=== PATIENT | male | born 1975 | race Caucasian/White ===

== ENCOUNTER 2021-03-12 21:53 | Emergency (ER) | payer MEDICARE, MEDICAID, OTHER, SELFPAY ==
[2021-03-12 21:56] VITALS: BP 145/89; PULSE 84; RESP 18; TEMP 36.4; O2SAT 95
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
[2021-03-12] MEDS: Cyclobenzaprine HCl 10 MG TABLET PO (23:47)
[2021-03-12] MEDS: NaPROXEN 500 MG TABLET PO (23:48)
== END 2021-03-12 23:58 | disposition home or self-care (01) ==
PROVIDERS: Emergency Provider Emergency Medicine Emergency Medical Services
DX: S06.0X0A Concussion without loss of consciousness, initial encounter (principal); S23.3XXA Sprain of ligaments of thoracic spine, initial encounter; M54.6 Pain in thoracic spine; G44.309 Post-traumatic headache, unspecified, not intractable; V43.62XA Car passenger injured in collision with other type car in traffic accident, initial encounter; Y93.9 Activity, unspecified; Y92.410 Unspecified street and highway as the place of occurrence of the external cause; Y99.9 Unspecified external cause status; Z79.899 Other long term (current) drug therapy
CPT/HCPCS: 99284

== ENCOUNTER 2021-11-21 00:32 | Emergency (ER) | payer MEDICARE, MEDICAID, OTHER, SELFPAY ==
[2021-11-21 01:01] VITALS: BP 107/83; PULSE 84; RESP 18; TEMP 36.6; O2SAT 95; BMI 29.2
[2021-11-21 02:44] VITALS: BP 111/79; PULSE 77; RESP 14; TEMP 36.4; O2SAT 95
--- NOTE | 2021-11-21 02:51 | ED_ITS ---
HPI - Skin/Abscess/Foreign Bdy General Chief complaint: Skin/Abscess/Foreign Body Stated complaint: R Arm Inj Time Seen by Provider: 11/21/21 02:41 Source: patient Mode of arrival: ambulatory Limitations: no limitations History of Present Illness HPI narrative: Patient comes emergency room complaining of an abscess in the bicipital area of her right arm. Patient uses heroin. Patient denies fever or chills. Patient states that the abscess started draining already. Of note, patient states that regardless of the blood work results, he will refuse admission to the hospital. Patient also refuses blood work and IV placement. States patch it up, given some antibiotics and it may go home . Related Data Previous Rx's Medication Instructions Recorded cyclobenzaprine 10 mg tablet 10 mg PO TID PRN #20 tab 03/12/21 naproxen 500 mg tablet (Naprosyn) 500 mg PO BID PRN #20 tab 03/12/21 cephalexin 500 mg capsule 500 mg PO BID 10 Days #20 cap 11/21/21 doxycycline hyclate 100 mg capsule 100 mg PO BID #20 cap 11/21/21 Allergies Allergy/AdvReac Type Severity Reaction Status Date / Time No Known Allergies Allergy Verified 11/21/21 01:01 Review of Systems Review of Systems: Constitutional : No Weight loss, No Fever, No Chills, No Night Sweats, No Fatigue, No Malaise ENT/Mouth : No Hearing loss, No Ear Pain, No Nasal Congestion, No Sinus Pain, No Hoarseness, No sore throat, No Rhinorrhea, No Swallowing Difficulty Eyes: No Eye Pain, No Swelling, No Redness, No Foreign Body, No Discharge, No Vision Changes Cardiovascular : No Chest Pain, No SOB, No Dyspnea on Exertion, No Orthopnea, No Edema, No Palpitations Respiratory : No Cough, No Sputum, No Wheezing, No Smoke Exposure, No Dyspnea Gastrointestinal : No Nausea, No Vomiting, No Diarrhea, No Constipation, No abdominal Pain, No Hematochezia, No Melena Genitourinary : no irregular bleeding, No Dysuria, No Urinary Frequency, No Hematuria, No Urinary Incontinence, No Urgency, No Flank Pain, No Urinary Flow Changes, No Hesitancy Musculoskeletal : Patient complaining of an abscess in the right bicipital area, cellulitis in both hands Skin : No Skin Lesions, No rash Neuro : No Weakness, No Numbness, No Paresthesias, No Loss of Consciousness, No Dizziness, No Headache Psych : No Anxiety/Panic, No Depression, No SI/HI/AH/VH, No Social Issues, Heme/Lymph: No Bruising, No Bleeding,No Lymphadenopathy Endocrine : No Polyuria, No Polydipsia, No Temperature Intolerance PMFSH Past Medical History Medical History (Updated 11/21/21 @ 03:03 by Danielle Betancourt MD) Chronic hip pain Heroin abuse Methadone maintenance therapy patient Surgical History Status post hip surgery Social History Social History Advance Directives: No Physical Exam Vital Signs: Vital Signs: Last Vital Signs Temp 97.6 F 11/21/21 02:44 Pulse 77 11/21/21 02:44 Resp 14 11/21/21 02:44 BP 111/79 11/21/21 02:44 Pulse Ox 95 11/21/21 02:44 BMI result Body Mass Index 29.2 Const: Other: Appearance: Alert. Oriented X3. No acute distress. Eyes: Pupils equal, round and reactive to light. ENT: Pharynx normal. Neck: Normal inspection. Neck supple. No lymph nodes noted. No crepitus CVS: Normal heart rate and rhythm. Pulses normal. Normal S1 and S2 Respiratory: No respiratory distress. Breath sounds normal. No Wheezing. No rales Abdomen: Soft and nontender. No rigidity. No distention. Skin: Skin warm and dry. Both hands on the dorsum are erythematous, multiple needle track vitale, looks like cellulitis, no abscesses. Patient has a large bulging abscess in the right bicipital area, the border of the draining abscess looks necrotic Extremities: No lower extremity edema. No Lacerations. No Rash Neuro: Oriented X 3. No motor deficit. No sensory deficit. Moving all extremities. No slurred speech. CN 2 through 12 grossly intact Psych: calm, cooperative, normal affect Course Course Course Narrative: When I took the Band-Aid off, the abscess in the patient's right biceps started draining copiously. It was expressed as much as possible. I discussed with the patient that a bigger incision may be needed as well as packing. Also, I discussed with the patient that I recommend that he needs to stay for labs, IV antibiotics , CT imaging and admission. However, patient refused all of the above including wound packing. Patient states that he only wants p.o. antibiotics and he will go home. I tried convincing the patient to stay in the emergency room. Patient declined. Patient states wants to leave as soon as possible. Patient aware that this infection can get much worse, cause severe sepsis, significant infection to the rest of the arm, and even cause the rest of the arm to become infected to a point and amputation may be needed. Patient aware, patient still wants to leav e. Patient refused the 1st dose of IV antibiotics, only once p.o. Discharge Plan Discharge Clinical Impression: Abscess of skin or subcutaneous tissue Patient Disposition: Left Against Medical Advice Instructions: Abscess (ED) Prescriptions: New cephalexin 500 mg capsule 500 mg PO BID 10 Days Qty: 20 0RF doxycycline hyclate 100 mg capsule 100 mg PO BID Qty: 20 0RF No Action naproxen [Naprosyn] 500 mg tablet 500 mg PO BID PRN (Reason: pain) Qty: 20 0RF cyclobenzaprine 10 mg tablet 10 mg PO TID PRN (Reason: muscle pain or spasm) Qty: 20 0RF
[2021-11-21] MEDS: Doxycycline Hyclate 100 MG in 0.9 % Sodium Chloride 250 ML 166.67 MG IV (03:35)
[2021-11-21] MEDS: cephALEXin 500 MG CAPSULE PO (03:35)
== END 2021-11-21 05:59 | disposition home or self-care (01) ==
PROVIDERS: Emergency Provider Emergency Medicine
DX: L02.413 Cutaneous abscess of right upper limb (principal); F19.10 Other psychoactive substance abuse, uncomplicated
CPT/HCPCS: 96365; 99283; 99284

== ENCOUNTER 2023-02-04 15:10 | Inpatient (IN) | payer MEDICARE, SELFPAY ==
--- NOTE | ~2023-02-04 | XR_ITS ---
EXAMINATION: XR tibia fibula RT 2V, XR tibia fibula LT 2V CLINICAL INFORMATION: Reason for Exam cellulitis COMPARISON: None. TECHNIQUE: Two views of the bilateral tibia and fibula FINDINGS: No acute fracture or dislocation. Moderate degenerative changes of the right knee with loss of medial compartment joint space and medial compartment osteophytes. Left knee joint spaces are maintained. Bilateral subcutaneous edema. No radiopaque foreign body or soft tissue gas. No cortical erosion, focal osteopenia or periosteal reaction to favor osteomyelitis however MRI would be more sensitive for evaluation. XR/XR tibia fibula LT 2V IMPRESSION: 1. Bilateral subcutaneous edema. No radiopaque foreign body or soft tissue gas. No cortical erosion, focal osteopenia or periosteal reaction to favor osteomyelitis however MRI would be more sensitive for evaluation. 2. Moderate degenerative changes of the right knee.
--- NOTE | ~2023-02-04 | XR_ITS ---
EXAMINATION: XR tibia fibula RT 2V, XR tibia fibula LT 2V CLINICAL INFORMATION: Reason for Exam cellulitis COMPARISON: None. TECHNIQUE: Two views of the bilateral tibia and fibula FINDINGS: No acute fracture or dislocation. Moderate degenerative changes of the right knee with loss of medial compartment joint space and medial compartment osteophytes. Left knee joint spaces are maintained. Bilateral subcutaneous edema. No radiopaque foreign body or soft tissue gas. No cortical erosion, focal osteopenia or periosteal reaction to favor osteomyelitis however MRI would be more sensitive for evaluation. XR/XR tibia fibula RT 2V IMPRESSION: 1. Bilateral subcutaneous edema. No radiopaque foreign body or soft tissue gas. No cortical erosion, focal osteopenia or periosteal reaction to favor osteomyelitis however MRI would be more sensitive for evaluation. 2. Moderate degenerative changes of the right knee.
--- NOTE | ~2023-02-04 | US_ITS ---
EXAMINATION: US VENOUS ULTRASOUND WITH DOPPLER LOWER EXTREMITY, BILATERAL CLINICAL INFORMATION: Swelling COMPARISON: None available. TECHNIQUE: Ultrasound of the deep veins is performed from the hip to the calf with compression sonography and color and pulse Doppler assessment. Spectral analysis with color-flow imaging is performed. FINDINGS: RIGHT: There is normal venous compression and respiratory variation and augmented flow. The visualized common femoral vein, superficial femoral vein, profunda femoral vein, popliteal vein, and the trifurcation region shows no evidence of deep venous thrombosis. Calf veins not well evaluated. There is no significant popliteal fossa cyst. LEFT: There is normal venous compression and respiratory variation and augmented flow. The visualized common femoral vein, superficial femoral vein, profunda femoral vein, popliteal vein, and the trifurcation region shows no evidence of deep venous thrombosis. Calf veins not well evaluated. There is no significant popliteal fossa cyst. If the patient's symptoms persist, followup ultrasound in 5 days 7 days might be of value to exclude proximal propagation from a non-visualized calf vein. US/US venous duplex LE BI IMPRESSION: No DVT demonstrated in the bilateral lower extremity. Limited evaluation of the calf veins.
[2023-02-04 15:15] VITALS: BP 156/76; PULSE 82; RESP 16; TEMP 36.3; BMI 40.6
--- NOTE | 2023-02-04 15:15 | ED.GENADULT ---
HPI - General Adult General Chief complaint: General Medical Stated complaint: Cellulitis both legs Time Seen by Provider: 02/04/23 19:42 Source: patient Mode of arrival: ambulatory Limitations: no limitations History of Present Illness HPI narrative: 47-year-old male history of hep C history of endocarditis and hypertension presents to the emergency department with bilateral lower extremity pain and swelling for the past 2 weeks he was started on antibiotics he completed 10 day course and states he has continued redness and swelling patient sent in for IV antibiotics and admission by his primary care doctor's office. Patient denies fevers chills cough is he is having difficulty ambulating. Onset (ago): week(s) Location: lower extremity Related Data Previous Rx's Medication Instructions Recorded cyclobenzaprine 10 mg tablet 10 mg PO TID PRN muscle pain or 03/12/21 spasm #20 tabs naproxen 500 mg tablet (Naprosyn) 500 mg PO BID PRN pain #20 tabs 03/12/21 cephalexin 500 mg capsule 500 mg PO BID 10 days #20 caps 11/21/21 doxycycline hyclate 100 mg capsule 100 mg PO BID #20 caps 11/21/21 Allergies Allergy/AdvReac Type Severity Reaction Status Date / Time No Known Allergies Allergy Verified 02/04/23 15:12 Review of Systems Review of Systems: Review of systems: General: Patient denies any fever chills recent illness or falls Musculoskeletal: Denies back pain or body aches or other injuries HEENT: denies headache, runny nose, ear pain Respiratory: denies shortness of breath, cough Cardiovascular: no chest pain or palpitations : denies dysuria, frequency Abdomen: no nausea vomiting denies abdominal pain Extremities: Bilateral lower extremity swelling and pain Skin: no diaphoresis Yes all other systems are reviewed and are negative [facility] Past Medical History Medical History (Updated 02/04/23 @ 20:40 by Ambrose Francis DO) Chronic hip pain Heroin abuse Methadone maintenance therapy patient Surgical History Status post hip surgery Social History Social History Advance Directives: No Advance Directives Information Provided: No Physical Exam ED Vital Signs: Vital Signs - 24 hr 02/04/23 15:15 02/04/23 20:00 Temperature 97.4 F 98.2 F Pulse Rate 82 78 Respiratory Rate 16 16 Blood Pressure 156/76 H 148/76 H Pulse Oximetry 98 Oxygen Delivery Method Room Air BMI result Body Mass Index 40.6 Neurological exam: CN II- XII tested. Patient is alert and oriented to person place and time. Patient has no dysphagia or dysarthia, denies good vision in all four [place] no nystagmus on exam, good strength to upper and lower extremities with normal reflexes to brachioradialis, wrist, patella and achilles. Negative romberg, good finger to nose and heel to kinney. General: Well-appearing well-nourished in no signs of distress HEENT: Normocephalic atraumatic Neck: No signs of JVD, no masses no tenderness or lymphadenopathy Cardiovascular: Regular rate and rhythm Respiratory: Clear to auscultation bilaterally Abdomen: Soft nontender no masses Extremities: Normal pedal pulses 1 to 2+ edema bilaterally Skin: Dry warm rash to bilateral lower extremities tightness streaking await the legs bilaterally Back: No tenderness full ROM Course Course Course Narrative: RME- 47-year-old male past medical history significant for hepatitis-C, endocarditis, hypertension presents for evaluation of bilateral lower extremity swelling. Patient reports his symptoms have been worse for last few weeks. He was diagnosed with cellulitis on 01/18 at [facility]. He was prescribed 2 antibiotics that he took for 10 days and reports no improvement of symptoms. Denies any fevers or chills. He was sent from [facility]. Plan for labs including blood cultures Reevaluation(s) Reevaluation #1: [id number] I discussed the case with hospitalist XR's are okay I will admit. Medical Decision Making Medical Decision Making [facility] Narrative: Patient has recurrent cellulitis or any failed outpatient antibiotics the patient completed and Rocephin and admit the patient to the hospital. Differential Diagnosis Differential Diagnoses: The differential diagnosis associated with the presentation includes Cellulitis with lymphangitis recurrent infection for this patient Admission/Observation Consideration of admission/observation: Escalation of care including admission/observation considered Admit the patient for IV antibiotics Lab Data [facility] Lab Attestation statement: I reviewed the patient's lab results. 02/04/23 15:59 02/04/23 15:59 Labs: Lab Results 02/04/23 02/04/23 02/04/23 Range/Units 15:59 15:59 15:59 WBC 8.6 (4.8-10.8) X10*3/uL RBC 3.77 L (4.60-5.80) X10*6/uL Hgb 11.2 L (14.0-18.0) g/dl Hct 34.8 L (42.0-52.0) % MCV 92.3 (80.0-98.0) fL MCH 29.7 (27.0-33.0) pg MCHC 32.2 (31.0-36.0) g/dl RDW 13.7 (11.0-16.0) % Plt Count 174 (160-400) X10*3/uL MPV 10.5 (9.4-12.4) fL Immature Gran % (Auto) 0.8 H (0.0-0.4) % Neut % (Auto) 69.2 (45-73) % Lymph % (Auto) 19.4 L (20-40) % [place] % (Auto) 8.2 (2-11) % Eos % (Auto) 2.2 (0-4) % Baso % (Auto) 0.2 (0-2) % Lymph # (Auto) 1.7 (1.2-4.9) X10*3/uL [place] # (Auto) 0.7 (0.1-1.2) X10*3/uL Eos # (Auto) 0.2 (0.0-0.4) X10*3/uL Baso # (Auto) 0.0 (0.0-0.2) X10*3/uL Abs Immat Gran (auto) 0.07 H (0.00-0.03) X10*3/uL Absolute Neuts (auto) 6.0 (2.0-8.3) x10*3/uL Absolute Nucleated RBC 0.020 H (0.0-0.012) X10*3/uL Nucleated RBC % (auto) 0.2 (0.0-0.2) /100WBC Sodium 141 (135-145) mmol/L Potassium 4.5 (3.3-5.1) mmol/L Chloride 105 (96-108) mmol/L Carbon Dioxide 28 (22-29) mmol/L Anion Gap 13 (12-20) BUN 14 (9-16) mg/dL Creatinine 1.03 (0.5-1.4) mg/dL Estim Creat Clear Calc 96.3 Estimated GFR > 60 Random Glucose 99 (60-115) mg/dL Lactic Acid 1.2 (0.5-2.0) mmol/L Calcium 9.3 (8.4-10.2) mg/dL Total Bilirubin 0.6 (0.0-1.0) mg/dL AST 16 (5-37) U/L ALT 13 (0-40) U/L Alkaline Phosphatase 88 (39-117) U/L Total Protein 7.7 (6.5-8.0) g/dL Albumin 3.7 (3.5-5.0) g/dL Lipase 25 (8-78) U/L Radiology Impression Discussion of test interpretation with radiology: I have reviewed the radiologist's reading. Discharge Plan Discharge Clinical Impression: Bilateral cellulitis of lower leg Patient Disposition: Admitted As Inpatient Prescriptions: No Action naproxen [Naprosyn] 500 mg tablet 500 mg PO BID PRN (Reason: pain) Qty: 20 0RF cyclobenzaprine 10 mg tablet 10 mg PO TID PRN (Reason: muscle pain or spasm) Qty: 20 0RF cephalexin 500 mg capsule 500 mg PO BID 10 Days Qty: 20 0RF doxycycline hyclate 100 mg capsule 100 mg PO BID Qty: 20 0RF
[2023-02-04 16:08] LABS: MANUAL DIFF FLAG NO
[2023-02-04 16:14] LABS: Basophils Percent Auto 0.2 % (0-2); Eosinophils Absolute Auto 0.2 X10*3/uL (0.0-0.4); Eosinophils Percent Auto 2.2 % (0-4); Hematocrit 34.8 % (42.0-52.0); Hemoglobin 11.2 g/dl (14.0-18.0); Imm Gran Abs Auto 0.07 X10*3/uL (0.00-0.03); Imm Gran Pct Auto 0.8 % (0.0-0.4); Lymphocytes Absolute Auto 1.7 X10*3/uL (1.2-4.9); Lymphocytes Percent Auto 19.4 % (20-40); Mean Corpuscular HGB Conc 32.2 g/dl (31.0-36.0); Mean Corpuscular Hemoglobin 29.7 pg (27.0-33.0); Mean Corpuscular Volume 92.3 fL (80.0-98.0); Mean Platelet Volume 10.5 fL (9.4-12.4); Monocytes Absolute Auto 0.7 X10*3/uL (0.1-1.2); Monocytes Percent Auto 8.2 % (2-11); NRBC Pct Auto 0.2 /100WBC (0.0-0.2); Neutrophils Percent Auto 69.2 % (45-73); Platelet Count 174 X10*3/uL (160-400); Red Blood Count 3.77 X10*6/uL (4.60-5.80); Red Cell Distribution Width 13.7 % (11.0-16.0); White Blood Count 8.6 X10*3/uL (4.8-10.8)
[2023-02-04 16:24] LABS: Lactic Acid 1.2 mmol/L (0.5-2.0)
[2023-02-04 16:28] LABS: Alanine Aminotransferase 13 U/L (0-40); Albumin Level 3.7 g/dL (3.5-5.0); Alkaline Phosphatase 88 U/L (39-117); Anion Gap 13 (12-20); Aspartate Amino Transferase 16 U/L (5-37); Bilirubin Total 0.6 mg/dL (0.0-1.0); Blood Urea Nitrogen 14 mg/dL (9-16); Calcium 9.3 mg/dL (8.4-10.2); Carbon Dioxide 28 mmol/L (22-29); Chloride 105 mmol/L (96-108); Creatinine Clr Calc Pharmacy 96.3; Estimated Glomerular Filt Rate > 60; Glucose Random 99 mg/dL (60-115); Lipase 25 U/L (8-78); Potassium 4.5 mmol/L (3.3-5.1); Sodium 141 mmol/L (135-145); Total Protein 7.7 g/dL (6.5-8.0)
[2023-02-04 20:00] VITALS: BP 148/76; PULSE 78; RESP 16; TEMP 36.8; O2SAT 98
[2023-02-04] MEDS: cefTRIAXone sodium 1 GM in 0.9 % Sodium Chloride 50 ML IV (21:21)
--- NOTE | 2023-02-04 21:21 | P.HPHOSP_ITS ---
History of Present Illness Date of Service: 02/04/23 Chief Complaint: Cellulitis This is a 47-year-old male with pertinent history of opioid use disorder on methadone, essential hypertension, mood disorder who presents to the emergency department for evaluation of lower extremity cellulitis. Patient states that a bout 2 weeks ago, he noticed redness of his bilateral lower extremities. He was having associated tenderness to touch and warmth. patient's left leg seemed worse than his right leg. lower extremities were associated with purulent drainage. Patient took p.o. Keflex and doxycycline but his extremities continued to get worse. He does have a history of IV drug use but states that his last IV drug use was 10 months ago. Does have history of cellulitis. He denies fever, chills, chest discomfort, palpitations, shortness of breath, abdominal pain, changes in urinary bowel habits. Review of Systems Constitutional: Constitutional: Reports no additional constitutional complaints Cardiovascular: Cardiovascular: Reports no additional cardiovascular complaints Respiratory: Respiratory: Reports no additional respiratory complaints Gastrointestinal: Gastrointestinal: Reports no additional gastrointestinal complaints Genitourinary: Genitourinary: Reports no additional male genitourinary complaints [facility] Medical History Chronic hip pain Heroin abuse Methadone maintenance therapy patient Pertinent family history: No family history of early CAD Surgical History Status post hip surgery Social History Advance Directives: No Advance Directives Information Provided: No Meds Allergies Allergy/AdvReac Type Severity Reaction Status Date / Time No Known Allergies Allergy Verified 02/04/23 15:12 Active Medications: Current Medications Ceftriaxone Sodium 1 gm/ (Sodium Chloride) 50 mls @ 100 mls/hr IV ONCE ONE Stop: 02/04/23 21:39 Vancomycin HCl (Vancomycin/Ns) 2,000 mg in 500 mls @ 250 mls/hr IV ONCE ONE Stop: 02/04/23 23:29 Pharmacy Consult (Consult Rx Vancomycin Dosing) 1 each MISCELLANE DAILY PRN PRN Reason: Consult order Pharmacy Consult (Consult Rx Perform Med Rec) 1 each MISCELLANE ONCE PRN PRN Reason: Consult order Physical Exam Vital Signs and Narrative: Vital Signs: Last Vital Signs Temp 98.2 F 02/04/23 20:00 Pulse 78 02/04/23 20:00 Resp 16 02/04/23 20:00 BP 148/76 H 02/04/23 20:00 Pulse Ox 98 02/04/23 20:00 O2 Del Method Room Air 02/04/23 20:00 BMI result Body Mass Index 40.6 Middle-aged male lying in bed in no distress Neck supple, no JVD Regular rate and rhythm, S1-S2 heard Regular breath sounds bilaterally, no wheezing or crackles appreciated Abdomen soft nontender, no guarding, no rigidity Patient is awake, alert and oriented to self, place, time and person ; no focal motor deficit skin: Bilateral lower extremity with erythema, warmth and tenderness. Psych: Normal mood Results Labs 02/04/23 15:59 02/04/23 15:59 Labs: Laboratory Results - last 24 hr 02/04/23 02/04/23 02/04/23 15:59 15:59 15:59 MCV 92.3 MCH 29.7 MCHC 32.2 RDW 13.7 Plt Count 174 MPV 10.5 Immature Gran % (Auto) 0.8 H Neut % (Auto) 69.2 Lymph % (Auto) 19.4 L [place] % (Auto) 8.2 Eos % (Auto) 2.2 Baso % (Auto) 0.2 Lymph # (Auto) 1.7 [place] # (Auto) 0.7 Eos # (Auto) 0.2 Baso # (Auto) 0.0 Abs Immat Gran (auto) 0.07 H Absolute Neuts (auto) 6.0 Absolute Nucleated RBC 0.020 H Nucleated RBC % (auto) 0.2 Anion Gap 13 Estim Creat Clear Calc 96.3 Estimated GFR > 60 Random Glucose 99 Lactic Acid 1.2 Calcium 9.3 Total Bilirubin 0.6 AST 16 ALT 13 Alkaline Phosphatase 88 Total Protein 7.7 Albumin 3.7 Lipase 25 Assessment and Plan (1) Bilateral cellulitis of lower leg: Status: Acute Plan This is a 47-year-old male with pertinent history of opioid use disorder on methadone, essential hypertension, mood disorder who presents to the emergency department for evaluation of lower extremity cellulitis. #. Bilateral lower extremity ( left > right) purulent cellulitis. Will admit patient as failed p.o. antibiotics. Initiating empiric IV vancomycin. Monitor for improvement. no sepsis. Bilateral lower extremity x-ray pending. Also ordered venous duplex ultrasound #. Mood disorder. Continue home mood stabilizers #. essential hypertension. Continue home antihypertensives #. opioid use disorder on methadone med rec pending DVT prophylaxis: Lovenox Full code Cardiac diet Admit as inpatient and will require two night minimum hospital stay for IV antibiotics Time Spent With Patient Time: Total time managing care of this patient today ____ minutes. Quality Stroke Does the patient have a stroke diagnosis?: No VTE Prior VTE?: No VTE Risk Level:: Medical - moderate - high VTE Device Contraindication: Treatment Not Indicated VTE Drug Contraindication: N/A - Med Ordered
[2023-02-04 21:24] VITALS: BP 130/77; PULSE 79; RESP 18; TEMP 36.6; O2SAT 98
--- NOTE | 2023-02-04 21:25 | MHC.EDTECH ---
PT VITALS SIGN TAKEN PT WAS GIVEN HAM SANDWICH AND BING ALLIE FOR SNACK ,WARM BLANKET GIVEN .
--- NOTE | 2023-02-04 21:43 | PHA.MEDREC ---
Med rec complete, spoke with patient and compared with pharmacy history. Will need to verify methadone dose with clinic, also pharmacy will attempt to clarify olmesartan dose in AM with pharmacy, patient was on long ago, and was recently restarted, dose unknown. Pharmacy Consult ? Medication Reconciliation Pharmacy has completed the medication reconciliation.
--- NOTE | 2023-02-04 22:01 | MHC.CM.PN ---
IMM 02/04. Lives at [facility] in [place]. Clean x10 months. Methadone maintenance 135 mg/day from [facility]. Had dose today. RN Rebel aware of daily dosage and facility. HX IVDA. A&Ox4. Uses a cane. No services. PCP [facility] DIRECTOR AMBULATORY/ Dr. Aquino.Declines HCP at this time. No Covid Vax. D/C plan: Home without services. Family will transport home. CM following for discharge planning.
[2023-02-04] MEDS: Enoxaparin Sodium 40 MG/0.4 ML SYRINGE SUBCUT (22:34)
[2023-02-04] MEDS: vancomycin/NS 2,000 MG/500 ML PLAST..BAG 250 MG IV (22:35)
--- NOTE | 2023-02-04 22:35 | PC.NURSE ---
pt medicated per Oct, delayed due to pt in u/s.
--- NOTE | 2023-02-04 22:40 | PHA.PROG ---
Admission Date/Time: 02/04/23 Indication: skin Weight in k.4 kg Adjusted body weight in K.48 [place] body weight in K.2 Obesity Dosing Indication % IBW: OBESE! Serum Creatinine - Last 168 Hours 02/04/23 15:59 Creatinine 1.03 Estimated CrCl and GFR - Last 168 Hours 02/04/23 15:59 Estim Creat Clear Calc 96.3 Estimated GFR > 60 Vancomycin Loading Dose: 2000 mg x 1 Current Vancomycin Dosing Regimen: 1000 mg Q12H Vancomycin Monitoring using AUC goal of 400 - 600 range with trough as surrogate marker: 552 mg/L/hr Date and Time for next Vancomycin Level to be drawn: 02/06 @0900 Pharmacist Comments on Vancomycin Plan: Used obese model and used modified model, both suggested to do 1 g Q12H. Will monitor renal function daily. Level after three doses to ensure safety vs efficacy Vancomycin dosing will take advantage of [employer] as a clinical decision support tool that uses Bayesian modeling to calculate individual patient's pharmacokinetic parameters and forecast the patient's drug concentration time course with the target goal AUC 24 range of 400 - 600 mg/L/hr.
[2023-02-04] MEDS: Acetaminophen 325 MG TABLET 650 MG PO (22:42)
--- NOTE | 2023-02-04 22:44 | PC.NURSE ---
pt medicated per MAR for 7/10 BLE pain.
--- NOTE | 2023-02-04 23:09 | PC.NURSE ---
Took over care from IDANIA Luque, pt resting at this time, no sign of distress. Will continue to monitor.
[2023-02-04 23:39] VITALS: BP 117/50; PULSE 75; RESP 16; TEMP 36.5; O2SAT 97
--- NOTE | 2023-02-04 23:39 | MHC.EDTECH ---
rounding done ,vitals sign taken ,pt had 2 puddings and orange juice for snack .
[2023-02-05] VITALS (7 sets, daily range): BP systolic 123–191; BP diastolic 67–95; PULSE 65–79; RESP 16–18; TEMP 36–36.9; O2SAT 94–978
[2023-02-05] MEDS: Albuterol/Iprat 2.5/0.5MG 3 ML AMPUL.NEB INHALE ×2 (00:23→06:42)
--- NOTE | 2023-02-05 01:56 | PC.NURSE ---
Pt arrived from ED at 01:02. BP elevated. Rechecked after patient settled down and was much better. Pt A&OX4, pleasant and cooperative. BLE's red, warm and swollen. IV Vanco infusing. Medicated for pain around 22:45 with relief.
[2023-02-05] MEDS: 0.9 % Sodium Chloride Flush 3 ML SYRINGE IVFLUSH ×4 (03:13→19:52)
--- NOTE | 2023-02-05 05:38 | PC.NURSE ---
Pt awake all night. Recliner brought in for patient comfort. Pt now in bed with HOB elevated. No pain at present time.
[2023-02-05 05:52] LABS: MANUAL DIFF FLAG NO
[2023-02-05 05:54] LABS: Basophils Percent Auto 0.3 % (0-2); Eosinophils Absolute Auto 0.2 X10*3/uL (0.0-0.4); Eosinophils Percent Auto 2.7 % (0-4); Hematocrit 35.1 % (42.0-52.0); Hemoglobin 11.4 g/dl (14.0-18.0); Imm Gran Abs Auto 0.08 X10*3/uL (0.00-0.03); Imm Gran Pct Auto 1.1 % (0.0-0.4); Lymphocytes Absolute Auto 1.6 X10*3/uL (1.2-4.9); Lymphocytes Percent Auto 22.4 % (20-40); Mean Corpuscular HGB Conc 32.5 g/dl (31.0-36.0); Mean Corpuscular Hemoglobin 30.1 pg (27.0-33.0); Mean Corpuscular Volume 92.6 fL (80.0-98.0); Mean Platelet Volume 10.2 fL (9.4-12.4); Monocytes Absolute Auto 0.7 X10*3/uL (0.1-1.2); Monocytes Percent Auto 10.4 % (2-11); Neutrophils Absolute Auto 4.5 x10*3/uL (2.0-8.3); Neutrophils Percent Auto 63.1 % (45-73); Platelet Count 164 X10*3/uL (160-400); Red Blood Count 3.79 X10*6/uL (4.60-5.80); Red Cell Distribution Width 13.9 % (11.0-16.0); White Blood Count 7.1 X10*3/uL (4.8-10.8)
[2023-02-05 06:08] LABS: Anion Gap 13 (12-20); Blood Urea Nitrogen 14 mg/dL (9-16); Calcium 9.2 mg/dL (8.4-10.2); Carbon Dioxide 27 mmol/L (22-29); Chloride 104 mmol/L (96-108); Creatinine Clr Calc Pharmacy 104.4; Creatinine Clr Calc Pharmacy 106.6; Estimated Glomerular Filt Rate > 60; Glucose Random 94 mg/dL (60-115); Potassium 4.2 mmol/L (3.3-5.1); Sodium 140 mmol/L (135-145)
[2023-02-05] MEDS: Divalproex Sodium 500 MG TABLET.DR PO (08:30)
[2023-02-05] MEDS: ARIPiprazole 5 MG TABLET PO (08:30)
[2023-02-05] MEDS: Nicotine 14 MG PATCH.TD24 TRANSDERMA (08:30)
--- NOTE | 2023-02-05 08:58 | P.PNIM_ITS ---
Subjective Subjective Date of Service: 02/05/23 Interval History: f/u on cellulitis of both legs, failed outpatient therapy] interval history: redness is better, feels very anxious Physical Exam Vital Signs: Vital Signs: Last Vital Signs Temp 98.4 F 02/05/23 06:43 Pulse 79 02/05/23 06:43 Resp 18 02/05/23 06:43 BP 146/95 H 02/05/23 06:43 Pulse Ox 98 02/05/23 06:43 O2 Del Method Room Air 02/05/23 06:43 BMI result Body Mass Index 40.6 Const: Other: General: AO X 3, no acute distress Resp: CTA bilateral CVS: S1,S2,RRR GI: +BS, NT , no distention Skin: Neuro: motor grossly intact Psych: appropriate affect Objective Data Active Medications Acetaminophen (Acetaminophen 325 Mg Tablet) 650 mg PO Q6H PRN PRN Reason: Pain, Mild (Pain Scale 1-3) Last Admin: 02/04/23 22:42 Dose: 650 mg Documented By: LIAN Albuterol Sulfate (Albuterol Sulfate 90 Mcg 8 Gm Inhaler) 2 puff INHALE Q6H PRN PRN Reason: wheezing Albuterol/Ipratropium (Albuterol/Iprat 2.5/0.5mg 3 Ml Ampul.Neb) 3 ml INHALE Q4H PRN PRN Reason: Wheezing Last Admin: 02/05/23 06:42 Dose: 3 ml Documented By: ORXY Aripiprazole (Aripiprazole 5 Mg Tablet) 5 mg PO DAILY [facility] Last Admin: 02/05/23 08:30 Dose: 5 mg Documented By: VIRGILIO Divalproex Sodium (Divalproex Sodium 500 Mg Tablet.) 500 mg PO DAILY [facility] Last Admin: 02/05/23 08:30 Dose: 500 mg Documented By: VIRGILIO Enoxaparin Sodium (Enoxaparin Sodium 40 Mg/0.4 Ml Syringe) 40 mg SUBCUT Q24H [facility] Last Admin: 02/04/23 22:34 Dose: 40 mg Documented By: LIAN Vancomycin HCl 1,000 mg/ (Sodium Chloride) 270 mls @ 270 mls/hr IV Q12H [facility] Lorazepam (Lorazepam 1 Mg Tablet) 1 mg PO Q6H PRN PRN Reason: Anxiety Melatonin (Melatonin 3 Mg Tablet) 6 mg PO BEDTIME PRN PRN Reason: Insomnia Non-Formulary Medication (Sofosbuvir-Velpatasvir) 1 tab PO DAILY [facility] Ondansetron HCl (Ondansetron Hcl 4 Mg/2 Ml Vial) 4 mg IVPUSH Q8H PRN PRN Reason: Nausea and Vomiting Pharmacy Consult (Consult Rx Perform Med Rec) 1 each MISCELLANE ONCE PRN PRN Reason: Consult order Pharmacy Consult (Consult Rx Vancomycin Dosing) 1 each MISCELLANE DAILY PRN PRN Reason: Consult order Sodium Chloride (0.9 % Sodium Chloride Flush 3 Ml Syringe) 3 ml IVFLUSH QSHIFT [facility] Last Admin: 02/05/23 08:30 Dose: 3 ml Documented By: VIRGILIO Labs 02/05/23 05:44 02/05/23 05:44 Labs: Laboratory Results - last 24 hr 02/04/23 02/04/23 02/04/23 15:59 15:59 15:59 MCV 92.3 MCH 29.7 MCHC 32.2 RDW 13.7 Plt Count 174 MPV 10.5 Immature Gran % (Auto) 0.8 H Neut % (Auto) 69.2 Lymph % (Auto) 19.4 L [place] % (Auto) 8.2 Eos % (Auto) 2.2 Baso % (Auto) 0.2 Lymph # (Auto) 1.7 [place] # (Auto) 0.7 Eos # (Auto) 0.2 Baso # (Auto) 0.0 Abs Immat Gran (auto) 0.07 H Absolute Neuts (auto) 6.0 Absolute Nucleated RBC 0.020 H Nucleated RBC % (auto) 0.2 Anion Gap 13 Estim Creat Clear Calc 96.3 Estimated GFR > 60 Random Glucose 99 Lactic Acid 1.2 Calcium 9.3 Total Bilirubin 0.6 AST 16 ALT 13 Alkaline Phosphatase 88 Total Protein 7.7 Albumin 3.7 Lipase 25 02/05/23 02/05/23 02/05/23 05:44 05:44 05:44 MCV 92.6 MCH 30.1 MCHC 32.5 RDW 13.9 Plt Count 164 MPV 10.2 Immature Gran % (Auto) 1.1 H Neut % (Auto) 63.1 Lymph % (Auto) 22.4 [place] % (Auto) 10.4 Eos % (Auto) 2.7 Baso % (Auto) 0.3 Lymph # (Auto) 1.6 [place] # (Auto) 0.7 Eos # (Auto) 0.2 Baso # (Auto) 0.0 Abs Immat Gran (auto) 0.08 H Absolute Neuts (auto) 4.5 Absolute Nucleated RBC 0.000 Nucleated RBC % (auto) 0.0 Anion Gap 13 Estim Creat Clear Calc 104.4 106.6 Estimated GFR > 60 > 60 Random Glucose 94 Lactic Acid Calcium 9.2 Total Bilirubin AST ALT Alkaline Phosphatase Total Protein Albumin Lipase Assessment and Plan (1) Bilateral cellulitis of lower leg: Status: Acute (2) Heroin abuse: Status: Acute Plan This is a 47-year-old male with pertinent history of opioid use disorder on methadone, essential hypertension, mood disorder who presents to the emergency department for evaluation of lower extremity cellulitis. #. Bilateral lower extremity ( left > right) purulent cellulitis, failed p.o. antibiotics. xray no bony involvement, no DVT -Continue IV vancomycin started 02/04 , I think there is signficant underlying venous stais causing the erythema and swelling #. Mood disorder. Continue home mood stabilizers #. essential hypertension. Continue home antihypertensives #. opioid use disorder onmethadone, addiction med consult #. Anxiety, ativan PRN DVT prophylaxis: Lovenox Full code Cardiac diet Intp for IV Abx for cellulitis that did not respond to oral Abx Time Spent With Patient Time: Total time managing care of this patient today ____ minutes. Quality Stroke Does the patient have a stroke diagnosis?: No VTE Prior VTE?: No VTE Risk Level:: Medical - moderate - high VTE Device Contraindication: Treatment Not Indicated VTE Drug Contraindication: N/A - Med Ordered
[2023-02-05] MEDS: cloNIDine HCL 0.1 MG TABLET PO (10:36)
[2023-02-05] MEDS: Furosemide 40 MG TABLET PO (10:36)
--- NOTE | 2023-02-05 10:42 | MHC.EDTECH ---
freshened up patients room and bed, patient is independent and cleaned up himself. staff freshened the linen.
[2023-02-05] MEDS: vancomycin HCL 1,000 MG in 0.9 % Sodium Chloride 250 ML 270 MG IV ×2 (11:50→23:14)
[2023-02-05] MEDS: Enoxaparin Sodium 40 MG/0.4 ML SYRINGE SUBCUT (20:45)
[2023-02-06 03:39] VITALS: BP 167/87; PULSE 71; RESP 18; TEMP 36.7; O2SAT 96
[2023-02-06 07:18] LABS: Estimated Glomerular Filt Rate > 60
[2023-02-06 07:41] VITALS: BP 133/73; PULSE 67; RESP 18; TEMP 36; O2SAT 93
--- NOTE | 2023-02-06 08:27 | PM.DS ---
DS: Providers Provider Date of Service: 02/06/23 Date of admission: 02/04/23 21:19 Primary care physician: [facility] DS: Diagnosis Discharge Diagnosis (1) Bilateral cellulitis of lower leg: Status: Acute (2) Heroin abuse: Status: Acute DS: Summary Hospital Course Hospital Course: Chief Complaint: Cellulitis This is a 47-year-old male with pertinent history of opioid use disorder on methadone, essential hypertension, mood disorder who presents to the emergency department for evaluation of lower extremity cellulitis.? Patient states that about 2 weeks ago, he noticed redness of his bilateral lower extremities.? He was having associated tenderness to touch and warmth.? patient's left leg seemed worse than his right leg.? lower extremities were associated with purulent drainage.? Patient took p.o. Keflex and doxycycline but his extremities continued to get worse.? He does have a history of IV drug use but states that his last IV drug use was 10 months ago.? Does have history of cellulitis.? He denies fever, chills, chest discomfort, palpitations, shortness of breath, abdominal pain, changes in urinary bowel habits. Hospital course: Patient presented with bilateral leg swelling and some redness and had been treated for cellulitis on outpatient basis with Keflex he had no fever, normal WBCs the appearance of his liquid more consistent with mostly chronic venous insufficiency with the possibility of cellulitis not excluded. He was admitted and treated with IV vancomycin for over 24 hours and will not be transitioned to oral doxycycline for 7 days. I am advising that he follow-up with the vascular surgeon or a vein specialist on outpatient basis a referral to be made by his primary care physician. He is continued on methadone for chronic opiate dependency. Time Spent with Patient Time attestation: Total time managing care of this patient today ____ minutes. Discharge coordination time: Greater than 30 minutes Quality: Safe Use of Opioids Does Pt have an Active Cancer Diagnosis on the Problem List?: No Quality: Stroke Does the patient have a stroke diagnosis?: No Physical Exam Vital Signs: Vital Signs: Last Vital Signs Temp 96.8 F 02/06/23 07:41 Pulse 67 02/06/23 07:41 Resp 18 02/06/23 07:41 BP 133/73 02/06/23 07:41 Pulse Ox 93 02/06/23 07:41 O2 Del Method Room Air 02/06/23 07:41 BMI result Body Mass Index 40.6 DS: Data Data Completed and Pending Labs on day of discharge: Laboratory Results - last 24 hr 02/06/23 05:55 Creatinine 0.87 Estim Creat Clear Calc 114.0 Estimated GFR > 60 Preliminary micro results at discharge 02/04/23 15:59 Blood Culture - Preliminary Blood - Venous No growth after 24 hours. 02/04/23 15:59 Blood Culture - Preliminary Blood - Venous No growth after 24 hours. Discharge Plan Discharge Anticipated Discharge Date/Time: 02/06/23 08:28 Patient Disposition: Home, Self-Care Discharge Diagnosis: Cellulitis, chronic venous insufficiency of the legs Referrals: [place] [Primary Care Provider] - 1 Week Discharge Medications: Continued naproxen [Naprosyn] 500 mg tablet 500 mg PO BID PRN (Reason: pain) Qty: 20 0RF methadone [Methadone Intensol] 10 mg/mL Concentrate 135 mg PO DAILY gabapentin 300 mg Capsule 300 - 600 mg PO TID PRN (Reason: Pain) albuterol sulfate 90 mcg/actuation HFA aerosol inhaler 2 puff INHALATION Q6H PRN (Reason: wheezing) divalproex [Depakote] 500 mg Tablet,Delayed Release (Dr/Ec) 500 mg PO BID olmesartan 5 mg Tablet 10 mg PO DAILY aripiprazole 5 mg Tablet 5 mg PO DAILY sofosbuvir-velpatasvir 400-100 mg tablet 1 tab PO DAILY No Action docusate sodium 100 mg Capsule 100 mg PO DAILY PRN (Reason: Constipation) Qty: 60 0RF furosemide 20 mg Tablet 20 mg PO DAILY Qty: 60 0RF Protocol: Hold for SBP< HOLD for SBP < : 90 Rx Instructions: D/c after epclusa tx completed doxycycline monohydrate 100 mg capsule 100 mg PO BID Qty: 90 0RF Rx Instructions: Take 1 tab every 12 hours WITH FOOD AND FULL GLASS OF WATER daily until epclusa completed penicillin V potassium 250 mg tablet 250 mg PO BID Qty: 90 0RF Rx Instructions: Start taking in 2 weeks (03/03) and continue until epclusa completed Discharge Orders: Discharge Order (Routine); Ordered 02/06/23 Ordered By: [facility] Diet: Advance to usual diet Activity on Discharge: As tolerated Stand Alone Forms: Patient Portal Discharge page Care Plan Goals: Full recovery from cellulitis Health Concerns: Cellulitis Chronic venous insufficiency of the legs Plan of Treatment: Take doxycycline as recommended and follow up with your primary care doctor within a week, call for appointment osteo primary doctor to refer you to a vascular surgeon or a vein specialist Assessment: See Discharge Date/Time: 02/06/23 10:30
[2023-02-06] MEDS: Divalproex Sodium 500 MG TABLET.DR PO (08:30)
[2023-02-06] MEDS: ARIPiprazole 5 MG TABLET PO (08:30)
[2023-02-06] MEDS: 0.9 % Sodium Chloride Flush 3 ML SYRINGE IVFLUSH (08:31)
--- NOTE | 2023-02-06 08:48 | MHC.CM.PN ---
pt dcd without skilled servceis
--- NOTE | 2023-02-06 09:17 | MHC.CM.PN ---
pt dcd home no skilled servceisordered by
--- NOTE | 2023-02-11 14:44 | PC.NURSE ---
addendum to ativan: 1mg ativan scanned and administered to the patient on 02/05/23. scanned medication was not saved, therefore unable to be seen as given in MAR.
== END 2023-02-06 10:30 | disposition home or self-care (01) | DRG 603 ==
LOC: HO.ED 20:40 → HO.EDOVER 23:58 → HO.S3 02-05 10:44
PROVIDERS: Physician Assistant; Admitting Provider Student in an Organized Health Care Education/Training Program; Emergency Provider Student in an Organized Health Care Education/Training Program; Visit Provider Internal Medicine
DX: L03.115 Cellulitis of right lower limb (principal); F11.20 Opioid dependence, uncomplicated; F39 Unspecified mood [affective] disorder; I87.2 Venous insufficiency (chronic) (peripheral); I10 Essential (primary) hypertension; L03.116 Cellulitis of left lower limb; F17.210 Nicotine dependence, cigarettes, uncomplicated; Z71.6 Tobacco abuse counseling; Z86.19 Personal history of other infectious and parasitic diseases; Z79.899 Other long term (current) drug therapy
CPT/HCPCS: 36415; 73590; 80048; 80053; 82565; 83605; 83690; 85025; 87040; 93970; 94640; 99221; 99285; J0696; J1650; J3370

== ENCOUNTER 2023-02-11 07:27 | Outpatient (REF) | payer MEDICARE, SELFPAY ==
--- NOTE | ~2023-02-11 | XR_ITS ---
EXAMINATION: XR PELVIS CLINICAL INFORMATION: Hip pain. COMPARISON: No prior plain film of the pelvis. CT scan of the abdomen and pelvis dated April 05, 2018. TECHNIQUE: AP view of the pelvis. 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 There is associated severe osteoarthritis of the left hip joint, with severe joint space narrowing, sclerosis, subchondral cyst formation, and osteophyte formation. These findings appear new compared with March 2018. Right hip appears unremarkable. Extensive prostatic calcifications.
== END 2023-02-11 07:28 | disposition home or self-care (01) ==
LOC: HO.HOSX 07:27
PROVIDERS: Visit Provider Orthopaedic Surgery
DX: M16.12 Unilateral primary osteoarthritis, left hip (principal)
CPT/HCPCS: 72170; 99202

== ENCOUNTER 2023-02-13 17:29 | Inpatient (IN) | payer MEDICARE, SELFPAY ==
--- NOTE | ~2023-02-13 | US_ITS ---
EXAMINATION: US ABDOMEN LIMITED CLINICAL INFORMATION: Hepatitis. COMPARISON: CT abdomen and pelvis without contrast dated 04/05/2018. TECHNIQUE: Real-time imaging of the right upper quadrant abdominal viscera. FINDINGS: PANCREAS: Not well visualized due to bowel gas LIVER: Echogenic liver suggestive of fatty infiltration without focal fatty sparing. The liver is normal in size. The liver contour is normal. No suspicious focal hepatic lesion. There is no intrahepatic biliary duct dilatation seen. GALLBLADDER: Normal. The gallbladder is physiologically distended without evidence of stones, sludge, polyps, wall thickening or pericholecystic fluid. COMMON BILE DUCT: Normal in caliber measuring 0.3 cm in diameter. RIGHT KIDNEY: Normal. No hydronephrosis. No renal calculi or focal parenchymal lesions. The kidney measures 10.5 cm in maximum dimension. FREE FLUID: None. US/US abdomen limited IMPRESSION: Fatty liver. Nonvisualization of the pancreas.
--- NOTE | ~2023-02-13 | US_ITS ---
EXAMINATION: US VENOUS ULTRASOUND WITH DOPPLER LOWER EXTREMITY, BILATERAL CLINICAL INFORMATION: Edema. COMPARISON: 02/04/2023. TECHNIQUE: Ultrasound of the deep veins is performed from the hip to the calf with compression sonography and color and pulse Doppler assessment. Spectral analysis with color-flow imaging is performed. FINDINGS: RIGHT: There is normal venous compression and respiratory variation and augmented flow. The visualized common femoral vein, superficial femoral vein, profunda femoral vein, popliteal vein, and the trifurcation region shows no evidence of deep venous thrombosis. There is no significant popliteal fossa cyst. LEFT: There is normal venous compression and respiratory variation and augmented flow. The visualized common femoral vein, superficial femoral vein, profunda femoral vein, popliteal vein, and the trifurcation region shows no evidence of deep venous thrombosis. There is no significant popliteal fossa cyst. If the patient's symptoms persist, followup ultrasound in 5 days 7 days might be of value to exclude proximal propagation from a non-visualized calf vein. US/US venous duplex LE BI IMPRESSION: No DVT demonstrated in the bilateral lower extremity with the caveat that some segments of the calf veins were not visualized due to overlying subcutaneous swelling. A follow-up ultrasound in 5-7 days could be obtained as clinically indicated.
[2023-02-13 17:32] VITALS: BP 154/82; PULSE 82; RESP 18; TEMP 36.8; O2SAT 94; BMI 40.8
--- NOTE | 2023-02-13 17:33 | ED.GENADULT ---
HPI - General Adult General Chief complaint: General Medical Stated complaint: cellulitis Time Seen by Provider: 02/13/23 18:20 Source: patient Mode of arrival: ambulatory Limitations: no limitations History of Present Illness HPI narrative: Patient comes to the emergency room complaining of worsening bilateral lower extremity cellulitis. Patient was discharged from the hospital on 02/06/2023. Patient states that initially his legs started looking better. But 2-3 days after being discharged, his leg started becoming erythematous, swollen, very painful. Patient denies fever chills. Patient denies IVDU Related Data Home Medications Medication Instructions Recorded Confirmed albuterol sulfate 90 mcg/actuation 2 puff inhalation Q6H PRN wheezing 02/04/23 02/04/23 aerosol inhaler aripiprazole 5 mg tablet 5 mg PO DAILY 02/04/23 02/04/23 divalproex 500 mg tablet,delayed 500 mg PO DAILY 02/04/23 02/04/23 release (Depakote) gabapentin 300 mg capsule 300 - 600 mg PO TID PRN Pain 02/04/23 02/04/23 methadone 10 mg/mL oral 135 mg PO DAILY 02/04/23 concentrate (Methadone Intensol) olmesartan 5 mg tablet 10 mg PO DAILY 02/04/23 02/05/23 sofosbuvir 400 mg-velpatasvir 100 1 tab PO QAM 02/04/23 02/04/23 mg tablet Previous Rx's Medication Instructions Recorded naproxen 500 mg tablet (Naprosyn) 500 mg PO BID PRN pain #20 tabs 03/12/21 doxycycline hyclate 100 mg tablet 100 mg PO BID 7 days #14 tabs 02/06/23 Allergies Allergy/AdvReac Type Severity Reaction Status Date / Time No Known Allergies Allergy Verified 02/13/23 17:30 Review of Systems Review of Systems: Constitutional : No Weight loss, No Fever, No Chills, No Night Sweats, No Fatigue, No Malaise ENT/Mouth : No Hearing loss, No Ear Pain, No Nasal Congestion, No Sinus Pain, No Hoarseness, No sore throat, No Rhinorrhea, No Swallowing Difficulty Eyes: No Eye Pain, No Swelling, No Redness, No Foreign Body, No Discharge, No Vision Changes Cardiovascular : No Chest Pain, No SOB, No Dyspnea on Exertion, No Orthopnea, No Edema, No Palpitations Respiratory : No Cough, No Sputum, No Wheezing, No Smoke Exposure, No Dyspnea Gastrointestinal : No Nausea, No Vomiting, No Diarrhea, No Constipation, No abdominal Pain, No Hematochezia, No Melena Genitourinary : no irregular bleeding, No Dysuria, No Urinary Frequency, No Hematuria, No Urinary Incontinence, No Urgency, No Flank Pain, No Urinary Flow Changes, No Hesitancy Musculoskeletal : No joint pain, No Myalgias, No Joint Swelling Skin : Worsening lower extremity cellulitis bilaterally Neuro : No Weakness, No Numbness, No Paresthesias, No Loss of Consciousness, No Dizziness, No Headache Psych : No Anxiety/Panic, No Depression, No SI/HI/AH/VH, No Social Issues, Heme/Lymph: No Bruising, No Bleeding,No Lymphadenopathy Endocrine : No Polyuria, No Polydipsia, No Temperature Intolerance [facility] Past Medical History Medical History Chronic hip pain Heroin abuse Methadone maintenance therapy patient Surgical History Status post hip surgery Social History Social History Household Members: None Housing: House Do you presently have visiting nurse or other home services: No Alcohol intake: never Patient Tobacco Use Status: Current everyday Tobacco user Tobacco use type: Cigarette Cigarette Packs Per Day: 0.5 Cigarettes Per Day: 10.0 service: No Current occupational status: unemployed and disabled Physical Exam ED Vital Signs: Vital Signs - 24 hr 02/13/23 17:32 Temperature 98.2 F Pulse Rate 82 Respiratory Rate 18 Blood Pressure 154/82 H Pulse Oximetry 94 Oxygen Delivery Method Room Air BMI result Body Mass Index 40.8 Const Other: Appearance: Alert. Oriented X3. No acute distress. Eyes: Pupils equal, round and reactive to light. ENT: Pharynx normal. Neck: Normal inspection. Neck supple. No lymph nodes noted. No crepitus CVS: Normal heart rate and rhythm. Pulses normal. Normal S1 and S2 Respiratory: No respiratory distress. Breath sounds normal. No Wheezing. No rales Abdomen: Soft and nontender. No rigidity. No distention. Skin: Skin warm and dry. Bilateral lower extremity cellulitis from the ankles up to the middle of the thighs and streaking up to the thighs Extremities: Bilateral cellulitis as above, +1 pitting edema bilaterally Neuro: Oriented X 3. No motor deficit. No sensory deficit. Moving all extremities. No slurred speech. CN 2 through 12 grossly intact Psych: calm, cooperative, normal affect Course Course Course Narrative: This is an RME: Additional HPI, ROS, PE not included below will be deferred to primary provider. 47 yo M hx of hep c, IVDA, presenting w/ worsening cellulitis to b/l lower extremities on doxy now has been on it for a week . 03/08 lower extremity pain b/l. Plan- labs Medical Decision Making Medical Decision Making [facility] Narrative: -I discussed the physical exam with Dr. Hogan, erythema goes all the way up to the thighs. Patient is not septic, patient failed outpatient treatment, patient needs to be admitted. -patient agrees plan Admission/Observation Consideration of admission/observation: Escalation of care including admission/observation considered Consult Healthcare Provider Management of the patient was discussed with: Hospitalist Lab Data [facility] Lab Attestation statement: I reviewed the patient's lab results. 02/13/23 17:53 02/13/23 17:53 Labs: Lab Results 02/13/23 02/13/23 Range/Units 17:53 17:53 WBC 7.2 (4.8-10.8) X10*3/uL RBC 3.77 L (4.60-5.80) X10*6/uL Hgb 11.3 L (14.0-18.0) g/dl Hct 34.4 L (42.0-52.0) % MCV 91.2 (80.0-98.0) fL MCH 30.0 (27.0-33.0) pg MCHC 32.8 (31.0-36.0) g/dl RDW 13.5 (11.0-16.0) % Plt Count 183 (160-400) X10*3/uL MPV 10.6 (9.4-12.4) fL Immature Gran % (Auto) 1.0 H (0.0-0.4) % Neut % (Auto) 61.9 (45-73) % Lymph % (Auto) 23.8 (20-40) % [place] % (Auto) 10.1 (2-11) % Eos % (Auto) 2.8 (0-4) % Baso % (Auto) 0.4 (0-2) % Lymph # (Auto) 1.7 (1.2-4.9) X10*3/uL [place] # (Auto) 0.7 (0.1-1.2) X10*3/uL Eos # (Auto) 0.2 (0.0-0.4) X10*3/uL Baso # (Auto) 0.0 (0.0-0.2) X10*3/uL Abs Immat Gran (auto) 0.07 H (0.00-0.03) X10*3/uL Absolute Neuts (auto) 4.5 (2.0-8.3) x10*3/uL Absolute Nucleated RBC 0.000 (0.0-0.012) X10*3/uL Nucleated RBC % (auto) 0.0 (0.0-0.2) /100WBC Sodium 140 (135-145) mmol/L Potassium 4.3 (3.3-5.1) mmol/L Chloride 102 (96-108) mmol/L Carbon Dioxide 30 H (22-29) mmol/L Anion Gap 12 (12-20) BUN 17 H (9-16) mg/dL Creatinine 1.07 (0.5-1.4) mg/dL Estim Creat Clear Calc 92.8 Estimated GFR > 60 Random Glucose 94 (60-115) mg/dL Calcium 9.7 (8.4-10.2) mg/dL Total Bilirubin 0.4 (0.0-1.0) mg/dL AST 14 (5-37) U/L ALT 10 (0-40) U/L Alkaline Phosphatase 74 (39-117) U/L Total Protein 7.9 (6.5-8.0) g/dL Albumin 3.7 (3.5-5.0) g/dL Critical Care Time Critical Care Time Critical Care Time: Yes Total Critical Care Time: 60 Attestation: I have personally provided critical care time. Time includes review of lab data, radiology results, discussion with consultants, and monitoring for potential decompensation. Intervention performed as documented. Discharge Plan Discharge Clinical Impression: Bilateral cellulitis of lower leg Patient Disposition: Admitted As Inpatient Prescriptions: No Action naproxen [Naprosyn] 500 mg tablet 500 mg PO BID PRN (Reason: pain) Qty: 20 0RF methadone [Methadone Intensol] 10 mg/mL Concentrate 135 mg PO DAILY gabapentin 300 mg Capsule 300 - 600 mg PO TID PRN (Reason: Pain) albuterol sulfate 90 mcg/actuation HFA aerosol inhaler 2 puff INHALATION Q6H PRN (Reason: wheezing) divalproex [Depakote] 500 mg Tablet,Delayed Release (Dr/Ec) 500 mg PO DAILY olmesartan 5 mg Tablet 10 mg PO DAILY aripiprazole 5 mg Tablet 5 mg PO DAILY sofosbuvir-velpatasvir 400-100 mg tablet 1 tab PO QAM doxycycline hyclate 100 mg tablet 100 mg PO BID 7 Days Qty: 14 0RF
[2023-02-13 18:01] LABS: MANUAL DIFF FLAG NO
[2023-02-13 18:04] LABS: Basophils Percent Auto 0.4 % (0-2); Eosinophils Absolute Auto 0.2 X10*3/uL (0.0-0.4); Eosinophils Percent Auto 2.8 % (0-4); Hematocrit 34.4 % (42.0-52.0); Hemoglobin 11.3 g/dl (14.0-18.0); Imm Gran Abs Auto 0.07 X10*3/uL (0.00-0.03); Lymphocytes Absolute Auto 1.7 X10*3/uL (1.2-4.9); Lymphocytes Percent Auto 23.8 % (20-40); Mean Corpuscular HGB Conc 32.8 g/dl (31.0-36.0); Mean Corpuscular Volume 91.2 fL (80.0-98.0); Mean Platelet Volume 10.6 fL (9.4-12.4); Monocytes Absolute Auto 0.7 X10*3/uL (0.1-1.2); Monocytes Percent Auto 10.1 % (2-11); Neutrophils Absolute Auto 4.5 x10*3/uL (2.0-8.3); Neutrophils Percent Auto 61.9 % (45-73); Platelet Count 183 X10*3/uL (160-400); Red Blood Count 3.77 X10*6/uL (4.60-5.80); Red Cell Distribution Width 13.5 % (11.0-16.0); White Blood Count 7.2 X10*3/uL (4.8-10.8)
[2023-02-13 18:25] LABS: Alanine Aminotransferase 10 U/L (0-40); Albumin Level 3.7 g/dL (3.5-5.0); Alkaline Phosphatase 74 U/L (39-117); Anion Gap 12 (12-20); Aspartate Amino Transferase 14 U/L (5-37); Bilirubin Total 0.4 mg/dL (0.0-1.0); Blood Urea Nitrogen 17 mg/dL (9-16); Calcium 9.7 mg/dL (8.4-10.2); Carbon Dioxide 30 mmol/L (22-29); Chloride 102 mmol/L (96-108); Creatinine Clr Calc Pharmacy 92.8; Estimated Glomerular Filt Rate > 60; Glucose Random 94 mg/dL (60-115); Potassium 4.3 mmol/L (3.3-5.1); Sodium 140 mmol/L (135-145); Total Protein 7.9 g/dL (6.5-8.0)
--- NOTE | 2023-02-13 18:31 | PC.NURSE ---
Pt reporting he has been taking his doxy, however the redness and swelling is getting more extensive, pain is not getting any better, 03/08 noted. Denies fevers.
[2023-02-13 19:06] VITALS: BP 121/69; PULSE 81; RESP 18; TEMP 36.9; O2SAT 95
[2023-02-13 19:08] LABS: Lactic Acid 1.1 mmol/L (0.5-2.0)
--- NOTE | 2023-02-13 19:38 | P.HPHOSP_ITS ---
patient seen and examined at bedside. Has bilateral erythema, warmth, tenderness, significant edema. DVT study several days prior showed negative results. At this time will treat with IV antibiotics as patient failed p.o.. Will admit for further management. For full H&P please see below History of Present Illness Date of Service: 02/13/23 Attending physician on admission: Gabby Ponce Chief Complaint: Lower leg redness and swelling Pt is a 47-year-old male with a PMH significant for HTN, anxiety, depression, hepatitis-C, and hx of IVDU on methadone who presents to the ED with?recurrent redness, swelling, pain of lower legs bilaterally. Patient was recently dischar gustavo from the hospital 7 days prior on 02/06/2023 after presenting to the emergency with similar complaints that he had been experiencing for the previous 2 weeks. Patient was treated with IV antibiotics for cellulitis of lower legs and discharged home on doxycycline 100 mg p.o. b.i.d. x7 days. Patient states he has taken his antibiotics as prescribed, but 2-3 days after discharge the redness, swelling, and pain in his legs increased and return to where it was prior to his admission. Says the swelling extends from lower extremities all the way up his thighs to his groin. Complains of calf tightness and numbness and tingling under the 2nd and 3rd digit of left foot. Patient has now been expe riencing recurrent symptoms for 5 days, and symptoms overall for 3 weeks. Denies any systemic symptoms: No fever, chills, nausea, vomiting. Denies chest pain/pressure, palpitations. No shortness of breath. Denies headache. No abdominal pain. Patient also denies feeling lightheaded, dizzy, or fatigued. Denies any hematuria or hematochezia or melena. In the ED patient was afebrile, labs were significant for H&H of 11.3/34.4. Electrolytes WNL. Renal function baseline. Hepatic function baseline. Lactic acid negative. No leukocytosis. Venous duplex on 02/04/2023 was negative for DVT in the bilateral lower extremity. Pt was treated with IVF, vancomycin, and Zosyn. Pt will be admitted to the hospital for treatment and further evaluation of recurrent cellulitis of bilateral lower extremities that has failed outpatient therapy. Review of Systems Review of Systems: Lower leg redness, swelling, pain Numbness and tingling of 2nd and 3rd digits of left foot No fever, chills, nausea, vomiting, diarrhea Denies abdominal pain No chest pressure/pain, palpitations Denies shortness of breath No fatigue, lightheadedness, dizziness Denies hematuria, hematochezia, melena Yes all other systems are reviewed and are negative [facility] Medical History Chronic hip pain Heroin abuse Methadone maintenance therapy patient Surgical History Status post hip surgery Social History Household Members: None Housing: House Do you presently have visiting nurse or other home services: No Alcohol intake: never Patient Tobacco Use Status: Current everyday Tobacco user Tobacco use type: Cigarette Cigarette Packs Per Day: 0.5 Cigarettes Per Day: 10.0 Advance Directives: No Advance Directives Information Provided: No service: No Current occupational status: unemployed and disabled Meds Allergies Allergy/AdvReac Type Severity Reaction Status Date / Time No Known Allergies Allergy Verified 02/13/23 17:30 Active Medications: Current Medications Sodium Chloride (Ns) 1,000 mls @ 999 mls/hr IVCONT .Q1H1M ONE Stop: 02/13/23 19:43 Vancomycin HCl (Vancomycin/Ns) 2,000 mg in 500 mls @ 250 mls/hr IV ONCE ONE Stop: 02/13/23 20:42 Home Medications Medication Instructions Recorded Confirmed Last Taken Type albuterol sulfate 90 mcg/actuation 2 puff inhalation Q6H PRN wheezing 02/04/23 02/04/23 Unknown History aerosol inhaler aripiprazole 5 mg tablet 5 mg PO DAILY 02/04/23 02/04/23 02/04/23 History divalproex 500 mg tablet,delayed 500 mg PO DAILY 02/04/23 02/04/23 02/04/23 History release (Depakote) gabapentin 300 mg capsule 300 - 600 mg PO TID PRN Pain 02/04/23 02/04/23 Unknown History methadone 10 mg/mL oral 135 mg PO DAILY 02/04/23 02/04/23 History concentrate (Methadone Intensol) olmesartan 5 mg tablet 10 mg PO DAILY 02/04/23 02/05/23 Unknown History sofosbuvir 400 mg-velpatasvir 100 1 tab PO QAM 02/04/23 02/04/23 02/04/23 History mg tablet Physical Exam Vital Signs and Narrative: Vital Signs: Last Vital Signs Temp 98.5 F 02/13/23 19:06 Pulse 81 02/13/23 19:06 Resp 18 02/13/23 19:06 BP 121/69 02/13/23 19:06 Pulse Ox 95 02/13/23 19:06 O2 Del Method Room Air 02/13/23 19:06 BMI result Body Mass Index 40.8 Constitutional: Alert, in no acute distress. Mental Status: Oriented to person, place and time. Eyes: Pupils are equal, round, and reactive to light. Ear, Nose, and Throat: Oropharynx clear, mucous membranes moist. Ears and nose without deformities. Trachea midline. Respiratory: Clear to auscultation bilaterally. No wheezing, rales, or rhonchi. Cardiovascular: S1, S2 regular. No murmurs, rubs, or gallops. Gastrointestinal: Abdomen soft, non-tender, obese. Normal bowel sounds. Neurologic: Cranial nerves II-XII are grossly intact bilaterally. No focal neurological deficits. Moves all extremities spontaneously. Extremities: Significant swelling and erythema of lower legs bilaterally. Erythema mostly confined to the lower legs, but swelling extends from feet to upper thighs. Multiple superficial, closed abrasions and lacerations noted on anterior shins and feet. See picture below. Psychiatric: Normal mood and affect. Results Labs 02/13/23 17:53 02/13/23 17:53 Labs: Laboratory Results - last 24 hr 02/13/23 02/13/23 02/13/23 17:53 17:53 18:51 MCV 91.2 MCH 30.0 MCHC 32.8 RDW 13.5 Plt Count 183 MPV 10.6 Immature Gran % (Auto) 1.0 H Neut % (Auto) 61.9 Lymph % (Auto) 23.8 [place] % (Auto) 10.1 Eos % (Auto) 2.8 Baso % (Auto) 0.4 Lymph # (Auto) 1.7 [place] # (Auto) 0.7 Eos # (Auto) 0.2 Baso # (Auto) 0.0 Abs Immat Gran (auto) 0.07 H Absolute Neuts (auto) 4.5 Absolute Nucleated RBC 0.000 Nucleated RBC % (auto) 0.0 Anion Gap 12 Estim Creat Clear Calc 92.8 Estimated GFR > 60 Random Glucose 94 Lactic Acid 1.1 Calcium 9.7 Total Bilirubin 0.4 AST 14 ALT 10 Alkaline Phosphatase 74 Total Protein 7.9 Albumin 3.7 Assessment and Plan (1) Bilateral cellulitis of lower leg: Status: Acute (2) Bilateral edema of lower extremity: Status: Acute Plan Pt is a 47-year-old male with a PMH significant for HTN, anxiety, depression, hepatitis-C, and hx of IVDU on methadone who presents to the ED with?recurrent redness, swelling, pain of lower legs bilaterally. Patient was recently discharged from the hospital 7 days prior on 02/06/2023 after presenting to the emergency with similar complaints that he had been experiencing for the previous 2 weeks. Patient was treated with IV antibiotics for cellulitis of lower legs and discharged home on doxycycline 100 mg p.o. b.i.d. x7 days. Patient states he has taken his antibiotics as prescribed, but 2-3 days after discharge the redness, swelling, and pain in his legs increased and return to where it was prior to his admission. Pt will be admitted to the hospital for treatment and further evaluation of recurrent cellulitis of bilateral lower extremities that has failed outpatient therapy. Recurrent cellulitis of lower extremities bilaterally Patient discharged from hospital 7 days prior after being treated for bilateral lower leg cellulitis Patient discharged on doxycycline 100 mg b.i.d. x7 days, claims adherent to medication Patient with no systemic symptoms: No leukocytosis, no fever, chills, myalgias Patient received vancomycin and Zosyn in the ED Continue vancomycin for now ID consult Patient does not meet sepsis criteria: No leukocytosis, not tachypneic or tachycardic, patient afebrile Hx of IVDU Pt states has been clean for the past 10 months Continue methadone Left hip osteoarthritis Continue gabapentin Mood disorder Continue aripiprazole, Depakote HTN Continue home meds Hepatitis-C Patient states he is on month 3. Of hepatitis C treatment Continue sofosbuvir-velpatasvir Anemia Patient with mild normocytic anemia: H&H 11.3/34.4, MCV 91.2 Possibly secondary to hepatitis C treatment Patient asymptomatic: Denies fatigue, hematochezia, melena, hematuria Will check ferritin, B12, folate Monitor CBC Obesity class 3 Patient with a BMI of 40.8 Patient states he has gained weight over the past 10 months since being sober Patient's mobility is also limited due to osteoarthritis of left hip Weight loss encouraged Full Code Attending:?Dr. Ponce DVT Prophylaxis: Lovenox Pt will require a hospitalization of at least two nights for treatment with IV antibiotics of recurrent cellulitis of bilateral extremities and has failed outpatient therapy. ? Time Spent With Patient Time: Total time managing care of this patient today ____ minutes. Quality Stroke Does the patient have a stroke diagnosis?: No VTE Prior VTE?: No VTE Risk Level:: Medical - moderate - high VTE Device Contraindication: Treatment Not Indicated VTE Drug Contraindication: N/A - Med Ordered
[2023-02-13] MEDS: Piperacillin Sodium/Tazobactam 3.375 GM in 0.9 % Sodium Chloride 50 ML IV (19:40)
[2023-02-13] MEDS: 0.9 % Sodium Chloride 1,000 ML 999 ML IVCONT (19:40)
[2023-02-13] MEDS: vancomycin/NS 2,000 MG/500 ML PLAST..BAG 250 MG IV (20:29)
[2023-02-13 20:33] LABS: Ferritin 91 ng/mL (20-250)
--- NOTE | 2023-02-13 21:27 | PC.NURSE ---
Nurse to Nurse give to IDANIA Whittaker. net technical [employer] to transport.
[2023-02-13 22:22] VITALS: BP 140/93; PULSE 70; RESP 18; TEMP 36.2; O2SAT 96
[2023-02-13] MEDS: Enoxaparin Sodium 40 MG/0.4 ML SYRINGE SUBCUT (22:28)
[2023-02-13] MEDS: 0.9 % Sodium Chloride Flush 3 ML SYRINGE IVFLUSH (22:30)
[2023-02-13 23:46] VITALS: BMI 39.7
[2023-02-14 04:00] VITALS: BP 135/70; PULSE 65; RESP 18; TEMP 36.4; O2SAT 97
[2023-02-14 05:56] LABS: Hematocrit 33.8 % (42.0-52.0); Hemoglobin 10.7 g/dl (14.0-18.0); Mean Corpuscular HGB Conc 31.7 g/dl (31.0-36.0); Mean Corpuscular Hemoglobin 29.5 pg (27.0-33.0); Mean Corpuscular Volume 93.1 fL (80.0-98.0); Mean Platelet Volume 10.5 fL (9.4-12.4); Platelet Count 162 X10*3/uL (160-400); Red Blood Count 3.63 X10*6/uL (4.60-5.80); Red Cell Distribution Width 13.6 % (11.0-16.0); White Blood Count 5.2 X10*3/uL (4.8-10.8)
[2023-02-14 06:45] LABS: Folate 7.6 ng/mL (> or = 4.0); Vitamin B12 516 pg/mL (200-900)
[2023-02-14 07:27] VITALS: BP 156/74; PULSE 74; RESP 17; TEMP 36.3; O2SAT 99
[2023-02-14] MEDS: vancomycin HCL 1,000 MG in 0.9 % Sodium Chloride 250 ML 270 MG IV ×2 (07:50→20:31)
[2023-02-14] MEDS: 0.9 % Sodium Chloride Flush 3 ML SYRINGE IVFLUSH ×3 (07:51→19:41)
--- NOTE | 2023-02-14 09:47 | PHA.MEDREC ---
Addendum entered by Jovanny Martinez 02/14/23 09:59: Will follow up in AM with pharmacy to confirm current olmesartan dose. Original Note: Pharmacy Consult ? Medication Reconciliation Pharmacy has completed the medication reconciliation. Patient was here 02/06/23. Patient states that there was no changes to meds outside discharged antibiotics which was an addition. Patient takes depakote BID. Patient states they get olmesartan (unknown dose) daily at [facility], however unable to verify as pharmacy is closed and patient has no claim history supporting this. Recent discharge shows 10mg dose for olmesartan.
--- NOTE | 2023-02-14 10:00 | HE.PHANOTE ---
Addendum entered by Angélica Lucero RPh 02/14/23 11:37: DOSE OF 135 MG PER DOSE Original Note: Re: methadone verification patient recieved 13 take home bottles on 02/10/23 from [facility]
--- NOTE | 2023-02-14 11:25 | MHC.CM.PN ---
PT REPORTS HE RESIDES AT THE [facility], A [facility] FAC[facility], THAT REQUIRES INDIVIDUALS TO PAY RENT PT REPORTS HE IS ALSO ACTIVE WITH JEWELS SAMPSON FOR MMTP HE USES A CANE TO AMBULATE AND HAS NO OTHER DME PT DECLINES TO COMPLETE A HCP [facility] DCP: RETURN TO [facility] TRANSPORT TBD: RIDE VS SHUTTLE
[2023-02-14] MEDS: methADONE HCl 20 MG/2 ML ORAL.CONC 135 MG PO (11:43)
[2023-02-14] MEDS: Furosemide 20 MG/2 ML VIAL IVPUSH (11:46)
[2023-02-14 12:15] LABS: Anion Gap 11 (12-20); Blood Urea Nitrogen 15 mg/dL (9-16); Calcium 9.6 mg/dL (8.4-10.2); Carbon Dioxide 29 mmol/L (22-29); Chloride 106 mmol/L (96-108); Creatinine Clr Calc Pharmacy 99.9; Estimated Glomerular Filt Rate > 60; Glucose Random 78 mg/dL (60-115); Potassium 5.1 mmol/L (3.3-5.1); Sodium 141 mmol/L (135-145)
--- NOTE | 2023-02-14 14:58 | HO.PM.IMPN ---
Subjective Subjective Date of Service: 02/14/23 Interval History: seen and examined this morning follow up for b/l lower extremity celluitis ongoing pain and swelling Review of Systems Review of Systems: Yes all other systems are reviewed and are negative Constitutional Constitutional: Denies chills and Denies fever(s) Cardiovascular Cardiovascular: Denies chest pain, Denies palpitations and Denies dyspnea Respiratory Respiratory: Denies cough and Denies dyspnea Gastrointestinal Gastrointestinal: Denies abdominal pain, Denies nausea and Denies vomiting Endocrine Endocrine: Denies palpitations Physical Exam Vital Signs: Vital Signs: Last Vital Signs Temp 97.4 F 02/14/23 07:27 Pulse 74 02/14/23 07:27 Resp 17 02/14/23 07:27 BP 156/74 H 02/14/23 07:27 Pulse Ox 99 02/14/23 07:27 O2 Del Method Room Air 02/14/23 07:27 BMI result Body Mass Index 39.7 Const: General: cooperative, comfortable, no acute distress, alert and awake Nutritional Appearance: obese Orientation/consciousness: patient oriented x3 Resp: Effort & Inspection: normal respiratory effort, able to speak in complete sentences, no respiratory distress and no use of accessory muscles Auscultation: clear to auscultation bilaterally Cardio: Rate: regular rate Heart sounds: S1 normal heart sound present and S2 normal heart sound present GI: Inspection: No distended Palpation (GI): Soft to palpation and nontender Skin: Other: b/l erythema from ankles to knees and up inner thighs, warm to touch Neuro: General: patient oriented x3, moves all extremities and CN's II-XI intact bilaterally Extrem: Other: b/l leg edema Objective Data Active Medications Acetaminophen (Acetaminophen 325 Mg Tablet) 650 mg PO Q6H PRN PRN Reason: Pain, Mild (Pain Scale 1-3) Albuterol Sulfate (Albuterol Sulfate 90 Mcg 8 Gm Inhaler) 2 puff INHALE Q6H PRN PRN Reason: wheezing Aripiprazole (Aripiprazole 5 Mg Tablet) 5 mg PO DAILY [facility] Divalproex Sodium (Divalproex Sodium 500 Mg Tablet.Dr) 500 mg PO BID [facility] Docusate Sodium (Docusate Sodium 100 Mg Capsule) 100 mg PO DAILY PRN PRN Reason: Constipation Enoxaparin Sodium (Enoxaparin Sodium 40 Mg/0.4 Ml Syringe) 40 mg SUBCUT Q24H [facility] Last Admin: 02/13/23 22:28 Dose: 40 mg Documented By: TESSY Comments: new admit Furosemide (Furosemide 20 Mg Tablet) 20 mg PO DAILY [facility]; Protocol Vancomycin HCl 1,000 mg/ (Sodium Chloride) 270 mls @ 270 mls/hr IV Q12H [facility] Last Infusion: 02/14/23 08:50 Dose: 0 mls/hr Documented By: ANISH Methadone HCl (Methadone Hcl 20 Mg/2 Ml Oral.Conc) 135 mg PO DAILY [facility] Last Admin: 02/14/23 11:43 Dose: 135 mg Documented By: ANISH Non-Formulary Medication (Sofosbuvir-Velpatasvir) 1 tab PO DAILY [facility] Ondansetron HCl (Ondansetron Hcl 4 Mg/2 Ml Vial) 4 mg IVPUSH Q8H PRN PRN Reason: Nausea and Vomiting Pharmacy Consult (Consult Rx Vancomycin Dosing) 1 each MISCELLANE DAILY PRN PRN Reason: Consult order Pharmacy Consult (Consult Rx Perform Med Rec) 1 each MISCELLANE ONCE PRN PRN Reason: Consult order Sodium Chloride (0.9 % Sodium Chloride Flush 3 Ml Syringe) 3 ml IVFLUSH QSHIFT [facility] Last Admin: 02/14/23 07:51 Dose: 3 ml Documented By: ANISH Labs 02/14/23 05:26 02/14/23 11:50 Labs: Laboratory Results - last 24 hr 02/13/23 02/13/23 02/13/23 17:53 17:53 18:51 MCV 91.2 MCH 30.0 MCHC 32.8 RDW 13.5 Plt Count 183 MPV 10.6 Immature Gran % (Auto) 1.0 H Neut % (Auto) 61.9 Lymph % (Auto) 23.8 [place] % (Auto) 10.1 Eos % (Auto) 2.8 Baso % (Auto) 0.4 Lymph # (Auto) 1.7 [place] # (Auto) 0.7 Eos # (Auto) 0.2 Baso # (Auto) 0.0 Abs Immat Gran (auto) 0.07 H Absolute Neuts (auto) 4.5 Absolute Nucleated RBC 0.000 Nucleated RBC % (auto) 0.0 Anion Gap 12 Estim Creat Clear Calc 92.8 Estimated GFR > 60 Random Glucose 94 Lactic Acid 1.1 Calcium 9.7 Ferritin 91 Total Bilirubin 0.4 AST 14 ALT 10 Alkaline Phosphatase 74 Total Protein 7.9 Albumin 3.7 Vitamin B12 Folate 02/14/23 02/14/23 02/14/23 05:00 05:26 11:50 MCV 93.1 MCH 29.5 MCHC 31.7 RDW 13.6 Plt Count 162 MPV 10.5 Immature Gran % (Auto) Neut % (Auto) Lymph % (Auto) [place] % (Auto) Eos % (Auto) Baso % (Auto) Lymph # (Auto) [place] # (Auto) Eos # (Auto) Baso # (Auto) Abs Immat Gran (auto) Absolute Neuts (auto) Absolute Nucleated RBC 0.000 Nucleated RBC % (auto) 0.0 Anion Gap 11 L Estim Creat Clear Calc 99.9 Estimated GFR > 60 Random Glucose 78 Lactic Acid Calcium 9.6 Ferritin Total Bilirubin AST ALT Alkaline Phosphatase Total Protein Albumin Vitamin B12 516 Folate 7.6 Assessment and Plan (1) Bilateral edema of lower extremity: Status: Acute (2) Hepatitis C: Status: Acute Plan Pt is a 47-year-old male with a PMH significant for HTN, anxiety, depression, hepatitis-C, and hx of IVDU on methadone who presents to the ED with?recurrent redness, swelling, pain of lower legs bilaterally. Patient was recently discharged from the hospital 7 days prior on 02/06/2023 after presenting to the emergency with similar complaints that he had been experiencing for the previous 2 weeks. Patient was treated with IV antibiotics for cellulitis of lower legs and discharged home on doxycycline 100 mg p.o. b.i.d. x7 days. Patient states he has taken his antibiotics as prescribed, but 2-3 days after discharge the redness, swelling, and pain in his legs increased and return to where it was prior to his admission. Pt will be admitted to the hospital for treatment and further evaluation of recurrent cellulitis of bilateral lower extremities that has failed outpatient therapy. Recurrent cellulitis of lower extremities bilaterally recent admission for the same, was discharged on doxycycline no evidence of sepsis Continue vancomycin ID consult pending keep legs elevated, will start lasix due to leg edema, uptitrate prn repeat lower extremity doppler US Hx of IVDU Pt states has been clean for the past 10 months Continue methadone Left hip osteoarthritis Continue prn gabapentin Mood disorder Continue aripiprazole, Depakote HTN Continue home meds Hepatitis-C Patient states he is on month 3 of treatment sofosbuvir-velpatasvir NF - will need to be brought from home chronic normocytic Anemia H/H stable morbid obesity BMI of 40 Patient states he has gained weight over the past 10 months since being sober Patient's mobility is also limited due to osteoarthritis of left hip Weight loss encouraged Full Code Attending:?Dr. delcid DVT Prophylaxis: Lovenox ongoing hospitalization for management of recurrent cellulitis of bilateral extremities and has failed outpatient therapy. ? Time Spent With Patient Time: Total time managing care of this patient today ____ minutes. Quality Stroke Does the patient have a stroke diagnosis?: No VTE Prior VTE?: No VTE Risk Level:: Medical - moderate - high VTE Device Contraindication: Treatment Not Indicated VTE Drug Contraindication: N/A - Med Ordered
[2023-02-14 15:03] VITALS: BP 142/78; PULSE 68; RESP 18; TEMP 36.4; O2SAT 94
[2023-02-14 15:17] VITALS: BP 177/79; PULSE 78; RESP 18; TEMP 36.6; O2SAT 97
[2023-02-14] MEDS: Gabapentin 300 MG CAPSULE PO (16:26)
[2023-02-14 16:38] VITALS: BP 154/72
[2023-02-14 17:45] LABS: Vancomycin Random 16.2 mcg/mL (15-20)
[2023-02-14 20:00] VITALS: BP 142/83; PULSE 80; RESP 19; TEMP 36.7; O2SAT 94
[2023-02-14] MEDS: Divalproex Sodium 500 MG TABLET.DR PO (20:35)
[2023-02-15] MEDS: Gabapentin 300 MG CAPSULE PO ×2 (01:49→15:50)
[2023-02-15] MEDS: oxyCODONE HCl Immed Release 5 MG TABLET PO ×2 (01:49→21:01)
[2023-02-15 03:59] VITALS: PULSE 68; RESP 18; TEMP 36.4; O2SAT 94
[2023-02-15 04:48] LABS: Vancomycin Random 16.4 mcg/mL (15-20)
[2023-02-15 04:49] LABS: Anion Gap 14 (12-20); Blood Urea Nitrogen 15 mg/dL (9-16); Calcium 9.9 mg/dL (8.4-10.2); Carbon Dioxide 27 mmol/L (22-29); Chloride 104 mmol/L (96-108); Creatinine Clr Calc Pharmacy 106.4; Estimated Glomerular Filt Rate > 60; Glucose Random 96 mg/dL (60-115); Potassium 4.5 mmol/L (3.3-5.1); Sodium 140 mmol/L (135-145)
[2023-02-15 04:51] VITALS: BP 142/78; PULSE 94; RESP 18; TEMP 36.4; O2SAT 94
--- NOTE | 2023-02-15 06:11 | HE.PHANOTE ---
Vancomycin Dosing Addendum PAtients level came back this morning at 16.4. Next draw at 02/16 @0600. Predicted AUC 425, however patient is running higher than rxinsight shows.
[2023-02-15 07:38] VITALS: BP 153/85; PULSE 62; RESP 17; TEMP 36.1; O2SAT 96
--- NOTE | 2023-02-15 08:08 | HO.PM.IMPN ---
Subjective Subjective Date of Service: 02/15/23 Interval History: Seen in follow up for BLE cellulitis Interval history: feeling better, legs improved. still warm, swollen Review of Systems Review of Systems: Yes all other systems are reviewed and are negative Physical Exam Vital Signs: Vital Signs: Last Vital Signs Temp 97.0 F 02/15/23 07:38 Pulse 62 02/15/23 07:38 Resp 17 02/15/23 07:38 BP 153/85 H 02/15/23 07:38 Pulse Ox 96 02/15/23 07:38 O2 Del Method Room Air 02/15/23 07:38 BMI result Body Mass Index 39.7 Constitutional - Awake and Alert, No apparent distress Eyes - PERRLA, EOMI Cardiovascular - S1S2, RRR, 2+ pitting edema Respiratory - Normal lung expansion, Normal respiratory effort, No respiratory distress, CTA bilaterally - No CVA tenderness Extremities - no calf tenderness bilaterally Skin - Warm/Dry. BLE swelling, significant warmth and erythema Neurological - Alert & oriented x3 Psychological - Appropriate affect Objective Data Active Medications Acetaminophen (Acetaminophen 325 Mg Tablet) 650 mg PO Q6H PRN PRN Reason: Pain, Mild (Pain Scale 1-3) Albuterol Sulfate (Albuterol Sulfate 90 Mcg 8 Gm Inhaler) 2 puff INHALE Q6H PRN PRN Reason: wheezing Aripiprazole (Aripiprazole 5 Mg Tablet) 5 mg PO DAILY [facility] Divalproex Sodium (Divalproex Sodium 500 Mg Tablet.) 500 mg PO BID [facility] Last Admin: 02/14/23 20:35 Dose: 500 mg Documented By: ANA MARÍA Docusate Sodium (Docusate Sodium 100 Mg Capsule) 100 mg PO DAILY PRN PRN Reason: Constipation Enoxaparin Sodium (Enoxaparin Sodium 40 Mg/0.4 Ml Syringe) 40 mg SUBCUT Q24H [facility] Last Admin: 02/14/23 20:37 Dose: Not Given Documented By: ANA MARÍA Non-Admin Reason: Patient Refused Furosemide (Furosemide 20 Mg Tablet) 20 mg PO DAILY [facility]; Protocol Gabapentin (Gabapentin 300 Mg Capsule) 300 mg PO TID PRN PRN Reason: Pain, Mild (Pain Scale 1-3) Last Admin: 02/15/23 01:49 Dose: 300 mg Documented By: ANA MARÍA Vancomycin HCl 1,000 mg/ (Sodium Chloride) 270 mls @ 270 mls/hr IV Q12H [facility] Last Infusion: 02/14/23 21:38 Dose: 0 mls/hr Documented By: ANA MARÍA Methadone HCl (Methadone Hcl 20 Mg/2 Ml Oral.Conc) 135 mg PO DAILY [facility] Last Admin: 02/14/23 11:43 Dose: 135 mg Documented By: ANISH Non-Formulary Medication (Sofosbuvir-Velpatasvir) 1 tab PO DAILY [facility] Ondansetron HCl (Ondansetron Hcl 4 Mg/2 Ml Vial) 4 mg IVPUSH Q8H PRN PRN Reason: Nausea and Vomiting Oxycodone HCl (Oxycodone Hcl Immed Release 5 Mg Tablet) 5 mg PO Q6H PRN PRN Reason: Pain, Moderate(Pain Scale 4-6) Last Admin: 02/15/23 01:49 Dose: 5 mg Documented By: ANA MARÍA Pharmacy Consult (Consult Rx Vancomycin Dosing) 1 each MISCELLANE DAILY PRN PRN Reason: Consult order Pharmacy Consult (Consult Rx Perform Med Rec) 1 each MISCELLANE ONCE PRN PRN Reason: Consult order Sodium Chloride (0.9 % Sodium Chloride Flush 3 Ml Syringe) 3 ml IVFLUSH QSHIFT [facility] Last Admin: 02/14/23 19:41 Dose: 3 ml Documented By: ANA MARÍA Labs 02/14/23 05:26 02/15/23 04:20 Labs: Laboratory Results - last 24 hr 02/14/23 02/14/23 02/15/23 11:50 16:59 04:20 Anion Gap 11 L Estim Creat Clear Calc 99.9 Estimated GFR > 60 Random Glucose 78 Calcium 9.6 Random Vancomycin 16.2 16.4 02/15/23 04:20 Anion Gap 14 Estim Creat Clear Calc 106.4 Estimated GFR > 60 Random Glucose 96 Calcium 9.9 Random Vancomycin Microbiology Microbiology Results: Microbiology 02/13/23 19:23 Blood Culture - Preliminary Blood - Venous No growth after 24 hours. 02/13/23 18:51 Blood Culture - Preliminary Blood - Venous No growth after 24 hours. Assessment and Plan (1) Bilateral edema of lower extremity: Status: Acute (2) Hepatitis C: Status: Acute Plan Pt is a 47-year-old male with a PMH significant for HTN, anxiety, depression, hepatitis-C, and hx of IVDU on methadone who presents to the ED with?recurrent redness, swelling, pain of lower legs bilaterally. Patient was recently discharged from the hospital 7 days prior on 02/06/2023 after presenting to the emergency with similar complaints that he had been experiencing for the previous 2 weeks. Patient was treated with IV antibiotics for cellulitis of lower legs and discharged home on doxycycline 100 mg p.o. b.i.d. x7 days. Patient states he has taken his antibiotics as prescribed, but 2-3 days after discharge the redness, swelling, and pain in his legs increased and return to where it was prior to his admission. Pt will be admitted to the hospital for treatment and further evaluation of recurrent cellulitis of bilateral lower extremities that has failed outpatient therapy. Recurrent cellulitis of lower extremities bilaterally- improvement in erythema but still significant erythema/warmth BLE recent admission for the same, was discharged on doxycycline no evidence of sepsis Continue vancomycin ID consult pending keep legs elevated, will start lasix due to leg edema, uptitrate prn repeat lower extremity doppler US- negative, though limited. Repeat study in 5-7 days if symptoms persist Hx of IVDU Pt states has been clean for the past 10 months Continue methadone Left hip osteoarthritis Continue prn gabapentin Mood disorder Continue aripiprazole, Depakote HTN Continue home meds Acute Hepatitis-C Patient states he is on month 3 of treatment sofosbuvir-velpatasvir NF - will need to be brought from home but pt states has no one to bring this chronic normocytic Anemia H/H stable morbid obesity BMI of 40 Patient states he has gained weight over the past 10 months since being sober Patient's mobility is also limited due to osteoarthritis of left hip Weight loss encouraged Full Code Attending:?Dr. gannon DVT Prophylaxis: Lovenox ongoing hospitalization for management of recurrent cellulitis of bilateral extremities and has failed outpatient therapy. ? Time Spent With Patient Time: Total time managing care of this patient today ____ minutes. Quality Stroke Does the patient have a stroke diagnosis?: No VTE Prior VTE?: No VTE Risk Level:: Medical - moderate - high VTE Device Contraindication: Treatment Not Indicated VTE Drug Contraindication: N/A - Med Ordered
[2023-02-15] MEDS: 0.9 % Sodium Chloride Flush 3 ML SYRINGE IVFLUSH ×3 (08:43→21:02)
[2023-02-15] MEDS: Acetaminophen 325 MG TABLET 650 MG PO (08:43)
[2023-02-15] MEDS: methADONE HCl 20 MG/2 ML ORAL.CONC 135 MG PO (08:43)
[2023-02-15] MEDS: Furosemide 20 MG TABLET PO (08:44)
[2023-02-15] MEDS: ARIPiprazole 5 MG TABLET PO (08:44)
[2023-02-15] MEDS: Divalproex Sodium 500 MG TABLET.DR PO ×2 (08:44→20:56)
[2023-02-15] MEDS: vancomycin HCL 1,000 MG in 0.9 % Sodium Chloride 250 ML 270 MG IV ×2 (08:44→19:37)
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
--- NOTE | 2023-02-15 15:25 | MHC.CM.PN ---
per rounds pt pt not dcd today plan is to return to [facility] [place] [facility]
[2023-02-15 15:28] VITALS: BP 144/81; PULSE 71; RESP 20; TEMP 36.2; O2SAT 95
[2023-02-15 20:00] VITALS: BP 152/82; PULSE 73; RESP 18; TEMP 36.4; O2SAT 96
[2023-02-16 04:00] VITALS: BP 126/73; PULSE 69; RESP 16; TEMP 36.5; O2SAT 94
[2023-02-16 06:04] LABS: Anion Gap 12 (12-20); Blood Urea Nitrogen 13 mg/dL (9-16); Calcium 9.7 mg/dL (8.4-10.2); Carbon Dioxide 31 mmol/L (22-29); Chloride 101 mmol/L (96-108); Creatinine Clr Calc Pharmacy 111.3; Estimated Glomerular Filt Rate > 60; Glucose Random 88 mg/dL (60-115); Potassium 4.3 mmol/L (3.3-5.1); Sodium 140 mmol/L (135-145)
[2023-02-16 06:05] LABS: Vancomycin Random 15.3 mcg/mL (15-20)
--- NOTE | 2023-02-16 07:00 | CA_ITS ---
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 The calculated ejection fraction is 68% by biplane method. - No obvious valvular pathology seen on this study. Findings Left Ventricle Normal left ventricular cavity size. There is normal left ventricular wall thickness. The left ventricular systolic function is normal. The calculated ejection fraction is 68% by biplane method. There is no evidence of regional wall motion abnormalities. Diastolic function is normal for age. Right Ventricle Normal right ventricular cavity size and systolic function. Atria Both atria are normal in size. Aortic Valve The aortic valve was not well visualized. There is no aortic valve stenosis. There is no aortic valve regurgitation. Mitral Valve The mitral valve appears normal. There is no mitral valve regurgitation. There is no mitral valve stenosis. Pulmonic Valve The pulmonic valve is likely normal. Tricuspid Valve Normal tricuspid valve structure. There is mild tricuspid valve regurgitation. There is no evidence of pulmonary hypertension. Great Vessels The asc aorta is normal in size. Venous The inferior vena cava is normal in size and collapses greater than 50% with inspiration. Pericardium/Pleural There is no evidence of pericardial effusion. Prior Study Comparison No prior study available for comparison. Recommendations, Care & Conclusions No obvious valvular pathology seen on this study. Measurements 2D Linear Measurements RVIDd: 3.40 RVIDd Index: 1.63 IVSd: 0.97 0.6-0.9/0.6-1.0 cm LVIDd: 4.19 3.9-5.3/4.2-5.9 cm LVIDd Index: 2.01 2.4-3.2/2.2-3.1 cm/m2 LVIDs: 2.55 2.0-3.6 cm LVPWd: 1.07 0.7-1.1 cm LA Diam: 3.60 2.7-3.8/3.0-4.0 cm LAIDs Index: 1.73 1.5-2.3 cm/m2 LV Mass: 174.73 67-162/88-224 g LV Mass Index: 84.01 43-95/49-115 g/m2 LVOT Diam: 2.00 3.0+(-)1.3 cm 2D Systolic Function EF 4C: 75.70 >55% EF 2C: 56.60 >55% EF BiP: 67.50 >55% Mitral Valve MV Pk E: 1.02 MV PK A: 0.67 MV Decel Time: 193.00 E/A: 1.50 E'Lateral: 15.20 E'Medial: 9.90 E/E' Med: 10.30 E/E' Lat: 6.70 PHT: 57.00 MVA PHT: 3.86 Decel Brantley: 5.30 Aortic Valve AoV Pk Yeyo: 1.93 AoV Mn Yeyo: 1.27 AoV VTI: 0.36 AoV Pk Grad: 15.00 Aov Mn Grad: 8.00 RODNEY Cont.VTI: 1.76 LVOT LVOT Pk Yeyo: 1.00 LVOT Mn Yeyo: 0.65 LVOT VTI: 0.20 LVOT Pk Grad: 4.00 LVOT Mn Grad: 2.00 LVOT Diam: 2.00 LVOT Area: 3.14 Diastolic Function MV Pk E: 1.02 MV Pk A: 0.67 E/A: 1.50 E'Medial: 9.90 E/E' Med: 10.30 E' Laterial: 15.20 E/E' Lat: 6.70 Right Ventricle TAPSE (mm): 31.50 TVS' Yeyo: 13.50 Tricuspid Valve TR Pk Yeyo: 2.19 TR Pk Grad: 19.00 Great Vessels Aorta Sinus of Valsalva: 2.40 2.0-3.5 cm Pulmonary Valve PV Pk Yeyo: 1.52 Peak PV Grad: 9.00 Updated in Other Vendor System with Status of Final Darin Araujo MD electronically signed on 02/16/2023 3:59:03 PM with status of Final
[2023-02-16 07:50] VITALS: BP 142/77; PULSE 69; RESP 16; TEMP 36.2; O2SAT 97
[2023-02-16] MEDS: vancomycin HCL 1,000 MG in 0.9 % Sodium Chloride 250 ML 270 MG IV ×2 (08:17→19:45)
[2023-02-16] MEDS: Furosemide 20 MG TABLET PO (08:17)
[2023-02-16] MEDS: Divalproex Sodium 500 MG TABLET.DR PO ×2 (08:17→19:45)
[2023-02-16] MEDS: ARIPiprazole 5 MG TABLET PO (08:17)
[2023-02-16] MEDS: 0.9 % Sodium Chloride Flush 3 ML SYRINGE IVFLUSH ×3 (08:18→19:47)
[2023-02-16] MEDS: methADONE HCl 20 MG/2 ML ORAL.CONC 135 MG PO (08:18)
[2023-02-16 15:52] VITALS: BP 159/74; PULSE 79; RESP 18; TEMP 36.5; O2SAT 93
--- NOTE | 2023-02-16 17:32 | HO.PM.IMPN ---
Subjective Subjective Date of Service: 02/16/23 Interval History: Legs continue to improve in warmth and erythema. Afebile, no complaints Review of Systems Review of Systems: Yes all other systems are reviewed and are negative Physical Exam Vital Signs: Vital Signs: Last Vital Signs Temp 97.7 F 02/16/23 15:52 Pulse 79 02/16/23 15:52 Resp 18 02/16/23 15:52 BP 159/74 H 02/16/23 15:52 Pulse Ox 93 02/16/23 15:52 O2 Del Method Room Air 02/16/23 15:52 BMI result Body Mass Index 39.7 Constitutional - Awake and Alert, No apparent distress Eyes - PERRLA, EOMI Cardiovascular - S1S2, RRR, 2+ pitting edema Respiratory - Normal lung expansion, Normal respiratory effort, No respiratory distress, CTA bilaterally - No CVA tenderness Extremities - no calf tenderness bilaterally Skin - Warm/Dry. BLE swelling, significant warmth and erythema covering the distal 2/3 of the RLE and the LLE to the knee with scattered sub centimeter superficial scabs on anterior tibia Neurological - Alert & oriented x3 Psychological - Appropriate affect Objective Data Active Medications Acetaminophen (Acetaminophen 325 Mg Tablet) 650 mg PO Q6H PRN PRN Reason: Pain, Mild (Pain Scale 1-3) Last Admin: 02/15/23 08:43 Dose: 650 mg Documented By: SUNDEEP Albuterol Sulfate (Albuterol Sulfate 90 Mcg 8 Gm Inhaler) 2 puff INHALE Q6H PRN PRN Reason: wheezing Aripiprazole (Aripiprazole 5 Mg Tablet) 5 mg PO DAILY [facility] Last Admin: 02/16/23 08:17 Dose: 5 mg Documented By: AILYN Divalproex Sodium (Divalproex Sodium 500 Mg Tablet.) 500 mg PO BID [facility] Last Admin: 02/16/23 08:17 Dose: 500 mg Documented By: AILYN Docusate Sodium (Docusate Sodium 100 Mg Capsule) 100 mg PO DAILY PRN PRN Reason: Constipation Enoxaparin Sodium (Enoxaparin Sodium 40 Mg/0.4 Ml Syringe) 40 mg SUBCUT Q24H [facility] Last Admin: 02/15/23 21:04 Dose: Not Given Documented By: TESSY Non-Admin Reason: Patient Refused Furosemide (Furosemide 20 Mg Tablet) 20 mg PO DAILY [facility]; Protocol Last Admin: 02/16/23 08:17 Dose: 20 mg Documented By: AILYN Gabapentin (Gabapentin 300 Mg Capsule) 300 mg PO TID PRN PRN Reason: Pain, Mild (Pain Scale 1-3) Last Admin: 02/15/23 15:50 Dose: 300 mg Documented By: SUNDEEP Vancomycin HCl 1,000 mg/ (Sodium Chloride) 270 mls @ 270 mls/hr IV Q12H [facility] Last Infusion: 02/16/23 09:25 Dose: 0 mls/hr Documented By: AILYN Methadone HCl (Methadone Hcl 20 Mg/2 Ml Oral.Conc) 135 mg PO DAILY [facility] Last Admin: 02/16/23 08:18 Dose: 135 mg Documented By: AILYN Non-Formulary Medication (Sofosbuvir-Velpatasvir) 1 tab PO DAILY [facility] Ondansetron HCl (Ondansetron Hcl 4 Mg/2 Ml Vial) 4 mg IVPUSH Q8H PRN PRN Reason: Nausea and Vomiting Oxycodone HCl (Oxycodone Hcl Immed Release 5 Mg Tablet) 5 mg PO Q6H PRN PRN Reason: Pain, Moderate(Pain Scale 4-6) Last Admin: 02/15/23 21:01 Dose: 5 mg Documented By: TESSY Pharmacy Consult (Consult Rx Vancomycin Dosing) 1 each MISCELLANE DAILY PRN PRN Reason: Consult order Pharmacy Consult (Consult Rx Perform Med Rec) 1 each MISCELLANE ONCE PRN PRN Reason: Consult order Sodium Chloride (0.9 % Sodium Chloride Flush 3 Ml Syringe) 3 ml IVFLUSH QSHIFT [facility] Last Admin: 02/16/23 08:18 Dose: 3 ml Documented By: AILYN Labs 02/14/23 05:26 02/16/23 05:20 Labs: Laboratory Results - last 24 hr 02/16/23 02/16/23 05:20 05:20 Anion Gap 12 Estim Creat Clear Calc 111.3 Estimated GFR > 60 Random Glucose 88 Calcium 9.7 Random Vancomycin 15.3 Microbiology Microbiology Results: Microbiology 02/13/23 19:23 Blood Culture - Preliminary Blood - Venous No growth after 48 hours. 02/13/23 18:51 Blood Culture - Preliminary Blood - Venous No growth after 48 hours. Assessment and Plan (1) Bilateral edema of lower extremity: Status: Acute (2) Hepatitis C: Status: Acute Plan Pt is a 47-year-old male with a PMH significant for HTN, anxiety, depression, hepatitis-C, and hx of IVDU on methadone who presents to the ED with?recurrent redness, swelling, pain of lower legs bilaterally. Patient was recently discharged from the hospital 7 days prior on 02/06/2023 after presenting to the emergency with similar complaints that he had been experiencing for the previous 2 weeks. Patient was treated with IV antibiotics for cellulitis of lower legs and discharged home on doxycycline 100 mg p.o. b.i.d. x7 days. Patient states he has taken his antibiotics as prescribed, but 2-3 days after discharge the redness, swelling, and pain in his legs increased and return to where it was prior to his admission. Pt will be admitted to the hospital for treatment and further evaluation of recurrent cellulitis of bilateral lower extremities that has failed outpatient therapy. Recurrent cellulitis of lower extremities bilaterally- improvement in erythema but still significant erythema/warmth BLE recent admission for the same, was discharged on doxycycline no evidence of sepsis Continue vancomycin, then change to doxycycline PO tomorrow x 2 weeks then doxycycline and pcn v until epclusa course completed. Per ID, EPclusa could be causing the ble edema/venous stasis contributing to the recurrnet cellulitis ID consult pending keep legs elevated, will start lasix due to leg edema, uptitrate prn repeat lower extremity doppler US- negative, though limited. Repeat study in 5-7 days if symptoms persist Hx of IVDU Pt states has been clean for the past 10 months Continue methadone Left hip osteoarthritis Continue prn gabapentin Mood disorder Continue aripiprazole, Depakote HTN Continue home meds Acute Hepatitis-C Patient states he is on month 3 of treatment sofosbuvir-velpatasvir NF - will need to be brought from home but pt states has no one to bring this chronic normocytic Anemia H/H stable morbid obesity BMI of 40 Patient states he has gained weight over the past 10 months since being sober Patient's mobility is also limited due to osteoarthritis of left hip Weight loss encouraged Full Code Attending:?Dr. alcocer DVT Prophylaxis: Lovenox ongoing hospitalization for management of recurrent cellulitis of bilateral extremities and has failed outpatient therapy. There is gradual improvement in ble cellulitis 2/2 to scabbing/ulcerations due to significant edema r/t epclusa use. Cellulitis is improving but still extends to the knee on the LLE. Will continue IV vanco x 1 night, then transition to PO and dc tomorrow on oral abx? Time Spent With Patient Time: Total time managing care of this patient today ____ minutes. Quality Stroke Does the patient have a stroke diagnosis?: No VTE Prior VTE?: No VTE Risk Level:: Medical - moderate - high VTE Device Contraindication: Treatment Not Indicated VTE Drug Contraindication: N/A - Med Ordered
[2023-02-16] MEDS: Acetaminophen 325 MG TABLET 650 MG PO (19:44)
[2023-02-16 20:00] VITALS: BP 154/84; PULSE 77; RESP 20; TEMP 36.2; O2SAT 93
[2023-02-16] MEDS: Gabapentin 300 MG CAPSULE PO (20:59)
[2023-02-16] MEDS: oxyCODONE HCl Immed Release 5 MG TABLET PO (20:59)
[2023-02-17 03:39] VITALS: BP 142/73; PULSE 70; RESP 18; TEMP 36.1; O2SAT 94
[2023-02-17 06:01] LABS: Anion Gap 14 (12-20); Blood Urea Nitrogen 14 mg/dL (9-16); Calcium 9.6 mg/dL (8.4-10.2); Carbon Dioxide 25 mmol/L (22-29); Chloride 102 mmol/L (96-108); Creatinine Clr Calc Pharmacy 111.3; Estimated Glomerular Filt Rate > 60; Glucose Random 124 mg/dL (60-115); Potassium 4.2 mmol/L (3.3-5.1); Sodium 137 mmol/L (135-145)
--- NOTE | 2023-02-17 07:24 | P.DS_ITS ---
DS: Providers Provider Date of Service: 02/17/23 Date of admission: 02/13/23 20:15 Date of discharge: 02/17/23 Primary care physician: ÁLVARO Fernandes Admitting clinician: Anand Lopez Attending physician on admission: Gabby Ponce Consults: 02/13/23 20:20 Consult to Infectious Diseases Routine Consulting Provider: [facility] Infectious Disease Reason for consultation: Recurrent cellulitis of lower legs bilaterally Attending physician on discharge: Travis Travis Discharging clinician: Bia Adams DS: Diagnosis Discharge Diagnosis (1) Bilateral edema of lower extremity: Status: Acute (2) Hepatitis C: Status: Acute DS: Summary Hospital Course Hospital Course: HPI on admission by Anand Lopez PA-C on 02/13: Chief Complaint: Lower leg redness and swelling Pt is a 47-year-old male with a PMH significant for HTN, anxiety, depression, hepatitis-C, and hx of IVDU on methadone who presents to the ED with?recurrent redness, swelling, pain of lower legs bilaterally.? Patient was recently discharged from the hospital 7 days prior on 02/06/2023 after presenting to the emergency with similar complaints that he had been experiencing for the previous 2 weeks. Patient was treated with IV antibiotics for cellulitis of lower legs and discharged home on doxycycline 100 mg p.o. b.i.d. x7 days.? Patient states he has taken his antibiotics as prescribed, but 2-3 days after discharge the redness, swelling, and pain in his legs increased and return to where it was prior to his admission.? Says the swelling extends from lower extremities all the way up his thighs to his groin.? Complains of calf tightness and numbness an d tingling under the 2nd and 3rd digit of left foot. Patient has now been experiencing recurrent symptoms for 5 days, and symptoms overall for 3 weeks.? Denies any systemic symptoms:? No fever, chills, nausea, vomiting.? Denies chest pain/pressure, palpitations.? No shortness of breath.? Denies headache.? No abdominal pain.? Patient also denies feeling lightheaded, dizzy, or fatigued.? Denies any hematuria or hematochezia or melena. In the ED patient was afebrile, labs were significant for H&H of 11.3/34.4.? Electrolytes WNL.? Renal function baseline.? Hepatic function baseline.? Lactic acid negative. No leukocytosis.? Venous duplex on 02/04/2023 was negative for DVT in the bilateral lower extremity. Pt was treated with IVF, vancomycin, and Zosyn. Pt will be admitted to the hospital for treatment and further evaluation of recurrent cellulitis of bilateral lower extremities that has failed outpatient therapy. Hospital Course: Patient admitted for BLE cellulitis and treated with IV vancomycin with improvement. No leukocytosis or sepsis, VSS. Blood cultures negative. Evaluated by ID who reports that the BLE edema patient has been experiencing since onset of epclusa is likely a side effect. The edema has been predisposing him to small ulcerations/scabs and subsequently infection. Given he is on month 2 of 3 of epclusa treatment, she recommends he take doxycycline 100 mg twice daily x2 weeks on discharge and then take both doxycycline 100 mg twice daily and penicillin V 250 mg twice daily until Epclusa is completed. He did have bilateral DVT studies which were negative. He was started on Lasix 20 mg daily with some improvement in his edema and he will continue this daily on discharge. He is also advised to elevate his legs and can also use compression stockings. Continue monitoring for any evidence of fevers or worsening infection and follow-up with PCP soon. Recurrent cellulitis of lower extremities bilaterally- improvement in erythema but still significant erythema/warmth BLE recent admission for the same, was discharged on doxycycline no evidence of sepsis Continue vancomycin, then change to doxycycline PO tomorrow x 2 weeks then doxycycline and pcn v until epclusa course completed. Per ID, EPclusa could be causing the ble edema/venous stasis contributing to the recurrnet cellulitis keep legs elevated, will start lasix due to leg edema, uptitrate prn repeat lower extremity doppler US- negative, though limited. Repeat study in 5-7 days if symptoms persist Seen by ID recommending doxy 100mg BID x 2 weeks on dc then both doxy 100mg BID and pcn v 250mg BID until epclusa competed Hx of IVDU Pt states has been clean for the past 10 months Continue methadone Left hip osteoarthritis Continue prn gabapentin Mood disorder Continue aripiprazole, Depakote HTN Continue home meds Acute Hepatitis-C Patient states he is on month 3 of treatment sofosbuvir-velpatasvir NF - will need to be brought from home but pt states has no one to bring this chronic normocytic Anemia H/H stable morbid obesity BMI of 40 Patient states he has gained weight over the past 10 months since being sober Patient's mobility is also limited due to osteoarthritis of left hip Weight loss encouraged Smoking cessation encouraged, has NRT at home Time spent discussing smoking cessation with patient: more than 10 minutes Status at Discharge Functional status at discharge: independent ambulation Overall status at discharge: patient is progressing back to baseline Time Spent with Patient Time attestation: Total time managing care of this patient today ____ minutes. Discharge coordination time: Greater than 30 minutes Quality: Safe Use of Opioids Does Pt have an Active Cancer Diagnosis on the Problem List?: No Quality: Stroke Does the patient have a stroke diagnosis?: No Physical Exam Vital Signs: Vital Signs: Last Vital Signs Temp 97 F 02/17/23 03:39 Pulse 70 02/17/23 03:39 Resp 18 02/17/23 03:39 BP 142/73 H 02/17/23 03:39 Pulse Ox 94 02/17/23 03:39 O2 Del Method Room Air 02/17/23 03:39 BMI result Body Mass Index 39.7 Constitutional - Awake and Alert, No apparent distress Eyes - PERRLA, EOMI Cardiovascular - S1S2, RRR, 2+ pitting edema Respiratory - Normal lung expansion, Normal respiratory effort, No respiratory distress, CTA bilaterally - No CVA tenderness Extremities - no calf tenderness bilaterally Skin - Warm/Dry. BLE swelling, significant warmth and erythema covering the distal 2/3 of the RLE and the LLE with scattered sub centimeter superficial scabs on anterior tibia Neurological - Alert & oriented x3 Psychological - Appropriate affect DS: Data Data Completed and Pending Labs on day of discharge: Laboratory Results - last 24 hr 02/17/23 05:07 Sodium 137 Potassium 4.2 Chloride 102 Carbon Dioxide 25 Anion Gap 14 BUN 14 Creatinine 0.88 Estim Creat Clear Calc 111.3 Estimated GFR > 60 Random Glucose 124 H Calcium 9.6 Preliminary micro results at discharge 02/13/23 19:23 Blood Culture - Preliminary Blood - Venous No growth after 48 hours. 02/13/23 18:51 Blood Culture - Preliminary Blood - Venous No growth after 48 hours. Discharge Plan Discharge Anticipated Discharge Date/Time: 02/17/23 09:31 Patient Disposition: Home, Self-Care Discharge Diagnosis: cellulitis bilateral lower extremities, BLE edema Referrals: Malaika Nuñez, [employer] MECH[employer]IC [Primary Care Provider] - 1 Week Discharge Medications: New docusate sodium 100 mg Capsule 100 mg PO DAILY PRN (Reason: Constipation) Qty: 60 0RF furosemide 20 mg Tablet 20 mg PO DAILY Qty: 60 0RF Protocol: Hold for SBP< HOLD for SBP < : 90 Rx Instructions: D/c after epclusa tx completed doxycycline monohydrate 100 mg capsule 100 mg PO BID Qty: 90 0RF Rx Instructions: Take 1 tab every 12 hours WITH FOOD AND FULL GLASS OF WATER daily until epclusa completed penicillin V potassium 250 mg tablet 250 mg PO BID Qty: 90 0RF Rx Instructions: Start taking in 2 weeks (03/03) and continue until epclusa completed Continued naproxen [Naprosyn] 500 mg tablet 500 mg PO BID PRN (Reason: pain) Qty: 20 0RF methadone [Methadone Intensol] 10 mg/mL Concentrate 135 mg PO DAILY gabapentin 300 mg Capsule 300 - 600 mg PO TID PRN (Reason: Pain) albuterol sulfate 90 mcg/actuation HFA aerosol inhaler 2 puff INHALATION Q6H PRN (Reason: wheezing) divalproex [Depakote] 500 mg Tablet,Delayed Release (Dr/Ec) 500 mg PO BID olmesartan 5 mg Tablet 10 mg PO DAILY aripiprazole 5 mg Tablet 5 mg PO DAILY sofosbuvir-velpatasvir 400-100 mg tablet 1 tab PO DAILY Discontinued doxycycline hyclate 100 mg tablet 100 mg PO BID 7 Days Qty: 14 0RF Discharge Orders: Discharge Order (Routine); Ordered 02/17/23 Ordered By: Bia Adams Diet: Advance to usual diet Activity on Discharge: As tolerated Stand Alone Forms: Patient Portal Discharge page Care Plan Goals: Continue antibiotics to treat and prevent infection Health Concerns: Hepatitis C Cellulitis Bilateral lower extremity edema Plan of Treatment: Bilateral cellulitis -Take doxycycline 100mg twice daily with food and full glass of water twice daily x 2 weeks to treat infection -Then continue doxycycline twice daily AND ADD penicillin V 250mg twice daily (on 03/03) and continue until epclusa treatment completed Bilateral edema- likely a side effect of epclusa which puts your at risk for ulcerations and infections -Continue lasix 20mg daily until epclusa course completed -Elevate legs, ambulate/exercise Fatty liver disease -noted on abdominal ultrasound -Work on weight loss as discussed Assessment: As above Discharge Date/Time: 02/17/23 10:40
[2023-02-17 07:53] VITALS: BP 130/72; PULSE 63; RESP 16; TEMP 36.3; O2SAT 96
[2023-02-17] MEDS: methADONE HCl 20 MG/2 ML ORAL.CONC 135 MG PO (07:58)
[2023-02-17] MEDS: vancomycin HCL 1,000 MG in 0.9 % Sodium Chloride 250 ML 270 MG IV (07:58)
[2023-02-17] MEDS: Divalproex Sodium 500 MG TABLET.DR PO (07:59)
[2023-02-17] MEDS: ARIPiprazole 5 MG TABLET PO (07:59)
[2023-02-17] MEDS: 0.9 % Sodium Chloride Flush 3 ML SYRINGE IVFLUSH (07:59)
[2023-02-17] MEDS: Furosemide 20 MG TABLET PO (07:59)
--- NOTE | 2023-02-17 10:30 | MHC.CM.PN ---
pt to return to [facility] his mother will transport
== END 2023-02-17 10:40 | disposition home or self-care (01) | DRG 603 ==
LOC: HO.ED 19:12 → HO.EDOVER 20:34 → HO.S3 20:42
PROVIDERS: Physician Assistant; Physician Assistant Medical; Admitting Provider Student in an Organized Health Care Education/Training Program; Emergency Provider Emergency Medicine; PCP Registered Nurse; Visit Provider Physician Assistant
DX: L03.116 Cellulitis of left lower limb (principal); F11.20 Opioid dependence, uncomplicated; B17.10 Acute hepatitis C without hepatic coma; F39 Unspecified mood [affective] disorder; M16.12 Unilateral primary osteoarthritis, left hip; D64.9 Anemia, unspecified; L03.115 Cellulitis of right lower limb; F17.210 Nicotine dependence, cigarettes, uncomplicated; E66.01 Morbid (severe) obesity due to excess calories; Z68.39 Body mass index [BMI] 39.0-39.9, adult; Z71.6 Tobacco abuse counseling; Z79.899 Other long term (current) drug therapy
CPT/HCPCS: 36415; 76705; 80048; 80053; 80202; 82607; 82728; 82746; 83605; 85025; 85027; 87040; 93306; 93970; 99285; J1650; J1940; J2543; J3370; Q9957

== ENCOUNTER 2023-03-25 10:09 | Outpatient (AMB) | payer MEDICARE, SELFPAY ==
--- NOTE | 2023-03-25 10:55 | MHC.OFFVIS ---
Intake Vital Signs 03/25/23 10:56 Height 5 ft 4 in Intake Visit Reasons: Lt hip Septic Arthritis in 2018 Intake Note: Pop is a 47 year old male who presents today for a follow up of his left hip. At his last visit the benefits of a Left CARI were discussed however he was to manage his bilateral LE cellulitis prior to moving forward with surgery. Patient reports that his cellulitis has resolved. He is just finishing the doxycycline. Allergies No Known Allergies Allergy (Verified 02/13/23 17:30) HPI Lt hip Septic Arthritis in 2018 HPI Details Pop is a 47 year old man who returns to discuss his left hip OA. At his last appointment we discussed a CARI, but he had bilateral LE cellulitis & edema, and required a dental check-up before we could proceed with surgery. He reports his cellulitis has resolved and he is currently finishing his Doxycycline. He continues to have pain in his hip with weight-bearing activity. He has a Hx of left septic arthritis & S/P I&D x2. He walks using a cane, and has some relief from RICE, Tylenol, and naproxen. He has a Hx of IVDU & ETOH, and has not taken drugs or alcohol in ~11 months now. He is on methadone and regularly attends AA meetings. He says his teeth are not good and has an appointment with his dentist sometime next week. [facility], [facility] Medical History Chronic hip pain Heroin abuse Methadone maintenance therapy patient Surgical History Status post hip surgery Social History Household Members: Other Housing: Other Housing Other:: sober house Do you presently have visiting nurse or other home services: No Alcohol intake: never Patient Tobacco Use Status: Current everyday Tobacco user Tobacco use type: Cigarette Cigarette Packs Per Day: 0.5 Cigarettes Per Day: 10.0 service: No Current occupational status: unemployed and disabled Review of Systems Const All systems reviewed & are unremarkable except as noted in HPI and below Physical Exam Const General: no acute distress and alert Orientation/consciousness: patient oriented x3 Neuro General: patient oriented x3 Extrem Other: Left hip: Severe antalgia with gait Walks with cane Minimal passive ROM Bilateral lower leg erythema, distal to the knee Psych Appearance: grossly normal Affect: normal affect Attitude: cooperative Results Reviewed Results Reviewed: I personally reviewed relevant radiographs. Severe obliteration of the left hip joint Assessment & Plan Assessment & Plan (1) Osteoarthritis of left hip: Code(s): M16.12 - Unilateral primary osteoarthritis, left hip Plan: This is a 47 year old man with left hip OA, with a Hx of left septic arthritis & s/p I&D x2. He has pain with daily & weight-bearing activities, and ambulates with an assistive cane. He has severe joint destruction. He has a Hx of ETOH & IVDU but has been clean for ~11 months now and is on Methadone. He has a hx of Hepatitus-C and is taking Epclusa for treatment. I discussed his diagnosis and treatment options. I recommend a left CARI, however given his past Hx of infection, he needs to be assessed for any current hip infection prior to proceeding with surgery. He plans to be seen for his poor dentition to rule out persistent infection on 03/29/23. His BLE active cellulitis has resolved, though he still has some erythema just distal to the knee. I recommend a left hip aspiration to test for infection. If this is negative and is cleared by his dentist then we can discuss a left CARI. I explained the procedure to him including, including the risks, and he would like to proceed. He will speak with Paola to schedule this procedure. I referred him to Vascular to discuss his chronic cellulitis. (2) Bilateral edema of lower extremity: Code(s): R60.0 - Localized edema (3) Bilateral cellulitis of lower leg: Code(s): L03.116 - Cellulitis of left lower limb; L03.115 - Cellulitis of right lower limb Plan Scribed for Jonathan Stallworth MD by Mahesh Baez, medical claims processor, on 03/25/23 at 11:10 AM, EST. Orders: Referrals Vascular Surgery Referral L03.116 - Cellulitis of left lower limb, L03.115 - Cellulitis of right lower limb, R60.0 - Localized edema Coding Level of Care Code Est Pt Level 4 (73750) Diagnoses Osteoarthritis of left hip M16.12 Bilateral edema of lower extremity R60.0 Bilateral cellulitis of lower leg L03.116; L03.115
== END 2023-03-25 11:13 | disposition home or self-care (01) ==
PROVIDERS: PCP Registered Nurse; Visit Provider Orthopaedic Surgery
DX: M16.12 Unilateral primary osteoarthritis, left hip (principal); R60.0 Localized edema; L03.116 Cellulitis of left lower limb; L03.115 Cellulitis of right lower limb
CPT/HCPCS: 99214

== ENCOUNTER → 2023-03-25 10:09 | Outpatient (BNVA) | payer MEDICARE, SELFPAY | PROVIDERS: PCP Registered Nurse; Visit Provider Orthopaedic Surgery | DX: M16.12 Unilateral primary osteoarthritis, left hip (principal); R60.0 Localized edema | CPT/HCPCS: 99212 ==

== ENCOUNTER 2023-04-13 14:22 | Outpatient (AMB) | payer MEDICARE, SELFPAY ==
[2023-04-13 15:01] VITALS: BP 124/80; PULSE 69; BMI 37.5
--- NOTE | 2023-04-13 15:01 | MHC.OFFVIS ---
Intake Vital Signs 04/13/23 15:01 Height 5 ft 4 in Weight 218 lb 4.122 oz BMI 37.5 BP 124/80 Blood Pressure Location Lt brachial Position Sitting Pulse 69 Intake Visit Reasons: NPV/Heart Murmur/HHC [place] Intake Note: New patient dx heart murmur had echo need ekg today patient may need hip surgery soon Blending Supervisor Required: No Allergies No Known Allergies Allergy (Verified 02/13/23 17:30) Medication List - Last Reconciled 04/13/23 by Michael Celaya MD albuterol sulfate 90 mcg/actuation 2 puffs inhalation Q6H PRN aripiprazole 5 mg PO DAILY furosemide 20 mg See Protocol PO DAILY gabapentin 300 - 600 mg PO TID PRN methadone (Methadone Intensol) 135 mg PO DAILY HPI HPI Comments History of Present Illness Details Thanks for referring Pop for preoperative cardiovascular risk stratification. In the past was detected to have a murmur and recently underwent echocardiogram which shows normal structure of the heart without any significant valvular abnormalities. 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 Currently is limited in amount of exercise again performed. With the activity can perform he has no chest pain or shortness of breath. No other major cardiovascular risk factors. He denies any orthopnea, PND. No prolonged palpitations, lightheadedness, syncope. [facility]LY [facility], LATER [facility] Medical History Chronic hip pain Heroin abuse Methadone maintenance therapy patient Surgical History Status post hip surgery Social History Household Members: Other Housing: Other Housing Other:: sober house Do you presently have visiting nurse or other home services: No Alcohol intake: never Patient Tobacco Use Status: Current everyday Tobacco user Tobacco use type: Cigarette Cigarette Packs Per Day: 0.5 Cigarettes Per Day: 10.0 service: No Current occupational status: unemployed and disabled Review of Systems Const Denies chills, Denies fatigue, Denies fever(s), Denies frequent falls, Denies weakness, Denies weight gain and Denies weight loss ENT Denies dizziness Card Denies chest pain, Denies leg edema, Denies lightheadedness, Denies palpitations, Denies dyspnea, Denies dyspnea on exertion, Denies orthopnea and Denies other (loss of consciousness) Resp Denies cough, Denies dyspnea and Denies dyspnea on exertion GI Denies hematochezia and Denies change in stool character Musc Denies abnormal gait, Denies muscle weakness, Denies numbness, Denies radiating pain into limb and Denies tingling Neuro Denies abnormal gait, Denies dizziness, Denies frequent falls, Denies numbness, Denies tingling and Denies weakness Endo Denies fatigue and Denies palpitations Physical Exam Vital Signs: Last Vital Signs Pulse 69 04/13/23 15:01 BP 124/80 04/13/23 15:01 BMI result Body Mass Index 37.5 Const General: cooperative, comfortable, no acute distress, alert and awake Nutritional Appearance: obese Orientation/consciousness: patient oriented x3 Limitations: ambulation with cane HEENT Head: Yes normocephalic and Yes atraumatic Neck Neck: Yes trachea midline, Yes supple and Yes no JVD Resp Effort & Inspection: normal respiratory effort Auscultation: clear to auscultation bilaterally and diminished lung sounds Cardio Jugular venous distension: no JVD Palpation: normal PMI Rate: regular rate Rhythm: regular rhythm Heart sounds: S1 normal heart sound present, S2 normal heart sound present, no click, no gallops and no murmurs GI Auscultation: normal bowel sounds Skin General skin exam: no rashes or lesions noted Neuro General: patient oriented x3 and no focal motor deficits Extrem General: Yes no clubbing, cyanosis or edema Office Procedures EKG Details: EKG shows sinus rhythm with first-degree AV block otherwise normal EKG 10250-[id number], Complete Assessment & Plan Assessment & Plan (1) Preoperative cardiovascular examination: Code(s): Z01.810 - Encounter for preprocedural cardiovascular examination Plan: Preoperative cardiovascular risk stratification this middle-aged man with limited exercise capacity to undergo intermediate risk surgery under general anesthesia. Currently would suggest him to be further risk stratify with vasodilating myocardial perfusion imaging. His recent echocardiogram was within normal limits 7 discussed with him that his murmurs probably physiologic. If his stress test is within normal limits he is currently optimized to undergo the hip surgery with low risk for perioperative cardiovascular morbidity mortality. He was happy to hear that. This test will be scheduled in near future. Will follow up in the clinic if need be. Thank you for allowing me to partake in his care Orders: Orders CA lexiscan stress w jae Today Z01.810 - Encounter for preprocedural cardiovascular examination Coding Level of Care Code New Pt Level 4 (32303) Diagnoses Preoperative cardiovascular examination Z01.810 CPT Codes EKG - CPT: 70639-[id number], Complete ([id number])
== END 2023-04-13 15:41 | disposition home or self-care (01) ==
PROVIDERS: PCP Registered Nurse; Referring Provider Registered Nurse; Visit Provider Internal Medicine Cardiovascular Disease
DX: R01.1 Cardiac murmur, unspecified (principal); Z01.810 Encounter for preprocedural cardiovascular examination
CPT/HCPCS: 93010; 99202; 99204; 99212

== ENCOUNTER → 2023-04-13 14:22 | Outpatient (BNVA) | payer MEDICARE, SELFPAY | PROVIDERS: PCP Registered Nurse; Referring Provider Registered Nurse; Visit Provider Internal Medicine Cardiovascular Disease | DX: Z01.810 Encounter for preprocedural cardiovascular examination (principal) | CPT/HCPCS: 93005; 99202 ==

== ENCOUNTER 2023-05-12 21:11 | Emergency (ER) | payer MEDICARE, SELFPAY ==
[2023-05-12 21:18] VITALS: BP 157/88; PULSE 65; RESP 16; TEMP 36.6; O2SAT 95; BMI 37.4
[2023-05-12 21:46] LABS: MANUAL DIFF FLAG NO
[2023-05-12 21:47] LABS: Basophils Percent Auto 0.2 % (0-2); Eosinophils Absolute Auto 0.2 X10*3/uL (0.0-0.4); Eosinophils Percent Auto 2.6 % (0-4); Hematocrit 38.7 % (42.0-52.0); Hemoglobin 12.3 g/dl (14.0-18.0); Imm Gran Abs Auto 0.02 X10*3/uL (0.00-0.03); Imm Gran Pct Auto 0.2 % (0.0-0.4); Lymphocytes Absolute Auto 2.1 X10*3/uL (1.2-4.9); Lymphocytes Percent Auto 25.3 % (20-40); Mean Corpuscular HGB Conc 31.8 g/dl (31.0-36.0); Mean Corpuscular Hemoglobin 27.2 pg (27.0-33.0); Mean Corpuscular Volume 85.4 fL (80.0-98.0); Monocytes Absolute Auto 0.7 X10*3/uL (0.1-1.2); Monocytes Percent Auto 8.2 % (2-11); Neutrophils Absolute Auto 5.3 x10*3/uL (2.0-8.3); Neutrophils Percent Auto 63.5 % (45-73); Platelet Count 182 X10*3/uL (160-400); Red Blood Count 4.53 X10*6/uL (4.60-5.80); Red Cell Distribution Width 14.1 % (11.0-16.0); White Blood Count 8.3 X10*3/uL (4.8-10.8)
[2023-05-12 22:03] LABS: Anion Gap 10 (12-20); Blood Urea Nitrogen 13 mg/dL (9-16); C Reactive Protein 1.72 mg/dL (< or = 0.50); Calcium 9.5 mg/dL (8.4-10.2); Carbon Dioxide 27 mmol/L (22-29); Chloride 108 mmol/L (96-108); Estimated Glomerular Filt Rate > 60; Glucose Random 87 mg/dL (60-115); Potassium 4.1 mmol/L (3.3-5.1); Sodium 141 mmol/L (135-145)
[2023-05-12 23:15] LABS: Erythrocyte Sedimentation Rate 13 MM/HR (0-15)
[2023-05-13 00:34] VITALS: BP 160/88; PULSE 65; RESP 16; TEMP 36.8; O2SAT 94
--- NOTE | 2023-05-13 00:35 | ED_ITS ---
HPI - Extremity Injury (Lower) General Chief Complaint: Skin/Abscess/Foreign Body Stated Complaint: cellulitis in legs Time Seen by Provider: 05/12/23 22:43 Source: patient Mode of arrival: ambulatory History of Present Illness HPI Narrative: 47-year-old male who presents with bilateral lower extremity redness and swelling, reports that he is not used it in over 13 months and denies any fevers or chills and has recently completed antibiotics for a similar presentation. Related Data Home Medications Medication Instructions Recorded Confirmed albuterol sulfate 90 mcg/actuation 2 puff inhalation Q6H PRN wheezing 02/04/23 04/13/23 aerosol inhaler aripiprazole 5 mg tablet 5 mg PO DAILY 02/04/23 04/13/23 gabapentin 300 mg capsule 300 - 600 mg PO TID PRN Pain 02/04/23 04/13/23 methadone 10 mg/mL oral 135 mg PO DAILY 02/04/23 04/13/23 concentrate (Methadone Intensol) Previous Rx's Medication Instructions Recorded furosemide 20 mg tablet 20 mg PO DAILY #60 tabs 02/17/23 cephalexin 500 mg capsule 500 mg PO BID 5 days #10 caps 05/13/23 doxycycline monohydrate 100 mg 100 mg PO BID 5 days #10 caps 05/13/23 capsule Allergies Allergy/AdvReac Type Severity Reaction Status Date / Time No Known Allergies Allergy Verified 05/12/23 21:18 Review of Systems 2 Review of Systems: Pertinent positives and negatives as stated in HPI [facility] Past Medical History Source: nursing notes reviewed Medical History Heroin abuse Methadone maintenance therapy patient Chronic hip pain Surgical History Status post hip surgery Social History Social History Household Members: Other Housing: Other Housing Other:: sober house Do you presently have visiting nurse or other home services: No Alcohol intake: never Patient Tobacco Use Status: Current everyday Tobacco user Tobacco use type: Cigarette Cigarette Packs Per Day: 0.5 Cigarettes Per Day: 10.0 Advance Directives: No Advance Directives Information Provided: Yes service: No Current occupational status: unemployed and disabled Physical Exam 2 Vital Signs: Vital Signs: Last Vital Signs Temp 98 F 05/12/23 21:18 Pulse 65 05/12/23 21:18 Resp 16 05/12/23 21:18 BP 157/88 H 05/12/23 21:18 Pulse Ox 95 05/12/23 21:18 O2 Del Method Room Air 05/12/23 21:18 BMI result Body Mass Index 37.4 VITAL SIGNS: Reviewed. GENERAL: Well developed, well nourished, in no acute distress. HEAD: Normocephalic/atraumatic EYES: PERRLA, EOMI LUNGS: Normal breath sounds. No adventitious sounds or accessory muscle use. SpO2<95> CARDIOVASCULAR: Regular rate and rhythm without noted murmurs ABDOMEN: Soft, non-tender, non-distended with bowel sounds. MUSCULOSKELETAL: No tenderness, deformities, or effusions noted on gross inspection. EXTREMITIES: No cyanosis, clubbing or edema. BILATERAL LOWER EXTREMITY: There is erythema, skin thickening but it almost no pitting edema, there are no nonhealing wounds. SKIN: Inspection of the skin reveals no rashes NEUROLOGIC: Alert and oriented x 4. Strength and sensation to light touch were grossly intact x 4. Medical Decision Making Medical Decision Making [facility] Narrative: 47-year-old male with history and clinical presentation most consistent with a venous stasis/lymphedema etiology, I did review all investigations and patient does not have any fever and also has no leukocytosis or left shift, demonstrates a chronically stable normocytic anemia, no thrombocytopenia. Chemistry and sees are grossly within normal limits without electrolyte abnormalities and no HODAN. There is a CRP that is noted to be elevated at 1.7 to, however this would be elevated and many instances of inflammatory status. This appears to be somewhat of a erysipelas presentation on the background of chronic venous stasis with lymphedema. Patient reports that he has been treated for hepatitis-C previously. He will be placed on a combination treatment of doxycycline and cephalexin and will receive initial antibiotics here in the emergency room and be discharged with remaining course. He was strongly encouraged to follow-up with his primary care doctor. Differential Diagnosis Differential Diagnoses: The differential diagnosis associated with the presentation includes Please see the discussion above Admission/Observation Consideration of admission/observation: Escalation of care including admission/observation considered Please see discussion above Lab Data [facility] Lab Attestation statement: I reviewed the patient's lab results. Please see the discussion above 05/12/23 21:37 09/13/23 21:36 Labs: Lab Results 05/12/23 05/12/23 Range/Units 21:36 21:37 WBC 8.3 (4.8-10.8) X10*3/uL RBC 4.53 L D (4.60-5.80) X10*6/uL Hgb 12.3 L (14.0-18.0) g/dl Hct 38.7 L (42.0-52.0) % MCV 85.4 (80.0-98.0) fL MCH 27.2 (27.0-33.0) pg MCHC 31.8 (31.0-36.0) g/dl RDW 14.1 (11.0-16.0) % Plt Count 182 (160-400) X10*3/uL MPV 11.0 (9.4-12.4) fL Immature Gran % (Auto) 0.2 (0.0-0.4) % Neut % (Auto) 63.5 (45-73) % Lymph % (Auto) 25.3 (20-40) % [place] % (Auto) 8.2 (2-11) % Eos % (Auto) 2.6 (0-4) % Baso % (Auto) 0.2 (0-2) % Lymph # (Auto) 2.1 (1.2-4.9) X10*3/uL [place] # (Auto) 0.7 (0.1-1.2) X10*3/uL Eos # (Auto) 0.2 (0.0-0.4) X10*3/uL Baso # (Auto) 0.0 (0.0-0.2) X10*3/uL Abs Immat Gran (auto) 0.02 (0.00-0.03) X10*3/uL Absolute Neuts (auto) 5.3 (2.0-8.3) x10*3/uL Absolute Nucleated RBC 0.000 (0.0-0.012) X10*3/uL Nucleated RBC % (auto) 0.0 (0.0-0.2) /100WBC ESR 13 (0-15) MM/HR Sodium 141 (135-145) mmol/L Potassium 4.1 (3.3-5.1) mmol/L Chloride 108 (96-108) mmol/L Carbon Dioxide 27 (22-29) mmol/L Anion Gap 10 L (12-20) BUN 13 (9-16) mg/dL Creatinine 1.03 (0.5-1.4) mg/dL Estim Creat Clear Calc 92.0 Estimated GFR > 60 Random Glucose 87 (60-115) mg/dL Calcium 9.5 (8.4-10.2) mg/dL C-Reactive Protein 1.72 H (< or = 0.50) mg/dL External Record Review External record reviewed: Outpatient record, Prior outpatient labs and Prior outpatient radiology Discharge Plan Discharge Clinical Impression: Erysipelas of both lower extremities Patient Disposition: Home, Self-Care Instructions: Cellulitis (ED), Leg Edema (ED) Additional Instructions: 1. Complete the entire course of antibiotics as ordered. 2. Please follow-up with your primary care doctor. Return to the ER for any worsening symptoms. Prescriptions: New doxycycline monohydrate 100 mg capsule 100 mg PO BID 5 Days Qty: 10 0RF cephalexin 500 mg capsule 500 mg PO BID 5 Days Qty: 10 0RF No Action methadone [Methadone Intensol] 10 mg/mL Concentrate 135 mg PO DAILY gabapentin 300 mg Capsule 300 - 600 mg PO TID PRN (Reason: Pain) albuterol sulfate 90 mcg/actuation HFA aerosol inhaler 2 puff INHALATION Q6H PRN (Reason: wheezing) aripiprazole 5 mg Tablet 5 mg PO DAILY furosemide 20 mg Tablet 20 mg PO DAILY Qty: 60 0RF Protocol: Hold for SBP< HOLD for SBP < : 90 Rx Instructions: D/c after kayla tx completed Referrals: Malaika Nuñez FNP [Primary Care Provider] -
[2023-05-13] MEDS: Doxycycline Monohydrate 100 MG CAPSULE PO (01:01)
[2023-05-13] MEDS: cephALEXin 500 MG CAPSULE PO (01:01)
== END 2023-05-13 04:13 | disposition home or self-care (01) ==
PROVIDERS: Emergency Provider Student in an Organized Health Care Education/Training Program; PCP Registered Nurse
DX: A46 Erysipelas (principal); R60.0 Localized edema; M79.605 Pain in left leg; M79.604 Pain in right leg; F17.210 Nicotine dependence, cigarettes, uncomplicated; Z71.6 Tobacco abuse counseling; Z79.899 Other long term (current) drug therapy
CPT/HCPCS: 36415; 80048; 85025; 85652; 86140; 99282; 99283

== ENCOUNTER 2023-05-25 13:53 | Outpatient (AMB) | payer MEDICARE, SELFPAY ==
[2023-05-25 14:02] VITALS: BMI 36.0
--- NOTE | 2023-05-25 14:02 | MHC.OFFVIS ---
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 Stallworth referred for bilateral LE cellulitis in order to move forward w/ a Left hip replacement. Pt has bilateral LE discoloration and has had bouts of cellulitis for 4-5 months and most recently 2 weeks ago when he went to the ED and got another round of Abx. 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 At the time of workup by a orthopedics he was noted to have significant edema and cellulitis of bilateral lower extremities. He has a prior history of cellulitis which had been treated by doxycycline. He now presents to us for vascular evaluation of his lower extremity. [facility] Medical History Heroin abuse Methadone maintenance therapy patient Chronic hip pain Surgical History Status post hip surgery Social History (Updated 05/25/23 @ 14:10 by KHALIDA Juan) Household Members: Other Housing: Other Housing Other:: sober house Do you presently have visiting nurse or other home services: No Alcohol intake: never Patient Tobacco Use Status: Current everyday Tobacco user Tobacco use type: Cigarette Cigarette Packs Per Day: 0.25 Cigarettes Per Day: 5 service: No Current occupational status: unemployed and disabled Review of Systems Const Reports as per HPI ENT Reports no additional complaints Card Denies chest pain, Denies chest pain at rest and Denies chest pain with activity Resp Denies chest congestion and Denies cough GI Reports no additional complaints Musc Details: pain over varicosities, aching of lower extremities, swelling, cramping, heaviness and tiredness, itching Denies abnormal gait Skin/Breast Reports pruritus and Denies wounds Neuro Reports no additional complaints and Denies abnormal gait Psych Denies no additional complaints Physical Exam Vital Signs: BMI result Body Mass Index 36.0 Const General: cooperative, healthy appearing and comfortable Orientation/consciousness: oriented to person, oriented to place and oriented to time Neck Carotids: no bruits Chest Chest palpation & inspection: normal inspection of the chest and normal palpation of entire chest wall Resp Effort & Inspection: normal respiratory effort and able to speak in complete sentences Cardio Other: Bilateral DP signals I am unable to appreciate pulses Rate: regular rate Heart sounds: S1 normal heart sound present and S2 normal heart sound present Peripheral pulses: Peripheral pulses 2+ throughout GI Inspection: Yes normal to inspection Skin Other: +2 edema, skin discoloration CEAP Classification C5-evidence of healed ulceration Ep - Etiology Primary As - superficial veins P - reflux General skin exam: dry skin Neuro General: oriented to person, oriented to place and oriented to time Extrem Right lower extremity: full ROM, normal capillary refill and edema Left lower extremity: full ROM, normal capillary refill and edema Psych Mental Status: mental status grossly normal Assessment & Plan Assessment & Plan (1) Varicose veins of left lower extremity with inflammation: Code(s): I83.12 - Varicose veins of left lower extremity with inflammation Plan: In short patient has significantly swollen lower extremities which is lead to recurrent bouts of cellulitis and ulceration. I have taken the liberty of ordering venous insufficiency testing to evaluate that. Should that prove to be negative may have to workup other comorbid conditions including cardiac evaluation and lymphedema. He will follow up with us after testing. (2) PAD (peripheral artery disease): Code(s): I73.9 - Peripheral vascular disease, unspecified Plan: I am unable to clearly appreciate palpable dorsalis pedis pulses. Will obtain arterial testing as well to ensure that there is adequate arterial supply. Thank you for allowing us to assist in his care. If there are any questions or concerns please do not hesitate to contact us. Coding Level of Care Code Est Pt Level 4 (29263) Diagnoses Varicose veins of left lower extremity with inflammation I83.12 PAD (peripheral artery disease) I73.9
== END 2023-05-25 14:47 | disposition home or self-care (01) ==
PROVIDERS: PCP Registered Nurse; Visit Provider Surgery Vascular Surgery
DX: I83.12 Varicose veins of left lower extremity with inflammation (principal); I73.9 Peripheral vascular disease, unspecified
CPT/HCPCS: 99214

== ENCOUNTER → 2023-05-25 13:53 | Outpatient (BNVA) | payer MEDICARE, SELFPAY | PROVIDERS: PCP Registered Nurse; Visit Provider Surgery Vascular Surgery | DX: I83.12 Varicose veins of left lower extremity with inflammation (principal); I73.9 Peripheral vascular disease, unspecified | CPT/HCPCS: 99212 ==

== ENCOUNTER 2023-06-07 15:06 | Inpatient (IN) | payer MEDICARE, SELFPAY ==
[2023-06-07 15:22] VITALS: BP 172/78; PULSE 78; RESP 16; TEMP 36.2; O2SAT 94; BMI 34.3
--- NOTE | 2023-06-07 20:23 | ED.GENADULT ---
HPI - General Adult General Chief complaint: Fever Stated complaint: cellulitis, fever Time Seen by Provider: 06/07/23 20:22 Source: patient Mode of arrival: ambulatory Limitations: no limitations History of Present Illness HPI narrative: Patient with history of IV drug use recurrent cellulitis of lower extremities for last 14 months patient quit IV drugs since then but is still having cellulitis 3 times since then last time patient was prescribed antibiotic for 3 months. For last 2 weeks patient has been having increased redness again in both lower extremity got worse in last 3 days with low-grade fever and chills patient finished a course of antibiotic for 10 days p.o. doxycycline and cephalexin but for last 3 days noticed increased redness. Related Data Home Medications Medication Instructions Recorded Confirmed albuterol sulfate 90 mcg/actuation 2 puff inhalation Q6H PRN wheezing 02/04/23 06/07/23 aerosol inhaler gabapentin 300 mg capsule 300 - 600 mg PO TID PRN Pain 02/04/23 06/07/23 methadone 10 mg/mL oral 135 mg PO DAILY 02/04/23 06/07/23 concentrate (Methadone Intensol) naproxen 250 mg tablet 250 mg PO BID PRN Pain (Scale 05/25/23 06/07/23 Score 4-6) Allergies Allergy/AdvReac Type Severity Reaction Status Date / Time No Known Allergies Allergy Verified 06/07/23 15:24 Review of Systems Review of Systems: Yes all other systems are reviewed and are negative PMFSH 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 Chronic hip pain Surgical History Status post hip surgery Social History Social History Household Members: Other Housing: Other Housing Other:: sober house Do you presently have visiting nurse or other home services: No Alcohol intake: never Patient Tobacco Use Status: Never used Tobacco Tobacco use type: Cigarette Cigarette Packs Per Day: 0.25 Cigarettes Per Day: 5 Smoked in Last 30 Days: No Use of substances other than those prescribed or required for medical reasons: No Advance Directives: No Advance Directives Information Provided: No service: No Current occupational status: unemployed and disabled Physical Exam ED Vital Signs: Vital Signs - 24 hr 06/07/23 15:22 Temperature 97.2 F Pulse Rate 78 Respiratory Rate 16 Blood Pressure 172/78 H Pulse Oximetry 94 Oxygen Delivery Method Room Air BMI result Body Mass Index 34.3 Appearance: Alert. Oriented X3. No acute distress. ENT: Pharynx normal. Oral Mucosa moist Neck: Normal inspection. Neck supple. CVS: Normal heart rate and rhythm. Pulses normal. Respiratory: No respiratory distress. Equal air entry bilateral, no wheezing/rales/rhonchi Abdomen: Soft and nontender. Bowel sounds are present, no mass palpable, no CVA tenderness Skin: Skin warm and dry. Normal skin turgor. Extremities: Bilateral lower extremity edema with erythema and warmth small open wound on the right leg with no pus discharge, Edwin sign negative Neuro: Oriented X 3. No motor deficit. Medications Administered Generic Name Dose Route Start Last Admin Trade Name Freq PRN Reason Stop Dose Admin Enoxaparin Sodium 40 mg 06/07/23 23:00 06/07/23 23:13 Enoxaparin Sodium 40 Mg/0.4 Ml Syringe SUBCUT Not Given Q24H CARRIE Gabapentin 300 - 600 mg 06/07/23 22:17 06/07/23 23:11 Gabapentin 300 Mg Capsule PO 300 mg TID PRN Administration legpain Sodium Chloride 3 ml 06/08/23 00:00 06/07/23 23:14 0.9 % Sodium Chloride Flush 3 Ml Syringe IVFLUSH 3 ml QSHIFT CARRIE Administration Discontinued Medications Generic Name Dose Route Start Last Admin Trade Name Freq PRN Reason Stop Dose Admin Sodium Chloride 1,000 mls @ 999 mls/hr 06/07/23 20:46 06/08/23 00:03 Ns IV 06/07/23 21:46 Infused .Q1H1M ONE Infusion Vancomycin HCl 2,000 mg in 500 mls @ 250 mls/hr 06/07/23 22:00 06/08/23 00:04 Vancomycin/Ns IV 06/07/23 23:59 Infused ONCE ONE Infusion Medical Decision Making Medical Decision Making [facility] Narrative: Patient recurrent cellulitis with history of IV drug use failed outpatient p.o. antibiotic treatment will admit for IV vancomycin Differential Diagnosis Differential Diagnoses: The differential diagnosis associated with the presentation includes Cellulitis/MRSAinfection/DVT which is unlikely Admission/Observation Consideration of admission/observation: Escalation of care including admission/observation considered Consult Healthcare Provider Management of the patient was discussed with: Hospitalist Lab Data MDM Lab Attestation statement: I reviewed the patient's lab results. 06/07/23 16:09 06/07/23 16:09 Labs: Lab Results 06/07/23 06/07/23 06/07/23 Range/Units 16:08 16:09 20:55 WBC 8.6 (4.8-10.8) X10*3/uL RBC 4.49 L (4.60-5.80) X10*6/uL Hgb 12.2 L (14.0-18.0) g/dl Hct 38.4 L (42.0-52.0) % MCV 85.5 (80.0-98.0) fL MCH 27.2 (27.0-33.0) pg MCHC 31.8 (31.0-36.0) g/dl RDW 14.3 (11.0-16.0) % Plt Count 203 (160-400) X10*3/uL MPV 10.6 (9.4-12.4) fL Immature Gran % (Auto) 0.7 H (0.0-0.4) % Neut % (Auto) 66.3 (45-73) % Lymph % (Auto) 22.5 (20-40) % [place] % (Auto) 8.4 (2-11) % Eos % (Auto) 1.9 (0-4) % Baso % (Auto) 0.2 (0-2) % Lymph # (Auto) 1.9 (1.2-4.9) X10*3/uL [place] # (Auto) 0.7 (0.1-1.2) X10*3/uL Eos # (Auto) 0.2 (0.0-0.4) X10*3/uL Baso # (Auto) 0.0 (0.0-0.2) X10*3/uL Abs Immat Gran (auto) 0.06 H (0.00-0.03) X10*3/uL Absolute Neuts (auto) 5.7 (2.0-8.3) x10*3/uL Absolute Nucleated RBC 0.000 (0.0-0.012) X10*3/uL Nucleated RBC % (auto) 0.0 (0.0-0.2) /100WBC ESR 21 H (0-15) MM/HR D-Dimer High Sensitivty 384 NG/ML Sodium 140 (135-145) mmol/L Potassium 4.1 (3.3-5.1) mmol/L Chloride 105 (96-108) mmol/L Carbon Dioxide 25 (22-29) mmol/L Anion Gap 14 (12-20) BUN 15 (9-16) mg/dL Creatinine 0.90 (0.5-1.4) mg/dL Estim Creat Clear Calc 100.8 Estimated GFR > 60 Random Glucose 111 (60-115) mg/dL Lactic Acid 1.1 (0.5-2.0) mmol/L Calcium 9.8 (8.4-10.2) mg/dL Total Bilirubin 0.4 (0.0-1.0) mg/dL AST 16 (5-37) U/L ALT 8 (0-40) U/L Alkaline Phosphatase 85 (39-117) U/L C-Reactive Protein 3.17 H (< or = 0.50) mg/dL Total Protein 8.0 (6.5-8.0) g/dL Albumin 4.0 (3.5-5.0) g/dL Beta HCG, Quant Cancelled Discharge Plan Discharge Clinical Impression: Bilateral cellulitis of lower leg Patient Disposition: Admitted As Inpatient
--- NOTE | 2023-06-07 22:07 | PM.IMHP ---
History of Present Illness Date of Service: 06/07/23 Attending physician on admission: Jenna Washington Chief Complaint: Bilateral lower extremity infection 47-year-old male with history of hypertension, anxiety, depression, hep C completed Epclusa 3 months ago, history IV drug abuse in remission, and opiate dependence on methadone presents to the ED earlier today for evaluation of recurrent redness, swelling, pain of the bilateral lower extremities. The patient has been seen and evaluated multiple times for the symptoms. Was admitted to our facility from 02/13- due to bilateral lower extremity cellulitis. He was evaluated by Infectious Disease at that time who felt symptoms may be related to include the use. He was discharged on doxycycline and advised to take penicillin V as prescribed until Epclusa completed. He reports that symptoms had resolved for about 1 month before recurring. He has since been seen in the ED several times and completed a course of doxycycline and Keflex about 3 weeks ago. He states these antibiotics ?kept symptoms at [facility]? but as soon as he completed the course, erythema continued to spread and is now spread from the lower legs onto the posterior thighs bilaterally. He is also reporting increasing edema with shallow ulcerations with serous drainage. He states he has not used any IV drugs in about 1 year and is congratulated for this. He does continue to smoke between 5-8 cigarettes on a daily basis. Does not drink alcohol. He states he did have a low-grade fever several days ago but denies any other fevers or chills. There has been no purulent drainage. On arrival, patient is hypertensive to 172/78, vitals otherwise stable. There is no leukocytosis. Renal function and electrolyte levels normal. CRP 3.17, ESR 21. D-dimer 384. In the ED, patient treated with 1 L IV NS and IV vanco. 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 Chronic hip pain Surgical History Status post hip surgery Social History Household Members: Other Housing: Other Housing Other:: sober house Do you presently have visiting nurse or other home services: No Alcohol intake: never Patient Tobacco Use Status: Current everyday Tobacco user Tobacco use type: Cigarette Cigarette Packs Per Day: 0.25 Cigarettes Per Day: 5 Advance Directives: No Advance Directives Information Provided: No service: No Current occupational status: unemployed and disabled Meds Allergies Allergy/AdvReac Type Severity Reaction Status Date / Time No Known Allergies Allergy Verified 06/07/23 15:24 Active Medications: Current Medications Acetaminophen (Acetaminophen 325 Mg Tablet) 650 mg PO Q6H PRN PRN Reason: Pain, Mild (Pain Scale 1-3) Enoxaparin Sodium (Enoxaparin Sodium 40 Mg/0.4 Ml Syringe) 40 mg SUBCUT Q24H [facility] Vancomycin HCl (Vancomycin/Ns) 2,000 mg in 500 mls @ 250 mls/hr IV ONCE ONE Stop: 06/07/23 23:59 Last Admin: 06/07/23 21:35 Dose: 250 mls/hr Melatonin (Melatonin 3 Mg Tablet) 6 mg PO BEDTIME PRN PRN Reason: Insomnia Ondansetron HCl (Ondansetron Hcl 4 Mg/2 Ml Vial) 4 mg IVPUSH Q8H PRN PRN Reason: Nausea and Vomiting Pharmacy Consult (Consult Rx Vancomycin Dosing) 1 each MISCELLANE DAILY PRN PRN Reason: Consult order Sodium Chloride (0.9 % Sodium Chloride Flush 3 Ml Syringe) 3 ml IVFLUSH QSHIFT [facility] Home Medications Medication Instructions Recorded Confirmed Last Taken Type albuterol sulfate 90 mcg/actuation 2 puff inhalation Q6H PRN wheezing 02/04/23 06/07/23 06/07/23 07:00 History aerosol inhaler gabapentin 300 mg capsule 300 - 600 mg PO TID PRN Pain 02/04/23 06/07/23 06/07/23 07:00 History methadone 10 mg/mL oral 135 mg PO DAILY 02/04/23 06/07/23 06/07/23 07:00 History concentrate (Methadone Intensol) naproxen 250 mg tablet 250 mg PO BID PRN Pain (Scale 05/25/23 06/07/23 06/07/23 07:00 History Score 4-6) Physical Exam Vital Signs and Narrative: Vital Signs: Last Vital Signs Temp 97.2 F 06/07/23 15:22 Pulse 78 06/07/23 15:22 Resp 16 06/07/23 15:22 BP 172/78 H 06/07/23 15:22 Pulse Ox 94 06/07/23 15:22 O2 Del Method Room Air 06/07/23 15:22 BMI result Body Mass Index 34.3 Constitutional - Awake and Alert, No apparent distress Eyes - PERRLA, EOMI Cardiovascular - S1S2, RRR Respiratory - Normal lung expansion, Normal respiratory effort, No respiratory distress, CTA bilaterally Gastrointestinal - NT / ND; +BS; No rebound or guarding Extremities - no calf tenderness bilaterally, no swelling Skin - Warm/Dry. Extensive erythema and warmth covering the lower legs bilaterally extending to the posterior thighs bilaterally with 2+ edema and shallow ulcerations with serous drainage Neurological - Alert & oriented x3 Psychological - Appropriate affect Results Labs 06/07/23 16:09 06/07/23 16:09 Labs: Laboratory Results - last 24 hr 06/07/23 06/07/23 06/07/23 16:08 16:09 20:55 MCV 85.5 MCH 27.2 MCHC 31.8 RDW 14.3 Plt Count 203 MPV 10.6 Immature Gran % (Auto) 0.7 H Neut % (Auto) 66.3 Lymph % (Auto) 22.5 [place] % (Auto) 8.4 Eos % (Auto) 1.9 Baso % (Auto) 0.2 Lymph # (Auto) 1.9 [place] # (Auto) 0.7 Eos # (Auto) 0.2 Baso # (Auto) 0.0 Abs Immat Gran (auto) 0.06 H Absolute Neuts (auto) 5.7 Absolute Nucleated RBC 0.000 Nucleated RBC % (auto) 0.0 ESR 21 H D-Dimer High Sensitivty 384 Anion Gap 14 Estim Creat Clear Calc 100.8 Estimated GFR > 60 Random Glucose 111 Lactic Acid 1.1 Calcium 9.8 Total Bilirubin 0.4 AST 16 ALT 8 Alkaline Phosphatase 85 C-Reactive Protein 3.17 H Total Protein 8.0 Albumin 4.0 Beta HCG, Quant Cancelled Assessment and Plan (1) Bilateral cellulitis of lower leg: Status: Acute (2) Bilateral edema of lower extremity: Status: Acute Plan 47-year-old male with history of hypertension, anxiety, depression, hep C completed Epclusa 3 months ago, history IV drug abuse in remission, and opiate dependence on methadone admitted for recurrent extensive bilateral lower extremity cellulitis in patient with history of IV drug abuse. # recurrent bilateral lower extremity cellulitis -no leukocytosis or other sirs criteria -D-dimer elevated. Venous duplex bilateral ordered to rule out VTE -IV vancomycin (initiated 06/07) -infectious disease consult -continue gabapentin for pain -follow CBC, cultures # bilateral edema of lower extremity with venous ulcers -add Lasix 20 mg daily -wound rn consult -follow renal function, electrolytes # opioid dependence -continue methadone # hypertension -add amlodipine 5 mg daily DVT prophylaxis-Lovenox Full code Patient requires inpatient stay at least 2 midnights for management of extensive bilateral lower extremity cellulitis having failed outpatient oral antibiotics requiring IV antibiotics and expert consultation Time Spent With Patient Time: Total time managing care of this patient today ____ minutes. Quality Stroke Does the patient have a stroke diagnosis?: No VTE Prior VTE?: No VTE Risk Level:: Medical - moderate - high VTE Device Contraindication: Treatment Not Indicated VTE Drug Contraindication: N/A - Med Ordered
[2023-06-07 22:09] VITALS: BP 144/86; PULSE 73; RESP 20; TEMP 36.9; O2SAT 95
--- NOTE | 2023-06-07 22:40 | PHA.PROG ---
Admission Date/Time: June 07, 2023 22:05 Indication: OTHER Weight in k.718 kg Serum Creatinine - Last 168 Hours 06/07/23 16:09 Creatinine 0.90 Estimated CrCl and GFR - Last 168 Hours 06/07/23 16:09 Estim Creat Clear Calc 100.8 Estimated GFR > 60 Vancomycin Loading Dose: 2000 Current Vancomycin Dosing Regimen: 1250 Q 12 Vancomycin Monitoring using AUC goal of 400 - 600 range with trough as surrogate marker: 529 Date and Time for next Vancomycin Level to be drawn: 06/09 @ 0700 Pharmacist Comments on Vancomycin Plan: Vancomycin dosing will take advantage of [employer] as a clinical decision support tool that uses Bayesian modeling to calculate individual patient's pharmacokinetic parameters and forecast the patient's drug concentration time course with the target goal AUC 24 range of 400 - 600 mg/L/hr.
[2023-06-07 23:37] VITALS: BP 152/87; PULSE 69; RESP 16; TEMP 36.6; O2SAT 98
--- NOTE | 2023-06-07 23:54 | MHC.EDTECH ---
THIS PCT ASSUMED CARE OF PT AT 2300 ,VITALS TAKEN AND PATIENT BELONGING LIST DONE ,PT HAD A [employer] SANDWICH AND A BING ALLIE FOR SNACK .
[2023-06-08 04:18] VITALS: BP 151/76; PULSE 72; RESP 16; TEMP 36.4; O2SAT 95
--- NOTE | 2023-06-08 06:15 | PC.NURSE ---
Methadone dose verified by Rosio EMERSON at [facility]. Pt Dose is 135mg. Pt is on a 2 week program and picked up 13 bottles on 06/02. Pt states he takes them appropriately, and the last dose was the morning of 06/07. Methadone verification form faxed to pharmacy. Clinic requested pt bring several things to clinic upon discharge from [facility]: -Discharge summary -Last dose verification -Full bottles, equivalent to number of doses given at [facility]
--- NOTE | 2023-06-08 06:35 | MHC.EDTECH ---
PATIENT HAS A ROOM ON MED - SURGE ,THIS PCT IS NOW TRANSPORTING PATIENT TO HIS NEW ROOM .
[2023-06-08 07:50] VITALS: BP 149/100; PULSE 72; RESP 18; TEMP 36.7; O2SAT 95
--- NOTE | 2023-06-08 07:51 | HE.PHANOTE ---
RE METHADONE PATIENT GETS 135MG FROM [facility], LAST DOSED 06/07/2023 G[facility]
--- NOTE | 2023-06-08 09:12 | PHA.MEDREC ---
Pharmacy Consult ? Medication Reconciliation Pharmacy has completed the medication reconciliation.
--- NOTE | 2023-06-08 09:19 | MHC.CM.PN ---
IMM 06/08/23 Pt lives at [facility] in [place], which is a sober house, he does not have home health services, but they are available there if he needs them. He does not use med euipment. He does not have a HCP and declined to complete form. He is able to get a ride home at [place]. Plan is home self care. CM to follow and assist with DC plan.
--- NOTE | 2023-06-08 09:58 | HO.PM.IMPN ---
Subjective Subjective Date of Service: 06/08/23 Interval History: f/u dylan leg cellulitis Physical Exam Vital Signs: Vital Signs: Last Vital Signs Temp 98.0 F 06/08/23 07:50 Pulse 72 06/08/23 07:50 Resp 18 06/08/23 07:50 BP 149/100 H 06/08/23 07:50 Pulse Ox 95 06/08/23 07:50 O2 Del Method Room Air 06/08/23 07:50 BMI result Body Mass Index 34.3 Const: Other: General: AO X 3, no acute distress Resp: CTA bilateral CVS: S1,S2,RRR GI: +BS, NT, no distention Skin: erythema (see PIc in H and P), essentially unchanged Neuro: motor grossly intact Psych: appropriate affect Objective Data Active Medications Acetaminophen (Acetaminophen 325 Mg Tablet) 650 mg PO Q6H PRN PRN Reason: Pain, Mild (Pain Scale 1-3) Albuterol Sulfate (Albuterol Sulfate 90 Mcg 8 Gm Inhaler) 2 puff INHALE Q6H PRN PRN Reason: wheezing Amlodipine Besylate (Amlodipine Besylate 5 Mg Tablet) 5 mg PO DAILY [facility]; Protocol Last Admin: 06/08/23 08:50 Dose: 5 mg Documented By: ANISH Enoxaparin Sodium (Enoxaparin Sodium 40 Mg/0.4 Ml Syringe) 40 mg SUBCUT Q24H [facility] Last Admin: 06/07/23 23:13 Dose: Not Given Documented By: ASHLEY Non-Admin Reason: Patient Refused Furosemide (Furosemide 20 Mg Tablet) 20 mg PO DAILY [facility]; Protocol Last Admin: 06/08/23 08:50 Dose: 20 mg Documented By: ANISH Gabapentin (Gabapentin 300 Mg Capsule) 300 - 600 mg PO TID PRN PRN Reason: legpain Last Admin: 06/07/23 23:11 Dose: 300 mg Documented By: ASHLEY Vancomycin HCl 1,250 mg/ (Sodium Chloride) 250 mls @ 166.667 mls/hr IV Q12H [facility] Last Admin: 06/08/23 08:53 Dose: 166.67 mls/hr Documented By: ANISH Melatonin (Melatonin 3 Mg Tablet) 6 mg PO BEDTIME PRN PRN Reason: Insomnia Methadone HCl (Methadone Hcl 20 Mg/2 Ml Oral.Conc) 135 mg PO DAILY [facility] Last Admin: 06/08/23 08:50 Dose: 135 mg Documented By: ANISH Nicotine Polacrilex (Nicotine Polacrilex Lozenge 2 Mg Lozenge) 2 mg BUCCAL Q2H PRN PRN Reason: Nicotine Cravings Ondansetron HCl (Ondansetron Hcl 4 Mg/2 Ml Vial) 4 mg IVPUSH Q8H PRN PRN Reason: Nausea and Vomiting Pharmacy Consult (Consult Rx Vancomycin Dosing) 1 each MISCELLANE DAILY PRN PRN Reason: Consult order Sodium Chloride (0.9 % Sodium Chloride Flush 3 Ml Syringe) 3 ml IVFLUSH QSHIFT [facility] Last Admin: 06/08/23 08:50 Dose: 3 ml Documented By: ANISH Labs 06/07/23 16:09 06/08/23 04:53 Labs: Laboratory Results - last 24 hr 06/07/23 06/07/23 06/07/23 16:08 16:09 20:55 MCV 85.5 MCH 27.2 MCHC 31.8 RDW 14.3 Plt Count 203 MPV 10.6 Immature Gran % (Auto) 0.7 H Neut % (Auto) 66.3 Lymph % (Auto) 22.5 [place] % (Auto) 8.4 Eos % (Auto) 1.9 Baso % (Auto) 0.2 Lymph # (Auto) 1.9 [place] # (Auto) 0.7 Eos # (Auto) 0.2 Baso # (Auto) 0.0 Abs Immat Gran (auto) 0.06 H Absolute Neuts (auto) 5.7 Absolute Nucleated RBC 0.000 Nucleated RBC % (auto) 0.0 ESR 21 H Hold Purple Top D-Dimer High Sensitivty 384 Anion Gap 14 Estim Creat Clear Calc 100.8 Estimated GFR > 60 Random Glucose 111 Lactic Acid 1.1 Calcium 9.8 Total Bilirubin 0.4 AST 16 ALT 8 Alkaline Phosphatase 85 C-Reactive Protein 3.17 H Total Protein 8.0 Albumin 4.0 Beta HCG, Quant Cancelled Urine Color Urine Appearance Urine pH Ur Specific [place] Urine Protein Urine Glucose (UA) Urine Ketones Urine Blood Urine Nitrite Ur Leukocyte Esterase Urine RBC Urine WBC Ur Squamous Epith Cells Urine Bacteria Hyaline Casts 06/08/23 06/08/23 00:13 04:53 MCV MCH MCHC RDW Plt Count MPV Immature Gran % (Auto) Neut % (Auto) Lymph % (Auto) [place] % (Auto) Eos % (Auto) Baso % (Auto) Lymph # (Auto) [place] # (Auto) Eos # (Auto) Baso # (Auto) Abs Immat Gran (auto) Absolute Neuts (auto) Absolute Nucleated RBC Nucleated RBC % (auto) ESR Hold Purple Top SEE NOTE D-Dimer High Sensitivty Anion Gap 11 L Estim Creat Clear Calc 114.8 Estimated GFR > 60 Random Glucose 97 Lactic Acid Calcium 8.7 D Total Bilirubin 0.4 AST 14 ALT 6 Alkaline Phosphatase 78 C-Reactive Protein Total Protein 7.3 Albumin 3.7 Beta HCG, Quant Urine Color Yellow Urine Appearance Clear Urine pH 6.0 Ur Specific [place] 1.020 Urine Protein Negative Urine Glucose (UA) Negative Urine Ketones Negative Urine Blood Negative Urine Nitrite Negative Ur Leukocyte Esterase Trace H Urine RBC 0-2 Urine WBC 0-5 Ur Squamous Epith Cells 0-2 Urine Bacteria None Seen Hyaline Casts 0-2 Assessment and Plan (1) Bilateral cellulitis of lower leg: Status: Acute Plan 47-year-old male with history of hypertension, anxiety, depression, hep C completed Epclusa 3 months ago, history IV drug abuse in remission, and opiate dependence on methadone admitted for recurrent extensive bilateral lower extremity cellulitis in patient with history of IV drug abuse. # recurrent bilateral lower extremity cellulitis -no leukocytosis or other sirs criteria -negative DVT by US -IV vancomycin (initiated 06/07) -infectious disease consult -continue gabapentin for pain -follow CBC, cultures # bilateral edema of lower extremity with venous ulcers - Lasix 20 mg daily -wound rn consult -follow renal function, electrolytes # opioid dependence -continue methadone # hypertension -add amlodipine 5 mg daily DVT prophylaxis-Lovenox Full code: Need for inPatient: management of extensive bilateral lower extremity cellulitis having failed outpatient oral antibiotics requiring IV antibiotics and expert consultation Time Spent With Patient Time: Total time managing care of this patient today ____ minutes. Quality Stroke Does the patient have a stroke diagnosis?: No VTE Prior VTE?: No VTE Risk Level:: Medical - moderate - high VTE Device Contraindication: Treatment Not Indicated VTE Drug Contraindication: N/A - Med Ordered
[2023-06-08 11:07] VITALS: BP 150/88; PULSE 69; RESP 18; TEMP 36.7; O2SAT 94
--- NOTE | 2023-06-08 13:34 | W.PM.IDCN ---
History of Present Illness Data of Consult Service Date: 06/08/23 Requesting physician: Jovanny Vu Primary Care Provider: ÁLVARO Fernandes Reason for consult: recurrent cellulitis I had seen him in January for similar concern. He has two days worsening redness bilateral legs. He has tinea pedis. He has been on po Doxycycline and keflex and as soon as stopped recurrence. 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 Chronic hip pain Family History Family history: reviewed and not pertinent Surgical History Surgical History Status post hip surgery Social History Social History Household Members: None Housing: Other Housing Other:: sober house Do you presently have visiting nurse or other home services: No Alcohol intake: never Patient Tobacco Use Status: Current everyday Tobacco user Tobacco use type: Cigarette Cigarette Packs Per Day: 0.25 Cigarettes Per Day: 2 service: No Current occupational status: unemployed and disabled Meds Allergies Allergy/AdvReac Type Severity Reaction Status Date / Time No Known Allergies Allergy Verified 06/07/23 15:24 Active Medications: Current Medications Acetaminophen (Acetaminophen 325 Mg Tablet) 650 mg PO Q6H PRN PRN Reason: Pain, Mild (Pain Scale 1-3) Albuterol Sulfate (Albuterol Sulfate 90 Mcg 8 Gm Inhaler) 2 puff INHALE Q6H PRN PRN Reason: wheezing Amlodipine Besylate (Amlodipine Besylate 5 Mg Tablet) 5 mg PO DAILY [facility]; Protocol Last Admin: 06/08/23 08:50 Dose: 5 mg Enoxaparin Sodium (Enoxaparin Sodium 40 Mg/0.4 Ml Syringe) 40 mg SUBCUT Q24H [facility] Last Admin: 06/07/23 23:13 Dose: Not Given Furosemide (Furosemide 20 Mg Tablet) 20 mg PO DAILY [facility]; Protocol Last Admin: 06/08/23 08:50 Dose: 20 mg Gabapentin (Gabapentin 300 Mg Capsule) 300 - 600 mg PO TID PRN PRN Reason: legpain Last Admin: 06/07/23 23:11 Dose: 300 mg Vancomycin HCl 1,250 mg/ (Sodium Chloride) 250 mls @ 166.667 mls/hr IV Q12H [facility] Last Infusion: 06/08/23 10:42 Dose: Infused Melatonin (Melatonin 3 Mg Tablet) 6 mg PO BEDTIME PRN PRN Reason: Insomnia Methadone HCl (Methadone Hcl 20 Mg/2 Ml Oral.Conc) 135 mg PO DAILY [facility] Last Admin: 06/08/23 08:50 Dose: 135 mg Nicotine Polacrilex (Nicotine Polacrilex Lozenge 2 Mg Lozenge) 2 mg BUCCAL Q2H PRN PRN Reason: Nicotine Cravings Ondansetron HCl (Ondansetron Hcl 4 Mg/2 Ml Vial) 4 mg IVPUSH Q8H PRN PRN Reason: Nausea and Vomiting Pharmacy Consult (Consult Rx Vancomycin Dosing) 1 each MISCELLANE DAILY PRN PRN Reason: Consult order Sodium Chloride (0.9 % Sodium Chloride Flush 3 Ml Syringe) 3 ml IVFLUSH QSHIFT [facility] Last Admin: 06/08/23 11:34 Dose: Not Given Home Medications Medication Instructions Recorded Confirmed Last Taken Type albuterol sulfate 90 mcg/actuation 2 puff inhalation Q6H PRN wheezing 02/04/23 06/07/23 06/07/23 07:00 History aerosol inhaler gabapentin 300 mg capsule 300 - 600 mg PO TID PRN Pain 02/04/23 06/07/23 06/07/23 07:00 History methadone 10 mg/mL oral 135 mg PO DAILY 02/04/23 06/07/23 06/07/23 07:00 History concentrate (Methadone Intensol) naproxen 250 mg tablet 250 mg PO BID PRN Pain (Scale 05/25/23 06/07/23 06/07/23 07:00 History Score 4-6) Physical Exam Vital Signs: Vital Signs: Last Vital Signs Temp 98.1 F 06/08/23 11:07 Pulse 69 06/08/23 11:07 Resp 18 06/08/23 11:07 BP 150/88 H 06/08/23 11:07 Pulse Ox 94 06/08/23 11:07 O2 Del Method Room Air 06/08/23 11:07 BMI result Body Mass Index 34.3 Const: General: cooperative HEENT: Head: Yes normal to inspection Face and sinus: Yes normal facial exam Mouth: Normal oral and palatal mucosa present Teeth and gingiva: dentition normal Eyes: General: appearance normal, both eyes and all related structures Pupils: Equal, round and reactive pupils present Resp: Effort & Inspection: normal respiratory effort Cardio: Rate: regular rate Rhythm: regular rhythm GI: Palpation (GI): Soft to palpation and nontender : General: Yes no CVA tenderness Back/Spine/Pelvis: Back: no CVA tenderness Skin: General skin exam: no rashes or lesions noted Neuro: General: moves all extremities Cranial nerves: Yes Equal, round and reactive pupils present Extrem: Other: bilateral heat and redness to knees Psych: Appearance: grossly normal Results Labs 06/07/23 16:09 06/08/23 04:53 Labs: Short CBC 06/07/23 Range/Units 16:09 WBC 8.6 (4.8-10.8) X10*3/uL Hgb 12.2 L (14.0-18.0) g/dl Hct 38.4 L (42.0-52.0) % Plt Count 203 (160-400) X10*3/uL BMP 06/07/23 06/08/23 16:09 04:53 Sodium 140 139 Potassium 4.1 4.0 Chloride 105 105 Carbon Dioxide 25 27 BUN 15 14 Creatinine 0.90 0.79 Calcium 9.8 8.7 D Liver Function 06/07/23 06/08/23 Range/Units 16:09 04:53 Total Bilirubin 0.4 0.4 (0.0-1.0) mg/dL AST 16 14 (5-37) U/L ALT 8 6 (0-40) U/L Alkaline Phosphatase 85 78 (39-117) U/L Albumin 4.0 3.7 (3.5-5.0) g/dL Urine 06/08/23 Range/Units 00:13 Urine Color Yellow Urine Appearance Clear Urine pH 6.0 (5.0-9.0) Ur Specific [place] 1.020 (1.005-1.025) Urine Protein Negative (Neg-Trace) mg/dL Urine Glucose (UA) Negative (Negative) mg/dL Assessment and Plan (1) Bilateral cellulitis of lower leg: Status: Acute He has bilateral inflammation of legs again and bilateral cellulitis very rare. 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 Possible cellulitis or venous stasis (2) Varicose veins of left lower extremity with inflammation: Status: Acute Plan Vancomycin for now but add Clindamycin 900 mg iv every 8 hours if continues to be red. Antifungal cream interdigitally. Probable clindamycin 450 tid for five days or linezolid for five days and then po PCN V 250 bid indefinitely on discharge Steroid cream to legs bilterally. Biopsy leg if still red Time Spent With Patient Time: Total time managing care of this patient today ____ minutes.
[2023-06-08 15:36] VITALS: BP 139/78; PULSE 72; RESP 16; TEMP 36.6; O2SAT 93
[2023-06-08 19:27] VITALS: BP 146/79; PULSE 75; RESP 16; TEMP 36.6; O2SAT 93
[2023-06-09 04:00] VITALS: BP 175/90; PULSE 78; RESP 16; TEMP 36.1; O2SAT 97
[2023-06-09 07:28] VITALS: BP 142/78; PULSE 69; RESP 16; TEMP 36.2; O2SAT 95
[2023-06-09 08:48] LABS: Creatinine Clr Calc Pharmacy 109.3; Estimated Glomerular Filt Rate > 60
--- NOTE | 2023-06-09 09:01 | HO.PM.IMPN ---
Subjective Subjective Date of Service: 06/09/23 Interval History: slight improvement in the redness in the legs, peristent swelling Physical Exam Vital Signs: Vital Signs: Last Vital Signs Temp 97.2 F 06/09/23 07:28 Pulse 69 06/09/23 07:28 Resp 16 06/09/23 07:28 BP 142/78 H 06/09/23 07:28 Pulse Ox 95 06/09/23 07:28 O2 Del Method Room Air 06/09/23 07:28 BMI result Body Mass Index 34.3 Const: Other: General: AO X 3, no acute distress Resp: CTA bilateral CVS: S1,S2,RRR GI: +BS, NT, no distention Skin: redness of legs, see pic 06/09 Neuro: motor grossly intact Psych: appropriate affect Objective Data Active Medications Acetaminophen (Acetaminophen 325 Mg Tablet) 650 mg PO Q6H PRN PRN Reason: Pain, Mild (Pain Scale 1-3) Last Admin: 06/08/23 19:16 Dose: 650 mg Documented By: DULCE MARIA Albuterol Sulfate (Albuterol Sulfate 90 Mcg 8 Gm Inhaler) 2 puff INHALE Q6H PRN PRN Reason: wheezing Amlodipine Besylate (Amlodipine Besylate 5 Mg Tablet) 5 mg PO DAILY [facility]; Protocol Last Admin: 06/09/23 08:41 Dose: 5 mg Documented By: LUCY Enoxaparin Sodium (Enoxaparin Sodium 40 Mg/0.4 Ml Syringe) 40 mg SUBCUT Q24H [facility] Last Admin: 06/08/23 22:22 Dose: 40 mg Documented By: DULCE MARIA Furosemide (Furosemide 20 Mg Tablet) 20 mg PO DAILY [facility]; Protocol Last Admin: 06/09/23 08:41 Dose: 20 mg Documented By: LUCY Gabapentin (Gabapentin 300 Mg Capsule) 300 - 600 mg PO TID PRN PRN Reason: legpain Last Admin: 06/07/23 23:11 Dose: 300 mg Documented By: ASHLEY Vancomycin HCl 1,250 mg/ (Sodium Chloride) 250 mls @ 166.667 mls/hr IV Q12H [facility] Last Infusion: 06/08/23 22:02 Dose: Infused Documented By: DULCE MARIA Melatonin (Melatonin 3 Mg Tablet) 6 mg PO BEDTIME PRN PRN Reason: Insomnia Methadone HCl (Methadone Hcl 20 Mg/2 Ml Oral.Conc) 135 mg PO DAILY [facility] Last Admin: 06/09/23 08:42 Dose: 135 mg Documented By: LUCY Nicotine Polacrilex (Nicotine Polacrilex Lozenge 2 Mg Lozenge) 2 mg BUCCAL Q2H PRN PRN Reason: Nicotine Cravings Ondansetron HCl (Ondansetron Hcl 4 Mg/2 Ml Vial) 4 mg IVPUSH Q8H PRN PRN Reason: Nausea and Vomiting Pharmacy Consult (Consult Rx Vancomycin Dosing) 1 each MISCELLANE DAILY PRN PRN Reason: Consult order Sodium Chloride (0.9 % Sodium Chloride Flush 3 Ml Syringe) 3 ml IVFLUSH QSHIFT [facility] Last Admin: 06/09/23 08:42 Dose: 3 ml Documented By: LUCY Labs 06/07/23 16:09 06/09/23 08:23 Labs: Laboratory Results - last 24 hr 06/09/23 08:23 Estim Creat Clear Calc 109.3 Estimated GFR > 60 Random Vancomycin 18.0 Microbiology Microbiology Results: Microbiology 06/07/23 20:55 Blood Culture - Preliminary Blood - Venous No growth after 24 hours. 06/07/23 16:09 Blood Culture - Preliminary Blood - Venous No growth after 24 hours. Assessment and Plan (1) Bilateral cellulitis of lower leg: Status: Acute Plan 47-year-old male with history of hypertension, anxiety, depression, hep C completed Epclusa 3 months ago, history IV drug abuse in remission, and opiate dependence on methadone admitted for recurrent extensive bilateral lower extremity cellulitis in patient with history of IV drug abuse. # recurrent bilateral lower extremity cellulitis, just slight improvement -negative DVT by US -IV vancomycin (initiated 06/07) -adding Clinda per ID recommendation -infectious disease consult -continue gabapentin for pain -culture pending # bilateral edema of lower extremity with venous ulcers Lasix 20 mg daily -wound rn consult -follow renal function, electrolytes # opioid dependence -continue methadone # hypertension -add amlodipine 5 mg daily DVT prophylaxis-Lovenox Full code: Need for inPatient: management of extensive bilateral lower extremity cellulitis having failed outpatient oral antibiotics requiring IV antibiotics and expert consultation Time Spent With Patient Time: Total time managing care of this patient today ____ minutes. Quality Stroke Does the patient have a stroke diagnosis?: No VTE Prior VTE?: No VTE Risk Level:: Medical - moderate - high VTE Device Contraindication: Treatment Not Indicated VTE Drug Contraindication: N/A - Med Ordered
--- NOTE | 2023-06-09 09:05 | HE.PHANOTE ---
RE: GUERITA Patients level came back this morning at 18. Patients level was draw late, should have been pulled for 0700 but was pulled at 0823. Level most likely would have been higher if pulled on time. Will decrease dose to 1000 mg Q12H. Next draw after two doses 06/10 @0700. Predicted AUC 480
--- NOTE | 2023-06-09 11:05 | MHC.CM.PN ---
Pt not ready for DC per rounds. CM to follow and assist with DC plan.
[2023-06-09 15:53] VITALS: BP 132/81; PULSE 86; RESP 18; TEMP 36; O2SAT 94
[2023-06-09] MEDS: Clindamycin Phosphate/D5W 900 MG/50 ML PIGGYBACK 50 MG IV (17:35)
[2023-06-09 20:00] VITALS: BP 146/65; PULSE 74; RESP 18; TEMP 36.1; O2SAT 95
[2023-06-09] MEDS: Enoxaparin Sodium 40 MG/0.4 ML SYRINGE SUBCUT (20:19)
[2023-06-10] MEDS: Clindamycin Phosphate/D5W 900 MG/50 ML PIGGYBACK 50 MG IV ×3 (01:16→17:26)
[2023-06-10 03:57] VITALS: BP 141/76; PULSE 72; RESP 16; TEMP 36; O2SAT 93
[2023-06-10 07:30] VITALS: BP 142/75; PULSE 78; RESP 16; TEMP 36.2; O2SAT 95
[2023-06-10 07:47] LABS: Creatinine Clr Calc Pharmacy 103.1; Estimated Glomerular Filt Rate > 60
--- NOTE | 2023-06-10 08:08 | HE.PHANOTE ---
RE: VANCO Patients level came back at 14. This is within goal for patients indication, AUC of 461. Will continue with 1000 mg Q12H. Next draw is tomorrow 06/11/23 @0700.
[2023-06-10] MEDS: methADONE HCl 20 MG/2 ML ORAL.CONC 135 MG PO (09:07)
[2023-06-10] MEDS: Furosemide 20 MG TABLET PO (09:07)
[2023-06-10] MEDS: amLODIPine Besylate 5 MG TABLET PO (09:07)
--- NOTE | 2023-06-10 09:55 | P.PNIM_ITS ---
Subjective Subjective Date of Service: 06/10/23 Interval History: Less redness in the feet, no pain Physical Exam 2 Vital Signs: Vital Signs: Last Vital Signs Temp 97.2 F 06/10/23 07:30 Pulse 78 06/10/23 07:30 Resp 16 06/10/23 07:30 BP 142/75 H 06/10/23 07:30 Pulse Ox 95 06/10/23 07:30 O2 Del Method Room Air 06/10/23 07:30 BMI result Body Mass Index 34.3 Const: Other: General: AO X 3, no acute distress Resp: CTA bilateral CVS: S1,S2,RRR GI: +BS, NT, no distention Skin: redness of legs, see pic 06/09 06/10 Neuro: motor grossly intact Psych: appropriate affect Objective Data Active Medications Acetaminophen (Acetaminophen 325 Mg Tablet) 650 mg PO Q6H PRN PRN Reason: Pain, Mild (Pain Scale 1-3) Last Admin: 06/08/23 19:16 Dose: 650 mg Documented By: DULCE MARIA Albuterol Sulfate (Albuterol Sulfate 90 Mcg 8 Gm Inhaler) 2 puff INHALE Q6H PRN PRN Reason: wheezing Amlodipine Besylate (Amlodipine Besylate 5 Mg Tablet) 5 mg PO DAILY [facility]; Protocol Last Admin: 06/10/23 09:07 Dose: 5 mg Documented By: LUCY Enoxaparin Sodium (Enoxaparin Sodium 40 Mg/0.4 Ml Syringe) 40 mg SUBCUT Q24H [facility] Last Admin: 06/09/23 20:19 Dose: 40 mg Documented By: SERA Furosemide (Furosemide 20 Mg Tablet) 20 mg PO DAILY [facility]; Protocol Last Admin: 06/10/23 09:07 Dose: 20 mg Documented By: LUCY Gabapentin (Gabapentin 300 Mg Capsule) 300 - 600 mg PO TID PRN PRN Reason: legpain Last Admin: 06/07/23 23:11 Dose: 300 mg Documented By: ASHLEY Clindamycin Phosphate (Cleocin) 900 mg in 50 mls @ 50 mls/hr IV Q8H [facility] Last Infusion: 06/10/23 02:28 Dose: Infused Documented By: KASSANDRA Vancomycin HCl 1,000 mg/ (Sodium Chloride) 270 mls @ 270 mls/hr IV Q12H [facility] Last Admin: 06/10/23 09:12 Dose: 270 mls/hr Documented By: LUCY Melatonin (Melatonin 3 Mg Tablet) 6 mg PO BEDTIME PRN PRN Reason: Insomnia Methadone HCl (Methadone Hcl 20 Mg/2 Ml Oral.Conc) 135 mg PO DAILY [facility] Last Admin: 06/10/23 09:07 Dose: 135 mg Documented By: LUCY Nicotine Polacrilex (Nicotine Polacrilex Lozenge 2 Mg Lozenge) 2 mg BUCCAL Q2H PRN PRN Reason: Nicotine Cravings Ondansetron HCl (Ondansetron Hcl 4 Mg/2 Ml Vial) 4 mg IVPUSH Q8H PRN PRN Reason: Nausea and Vomiting Pharmacy Consult (Consult Rx Vancomycin Dosing) 1 each MISCELLANE DAILY PRN PRN Reason: Consult order Sodium Chloride (0.9 % Sodium Chloride Flush 3 Ml Syringe) 3 ml IVFLUSH QSHIFT [facility] Last Admin: 06/10/23 09:07 Dose: 3 ml Documented By: LUCY Labs 06/07/23 16:09 06/10/23 07:04 Labs: Laboratory Results - last 24 hr 06/10/23 07:04 Estim Creat Clear Calc 103.1 Estimated GFR > 60 Random Vancomycin 14.0 L Microbiology Microbiology Results: Microbiology 06/07/23 20:55 Blood Culture - Preliminary Blood - Venous No growth after 48 hours. 06/07/23 16:09 Blood Culture - Preliminary Blood - Venous No growth after 48 hours. Assessment and Plan (1) Bilateral cellulitis of lower leg: Status: Acute Plan 47-year-old male with history of hypertension, anxiety, depression, hep C completed Epclusa 3 months ago, history IV drug abuse in remission, and opiate dependence on methadone admitted for recurrent extensive bilateral lower extremity cellulitis in patient with history of IV drug abuse. # recurrent bilateral lower extremity cellulitis, just slight improvement -negative DVT by US -IV vancomycin (initiated 06/07) -added Clinda 0n 06/09 per ID recommendation -infectious disease consult -continue gabapentin for pain -culture negative, IV Abx for 1 more natalie # bilateral edema of lower extremity with venous ulcers Lasix 20 mg daily -wound rn consult -follow renal function, electrolytes # opioid dependence -continue methadone # hypertension -add amlodipine 5 mg daily DVT prophylaxis-Lovenox Full code: Need for inPatient: management of extensive bilateral lower extremity cellulitis having failed outpatient oral antibiotics requiring IV antibiotics and expert consultation Time Spent With Patient Time: Total time managing care of this patient today ____ minutes. Quality Stroke Does the patient have a stroke diagnosis?: No VTE Prior VTE?: No VTE Risk Level:: Medical - moderate - high VTE Device Contraindication: Treatment Not Indicated VTE Drug Contraindication: N/A - Med Ordered
[2023-06-10] MEDS: vancomycin HCL 1,000 MG in 0.9 % Sodium Chloride 250 ML 270 MG IV ×2 (10:33→20:34)
[2023-06-10 15:48] VITALS: BP 137/77; PULSE 75; RESP 18; TEMP 36.3; O2SAT 93
--- NOTE | 2023-06-10 17:02 | P.CONGS_ITS ---
History of Present Illness Consult details Consult date: 06/10/23 Narrative: 47M referred for punch biopsy of the skin. He was admitted on 06/07/2023 for bilateral lower extremity cellulitis. He was admitted for similar problems in January 2023. He has had multiple different antibiotic regimens with recurrent erythema diffusely on both legs starting from the level of the knees all the way to the ankle. This is asscoaited with edema as well. He has multiple medical problems including PAD, Hep C, heroind abuse, and osteoarthritis. 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 Chronic hip pain Family History Family history: reviewed and not pertinent Surgical History Surgical History Status post hip surgery Social History Social History Household Members: None Housing: Other Housing Other:: sober house Do you presently have visiting nurse or other home services: No Alcohol intake: never Patient Tobacco Use Status: Current everyday Tobacco user Tobacco use type: Cigarette Cigarette Packs Per Day: 0.25 Cigarettes Per Day: 2 service: No Current occupational status: unemployed and disabled Meds Allergies Allergy/AdvReac Type Severity Reaction Status Date / Time No Known Allergies Allergy Verified 06/07/23 15:24 Active Medications: Current Medications Acetaminophen (Acetaminophen 325 Mg Tablet) 650 mg PO Q6H PRN PRN Reason: Pain, Mild (Pain Scale 1-3) Last Admin: 06/08/23 19:16 Dose: 650 mg Albuterol Sulfate (Albuterol Sulfate 90 Mcg 8 Gm Inhaler) 2 puff INHALE Q6H PRN PRN Reason: wheezing Amlodipine Besylate (Amlodipine Besylate 5 Mg Tablet) 5 mg PO DAILY [facility]; Protocol Last Admin: 06/10/23 09:07 Dose: 5 mg Enoxaparin Sodium (Enoxaparin Sodium 40 Mg/0.4 Ml Syringe) 40 mg SUBCUT Q24H [facility] Last Admin: 06/09/23 20:19 Dose: 40 mg Furosemide (Furosemide 20 Mg Tablet) 20 mg PO DAILY [facility]; Protocol Last Admin: 06/10/23 09:07 Dose: 20 mg Gabapentin (Gabapentin 300 Mg Capsule) 300 - 600 mg PO TID PRN PRN Reason: legpain Last Admin: 06/07/23 23:11 Dose: 300 mg Clindamycin Phosphate (Cleocin) 900 mg in 50 mls @ 50 mls/hr IV Q8H [facility] Last Infusion: 06/10/23 12:45 Dose: Infused Vancomycin HCl 1,000 mg/ (Sodium Chloride) 270 mls @ 270 mls/hr IV Q12H [facility] Last Infusion: 06/10/23 11:42 Dose: Infused Melatonin (Melatonin 3 Mg Tablet) 6 mg PO BEDTIME PRN PRN Reason: Insomnia Methadone HCl (Methadone Hcl 20 Mg/2 Ml Oral.Conc) 135 mg PO DAILY [facility] Last Admin: 06/10/23 09:07 Dose: 135 mg Nicotine Polacrilex (Nicotine Polacrilex Lozenge 2 Mg Lozenge) 2 mg BUCCAL Q2H PRN PRN Reason: Nicotine Cravings Ondansetron HCl (Ondansetron Hcl 4 Mg/2 Ml Vial) 4 mg IVPUSH Q8H PRN PRN Reason: Nausea and Vomiting Pharmacy Consult (Consult Rx Vancomycin Dosing) 1 each MISCELLANE DAILY PRN PRN Reason: Consult order Sodium Chloride (0.9 % Sodium Chloride Flush 3 Ml Syringe) 3 ml IVFLUSH QSHIFT [facility] Last Admin: 06/10/23 15:54 Dose: 3 ml Home Medications Medication Instructions Recorded Confirmed Last Taken Type albuterol sulfate 90 mcg/actuation 2 puff inhalation Q6H PRN wheezing 02/04/23 06/07/23 06/07/23 07:00 History aerosol inhaler gabapentin 300 mg capsule 300 - 600 mg PO TID PRN Pain 02/04/23 06/07/23 06/07/23 07:00 History methadone 10 mg/mL oral 135 mg PO DAILY 02/04/23 06/07/23 06/07/23 07:00 History concentrate (Methadone Intensol) naproxen 250 mg tablet 250 mg PO BID PRN Pain (Scale 05/25/23 06/07/23 06/07/23 07:00 History Score 4-6) Physical Exam 2 Vital Signs: Vital Signs: Last Vital Signs Temp 97.3 F 06/10/23 15:48 Pulse 75 06/10/23 15:48 Resp 18 06/10/23 15:48 BP 137/77 06/10/23 15:48 Pulse Ox 93 06/10/23 15:48 O2 Del Method Room Air 06/10/23 15:48 BMI result Body Mass Index 34.3 Const: General: comfortable and no acute distress O rientation/consciousness: patient oriented x3 Neck: Neck: Yes no lymphadenopathy Resp: Auscultation: clear to auscultation bilaterally Cardio: Rhythm: regular rhythm GI: Palpation (GI): Soft to palpation, nontender and no guarding Neuro: General: patient oriented x3 Extrem: Other: diffuse erythema, from below knee to ankle, with some edema Results Labs 06/07/23 16:09 06/12/23 07:23 Labs: Abnormal lab results 06/10/23 Range/Units 07:04 Random Vancomycin 14.0 L (15-20) mcg/mL BMP 06/10/23 07:04 Creatinine 0.88 Urine 06/08/23 Range/Units 00:13 Urine Color Yellow Urine Appearance Clear Urine pH 6.0 (5.0-9.0) Ur Specific [place] 1.020 (1.005-1.025) Urine Protein Negative (Neg-Trace) mg/dL Urine Glucose (UA) Negative (Negative) mg/dL All other labs normal. Assessment and Plan (1) Bilateral cellulitis of lower leg: Status: Acute He was recommended to undergo skin biopsy because of his recurrent cellulitis. I explained to him the technique of punch biopsy of the right lower leg. I reviewed the risks including but not limited to bleeding and infections, as well as the benefits and alternatives. He gave verbal consent. The area of the planned biopsy was prepped and draped. Lidocaine 1% was used for local anesthesia. I used a punch biopsy kit to biopsy the skin and subcutaneous fat. Dressings were applied.There was minimal blood loss. There were no immediate complications. He tolerated the procedure well. He can take Tylenol or Ibuprofen for pain. His dressings can be changed daily with BandAid after 24 hrs. Time Spent With Patient Time: Total time managing care of this patient today ____ minutes. Procedures Date of Service Date of Service: 06/16/23
[2023-06-10 19:31] VITALS: BP 139/75; PULSE 77; RESP 18; TEMP 35.9; O2SAT 93
[2023-06-10] MEDS: Enoxaparin Sodium 40 MG/0.4 ML SYRINGE SUBCUT (20:35)
[2023-06-11] MEDS: Clindamycin Phosphate/D5W 900 MG/50 ML PIGGYBACK 50 MG IV ×2 (00:51→10:24)
[2023-06-11 03:34] VITALS: BP 128/69; PULSE 76; RESP 14; TEMP 36; O2SAT 94
[2023-06-11 07:16] LABS: Creatinine Clr Calc Pharmacy 109.3; Estimated Glomerular Filt Rate > 60; Vancomycin Random 14.7 mcg/mL (15-20)
--- NOTE | 2023-06-11 07:26 | HE.PHANOTE ---
RE [facility] DOSING RENAL FUNCTION STABLE BUT TROUGH ONLY 14.7. INSIGHT BELIEVES INCREASE OF DOSE TO 1250 Q12 WILL BRING TROUGH TO 16.6 SO INCREASING THIS MORNING AND RECHECK LEVEL 06/12 @0700
[2023-06-11 07:37] VITALS: BP 133/74; PULSE 70; RESP 16; TEMP 36.1; O2SAT 94
[2023-06-11] MEDS: methADONE HCl 20 MG/2 ML ORAL.CONC 135 MG PO (08:49)
[2023-06-11] MEDS: amLODIPine Besylate 5 MG TABLET PO (08:49)
[2023-06-11] MEDS: Furosemide 20 MG TABLET PO (08:49)
[2023-06-11] MEDS: vancomycin HCL 1,250 MG in 0.9 % Sodium Chloride 250 ML 166.67 MG IV (08:50)
--- NOTE | 2023-06-11 09:15 | HO.PM.IMPN ---
Subjective Subjective Date of Service: 06/11/23 Interval History: Less redness in the feet, no pain Physical Exam Vital Signs: Vital Signs: Last Vital Signs Temp 96.9 F 06/11/23 07:37 Pulse 70 06/11/23 07:37 Resp 16 06/11/23 07:37 BP 133/74 06/11/23 07:37 Pulse Ox 94 06/11/23 07:37 O2 Del Method Room Air 06/11/23 07:37 BMI result Body Mass Index 34.3 Objective Data Active Medications Acetaminophen (Acetaminophen 325 Mg Tablet) 650 mg PO Q6H PRN PRN Reason: Pain, Mild (Pain Scale 1-3) Last Admin: 06/08/23 19:16 Dose: 650 mg Documented By: LUKASRISDavid Albuterol Sulfate (Albuterol Sulfate 90 Mcg 8 Gm Inhaler) 2 puff INHALE Q6H PRN PRN Reason: wheezing Amlodipine Besylate (Amlodipine Besylate 5 Mg Tablet) 5 mg PO DAILY [facility]; Protocol Last Admin: 06/11/23 08:49 Dose: 5 mg Documented By: LUCY Enoxaparin Sodium (Enoxaparin Sodium 40 Mg/0.4 Ml Syringe) 40 mg SUBCUT Q24H [facility] Last Admin: 06/10/23 20:35 Dose: 40 mg Documented By: HEATHER Furosemide (Furosemide 20 Mg Tablet) 20 mg PO DAILY [facility]; Protocol Last Admin: 06/11/23 08:49 Dose: 20 mg Documented By: LUCY Gabapentin (Gabapentin 300 Mg Capsule) 300 - 600 mg PO TID PRN PRN Reason: legpain Last Admin: 06/07/23 23:11 Dose: 300 mg Documented By: ASHLEY Clindamycin Phosphate (Cleocin) 900 mg in 50 mls @ 50 mls/hr IV Q8H [facility] Last Infusion: 06/11/23 01:59 Dose: Infused Documented By: SERA Vancomycin HCl 1,250 mg/ (Sodium Chloride) 250 mls @ 166.667 mls/hr IV Q12H [facility] Last Admin: 06/11/23 08:50 Dose: 166.67 mls/hr Documented By: LUCY Melatonin (Melatonin 3 Mg Tablet) 6 mg PO BEDTIME PRN PRN Reason: Insomnia Methadone HCl (Methadone Hcl 20 Mg/2 Ml Oral.Conc) 135 mg PO DAILY [facility] Last Admin: 06/11/23 08:49 Dose: 135 mg Documented By: LUCY Nicotine Polacrilex (Nicotine Polacrilex Lozenge 2 Mg Lozenge) 2 mg BUCCAL Q2H PRN PRN Reason: Nicotine Cravings Ondansetron HCl (Ondansetron Hcl 4 Mg/2 Ml Vial) 4 mg IVPUSH Q8H PRN PRN Reason: Nausea and Vomiting Pharmacy Consult (Consult Rx Vancomycin Dosing) 1 each MISCELLANE DAILY PRN PRN Reason: Consult order Sodium Chloride (0.9 % Sodium Chloride Flush 3 Ml Syringe) 3 ml IVFLUSH QSHIFT [facility] Last Admin: 06/11/23 08:50 Dose: 3 ml Documented By: LUCY Labs 06/07/23 16:09 06/11/23 06:41 Labs: Laboratory Results - last 24 hr 06/11/23 06:41 Estim Creat Clear Calc 109.3 Estimated GFR > 60 Random Vancomycin 14.7 L Assessment and Plan (1) Bilateral cellulitis of lower leg: Status: Acute Plan 47-year-old male with history of hypertension, anxiety, depression, hep C completed Epclusa 3 months ago, history IV drug abuse in remission, and opiate dependence on methadone admitted for recurrent extensive bilateral lower extremity cellulitis in patient with history of IV drug abuse. # ?recurrent bilateral lower extremity cellulitis, minimal improvment with vanco and Clinda, us dvt, casting doubt about cellulitis and more of inflamatory process such as Leukocytoclastic vasculitis or cryoglobulinemia , in light of history of hep C. Skin Biopsy obtained, will try system steroid and monitor off antibiotics. -negative DVT by US -IV vancomycin (initiated 06/07)--stop 06/11 -added Clinda 0n 06/09 per ID recommendation, stop 06/11 -continue gabapentin for pain -culture negative # bilateral edema of lower extremity with venous ulcers Lasix 20 mg daily -wound rn consult -follow renal function, electrolytes # opioid dependence -continue methadone # hypertension - amlodipine 5 mg daily DVT prophylaxis-Lovenox Full code: Need for inPatient: management of extensive bilateral lower extremity inflamatory process, limiting ambuliation and needing further testing at this point, discharge tomorrow if good effect with steroid Time Spent With Patient Time: Total time managing care of this patient today ____ minutes. Quality Stroke Does the patient have a stroke diagnosis?: No VTE Prior VTE?: No VTE Risk Level:: Medical - moderate - high VTE Device Contraindication: Treatment Not Indicated VTE Drug Contraindication: N/A - Med Ordered
--- NOTE | 2023-06-11 09:25 | HO.PM.IMPN ---
Subjective Subjective Date of Service: 06/11/23 Physical Exam Vital Signs: Vital Signs: Last Vital Signs Temp 96.9 F 06/11/23 07:37 Pulse 70 06/11/23 07:37 Resp 16 06/11/23 07:37 BP 133/74 06/11/23 07:37 Pulse Ox 94 06/11/23 07:37 O2 Del Method Room Air 06/11/23 07:37 BMI result Body Mass Index 34.3 Const: Other: General: AO X 3, no acute distress Resp: CTA bilateral CVS: S1,S2,RRR GI: +BS, NT, no distention Skin: redness in the legs essentially unchanged, if not just slight improvment Neuro: motor grossly intact Psych: appropriate affect Objective Data Active Medications Acetaminophen (Acetaminophen 325 Mg Tablet) 650 mg PO Q6H PRN PRN Reason: Pain, Mild (Pain Scale 1-3) Last Admin: 06/08/23 19:16 Dose: 650 mg Documented By: DULCE MARIA Albuterol Sulfate (Albuterol Sulfate 90 Mcg 8 Gm Inhaler) 2 puff INHALE Q6H PRN PRN Reason: wheezing Amlodipine Besylate (Amlodipine Besylate 5 Mg Tablet) 5 mg PO DAILY [facility]; Protocol Last Admin: 06/11/23 08:49 Dose: 5 mg Documented By: LUCY Enoxaparin Sodium (Enoxaparin Sodium 40 Mg/0.4 Ml Syringe) 40 mg SUBCUT Q24H [facility] Last Admin: 06/10/23 20:35 Dose: 40 mg Documented By: HEATHER Furosemide (Furosemide 20 Mg Tablet) 20 mg PO DAILY [facility]; Protocol Last Admin: 06/11/23 08:49 Dose: 20 mg Documented By: LUCY Gabapentin (Gabapentin 300 Mg Capsule) 300 - 600 mg PO TID PRN PRN Reason: legpain Last Admin: 06/07/23 23:11 Dose: 300 mg Documented By: ASHLEY Clindamycin Phosphate (Cleocin) 900 mg in 50 mls @ 50 mls/hr IV Q8H [facility] Last Infusion: 06/11/23 01:59 Dose: Infused Documented By: SERA Vancomycin HCl 1,250 mg/ (Sodium Chloride) 250 mls @ 166.667 mls/hr IV Q12H [facility] Last Admin: 06/11/23 08:50 Dose: 166.67 mls/hr Documented By: LUCY Melatonin (Melatonin 3 Mg Tablet) 6 mg PO BEDTIME PRN PRN Reason: Insomnia Methadone HCl (Methadone Hcl 20 Mg/2 Ml Oral.Conc) 135 mg PO DAILY [facility] Last Admin: 06/11/23 08:49 Dose: 135 mg Documented By: LUCY Nicotine Polacrilex (Nicotine Polacrilex Lozenge 2 Mg Lozenge) 2 mg BUCCAL Q2H PRN PRN Reason: Nicotine Cravings Ondansetron HCl (Ondansetron Hcl 4 Mg/2 Ml Vial) 4 mg IVPUSH Q8H PRN PRN Reason: Nausea and Vomiting Pharmacy Consult (Consult Rx Vancomycin Dosing) 1 each MISCELLANE DAILY PRN PRN Reason: Consult order Prednisone (Prednisone 20 Mg Tablet) 40 mg PO DAILY [facility] Sodium Chloride (0.9 % Sodium Chloride Flush 3 Ml Syringe) 3 ml IVFLUSH QSHIFT [facility] Last Admin: 06/11/23 08:50 Dose: 3 ml Documented By: LUCY Labs 06/07/23 16:09 06/11/23 06:41 Labs: Laboratory Results - last 24 hr 06/11/23 06:41 Estim Creat Clear Calc 109.3 Estimated GFR > 60 Random Vancomycin 14.7 L Assessment and Plan (1) Bilateral cellulitis of lower leg: Status: Acute Plan 47-year-old male with history of hypertension, anxiety, depression, hep C completed Epclusa 3 months ago, history IV drug abuse in remission, and opiate dependence on methadone admitted for recurrent extensive bilateral lower extremity cellulitis in patient with history of IV drug abuse. # ?recurrent bilateral lower extremity cellulitis, minimal improvment with vanco and Clinda, us dvt, casting doubt about cellulitis and more of inflamatory process such as Leukocytoclastic vasculitis or cryoglobulinemia , in light of history of hep C. Skin Biopsy obtained, will try system steroid and monitor off antibiotics. -negative DVT by US -IV vancomycin (initiated 06/07)--stop 06/11 -added Clinda 0n 06/09 per ID recommendation, stop 06/11 -continue gabapentin for pain -culture negative # bilateral edema of lower extremity with venous ulcers Lasix 20 mg daily -wound rn consult -follow renal function, electrolytes # opioid dependence -continue methadone # hypertension - amlodipine 5 mg daily DVT prophylaxis-Lovenox Full code: Need for inPatient: management of extensive bilateral lower extremity inflamatory process, limiting ambuliation and needing further testing at this point, discharge tomorrow if good effect with steroid Time Spent With Patient Time: Total time managing care of this patient today ____ minutes. Quality Stroke Does the patient have a stroke diagnosis?: No VTE Prior VTE?: No VTE Risk Level:: Medical - moderate - high VTE Device Contraindication: Treatment Not Indicated VTE Drug Contraindication: N/A - Med Ordered
[2023-06-11] MEDS: predniSONE 20 MG TABLET 40 MG PO (10:21)
--- NOTE | 2023-06-11 10:38 | MHC.CM.PN ---
Pt not yet ready for DC, need for further testing and treatment. Possible DC tomorrow. CM to follow and assist with DC.
[2023-06-11 15:06] VITALS: BP 138/81; PULSE 80; RESP 18; TEMP 36; O2SAT 93
[2023-06-11 19:24] VITALS: BP 134/75; PULSE 84; RESP 20; TEMP 36; O2SAT 92
[2023-06-11] MEDS: Enoxaparin Sodium 40 MG/0.4 ML SYRINGE SUBCUT (20:04)
[2023-06-11] MEDS: Hydrocortisone 1 % Cream 28.35 GM TUBE 1 APPL TOPICAL (20:08)
[2023-06-11 23:47] VITALS: BP 148/77; PULSE 84; RESP 18; TEMP 36.6; O2SAT 95
[2023-06-12 07:32] VITALS: BP 135/80; PULSE 79; RESP 17; TEMP 36.6; O2SAT 95
[2023-06-12 07:52] LABS: Creatinine Clr Calc Pharmacy 105.5; Estimated Glomerular Filt Rate > 60
[2023-06-12 07:57] LABS: Vancomycin Random 7.9 mcg/mL (15-20)
[2023-06-12] MEDS: methADONE HCl 20 MG/2 ML ORAL.CONC 135 MG PO (08:12)
[2023-06-12] MEDS: amLODIPine Besylate 5 MG TABLET PO (08:14)
[2023-06-12] MEDS: predniSONE 20 MG TABLET 40 MG PO (08:14)
[2023-06-12] MEDS: Furosemide 20 MG TABLET PO (08:14)
[2023-06-12] MEDS: Hydrocortisone 1 % Cream 28.35 GM TUBE 1 APPL TOPICAL (08:16)
--- NOTE | 2023-06-12 08:50 | P.DS_ITS ---
DS: Providers Provider Date of Service: 06/12/23 Date of admission: 06/07/23 22:05 Primary care physician: ÁLVARO Fernandes Consults: 06/07/23 22:05 Consult to Infectious Diseases Routine Consulting Provider: [facility] Infectious Disease Reason for consultation: cellulitis 06/10/23 14:42 Consult to General Surgery Routine Consulting Provider: [facility] General Surgeons Reason for consultation: needs skin biopsy ? vasculitis Has provider been notified: No DS: Diagnosis Discharge Diagnosis (1) Bilateral cellulitis of lower leg: Status: Acute DS: Summary Hospital Course Hospital Course: Admission HPI Chief Complaint: Bilateral lower extremity infection 47-year-old male with history of hypertension, anxiety, depression, hep C completed Epclusa 3 months ago, history IV drug abuse in remission, and opiate dependence on methadone presents to the ED earlier today for evaluation of recurrent redness, swelling, pain of the bilateral lower extremities. The patient has been seen and evaluated multiple times for the symptoms. Was admitted to our facility from 02/13- due to bilateral lower extremity cellulitis. He was evaluated by Infectious Disease at that time who felt symptoms may be related to include the use. He was discharged on doxycycline and advised to take penicillin V as prescribed until Epclusa completed. He reports that symptoms had resolved for about 1 month before recurring. He has since been seen in the ED several times and completed a course of doxycycline and Keflex about 3 weeks ago. He states these antibiotics ?kept symptoms at [place]? but as soon as he completed the course, erythema continued to spread and is now spread from the lower legs onto the posterior thighs bilaterally. He is also reporting increasing edema with shallow ulcerations with serous drainage. He states he has not used any IV drugs in about 1 year and is congratulated for this. He does continue to smoke between 5-8 cigarettes on a daily basis. Does not drink alcohol. He states he did have a low-grade fever several days ago but denies any other fevers or chills. There has been no purulent drainage. On arrival, patient is hypertensive to 172/78, vitals otherwise stable. There is no leukocytosis. Renal function and electrolyte levels normal. CRP 3.17, ESR 21. D-dimer 384. In the ED, patient treated with 1 L IV NS and IV vanco. Hospital course: Patient presented with swelling redness of both legs similar to past presentations. There were concern for cellulitis of both legs and therefore was started on IV antibiotics and admitted. Initially he was on vancomycin IV, he was assessed by Infectious Disease and the clindamycin was added to the regimen, however there was later improvement and therefore this raise the suspicion for possible non infectious inflammatory process such as leukocytoclastic vasculitis or cryoglobespecially in light of a history of hepatitis-C. Antibiotics were therefore discontinue, skin biopsy was obtained by Dr. Vargas, patient was given prednisone 40 mg daily in addition to topical steroid application to the legs and by the following day there was significant improvement. He will be discharged with prednisone for total of 5 days and to continue topical hydrocortisone and to follow up with PCP and go biopsy resolved Time Spent with Patient Time attestation: Total time managing care of this patient today ____ minutes. Discharge coordination time: Greater than 30 minutes Quality: Safe Use of Opioids Does Pt have an Active Cancer Diagnosis on the Problem List?: No Quality: Stroke Does the patient have a stroke diagnosis?: No Physical Exam Vital Signs: Vital Signs: Last Vital Signs Temp 97.8 F 06/12/23 07:32 Pulse 79 06/12/23 07:32 Resp 17 06/12/23 07:32 BP 135/80 06/12/23 07:32 Pulse Ox 95 06/12/23 07:32 O2 Del Method Room Air 06/12/23 07:32 BMI result Body Mass Index 34.3 DS: Data Data Completed and Pending Pending studies at discharge: Pending at discharge 06/10/23 16:56 Surgical Path [Surgical] [PTH] Routine Labs on day of discharge: Laboratory Results - last 24 hr 06/12/23 07:23 Hold Purple Top SEE NOTE Creatinine 0.85 Estim Creat Clear Calc 105.5 Estimated GFR > 60 Random Vancomycin 7.9 L Preliminary micro results at discharge 06/07/23 20:55 Blood Culture - Preliminary Blood - Venous No growth after 48 hours. 06/07/23 16:09 Blood Culture - Preliminary Blood - Venous No growth after 48 hours. Discharge Plan Discharge Anticipated Discharge Date/Time: 06/12/23 08:50 Patient Disposition: Home, Self-Care Discharge Diagnosis: cellulitis of the legs Referrals: Hull,Malaika, [employer] [Primary Care Provider] - 1 Week Discharge Medications: New prednisone 20 mg tablet 40 mg PO DAILY Qty: 6 0RF hydrocortisone 1 % Cream 1 appl topical BID Qty: 1 0RF Protocol: Apply to: Apply to: Legs Continued methadone [Methadone Intensol] 10 mg/mL Concentrate 135 mg PO DAILY gabapentin 300 mg Capsule 300 - 600 mg PO TID PRN (Reason: Pain) albuterol sulfate 90 mcg/actuation HFA aerosol inhaler 2 puff INHALATION Q6H PRN (Reason: wheezing) naproxen 250 mg tablet 250 mg PO BID PRN (Reason: Pain (Scale Score 4-6)) Discharge Orders: Discharge Order (Routine); Ordered 06/12/23 Ordered By: Jovanny Vu Diet: Advance to usual diet Activity on Discharge: As tolerated Stand Alone Forms: Patient Portal Discharge page Care Plan Goals: Recovery from cellulitis. Health Concerns: swelling and redness of the legs Plan of Treatment: take prednisone, and hydrocortisone cream as directed. Follow-up with your primary care doctor., Ask your doctor to follow-up on the biopsy results. Assessment: As above
--- NOTE | 2023-06-12 09:27 | MHC.CM.PN ---
PT WILL DC TODAY WITH NO NEW SERVICES VIA SELF-ARRANGED TRANSPORT
== END 2023-06-12 11:11 | disposition home or self-care (01) | DRG 603 ==
LOC: HO.ED 20:22 → HO.EDOVER 22:15 → HO.S3 06-08 05:40
PROVIDERS: Admitting Provider Student in an Organized Health Care Education/Training Program; Emergency Provider Internal Medicine; PCP Registered Nurse; Visit Provider Internal Medicine
DX: L03.116 Cellulitis of left lower limb (principal); F11.20 Opioid dependence, uncomplicated; L97.929 Non-pressure chronic ulcer of unspecified part of left lower leg with unspecified severity; L97.919 Non-pressure chronic ulcer of unspecified part of right lower leg with unspecified severity; I87.333 Chronic venous hypertension (idiopathic) with ulcer and inflammation of bilateral lower extremity; L03.115 Cellulitis of right lower limb; I10 Essential (primary) hypertension; Z86.19 Personal history of other infectious and parasitic diseases; F17.210 Nicotine dependence, cigarettes, uncomplicated; Z71.6 Tobacco abuse counseling; Z79.899 Other long term (current) drug therapy
CPT/HCPCS: 36415; 80053; 80202; 81001; 82565; 83605; 85025; 85379; 85652; 86140; 87040; 88305; 93970; 99285; J1650; J3370; J3371

== ENCOUNTER → 2023-06-07 22:05 | Outpatient (BNV) | payer MEDICARE, SELFPAY | PROVIDERS: Admitting Provider Student in an Organized Health Care Education/Training Program; Emergency Provider Internal Medicine; PCP Registered Nurse; Visit Provider Internal Medicine | DX: L03.116 Cellulitis of left lower limb (principal); L03.115 Cellulitis of right lower limb; I83.12 Varicose veins of left lower extremity with inflammation | CPT/HCPCS: 99222 ==

== ENCOUNTER → 2023-06-07 22:05 | Outpatient (BNV) | payer MEDICARE, SELFPAY | PROVIDERS: Admitting Provider Student in an Organized Health Care Education/Training Program; Emergency Provider Internal Medicine; PCP Registered Nurse; Visit Provider Physician Assistant | DX: L03.116 Cellulitis of left lower limb (principal); L03.115 Cellulitis of right lower limb | CPT/HCPCS: 99223; 99232; 99239 ==

== ENCOUNTER → 2023-06-07 22:05 | Outpatient (BNV) | payer MEDICARE, SELFPAY | PROVIDERS: Admitting Provider Student in an Organized Health Care Education/Training Program; Emergency Provider Internal Medicine; PCP Registered Nurse; Visit Provider Surgery | DX: L03.116 Cellulitis of left lower limb (principal); L03.115 Cellulitis of right lower limb | CPT/HCPCS: 11104; 99222 ==

== ENCOUNTER 2023-07-02 13:46 | Outpatient (AMB) | payer MEDICARE, SELFPAY ==
--- NOTE | 2023-07-02 13:53 | MHC.OFFVIS ---
Intake Vital Signs 07/02/23 13:58 Height 5 ft 4 in Weight 216 lb BMI 37.1 BP 155/92 H Blood Pressure Location Lt brachial Position Sitting Pulse 84 Pulse Source Pulse Oximeter Temp 98.5 F Temp Source Oral Pulse Oximetry (%) 97 Intake Visit Reasons: ref.[facility].recurrent cellulitis Allergies No Known Allergies Allergy (Verified 07/02/23 13:59) HPI ref.[facility]recurrent [place]ulitis HPI Details I had seen him before. He has had cellulitis legs,recurrent. He doesnt have any now. [facility] Medical History History of intravenous drug use in remission PAD (peripheral artery disease) 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 Chronic hip pain Surgical History Status post hip surgery Social History Household Members: None Housing: Other Housing Other:: sober house Do you presently have visiting nurse or other home services: No Alcohol intake: never Patient Tobacco Use Status: Current everyday Tobacco user Tobacco use type: Cigarette Cigarette Packs Per Day: 0.25 Cigarettes Per Day: 2 service: No Current occupational status: unemployed and disabled Review of Systems Const All systems reviewed & are unremarkable except as noted in HPI and below Physical Exam Vital Signs: Last Vital Signs Temp 98.5 F 07/02/23 13:58 Pulse 84 07/02/23 13:58 BP 155/92 H 07/02/23 13:58 Pulse Ox 97 07/02/23 13:58 BMI result Body Mass Index 37.1 Const General: cooperative Orientation/consciousness: patient oriented x3 HEENT Head: Yes normal to inspection Mouth: Normal oral and palatal mucosa present Eyes General: appearance normal, both eyes and all related structures Pupils: Equal, round and reactive pupils present Resp Effort & Inspection: normal respiratory effort Cardio Rate: regular rate Rhythm: regular rhythm GI Palpation (GI): Soft to palpation and nontender General: Yes no CVA tenderness Back/Spine/Pelvis Back: no CVA tenderness Skin General skin exam: no rashes or lesions noted Neuro General: patient oriented x3 Cranial nerves: Yes CN's II-XII intact bilaterally and Yes Equal, round and reactive pupils present Extrem General: Yes normal to inspection Psych Appearance: grossly normal Assessment & Plan Assessment & Plan (1) Bilateral cellulitis of lower leg: Comment: Possible staph or strep Code(s): L03.116 - Cellulitis of left lower limb; L03.115 - Cellulitis of right lower limb Plan: Preventive penicillin See in six months. Medications: New penicillin V potassium 250 mg PO BID 60 tabs 5RF 30 days Coding Level of Care Code Est Pt Level 3 (83812) Diagnoses Bilateral cellulitis of lower leg L03.116; L03.115
[2023-07-02 13:58] VITALS: BP 155/92; PULSE 84; TEMP 36.9; O2SAT 97; BMI 37.1
== END 2023-07-02 14:46 | disposition home or self-care (01) ==
PROVIDERS: PCP Registered Nurse; Visit Provider Internal Medicine
DX: L03.116 Cellulitis of left lower limb (principal); L03.115 Cellulitis of right lower limb
CPT/HCPCS: 99213

== ENCOUNTER → 2023-07-02 13:46 | Outpatient (BNVA) | payer MEDICARE, SELFPAY | PROVIDERS: PCP Registered Nurse; Visit Provider Internal Medicine | DX: L03.116 Cellulitis of left lower limb (principal); L03.115 Cellulitis of right lower limb | CPT/HCPCS: 99212 ==

== ENCOUNTER 2023-09-26 08:12 | Emergency (ER) | payer MEDICARE, SELFPAY ==
[2023-09-26 08:15] VITALS: BP 138/92; PULSE 72; O2SAT 98
[2023-09-26 08:16] VITALS: BP 171/90; PULSE 76; RESP 20; TEMP 36.1; O2SAT 94; BMI 37.1
--- NOTE | 2023-09-26 08:29 | ED.EAR ---
HPI - Ear Problem General Chief complaint: Ear Problems Stated complaint: earbud stuck in r ear x1 hour per ems Time Seen by Provider: 09/26/23 08:28 Source: patient Mode of arrival: EMS Limitations: no limitations History of Present Illness HPI Narrative: 48 yo male with PMH of PAD, hep C here with c/o R soft rubber ear bud in R ear after going to bed with buds in ear. tried tweezers at home cannot get it out MD Complaint: foreign body Location: right ear Duration: constant Severity: mild Relieving factors: nothing Exacerbating factors: nothing Context: other (woke up with tip of his earbud in ear) Discharge from ear: no Associated symptoms ear: decreased hearing Treatment prior to arrival: other (tried tweezers at home) Related Data Home Medications Medication Instructions Recorded Confirmed gabapentin 300 mg capsule 300 - 600 mg PO TID PRN Pain 02/04/23 06/07/23 methadone 10 mg/mL oral 135 mg PO DAILY 02/04/23 06/07/23 concentrate (Methadone Intensol) naproxen 250 mg tablet 250 mg PO BID PRN Pain (Scale 05/25/23 06/07/23 Score 4-6) Previous Rx's Medication Instructions Recorded penicillin V potassium 250 mg 250 mg PO BID 30 days #60 tabs 07/02/23 tablet Allergies Allergy/AdvReac Type Severity Reaction Status Date / Time No Known Allergies Allergy Verified 09/26/23 08:19 Review of Systems Review of Systems: Constitutional : No Fever, No Chills, Cardiovascular : No Chest Pain, No SOB Ear: decreased hearing Respiratory : No Dyspnea Gastrointestinal : No abdominal pain Musculoskeletal : No Joint Swelling Skin : No rash Neuro : No Weakness, No Numbness PMFSH Past Medical History Attestation statement: The following information was validated with the patient. 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 Chronic hip pain Surgical History Status post hip surgery Social History Social History Household Members: None Housing: Other Housing Other:: sober house Do you presently have visiting nurse or other home services: No Alcohol intake: never Patient Tobacco Use Status: Current everyday Tobacco user Tobacco use type: Cigarette Cigarette Packs Per Day: 0.25 Cigarettes Per Day: 2 Advance Directives: No Advance Directives Information Provided: Yes service: No Current occupational status: unemployed and disabled Physical Exam Vital Signs: Vital Signs: Last Vital Signs Temp 97.0 F 09/26/23 08:16 Pulse 76 09/26/23 08:16 Resp 20 09/26/23 08:16 BP 171/90 H 09/26/23 08:16 Pulse Ox 94 09/26/23 08:16 O2 Del Method Room Air 09/26/23 08:16 BMI result Body Mass Index 37.1 Appearance: Alert. Oriented X3. No acute distress. Eyes: Pupils equal, round and reactive to light. ENT: Pharynx normal. Neck: Normal inspection. CVS: Pulses normal. Respiratory: No respiratory distress. Abdomen: atraumatic Skin: Skin warm and dry. Normal skin color. . Extremities: normal ROM Neuro: Oriented X 3. No motor deficit. No sensory deficit. Procedures Foreign Body Removal Time Out Performed: yes Site: right and ear Description of foreign body: other (soft rubber ear bud) Sedation/Analgesia: none Technique: removal with forceps Confirmed by:: direct visualization Complications: none Post-procedure exam: awake, alert Neurovascular: normal distal pulse and no change from pre-procedure (TM intact no perforation) Medical Decision Making Medical Decision Making MDM Narrative: 48 yo male with PMH of PAD, hep C here with R earbud stuck in ear - at this time it is visible to the naked eye will remove with alligator forceps and recheck TM given attempt at home at removal Differential Diagnosis Differential Diagnoses: The differential diagnosis associated with the presentation includes FB in ear, perforation Discharge Plan Discharge Clinical Impression: Foreign body in ear Patient Disposition: Home, Self-Care Instructions: Ear Foreign Body (ED) Additional Instructions: return for worsening pain, redness, drainage, decreased hearing or any other concerns. Prescriptions: No Action methadone [Methadone Intensol] 10 mg/mL Concentrate 135 mg PO DAILY gabapentin 300 mg Capsule 300 - 600 mg PO TID PRN (Reason: Pain) naproxen 250 mg tablet 250 mg PO BID PRN (Reason: Pain (Scale Score 4-6)) penicillin V potassium 250 mg tablet 250 mg PO BID 30 Days Qty: 60 5RF
== END 2023-09-26 08:33 | disposition home or self-care (01) ==
PROVIDERS: Emergency Provider Emergency Medicine; PCP Registered Nurse
DX: T16.1XXA Foreign body in right ear, initial encounter (principal); H92.01 Otalgia, right ear; W44.G1XA Audio device entering into or through a natural orifice, initial encounter; Y93.9 Activity, unspecified; Y92.89 Other specified places as the place of occurrence of the external cause; Y99.8 Other external cause status
CPT/HCPCS: 69200; 99282; 99283; 99284

== ENCOUNTER 2023-10-07 14:11 | Outpatient (REF) | payer MEDICARE, SELFPAY ==
[2023-10-07 16:35] LABS: Alanine Aminotransferase 14 U/L (0-40); Albumin Level 4.2 g/dL (3.5-5.0); Alkaline Phosphatase 85 U/L (39-117); Anion Gap 12 (12-20); Aspartate Amino Transferase 19 U/L (5-37); Bilirubin Direct 0.1 mg/dL (0.0-0.5); Bilirubin Total 0.4 mg/dL (0.0-1.0); Blood Urea Nitrogen 10 mg/dL (9-16); Calcium 9.7 mg/dL (8.4-10.2); Carbon Dioxide 30 mmol/L (22-29); Chloride 102 mmol/L (96-108); Estimated Glomerular Filt Rate > 60; Glucose Random 83 mg/dL (60-115); Potassium 4.3 mmol/L (3.3-5.1); Sodium 140 mmol/L (135-145); Total Protein 7.9 g/dL (6.5-8.0)
[2023-10-09 20:24] LABS: HCV Log PCR <1.18 NOT DETECTED Log IU/mL (NOT DETECTED); HepC Viral Load <15 NOT DETECTED IU/mL (NOT DETECTED)
== END 2023-10-07 14:12 | disposition home or self-care (01) ==
LOC: HO.HHCL 14:11
PROVIDERS: Registered Nurse; Visit Provider Family Medicine
DX: I10 Essential (primary) hypertension (principal); B18.2 Chronic viral hepatitis C
CPT/HCPCS: 36415; 80048; 80076; 87522

== ENCOUNTER 2023-12-27 09:00 | Outpatient (REF) | payer MEDICARE, SELFPAY ==
--- NOTE | ~2023-12-27 | US_ITS ---
EXAMINATION: US LOWER EXTREMITY VENOUS (REFLUX EXAM), BILATERAL CLINICAL INDICATION: Chronic venous insufficiency with varicose veins of the lower extremities with inflammation COMPARISON: None. TECHNIQUE: Color flow triplex imaging and compression Doppler was performed to evaluate both the deep and the superficial systems bilaterally. To evaluate the superficial system, the examination was performed in the upright position. Color-flow Doppler ultrasound and compression ultrasound were utilized. In addition, maneuvers were utilized to demonstrate reflux. FINDINGS: 1. DEEP VENOUS ULTRASOUND OF THE RIGHT LOWER EXTREMITY: Common Femoral Vein: Compressible, normal respiratory variation and augmented flow. Femoral Vein: Compressible, normal color flow and augmentation. Popliteal Vein: Compressible, normal augmentation. Deep Reflux: There is no evidence of reflux in the deep system in either the common femoral vein, superficial femoral or the popliteal vein. There is no evidence of a Howard's cyst. 2. SUPERFICIAL ULTRASOUND WITH DOPPLER OF RIGHT LOWER EXTREMITY: GREAT SAPHENOUS VEIN: Saphenofemoral Junction: 0.4 cm; Reflux: 0 ms Proximal Thigh: 0.5 cm; Reflux: 0 ms Mid Thigh: 0.3 cm; Reflux: 0 ms Above Knee: 0.2 cm; Reflux: 0 ms At Knee: 0.3 cm; Reflux: 0 ms Below Knee: 0.3 cm; Reflux: 0 ms Mid Calf: 0.2 cm; Reflux: 0 ms Ankle: 0.3 cm; Reflux: 0 ms DUPLICATED MEDIAL GREAT SAPHENOUS VEIN: Diameter: None imaged Reflux: NA DUPLICATED LATERAL GREAT SAPHENOUS VEIN: Diameter: None imaged Reflux: NA SMALL SAPHENOUS VEIN: Saphenopopliteal Junction: 0.2 cm; Reflux: 0 ms Proximal: 0.3 cm; Reflux: 0 ms Distal: 0.2 cm; Reflux: 0 ms VEIN OF GIACOMINI: Size: NA Reflux: NA PERFORATORS: Location: None significant Size: NA Reflux: NA VARICOSITIES: Location: Mid to distal thigh off the great saphenous vein Size: 0.3 to 0.4 cm Reflux: None 3. DEEP VENOUS ULTRASOUND OF THE LEFT LOWER EXTREMITY: Common Femoral Vein: Compressible, normal respiratory variation and augmented flow. Femoral Vein: Compressible, normal color flow and augmentation. Popliteal Vein: Compressible, normal augmentation. Deep Reflux: There is no evidence of reflux in the deep system in either the common femoral vein, superficial femoral or the popliteal vein. There is no evidence of a Howard's cyst. 4. SUPERFICIAL ULTRASOUND WITH DOPPLER OF LEFT LOWER EXTREMITY: GREAT SAPHENOUS VEIN: Saphenofemoral Junction: 0.4 cm; Reflux: 0 ms Proximal Thigh: 0.3 cm; Reflux: 0 ms Mid Thigh: 0.3 cm; Reflux: 0 ms Above Knee: 0.3 cm; Reflux: 0 ms At Knee: 0.2 cm; Reflux: 0 ms Below Knee: 0.2 cm; Reflux: 2672 ms Mid Calf: 0.2 cm; Reflux: 0 ms Ankle: 0.3 cm; Reflux: 0 ms DUPLICATED MEDIAL GREAT SAPHENOUS VEIN: Diameter: None imaged Reflux: NA DUPLICATED LATERAL GREAT SAPHENOUS VEIN: Diameter: None imaged Reflux: NA SMALL SAPHENOUS VEIN: Saphenopopliteal Junction: 0.3 cm; Reflux: 0 ms Proximal: 0.2 cm; Reflux: 0 ms Distal: 0.2 cm; Reflux: 0 ms VEIN OF GIACOMINI: Size: NA Reflux: NA PERFORATORS: Location: None significant Size: NA Reflux: NA VARICOSITIES: Location: None significant Size: NA Reflux: NA US/US venous duplex LE BI IMPRESSION: Right: No significant venous insufficiency or reflux in the great saphenous vein or small saphenous vein. Varicose veins are without significant reflux as described above Left: Single focal area of segmental reflux in the left great saphenous vein in the proximal calf. No significant reflux otherwise. No significant varicose veins
== END 2023-12-27 09:01 | disposition home or self-care (01) ==
LOC: HO.US 09:00
PROVIDERS: PCP Registered Nurse; Visit Provider Surgery Vascular Surgery
DX: I83.12 Varicose veins of left lower extremity with inflammation (principal)
CPT/HCPCS: 93970

== ENCOUNTER 2024-01-03 13:34 | Outpatient (REF) | payer MEDICARE, SELFPAY ==
--- NOTE | ~2024-01-03 | US_ITS ---
EXAMINATION: US NEHAL complete, US arterial duplex LE BI CLINICAL INFORMATION: PVD COMPARISON: None TECHNIQUE: Ankle pulse volume recordings, ankle pressure measurements and ankle brachial indices were obtained of the lower extremity arterial system bilaterally in addition to duplex Doppler techniques with wave form analysis and measurement of velocities in the common femoral, profunda femoral, superficial femoral, popliteal, tibial and peroneal arteries. The study was performed only at rest. FINDINGS: RIGHT LE. THE RIGHT ANKLE-BRACHIAL INDEX IS: 1.19 2. SEGMENTAL PRESSURES (mmHg): Ankle: PT 185, DP 190 3. PVR WAVEFORMS: Ankle: Normal 4. DIRECT DUPLEX: Common femoral artery: 132 cm/s, Multiphasic, mild stenosis Profunda femoris artery: 97 cm/s, Multiphasic Superficial femoral artery (proximal): 126 cm/s, Multiphasic, mild stenosis Superficial femoral artery (mid): 97 cm/s, Multiphasic Superficial femoral artery (distal): 109 cm/s, Multiphasic Popliteal artery: 78 cm/s, Multiphasic Distal posterior tibial artery: 123 cm/s, Multiphasic Peroneal artery: 78 cm/s, Multiphasic Anterior tibial artery: 83 cm/sec, multiphasic LEFT LE. THE LEFT ANKLE-BRACHIAL INDEX IS: 1.23 2. SEGMENTAL PRESSURES: Ankle: PT 197, DP 179 3. PVR WAVEFORMS: Ankle: Normal 4. DIRECT DUPLEX: Common femoral artery: 101 cm/s, Multiphasic Profunda femoris artery: 73 cm/s, Multiphasic Superficial femoral artery (proximal): 107 cm/s, Multiphasic Superficial femoral artery (mid): 65 cm/s, Multiphasic Superficial femoral artery (distal): 76 cm/s, Multiphasic Popliteal artery: 86 cm/s, Multiphasic Distal posterior tibial artery: 85 cm/s, Multiphasic Peroneal artery: 85 cm/s, Multiphasic Dorsalis pedis artery: 93 cm/sec, multiphasic US/US NEHAL complete IMPRESSION: RIGHT LEG: No significant arterial disease by NEHAL. Mild stenosis of the right common femoral and proximal superficial femoral arteries. LEFT LEG: No evidence of hemodynamically significant stenosis. Normal NEHAL.
--- NOTE | ~2024-01-03 | US_ITS ---
EXAMINATION: US NEHAL complete, US arterial duplex LE BI CLINICAL INFORMATION: PVD COMPARISON: None TECHNIQUE: Ankle pulse volume recordings, ankle pressure measurements and ankle brachial indices were obtained of the lower extremity arterial system bilaterally in addition to duplex Doppler techniques with wave form analysis and measurement of velocities in the common femoral, profunda femoral, superficial femoral, popliteal, tibial and peroneal arteries. The study was performed only at rest. FINDINGS: RIGHT LE. THE RIGHT ANKLE-BRACHIAL INDEX IS: 1.19 2. SEGMENTAL PRESSURES (mmHg): Ankle: PT 185, DP 190 3. PVR WAVEFORMS: Ankle: Normal 4. DIRECT DUPLEX: Common femoral artery: 132 cm/s, Multiphasic, mild stenosis Profunda femoris artery: 97 cm/s, Multiphasic Superficial femoral artery (proximal): 126 cm/s, Multiphasic, mild stenosis Superficial femoral artery (mid): 97 cm/s, Multiphasic Superficial femoral artery (distal): 109 cm/s, Multiphasic Popliteal artery: 78 cm/s, Multiphasic Distal posterior tibial artery: 123 cm/s, Multiphasic Peroneal artery: 78 cm/s, Multiphasic Anterior tibial artery: 83 cm/sec, multiphasic LEFT LE. THE LEFT ANKLE-BRACHIAL INDEX IS: 1.23 2. SEGMENTAL PRESSURES: Ankle: PT 197, DP 179 3. PVR WAVEFORMS: Ankle: Normal 4. DIRECT DUPLEX: Common femoral artery: 101 cm/s, Multiphasic Profunda femoris artery: 73 cm/s, Multiphasic Superficial femoral artery (proximal): 107 cm/s, Multiphasic Superficial femoral artery (mid): 65 cm/s, Multiphasic Superficial femoral artery (distal): 76 cm/s, Multiphasic Popliteal artery: 86 cm/s, Multiphasic Distal posterior tibial artery: 85 cm/s, Multiphasic Peroneal artery: 85 cm/s, Multiphasic Dorsalis pedis artery: 93 cm/sec, multiphasic US/US arterial duplex LE BI IMPRESSION: RIGHT LEG: No significant arterial disease by NEHAL. Mild stenosis of the right common femoral and proximal superficial femoral arteries. LEFT LEG: No evidence of hemodynamically significant stenosis. Normal NEHAL.
== END 2024-01-03 13:35 | disposition home or self-care (01) ==
LOC: HO.US 13:34
PROVIDERS: PCP Registered Nurse; Visit Provider Surgery Vascular Surgery
DX: I73.9 Peripheral vascular disease, unspecified (principal)
CPT/HCPCS: 93923; 93925

== ENCOUNTER 2024-01-10 13:12 | Outpatient (AMB) | payer MEDICARE, SELFPAY ==
[2024-01-10 13:24] VITALS: PULSE 78; TEMP 37; O2SAT 97; BMI 38.1
--- NOTE | 2024-01-10 13:24 | A.OFFVIS_ITS ---
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 Chronic hip pain Surgical History Status post hip surgery Social History Household Members: None Housing: Other Housing Other:: sober house Do you presently have visiting nurse or other home services: No Alcohol intake: never Patient Tobacco Use Status: Current everyday Tobacco user Tobacco use type: Cigarette Cigarette Packs Per Day: 0.25 Cigarettes Per Day: 2 service: No Current occupational status: unemployed and disabled Review of Systems Const All systems reviewed & are unremarkable except as noted in HPI and below Physical Exam Vital Signs: Last Vital Signs Temp 98.6 F 01/10/24 13:24 Pulse 78 01/10/24 13:24 Pulse Ox 97 01/10/24 13:24 Oxygen Delivery Method Room Air 01/10/24 13:24 BMI result Body Mass Index 38.1 Const Other: General: cooperative Orientation/consciousness: patient oriented x3 HEENT Head: Yes normal to inspection Mouth: Normal oral and palatal mucosa present Eyes General: appearance normal, both eyes and all related structures Pupils: Equal, round and reactive pupils present Resp Effort & Inspection: normal respiratory effort Cardio Rate: regular rate Rhythm: regular rhythm GI Palpation (GI): Soft to palpation and nontender General: Yes no CVA tenderness Back/Spine/Pelvis Back: no CVA tenderness Skin General skin exam: no rashes or lesions noted Neuro General: patient oriented x3 Cranial nerves: Yes CN's II-XII intact bilaterally and Yes Equal, round and reactive pupils present Extrem General: Yes normal to inspection Psych Appearance: grossly normal Assessment & Plan Assessment & Plan (1) Bilateral cellulitis of lower leg: Comment: Possible staph or strep Code(s): L03.116 - Cellulitis of left lower limb; L03.115 - Cellulitis of right lower limb Category: Medical Plan: He is off antibiotics Plan No further antibiotics. Coding Level of Care Code Est Pt Level 3 (73671) Diagnoses Bilateral cellulitis of lower leg L03.116; L03.115
== END 2024-01-10 13:39 | disposition home or self-care (01) ==
PROVIDERS: PCP Registered Nurse; Visit Provider Internal Medicine
DX: L03.116 Cellulitis of left lower limb (principal); L03.115 Cellulitis of right lower limb
CPT/HCPCS: 99213

== ENCOUNTER → 2024-01-10 13:12 | Outpatient (BNVA) | payer MEDICARE, SELFPAY | PROVIDERS: PCP Registered Nurse; Visit Provider Internal Medicine | DX: L03.116 Cellulitis of left lower limb (principal); L03.115 Cellulitis of right lower limb | CPT/HCPCS: 99212 ==

== ENCOUNTER 2024-01-21 10:00 | Outpatient (REF) | payer MEDICARE, SELFPAY ==
--- NOTE | ~2024-01-21 | XR_ITS ---
EXAMINATION: XR CHEST CLINICAL INFORMATION: SOB COMPARISON: Chest radiograph 09/23/2013 TECHNIQUE: PA and lateral views of the chest were obtained. FINDINGS: The lungs are well expanded. No focal consolidation, effusion, edema, or pneumothorax. The cardiomediastinal silhouette is within normal limits for technique. No acute osseous abnormality. XR/XR chest 2V IMPRESSION: No acute pulmonary disease.
== END 2024-01-21 10:01 | disposition home or self-care (01) ==
LOC: HO.HHCX 10:00
PROVIDERS: Visit Provider Registered Nurse
DX: R06.02 Shortness of breath (principal)
CPT/HCPCS: 71046

== ENCOUNTER 2024-01-25 12:59 | Outpatient (AMB) | payer MEDICARE, SELFPAY ==
--- NOTE | 2024-01-25 13:18 | A.OFFVIS_ITS ---
Intake Visit Reasons: Follow Up 01/02 Arterial US Intake Note: Patient presents for 01/02 arterial US follow up. Patient states he does not have any pain but he does have noticable deep red discoloration on both lower extremities. Accompanied by: Self / Same As Patient Allergies No Known Allergies Allergy (Verified 01/25/24 13:19) [facility] HPI Follow Up 01/02 Arterial US: Details: Pleasant 48-year-old gentleman with history prior lower extremity cellulitis presents for follow-up with arterial and venous testing. He actually was seen by Orthopedics and we as concerned about his left hip. He is in need of total hip replacement. He reports no recent episodes of cellulitis. He has had prior bouts and has been treated with doxycycline. Now presents for arterial and venous testing follow-up. 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 Chronic hip pain Surgical History Status post hip surgery Social History Household Members: None Housing: Other Housing Other:: sober house Do you presently have visiting nurse or other home services: No Alcohol intake: never Patient Tobacco Use Status: Current everyday Tobacco user Tobacco use type: Cigarette Cigarette Packs Per Day: 0.25 Cigarettes Per Day: 2 service: No Current occupational status: unemployed and disabled Review of Systems Const All systems reviewed & are unremarkable except as noted in HPI and below Reports no additional complaints ENT Reports Normal hearing present Card Denies chest pain, Denies chest pain at rest, Denies chest pain with activity and Denies pedal edema Resp Denies cough GI Denies abdominal pain Musc Denies abnormal gait, Denies muscle cramps and Denies radiating pain into limb Skin/Breast Denies skin ulcer and Denies wounds Neuro Reports Normal hearing present and Denies abnormal gait Psych Reports no additional complaints Physical Exam Const General: cooperative, healthy appearing and comfortable Orientation/consciousness: oriented to person, oriented to place and oriented to time HEENT Head: Yes normal to inspection Neck Neck: Yes normal visual inspection Carotids: no bruits Chest Chest palpation & inspection: normal inspection of the chest Resp Effort & Inspection: normal respiratory effort and able to speak in complete sentences Auscultation: clear to auscultation bilaterally, no crackles, no rales, no rhonchi and no wheezes Cardio Rate: regular rate Rhythm: regular rhythm Heart sounds: S1 normal heart sound present and S2 normal heart sound present Bruits: no carotid bruits Peripheral pulses: Peripheral pulses 2+ throughout GI Inspection: Yes normal to inspection Skin Wounds: no wounds Hair: normal Neuro General: oriented to person, oriented to place and oriented to time Cranial nerves: Yes CN's II-XII intact bilaterally and Yes Normal hearing present Cognition (Neuro): normal cognition Motor exam (neuro): 5/5 motor strength present throughout Extrem Other: venous exam: +1 to +2 edema. Hyperkeratotic skin with discoloration General: No clubbing, No cyanosis and No edema Psych Appearance: grossly normal Mental Status: mental status grossly normal Speech and movement: Normal speech and movement present Results Reviewed Results Reviewed: Venous insufficiency testing from 12/27/2023 was essentially negative Arterial testing from 01/03/2024 demonstrates NEHAL on the right of 1.19 and on the left of 1.23. Written report and images were reviewed. Assessment & Plan Assessment & Plan (1) Bilateral cellulitis of lower leg: Comment: Possible staph or strep Code(s): L03.116 - Cellulitis of left lower limb; L03.115 - Cellulitis of right lower limb Category: Medical Plan: In short patient has recurrent bouts of cellulitis. I do believe some of it is because his skin is on chronic tension and may even have an element of lymphedema. From a vascular perspective his arterial and venous testing has been stable. He is stable from a vascular perspective for orthopedic surgery as required. He will follow up with us in approximately 6 months time for leg check. Should his swelling not decrease in it continue to be a problem may consider lymphedema pumps at that time. We did discuss routine conservative measures including compression elevation and exercise as tolerated. Thank you for allowing us to assist in his care. Coding Level of Care Code Est Pt Level 3 (44425) Diagnoses Bilateral cellulitis of lower leg L03.116; L03.115
== END 2024-01-25 13:38 | disposition home or self-care (01) ==
PROVIDERS: PCP Registered Nurse; Visit Provider Surgery Vascular Surgery
DX: L03.116 Cellulitis of left lower limb (principal); L03.115 Cellulitis of right lower limb
CPT/HCPCS: 99213

== ENCOUNTER → 2024-01-25 12:59 | Outpatient (BNVA) | payer MEDICARE, SELFPAY | PROVIDERS: PCP Registered Nurse; Visit Provider Surgery Vascular Surgery | DX: L03.116 Cellulitis of left lower limb (principal); L03.115 Cellulitis of right lower limb | CPT/HCPCS: 99212 ==

== ENCOUNTER 2024-02-14 13:26 | Outpatient (AMB) | payer MEDICARE, SELFPAY ==
--- NOTE | 2024-02-14 14:03 | MHC.OFFVIS ---
Vital Signs 02/14/24 14:04 Height 5 ft 4 in Weight 220 lb BMI 37.8 Intake Visit Reasons: O/V Osteoarthritis of left hip discuss sx Intake Note: Pop is a 48 year old male who presents today with a cane for a follow up visit for his left hip OA. Patient is interested in discussing surgery today. Allergies No Known Allergies Allergy (Verified 02/14/24 14:04) HPI HPI O/V Osteoarthritis of left hip discuss sx : Details: Pop is a 48 year old male who presents today with a cane for a follow up visit for his left hip OA. Patient is interested in discussing surgery today. Pop has severe left hip arthritis that is in desperate need of replacement but surgery has been delayed because of chronic cellulitis of his legs and poor dentition. He states he has been cleared by vascular surgery and he is pursuing dental work. He continues to require a cane to walk. He has very limited ambulatory capacity and feels the quality of his life is poor. 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 Chronic hip pain Surgical History Status post hip surgery Social History Household Members: None Housing: Other Housing Other:: sober house Do you presently have visiting nurse or other home services: No Alcohol intake: never Patient Tobacco Use Status: Current everyday Tobacco user Tobacco use type: Cigarette Cigarette Packs Per Day: 0.25 Cigarettes Per Day: 2 service: No Current occupational status: unemployed and disabled Physical Exam Vital Signs: BMI result Body Mass Index 37.8 Const General: no acute distress and alert Orientation/consciousness: patient oriented x3 Neuro General: patient oriented x3 Extrem Other: Left hip: Severe antalgia with gait Walks with cane Minimal passive ROM Bilateral lower leg erythema, distal to the knee. This does not include the feet which are normal in color and appearance with palpable pedal pulses. Psych Appearance: grossly normal Affect: normal affect Attitude: cooperative Results Reviewed Results Reviewed: I personally reviewed relevant radiographs. Obliteration of the left hip space consistent with severe left hip OA. Assessment & Plan Assessment & Plan (1) Osteoarthritis of left hip: Code(s): M16.12 - Unilateral primary osteoarthritis, left hip Category: Medical Plan: This is a 47 year old man with left hip OA, with a Hx of left septic arthritis & s/p I&D x2. He has pain with daily & weight-bearing activities, and ambulates with an assistive cane. He has severe joint destruction. He has a Hx of ETOH & IVDU but has been clean for ~11 months now and is on Methadone. He has a hx of Hepatitus-C and is taking Epclusa for treatment. I discussed his diagnosis and treatment options. I recommend a left CARI, however given his past Hx of infection, he needs to be assessed for any current hip infection prior to proceeding with surgery. He has been cleared by vascular surgery and is pursuing dental work to have his teeth removed. I would like to schedule his surgery. Once he is scheduled we will require aspiration of his left hip given his history of infection to rule out any lingering infection. He has put significant effort into recovering from his history of addiction and has been clean for years now. He is working diligently to optimize his health in order to be able to undergo this surgery. In that sense, he has a good candidate for surgery. We still need to rule out lingering infection and make sure his teeth are fully addressed. I anticipate proximally 3 months before this occurs. (2) Bilateral edema of lower extremity: Code(s): R60.0 - Localized edema Category: Medical (3) Bilateral cellulitis of lower leg: Comment: Possible staph or strep Code(s): L03.116 - Cellulitis of left lower limb; L03.115 - Cellulitis of right lower limb Category: Medical Plan Scribed for Jonathan Stallworth MD by Mahesh Baez, manager medical, on 03/25/23 at 11:10 AM, EST. Coding Level of Care Code Est Pt Level 4 (37136) Diagnoses Osteoarthritis of left hip M16.12 Bilateral edema of lower extremity R60.0 Bilateral cellulitis of lower leg L03.116; L03.115
[2024-02-14 14:04] VITALS: BMI 37.8
== END 2024-02-14 14:15 | disposition home or self-care (01) ==
PROVIDERS: PCP Registered Nurse; Visit Provider Orthopaedic Surgery
DX: M16.12 Unilateral primary osteoarthritis, left hip (principal); R60.0 Localized edema; L03.116 Cellulitis of left lower limb; L03.115 Cellulitis of right lower limb
CPT/HCPCS: 99214

== ENCOUNTER → 2024-02-14 13:26 | Outpatient (BNVA) | payer MEDICARE, SELFPAY | PROVIDERS: PCP Registered Nurse; Visit Provider Orthopaedic Surgery | DX: M16.12 Unilateral primary osteoarthritis, left hip (principal); L03.116 Cellulitis of left lower limb; L03.115 Cellulitis of right lower limb; R60.0 Localized edema | CPT/HCPCS: 99212 ==

== ENCOUNTER 2024-03-22 08:36 | Day surgery (SDC) | payer MEDICARE, SELFPAY ==
[2024-03-20 07:36] VITALS: BMI 37.8
--- NOTE | 2024-03-21 09:18 | HO.ANESPROP2 ---
HPI - Anesthesia Eval Consult details Narrative: 48yo M for Left Hip Aspiration Methadone daily PMFSH Active Problems Active Problems: All Active Problems Bilateral cellulitis of lower leg (Acute) Varicose veins of left lower extremity with inflammation (Acute) PAD (peripheral artery disease) (Acute) Preoperative cardiovascular examination (Acute) Bilateral edema of lower extremity (Acute) Hepatitis C (Acute) Osteoarthritis of left hip (Acute) Bilateral cellulitis of lower leg (Acute) Heroin abuse (Acute) 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 Chronic hip pain Surgical History Surgical History Status post hip surgery Social History Social History Household Members: None Housing: Other Housing Other:: sober house Do you presently have visiting nurse or other home services: No Alcohol intake: never Patient Tobacco Use Status: Current everyday Tobacco user Tobacco use type: Cigarette Cigarette Packs Per Day: 0.25 Cigarettes Per Day: 2 Use of substances other than those prescribed or required for medical reasons: No Are you DNR?: No Advance Directives: No Advance Directives Information Provided: Yes service: No Current occupational status: unemployed and disabled Meds Allergies Allergy/AdvReac Type Severity Reaction Status Date / Time No Known Allergies Allergy Verified 03/22/24 08:57 Home Medications ?Medication ?Instructions ?Recorded ?Confirmed ?Last Taken ?Type gabapentin 300 mg capsule 300 - 600 mg PO TID PRN Pain 02/04/23 03/22/24 03/22/24 History methadone 10 mg/mL oral 135 mg PO DAILY 02/04/23 03/22/24 03/22/24 History concentrate (Methadone Intensol) naproxen 250 mg tablet 250 mg PO BID PRN Pain (Scale 05/25/23 03/22/24 03/21/24 History Score 4-6) olmesartan 5 mg tablet 5 mg PO DAILY 01/10/24 03/22/24 03/15/24 History Exam Height,Weight and Vital Signs: Height 5 ft 4 in Weight 99.79 kg Pertinent Lab Results Pertinent Lab Results: Laboratory Tests 06/07/23 10/07/23 16:09 14:14 WBC 8.6 Hgb 12.2 L Hct 38.4 L Plt Count 203 Sodium 140 Potassium 4.3 Chloride 102 Carbon Dioxide 30 H BUN 10 Creatinine 0.93 Narrative Narrative: ECHO 2022 Conclusions: - The left ventricular systolic function is normal. The calculated ejection fraction is 68% by biplane method. - No obvious valvular pathology seen on this study. Assessment and Plan Assessment Anesthesia Assessment: Chart Reviewed
--- NOTE | ~2024-03-22 | FL_ITS ---
EXAMINATION: XR FLUOROSCOPY WITH IMAGES CLINICAL INFORMATION: Left hip aspiration COMPARISON: Pelvic x-ray 02/11/2023 TECHNIQUE: Fluoroscopy provided to: Dr. Stallworth Fluoroscopy time: 0.1 minutes DAP: 0.0796 mGycm2 Images: 2 FINDINGS: 2 images demonstrate needle overlying the left hip joint. FL/FL guidance in OR IMPRESSION: Fluoroscopic guidance. Please refer to the full operative report for details. Electronically signed by: Guillaume More MD 05/23/2024 01:23 PM EDT
--- NOTE | 2024-03-22 07:23 | P.CONAN_ITS ---
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 Chronic hip pain Functional capacity: independent ambulation Family History Family history of problems with anesthesia: No Surgical History Surgical History Status post hip surgery Social History Social History Household Members: None Housing: Other Housing Other:: sober house Do you presently have visiting nurse or other home services: No Alcohol intake: never Patient Tobacco Use Status: Current everyday Tobacco user Tobacco use type: Cigarette Cigarette Packs Per Day: 0.25 Cigarettes Per Day: 2 service: No Current occupational status: unemployed and disabled Meds Allergies Allergy/AdvReac Type Severity Reaction Status Date / Time No Known Allergies Allergy Verified 02/14/24 14:04 Home Medications ?Medication ?Instructions ?Recorded ?Confirmed ?Last Taken ?Type gabapentin 300 mg capsule 300 - 600 mg PO TID PRN Pain 02/04/23 06/07/23 06/07/23 07:00 History methadone 10 mg/mL oral 135 mg PO DAILY 02/04/23 06/07/23 06/07/23 07:00 History concentrate (Methadone Intensol) naproxen 250 mg tablet 250 mg PO BID PRN Pain (Scale 05/25/23 06/07/23 06/07/23 07:00 History Score 4-6) olmesartan 5 mg tablet 5 mg PO DAILY 01/10/24 Unknown History Exam Height,Weight and Vital Signs: Height 5 ft 4 in Weight 99.79 kg Assessment and Plan Final Anesthetic Review Family History of Problems with Anesthesia: No
[2024-03-22 08:53] VITALS: BMI 36.9
[2024-03-22 09:19] VITALS: BP 180/93; PULSE 85; RESP 16; TEMP 36.5; O2SAT 98
[2024-03-22] MEDS: Lactated Ringers 1,000 ML 100 ML IVCONT (09:21)
--- NOTE | 2024-03-22 10:03 | P.CONAN_ITS ---
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 Chronic hip pain Functional capacity: independent ambulation Family History Family history of problems with anesthesia: No Surgical History Surgical History Status post hip surgery History of Problems with Anesthesia: No Social History Social History Household Members: None Housing: Other Housing Other:: sober house Do you presently have visiting nurse or other home services: No Alcohol intake: never Patient Tobacco Use Status: Current everyday Tobacco user Tobacco use type: Cigarette Cigarette Packs Per Day: 0.25 Cigarettes Per Day: 2 Use of substances other than those prescribed or required for medical reasons: No Are you DNR?: No Advance Directives: No Advance Directives Information Provided: Yes service: No Current occupational status: unemployed and disabled Meds Allergies Allergy/AdvReac Type Severity Reaction Status Date / Time No Known Allergies Allergy Verified 03/22/24 08:57 Active Medications: Current Medications Albuterol Sulfate (Albuterol Sulfate (0.083%) 2.5 Mg/3 Ml Vial.Neb) 2.5 mg INHALE ONCE PRN PRN Reason: Shortness of Breath/Wheezing Lactated Ringer's (Lr) 1,000 mls @ 100 mls/hr IVCONT .Q10H CARRIE Last Admin: 03/22/24 09:21 Dose: 100 mls/hr Home Medications ?Medication ?Instructions ?Recorded ?Confirmed ?Last Taken ?Type gabapentin 300 mg capsule 300 - 600 mg PO TID PRN Pain 02/04/23 03/22/24 03/22/24 History methadone 10 mg/mL oral 135 mg PO DAILY 02/04/23 03/22/24 03/22/24 History concentrate (Methadone Intensol) naproxen 250 mg tablet 250 mg PO BID PRN Pain (Scale 05/25/23 03/22/24 03/21/24 History Score 4-6) olmesartan 5 mg tablet 5 mg PO DAILY 01/10/24 03/22/24 03/15/24 History Exam Height,Weight and Vital Signs: Height 5 ft 4 in Weight 97.522 kg Last Vital Signs Temp 97.7 F 03/22/24 09:19 Pulse 85 03/22/24 09:19 Resp 16 03/22/24 09:19 BP 180/93 H 03/22/24 09:19 Pulse Ox 98 03/22/24 09:19 O2 Del Method Room Air 03/22/24 09:19 Airway Mallampati Class: IV TM Dist: >3cm Neck ROM: Full Heart: RRR Lungs: CTA Assessment and Plan Final Anesthetic Review Family History of Problems with Anesthesia: No History of Problems with Anesthesia: No ASA Class: III Final Preanesthetic Review: Meds/Allgs Chart Reviewed, Consent Obtained/Reviewed and Anes Risks/Benef Reviewed Patient Risk: Intermediate Procedure Risk: Low Anesthetic Plan Anesthetic Plan: MAC: Disposition: Standard PACU
--- NOTE | 2024-03-22 10:17 | MHC.SHP ---
Pre-Procedural Eval Section A - 24 Hr Update-Section A only Date of Service: 03/22/24 The patient is an INPATIENT: No Changes since office visit: No Cold of Flu in the past 2 weeks, No New Medical Problems, No Changes in Medication and No Patient answered all questions The patient has been examined within 24 hours of the surgical procedure. The History & Physical has been completed within 30 days and I have reviewed it.: Yes Section B - Complete if H&P > 30 days Chief Complaint: Unilateral primary osteoarthritis, left hip Allergies: Allergies Allergy/AdvReac Type Severity Reaction Status Date / Time No Known Allergies Allergy Verified 03/22/24 08:57 Plan I have reviewed the history and physical and performed a pertinent physical examination on my patient. No changes have occurred unless specified. Time Spent With Patient Time: Total time managing care of this patient today ____ minutes.
[2024-03-22 11:53] VITALS: BP 136/91; PULSE 85; RESP 16; TEMP 36.2; O2SAT 95
[2024-03-22 12:08] VITALS: BP 137/83; PULSE 75; RESP 16; TEMP 36.4; O2SAT 95
--- NOTE | 2024-03-22 13:01 | PM.OP ---
Brief Operative Note Date of Service: 03/22/24 Pre-op diagnosis: Left hip OA Post-op diagnosis: same Procedure: Aspiration left hip Surgeon: Jonathan Stallworth MD Anesthesia: GLMA and local Was an Para Professional used for this Procedure?: Yes Para Professional: Alix Fajardo Estimated blood loss (mL): 1 IV fluids (mL): 20 Pathology: none sent Condition: stable Disposition: PACU
--- NOTE | 2024-03-22 13:48 | HO.POSTANES ---
Post Anesthesia Evaluation Post Anesthesia Evaluation Date of Service: 03/22/24 Vital Signs: Vital Signs Temp Pulse Resp BP Pulse Ox O2 Del Method 03/22/24 12:08 97.6 F 75 16 137/83 95 Room Air 03/22/24 11:53 97.1 F 85 16 136/91 H 95 Room Air 03/22/24 09:19 97.7 F 85 16 180/93 H 98 Room Air Anesthesia: Monitored Mental Status: Awake Pain Control: Satisfactory Nausea/Vomiting: None Hydration: Adequate Anesthesia-Related Issues: No Anes. Related Issues
--- NOTE | 2024-03-24 08:01 | P.OP_ITS ---
Operative Note Operative Note Date of Service: 03/22/24 Narrative: Date of Service: 03/22/24 Pre-op diagnosis: Left hip OA Post-op diagnosis: same Procedure: Aspiration left hip Surgeon: Jonathan Stallworth MD Anesthesia: GLMA and local Was an Project Coach used for this Procedure?: Yes Project Coach: Alix Fajardo Estimated blood loss (mL): 1 IV fluids (mL): 20 Pathology: none sent Condition: stable Disposition: PACU Patient was brought to the operating room and placed supine on the surgical table. She was prepped and draped in standard sterile fashion and a time out was called to identify proper site, proper procedure and IV antibiotics were NOT administered. Under fluoroscopic guidance I injected ~10 ml of 1/4 marcaine ~ 3 cm distal to the ASIS and 3 cm lateral to the femoral artery at the level of the inguinal crease. I then placed a spinal needle in and aspirated very small am ounts of blood and joint fluid. I attempted aspiration form three different aspects of the joint but was unable to obtain anything to send for culture. This was a dry tap. Band aids were placed over the needle entry sites and the patient was brought to the recoovery room in stable condition.
== END 2024-03-22 12:57 | disposition home or self-care (01) ==
PROVIDERS: PCP Registered Nurse; Visit Provider Orthopaedic Surgery
PROC: (CPT 20610; principal; 2024-03-22 12:00)
DX: M16.12 Unilateral primary osteoarthritis, left hip (principal); G89.29 Other chronic pain; R60.0 Localized edema; L03.116 Cellulitis of left lower limb; L03.115 Cellulitis of right lower limb; I73.9 Peripheral vascular disease, unspecified; I83.12 Varicose veins of left lower extremity with inflammation; F11.20 Opioid dependence, uncomplicated; R26.89 Other abnormalities of gait and mobility; Z99.89 Dependence on other enabling machines and devices; F17.210 Nicotine dependence, cigarettes, uncomplicated; Z56.0 Unemployment, unspecified
CPT/HCPCS: 20610; J0131; J1596; J2250; J2704; J2795; J3010

== ENCOUNTER → 2024-03-22 08:36 | Outpatient (BNV) | payer MEDICARE, SELFPAY | PROVIDERS: PCP Registered Nurse; Visit Provider Orthopaedic Surgery | DX: M16.12 Unilateral primary osteoarthritis, left hip (principal) | CPT/HCPCS: 20610; 77002 ==

== ENCOUNTER 2025-04-03 11:50 | Outpatient (REF) | payer MEDICARE, SELFPAY ==
--- OUTSIDE RECORDS SUMMARY | 2025-04-03 12:40 | XMS_ITS | Encounter Summary ---
Author Organization [employer] Address [address] [place] [address] Care Team Providers Care Rubber Curer Name Role Phone Malaika Nuñez [facility] Primary Care Provider [phone] Reason for Visit * Reason Comments Med Refill Encounter Details Date Type Department Care Team (Late st Contact Info) Description 03/07/2024 Refill [facility] [address] [place] [address] [facility] [address] [place] [address] Chronic left hip pain Social History Tobacco Use Types Packs/Day Years Used Date Smoking Tobacco: Every Day Cigarettes Smokeless Tobacco: Never Alcohol Use Standard Drinks/Week Comments Not Currently 0 (1 standard drink = 0.6 oz pur e alcohol) Depression Answer Date Recorded Patient Health Questionnaire-9 Score 0 11/05/2023 Patient Health Questionnaire-9 Score 0 11/05/2023 Last PHQ-9: Questionnaire Data Not on file 0 11/05/2023 Housing Stability Answer Date Recorded What is your housing situation today? I have margo vitale 06/15/[address] you li ve. Do you have problems with any of the following? None of the above 06/15/2023 Food Insecurity Answer Date Recorded Within the past 12 months, y ou worried that your food would run out before you got money to buy more: Never True 06/15/2023 Within the past 12 months,th e food you bought just didn't last and you didn't have enough money to get more: Never True Transportation Answer Date Recorded In the past 12 months, has l ack of transportation kept you from medical appts, meetings, work or from getting things needed for daily living? No 06/15/2023 Utilities Answer Date Recorded In the past 12 months, has t he electric, gas, oil or water company threatened to shut off services in your home? No 06/15/2023 Depression Answer Date Recorded Patient Health Questionnaire-2 Score 0 11/05/2023 Sex and Gender Information Value Date Recorded Sex Assigned at Male 06/29/2022 10:18 AM EDT Legal Sex Male 10:18 AM EDT Gender Identity Male 06/29/2022 10:18 AM EDT Sexual Orientation Straight 06/29/2022 10 :18 AM EDT documented as of this encounter Plan of Treatment Upcoming Encounters Date Type Department Care Team (Late st Contact Info) Description 04/06/2025 1:15 PM EDT Office Visit [facility] [address] [place] [address] Malaika Nuñez FNP [address] [place] [address] documented as of this encounter Visit Diagnoses Diagnosis Chronic left hip pain documented in this encounter Additional Health Concerns Assessment Noted Time PHQ-9 Depression Total Score: 0 11/05/19 24 1:06 PM EST documented as of this encounter Care Teams Rubber Curer Relationship Specialty Start Date End Date Malaika Nuñez FNP [address] [place] [address] PCP - General Family Medicine 09/22/22 Yasmany WHITFIELD 03/04/25 documented as of this encounter
[2025-04-03 13:17] LABS: MANUAL DIFF FLAG NO
[2025-04-03 13:23] LABS: Hematocrit 36.0 % (42.0-52.0); Hemoglobin 11.8 g/dl (14.0-18.0); Imm Gran Abs Auto 0.06 X10*3/uL (0.00-0.03); Imm Gran Pct Auto 0.8 % (0.0-0.4); Lymphocytes Absolute Auto 2.5 X10*3/uL (1.2-4.9); Mean Corpuscular HGB Conc 32.8 g/dl (31.0-36.0); Mean Corpuscular Hemoglobin 28.9 pg (27.0-33.0); Mean Corpuscular Volume 88.0 fL (80.0-98.0); NRBC Abs Auto 0.000 X10*3/uL (0.0-0.012); NRBC Pct Auto 0.0 /100WBC (0.0-0.2); Platelet Count 253 X10*3/uL (160-400); Red Blood Count 4.09 X10*6/uL (4.60-5.80); White Blood Count 7.3 X10*3/uL (4.8-10.8)
[2025-04-03 13:50] LABS: Hemoglobin A1C 102.4214 umol/L; Total Hemoglobin (HGBA1C) 3120.6006 umol/L
[2025-04-03 14:08] LABS: Alanine Aminotransferase 20 U/L (0-40); Albumin Level 4.4 g/dL (3.5-5.0); Alkaline Phosphatase 81 U/L (39-117); Anion Gap 13 (12-20); Aspartate Amino Transferase 24 U/L (5-37); Blood Urea Nitrogen 16 mg/dL (9-16); Calcium 9.0 mg/dL (8.4-10.2); Carbon Dioxide 28 mmol/L (22-29); Chloride 104 mmol/L (96-108); Cholesterol 142 mg/dL (<200); Estimated Glomerular Filt Rate > 60; HDL Cholesterol 32 mg/dL (>40); Potassium 4.0 mmol/L (3.3-5.1); Sodium 141 mmol/L (135-145); Total Protein 8.1 g/dL (6.5-8.0); Triglycerides 151 mg/dL (<150)
== END 2025-04-03 11:51 | disposition home or self-care (01) ==
LOC: HO.HHCL 11:50
PROVIDERS: PCP Registered Nurse; Visit Provider Registered Nurse
DX: I10 Essential (primary) hypertension (principal)
CPT/HCPCS: 36415; 80053; 80061; 83036; 85025

== ENCOUNTER 2025-05-08 18:30 | Inpatient (IN) | payer MEDICARE, SELFPAY ==
--- NOTE | ~2025-05-08 | US_ITS ---
EXAMINATION: Noninvasive assessment of the bilateral lower extremities without ARTERIAL DUPLEX, ANKLE BRACHIAL INDICES (ABIS), AND PULSE VOLUME RECORDINGS (PVRS). CLINICAL INFORMATION: Nonhealing ulcers, lower extremities. TECHNIQUE: Duplex Doppler techniques with waveform analysis and measurement of velocities in the bilateral common femoral, profunda femoris, superficial femoral, popliteal and tibial arteries were performed. Additionally, ankle pulse volume recordings, ankle pressure measurements and ankle brachial indices were obtained of the lower extremity arterial system bilaterally. The study was performed only at rest. COMPARISON: January 03, 2024 FINDINGS: DIRECT DUPLEX DOPPLER FINDINGS: RIGHT LEG: Common femoral artery: 188 cm/s, phasicity: Monophasic. Profunda femoris artery: 135 cm/s, phasicity: Monophasic. Spectral broadening. Superficial femoral artery (proximal): 147 cm/s, phasicity: Monophasic. Superficial femoral artery (mid): 164 cm/s, phasicity: Monophasic. Spectral broadening. Superficial femoral artery (distal): 128 cm/s, phasicity: Monophasic. Popliteal artery: 162 cm/s, phasicity: Monophasic. Posterior tibial artery: 146 cm/s, phasicity: Monophasic. Peroneal artery: No color Doppler flow. Anterior tibial artery: 78 cm/s, phasicity: Monophasic. Spectral broadening. Dorsalis pedis artery: Not interrogated/no visualized. LEFT LEG: Common femoral artery: 166 cm/s, phasicity: Triphasic. Profunda femoris artery: 77 cm/s, phasicity: Biphasic. Superficial femoral artery (proximal): 148 cm/s, phasicity: Triphasic. Superficial femoral artery (mid): 146 cm/s, phasicity: Monophasic. Superficial femoral artery (distal): 156 cm/s, phasicity: Biphasic. Popliteal artery: 133 cm/s, phasicity: Monophasic. Posterior tibial artery: 109 cm/s, phasicity: Monophasic. Peroneal artery: No color Doppler flow. Anterior tibial artery: 107 cm/s, phasicity: Monophasic. Dorsalis pedis artery: 45 cm/s, phasicity: Monophasic. 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 Slow flow versus occluded peroneal artery. Dorsalis pedis artery is not visualized. Left leg: Moderate to severe inflow disease worsened below the knee. Electronically signed by: Piotr Escudero MD 05/09/2025 12:42 PM EDT RP
--- NOTE | ~2025-05-08 | CT_ITS ---
CLINICAL HISTORY: osteomyelitis Left foot CT with contrast. Comparison: None provided. Findings: No acute fracture or dislocation injury identified. No cortical destruction of the bone. Small posterior calcaneal enthesophyte at the site of the Achilles tendon insertion. Small plantar calcaneal spur. Edema identified throughout the included left lower extremity soft tissues. No organized fluid or abscess collection identified. No soft tissue gas appreciated. Impression: 1. No acute fracture or dislocation injury identified at the left foot. No CT evidence for active osteomyelitis. 2. Nonspecific edema identified throughout the included left lower leg soft tissues. This document has been electronically signed by: Edson Driver MD on 05/09/2025 03:36:30
--- NOTE | ~2025-05-08 | CT_ITS ---
CLINICAL HISTORY: osteomyelitis --- Additional Notes or Special Instructions: kinney to foot Right lower extremity CT with contrast. Comparison: None provided. Findings: No acute fracture or dislocation injury identified. No cortical destruction of the bone. Small posterior calcaneal enthesophyte at the site of the Achilles tendon insertion. There are degenerative changes at the right knee. Small right knee effusion. Edema identified throughout the included right lower extremity soft tissues. No organized fluid or abscess collection identified. No soft tissue gas appreciated. There is some irregularity of the soft tissues near the skin surface along the anterolateral aspect of the right lower leg. Impression: 1. No acute fracture or dislocation injury identified at the right lower extremity. No CT evidence for active osteomyelitis. 2. Nonspecific edema identified within the included right lower extremity soft tissues. 3. Some irregularity of the soft tissues near the skin surface along the anterolateral aspect of the right lower leg present, suggesting wounds or ulcers. This document has been electronically signed by: Edson Driver MD on 05/09/2025 03:43:10
[2025-05-08 20:39] VITALS: BP 174/79; PULSE 97; RESP 16; TEMP 37; O2SAT 95; BMI 38.5
[2025-05-08 22:28] LABS: MANUAL DIFF FLAG NO
[2025-05-08 22:30] LABS: Hematocrit 31.3 % (42.0-52.0); Hemoglobin 10.2 g/dl (14.0-18.0); Imm Gran Abs Auto 0.07 X10*3/uL (0.00-0.03); Imm Gran Pct Auto 0.6 % (0.0-0.4); Lymphocytes Absolute Auto 1.6 X10*3/uL (1.2-4.9); Mean Corpuscular HGB Conc 32.6 g/dl (31.0-36.0); Mean Corpuscular Hemoglobin 28.3 pg (27.0-33.0); Mean Corpuscular Volume 86.7 fL (80.0-98.0); NRBC Abs Auto 0.000 X10*3/uL (0.0-0.012); NRBC Pct Auto 0.0 /100WBC (0.0-0.2); Platelet Count 297 X10*3/uL (160-400); Red Blood Count 3.61 X10*6/uL (4.60-5.80); White Blood Count 11.4 X10*3/uL (4.8-10.8)
[2025-05-08 22:33] VITALS: BP 143/80; PULSE 96; RESP 18; TEMP 38.6; O2SAT 96
[2025-05-08 22:44] LABS: Anion Gap 12 (12-20); Blood Urea Nitrogen 16 mg/dL (9-16); Carbon Dioxide 31 mmol/L (22-29); Chloride 100 mmol/L (96-108); Creatinine Clr Calc Pharmacy 104.8; Estimated Glomerular Filt Rate > 60; Potassium 4.4 mmol/L (3.3-5.1); Sodium 139 mmol/L (135-145)
[2025-05-08 22:45] LABS: Calcium 9.3 mg/dL (8.4-10.2)
[2025-05-08 23:30] VITALS: TEMP 37.6
--- OUTSIDE RECORDS SUMMARY | 2025-05-08 23:30 | XMS_ITS | Clinical Summary ---
Author Organization [employer] Address [address] [facility] [address] [place] [address] Care Team Providers Care Hearing Aid Consultant Name Role Phone Malaika Nuñez SIGNALING DESIGN ENGINEER Primary Care Provider [phone] Allergies No known active allergies Medications Blood Pressure kitIndications:H ealthcare maintenance Use as directed 1 kit 09/22/19 23 Active methadone (Dolophine) 10 MG/5ML solution PER METHADONE CLINIC Active Spacer/Aero-Hold ing Chambers (Pro Comfort Spacer Adult) miscIndications: Shortness of breath Use as directed 1 each 01/22/20 23 Active hydrocortisone 1 % creamIndications :Swelling of lower extremity Apply topically 2 times daily. 120 g 1 06/16/20 23 Active triamcinolone (Kenalog) 0.1 % ointmentIndicati ons:Erythema of lower extremity Apply topically 2 times daily. Apply thin coat to lower legs twice daily for 2 weeks 80 g 11/07/19 24 Active chlorthalidone (Hygroton) 25 MG tablet Take 0.5 tablets (12.5 mg) by mouth Once per day. 15 tablet 11 07/18/20 24 025 Active olmesartan (BENIcar) 5 MG tabletIndication s:Essential hypertension TAKE 2 TABLETS BY MOUTH EVERY DAY 60 tablet 3 12/05/19 25 Active gabapentin (Neurontin) 300 MG capsuleIndicatio ns:Chronic left hip pain TAKE 1 TO 2 CAPSULES BY MOUTH UP TO THREE TIMES DAILY NEEDED FOR PAIN 150 capsule 3 02/20/20 25 Active tiotropium (Spiriva HandiHaler) 18 MCG inhalation capsuleIndicatio ns:Chronic obstructive pulmonary disease, unspecified COPD type (CMS/HCC) Place 1 capsule (18 mcg) into inhaler and inhale in the morning. 30 capsule 11 04/06/20 25 026 Active albuterol 108 (90 Base) MCG/ACT inhalerIndicatio ns:Chronic obstructive pulmonary disease, unspecified COPD type (CMS/HCC) Inhale 2 puffs every 6 (six) hours if needed for wheezing. 18 g 11 04/06/20 25 026 Active Tirzepatide-Weig ht Management (Zepbound) 2.5 MG/0.5ML solution auto-injectorInd ications:Class 3 severe obesity due to excess calories with serious comorbidity and body mass index (BMI) of 40.0 to 44.9 in adult Inject 0.5 mL (2.5 mg) under the skin 1 (one) time per week. 2 mL 1 04/06/20 25 Active naproxen (Naprosyn) 500 MG tabletIndication s:Hip arthritis TAKE 1 TABLET BY MOUTH TWICE DAILY IN THE MORNING AND AT BEDTIME NEEDED FOR MODERATE PAIN 30 tablet 04/20/20 25 Active naproxen (Naprosyn) 500 MG tabletIndication s:Hip arthritis TAKE 1 TABLET BY MOUTH TWICE DAILY IN THE MORNING AND AT BEDTIME NEEDED FOR PAIN MODERATE 30 tablet 03/26/20 25 025 Discontinued Active Problems Problem Noted Date Diagnosed Date Heroin abuse 01/21/2024 Hepatitis C virus infection cured after antiviral drug therapy 11/22/2023 Recurrent cellulitis of lower extremity 05/09/20 23 Overview (11/05/2023): Hx of recurrent LE edema/erythema ?cellulitis requiring multiple hospitalizations which started after patient initiated tx for HCV with Epclusa (tx now completed) Saw Dr. Cruz in [place]. Started penicillin 250mg BID x 30 days for prevention. Punch biopsy negative for vasculitis from 05/2023. Assessment & Plan (08/01/2023 10:37 AM EST): Sx improvement Insurance issue when patient tried to brass pickler penicillin from pharmacy. Will resend today Continue to monitor Shortness of breath 05/09/2023 Overview (07/03/2023): Reports hx of asthma in childhood-suspect now astma/COPD overlap Albuterol PRN Symbicort b.i.d Referred to pulmonology 04/2023 Assessment & Plan (07/03/2023 1:15 PM EDT): Did not complete previously ordered PFT's due to hosptialization-pt will call to schedule Reports mild improvement with symbicort start Continue inhalers as prescribed Follow up as scheduled with pulmonology Assessment & Plan (05/09/2023 8:07 AM EDT): START symbicort b.i.d. Reviewed administration, risks, side effects to include cough, sore throat and risk of thrush. Pt advised to rinse mouth with water after administration. Will order PFT's and refer to pulmonology ED precautions reviewed Chronic hepatitis C without hepatic coma 023 Overview (11/07/2023): Tx completed Negative viral load 09/2023 Essential hypertension 09/25/2022 Overview (11/07/2023): Olmesartan 10mg daily Chlorthalidone 12.5mg Maintenance: ASCVD Risk: LDL <70 EKG: Obtain baseline at f/u Echo from 01/2023 normal - Aerobic exercise to reduce BP. Initial goal of 30 min walk 3-5x/week. Increase as tolerated. - low-sodium diet (goal: <2g/day) and heart healthy diet such as DASH to reduce BP and prevent ASCVD. - Home BP monitoring 1-2 x day with goal of <140/90. - Seek immediate medical attention for chest pain, palpitations, SOB, syncope, or sudden changes in mental status. - Do not change or discontinue current prescriptions without first consulting health care provider Assessment & Plan (11/07/2023 4:46 PM EDT): - Bp elevated in office. Patient did not take meds. Asx - Will take medication at home - Continue to monitor-declines RN BP check in 2 weeks. - Advised to contact HC if persistent BP elevation Patient verbalizes understanding and agrees to plan Assessment & Plan (08/01/2023 10:31 AM EST): START chlorthalidone 12.5mg daily. Reviewed administration, risks, side effects Continue olmesartan 10mg daily Assessment & Plan (07/03/2023 1:20 PM EDT): Blood pressure elevated. Pt reports this frequently happens with prednisone use. BP otherwise well controlled. Denies current sx Will continue to monitor Assessment & Plan (02/22/2023 2:02 PM EDT): BP initially elevated. Repeat 140/80. Pt reports he did not take medication today Home BP well controlled Continue olmesartan 10mg daily Assessment & Plan (02/01/2023 5:11 AM EDT): Well controlled Continue current regimen Echocardiogram ordered and referral to cardiology to evaluate hx of heart murmur in setting of hx of endocarditis Health care maintenance 09/22/2022 Overview (09/22/2022): C-scope: No prior colonoscopy, does not want to discuss screening today HCV Screen: Ordered today HIV Screen: Ordered today Immunizations: Accepts Tdap, declines COVID Screening Labs: A1c, lipids, BMP ordered today Chronic left hip pain 09/22/2022 Overview (08/01/2023): Hx of left hip septic arthritis in 2018 and 2019 . X-ray of pelvis and femur on 12/12/2021 showed severe degenerative joint disease with joint space obliteration as well as significant wear of femeral head. Gabapentin Naproxen Followed by Dr. Stallworth [facility]- plan for THR pending left hip aspiration to r/o chronic infection. 04/13/23[place] [place] pre-op clearance. 1st degree AV block on EKG. Echocardiogram WNL. Recommendation for myocardial perfusion imaging for further risk stratification Assessment & Plan (11/07/2023 4:43 PM EDT): Referral back to cardiology to complete pre-op clearance Referral to dental Patient with call to scheduled follow up with Dr. Stallworth once he has completed pre op requirements Assessment & Plan (07/03/2023 1:14 PM EDT): Follow as scheduled with [facility] Will place referral to dental care to expedite preop clearance Assessment & Plan (02/01/2023 5:13 AM EDT): INCREASE gabapentin dose to 300mg (1-2 capules b.i.d) Updated xrays ordered Referral placed to [facility] Substance use disorder 09/22/2022 Overview (09/22/2022): SHAUNA-IVDU, sober x 6 months, on methadone program through [facility]. 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 Also goes to AA Assessment & Plan (07/03/2023 1:14 PM EDT): Doing very well; has maintained sobriety Bipolar affective disorder in remission 09/22/19 23 Overview (09/22/2022): abilify 5mg, depakote 500mg Acute bacterial endocarditis 09/22/2022 Overview (02/22/2023): Tx 2012 Echo from 01/2023 normal Tobacco use 09/22/2022 Overview (02/01/2023): Has patches and lozenges Assessment & Plan (07/03/2023 1:14 PM EDT): Encouraged cessation Assessment & Plan (02/01/2023 5:15 AM EDT): Declines referral for cessation today Accepts PCV 20 Will continue to discuss at follow up Class 2 severe obesity due t o excess calories with serious comorbidity and body mass index (BMI) of 35.0 to 35.9 in adult 09/22/2022 Resolved Problems Problem Noted Date Diagnosed Date Resolved Date Arthritis of left hip 11/12/20222022 Assessment & Plan (11/12/2022 12:22 PM EDT): Severe post-septic arthritis of left hip. Pt is interested in hip replacement. Has been sober 7 months. Referred to previous ortho. He requests ibuprofen for pain. -referral placed -has stable living situation in [facility] -pt commended on his success Encounters Date Type Department Care Team Description 05/08/2025 Orders Only GENERIC EXTERNAL DATA DEPARTMENT Provider, Generic External Data 04/20/2025 Refill [facility] [address] [place] [address] Malaika NuñezÁLVARO Hip arthritis 04/09/[address] [address] [place] ÁLVARO Dai Prior Authorization ([facility]: Huyen) 04/06/2025 1:15 PM EDT Office Visit [address] [place] [address] [place] ÁLVARO Dai Chronic obstructive pulmonary disease, unspecified COPD type (CMS/HCC) (Primary Dx); Non-healing ulcer of multiple sites, unspecified ulcer stage (CMS/HCC); Dietary counseling; Exercise counseling; Class 3 severe obesity due to excess calories with serious comorbidity and body mass index (BMI) of 40.0 to 44.9 in adult 04/06/2025 Travel 04/05/2025 Telephone [facility] [address] [place] [address] [place] ÁLVARO Dai chart prep 04/04/[address] [address] [place] ALEXANDRA DaiP stable lab letter 04/04/2025 Results Follow-Up [facility] [address] [place] [phone] Malaika Nuñez SIGNALING DESIGN ENGINEER Comprehensive Metabolic Panel, Lipid Panel, Standard, CBC auto differential, Hemoglobin A1c 03/30/2025 Travel 03/26/2025 Refill [facility] [address] [facility] [place] [address] [place] ÁLVARO Dai Hip arthritis 02/18/2025 Refill [facility] [address] [place] [address] [place] Malaika SIGNALING DESIGN ENGINEER Chronic left hip pain from Last 3 Months Immunizations Immunization Administration Dates Next Due Influenza injectable quadrivalent preservative f ree 06/16/2023,08/25/2022 Pneumococcal Conjugate PCV 20 01/21/2023 Tdap 09/22/2022 Family History Medical History Relation Name Comments Alcohol Use Disorder Father Diabetes type II Father Breast cancer Maternal Grandmother Colon cancer Neg Hx Prostate cancer Neg Hx Relation Name Status Comments Father Maternal Grandmother Social History Tobacco Use Types Packs/Day Years Used Date Smoking Tobacco: Some Days Cigarettes Smokeless Tobacco: Never Alcohol Use Standard Drinks/Week Comments Not Currently 0 (1 standard drink = 0.6 oz pur e alcohol) Depression Answer Date Recorded Patient Health Questionnaire-9 Score 0 04/06/2025 Patient Health Questionnaire-9 Score 0 04/06/2025 Last PHQ-9: Questionnaire Data Not on file 0 04/06/2025 Housing Stability Answer Date Recorded What is your housing situation today? I have margo winifred 04/06/[address] you li ve. Do you have problems with any of the following? None of the above 04/06/2025 Food Insecurity Answer Date Recorded Within the [...] Date Recorded Patient Health Questionnaire-2 Score 0 04/06/2025 Internet Access Answer Date Recorded Internet Access Q1 Yes 09/27/2024 Internet Access Q2 Not on file 09/27/2024 Sex and Gender Information Value Date Recorded Sex Assigned at Male 06/29/2022 10:18 AM EDT Legal Sex Male 10:18 AM EDT Gender Identity Male 06/29/2022 10:18 AM EDT Sexual Orientation Straight 06/29/2022 10 :18 AM EDT Last Filed Vital Signs Vital Sign Reading Time Taken Comments Blood Pressure 130/78 04/06/2025 1:48 PM EDT Pulse 72 04/06/2025 1:48 PM EDT Temperature 36 C (96.8 F) 10/09/2024 10:27 AM EST Respiratory Rate 16 04/06/2025 1:48 PM EDT Oxygen Saturation 94% 01/21/2024 9:16 AM EDT Inhaled Oxygen Concentration - - Weight 106 kg (234 lb 3.2 oz) 04/06/2025 1:48 PM EDT Height 162.6 cm (5' 4 ) 04/06/2025 1:48 PM EDT Body Mass Index 40.2 04/06/2025 1:48 PM EDT Plan of Treatment Upcoming Encounters Date Type Department Care Team (Late st Contact Info) Description 05/25/2025 11:00 AM EDT Telemedicine [facility] [address], [place] [phone] [facility], [facility] [address] [place] [address] Health Maintenance Due Date Last Done Comments CT Colonography 1973 Colonoscopy 1973 Colorectal Cancer Screening 1973 FIT DNA/Cologuard 1973 FIT 1973 FOBT 1973 Sigmoidoscopy 1973 Family Planning (PISQ) 1988 Hepatitis A Vaccines (1 of 2 - Risk 2-dose series) 1992 Hepatitis B Vaccines (1 of 3 - 19+ 3-dose series) 1992 Zoster Vaccines (1 of 2) 2023 COVID-19 Vaccine (1 - 2023-2 5 season) 2025 Influenza Vaccine (#1) 2025 3, 08/25/2022 Disability Screening 10/07/2025 10/07/2024 Alcohol/Substance Use Screening 04/06/2026 04/06/2025 Depression Screening 04/06/2026 04/06/2025, 04/06/2025 SDOH Screening 04/06/2026 04/06/2025 Tobacco Screening 04/06/2026 04/06/2025 Lipid Panel 04/03/2030 04/03/2025, 09/22/2022 DTaP/Tdap/Td Vaccines (2 - T d or Tdap) 09/22/2032 09/22/2022 RSV Patients and Patients Aged 60 years or older (1 - 1-dose 75+ series) 2048 HIV Screening Completed 09/22/2022 Pneumococcal Vaccine: 50+ Years Completed 01/21/2023 HIB Vaccines Aged Out No longer eligi ble based on patient's age to complete this topic HPV Vaccines Aged Out No longer eligi ble based on patient's age to complete this topic IPV Vaccines Aged Out No longer eligi ble based on patient's age to complete this topic Meningococcal B Vaccine Aged Out No l onger eligible based on patient's age to complete this topic Meningococcal Vaccine Aged Out No fabiana delmis eligible based on patient's age to complete this topic RSV under 20 months Aged Out No longe r eligible based on patient's age to complete this topic Rotavirus Vaccines Aged Out No longer eligible based on patient's age to complete this topic Procedures Procedure Name Priority Date/Time Associated Diagnosis Comments LACTIC ACID Routine 05/08/2025 10:51 PM EDT C-REACTIVE PROTEIN Routine 05/08/2025 10 :16 PM EDT BASIC METABOLIC PANEL Routine 05/08/2025 10:16 PM EDT CBC WITH AUTO DIFFERENTIAL Routine 05/08/2025 10:16 PM EDT HEMOGLOBIN A1C Routine 04/03/2025 11:56 AM EDT Essential hypertension CBC WITH AUTO DIFFERENTIAL Routine 04/03/2025 11:56 AM EDT Essential hypertension LIPID PANEL, STANDARD Routine 04/03/2025 11:56 AM EDT Essential hypertension COMPREHENSIVE METABOLIC PANEL Routine 04/03/2025 11:56 AM EDT Essential hypertension HIV 1/2 ANTIGEN/ANTIBODY, FOURTH GENERATION W/RFL Routine 09/22/2022 10:47 AM EST Substance use disorder from Last 3 Months or Most Recently Relevant to Health Maintenance Results * Lactic Acid (05/08/2025 10:51 PM EDT) Pathologist [facility] Lactic Acid 1.1 0.5 - 2.0 mmol/L [facility] 05/08/2025 10:5 1 PM EDT 05/08/2025 10:56 PM EDT us Generic External Data Provider LAB BLOOD ORDERAB LES Final Result [facility] [address] [place] [phone] * (ABNORMAL) CBC auto differential (05/08/2025 10:16 PM EDT) Only the most recent of2 resultswithin the time period is included. [facility] White Blood Count 11.4(H) 4.8 - 10.8 X10*3/uL [facility] Red Blood Count 3.61(L) 4.60 - 5.80 X10*6/uL [facility] Hemoglobin 10.2(L) 14.0 - 18.0 g/dl [facility] Hematocrit 31.3(L) 42.0 - 52.0 % [facility] Mean Corpuscular Volume 86.7 80.0 - 98.0 fL [facility] Mean Corpuscular Hemoglobin 28.3 27.0 - 33.0 pg [facility] Mean Corpuscular HGB Conc 32.6 31.0 - 36.0 g/dl [facility] Red Cell Distribution Width 14.5 11.0 - 16.0 % [facility] Platelet Count 297 160 - 400 X10*3/uL [facility] Mean Platelet Volume 9.8 9.4 - 12.4 fL [facility] Neutrophils Percent Auto 73.8(H) 45 - 73 % [facility] Imm Gran Pct Auto 0.6(H) 0.0 - 0.4 % [facility] Lymphocytes Percent Auto 14.3(L) 20 - 40 % [facility] Monocytes Percent Auto 8.6 2 - 11 % [facility] Eosinophils Percent Auto 2.3 0 - 4 % [facility] Basophils Percent Auto 0.4 0 - 2 % [facility] NRBC Pct Auto 0.0 0.0 - 0.2 /100WBC [facility] Neutrophils Absolute Auto 8.4(H) 2.0 - 8.3 x10*3/uL [facility] Imm Gran Abs Auto 0.07(H) 0.00 - 0.03 X10*3/uL [facility] Lymphocytes Absolute Auto 1.6 1.2 - 4.9 X10*3/uL [facility] Monocytes Absolute Auto 1.0 0.1 - 1.2 X10*3/uL [facility] Eosinophils Absolute Auto 0.3 0.0 - 0.4 X10*3/uL [facility] Basophils Absolute Auto 0.1 0.0 - 0.2 X10*3/uL [facility] NRBC Abs Auto 0.000 0.0 - 0.012 X10*3/uL [facility] 05/08/2025 10:1 6 PM EDT 05/08/2025 10:26 PM EDT us Generic External Data Provider LAB BLOOD ORDERAB LES Final Result Performing Organization Address [facility] Co de Phone Number [facility] [address] [place] [phone] * (ABNORMAL) C-reactive Protein (05/08/2025 10:16 PM EDT) C Reactive Protein 13.78(H) < or = 0.50 mg/dL [facility] 05/08/2025 10:1 6 PM EDT 05/08/2025 10:26 PM EDT us Generic External Data Provider LAB BLOOD ORDERAB LES Final Result Performing Organization Address [facility]/ZIP Co de Phone Number [facility] [address] [place] [address] [phone] * (ABNORMAL) Basic Metabolic Panel (05/08/2025 10:16 PM EDT) Sodium 139 135 - 145 mmol/L [facility] Potassium 4.4 3.3 - 5.1 mmol/L [facility] Chloride 100 96 - 108 mmol/L [facility] Carbon Dioxide 31(H) 22 - 29 mmol/L [facility] Anion Gap 12 12 - 20 [facility] Urea Nitrogen (BUN) 16 9 - 16 mg/dL [facility] Creatinine, Serum 0.93 0.5 - 1.4 mg/dL [facility] Creatinine Clr Calc Pharmacy 104.8 [facility] Comment:eGFR (calculated fro m the MDRD study equation) and eCrCl(calculated from the Cockcroft-Gault equation) are based ondifferent parameters and may not yield comparable results.If eCrCl result is absurd, please check patient'sheight/weight. Estimated Glomerular Filt Rate >60 [facility] Comment:Chronic Kidney Disea se: Estimated GFR < 60 mL/min/[id number] Kidney Disease: Estimated GFR < 15 mL/min/1.73m2 Glucose 92 60 - 115 mg/dL [facility] Calcium 9.3 8.4 - 10.2 mg/dL [facility] 05/08/2025 10:1 6 PM EDT 05/08/2025 10:26 PM EDT us Generic External Data Provider LAB BLOOD ORDERAB LES Final Result [facility] [address] [place] [phone] * Hemoglobin A1c (04/03/2025 11:56 AM EDT) Hemoglobin A1c 5.2 <6.0 % [facility] Comment:Hemoglobin A1C Refer ence Range Adults: 4.8 - 6.0 % Non diabetic: < 6.0 % Goal: < 7.0 %Additional Action Suggested: > 8.0 %Note: Hemoglobin A1c results are invalid for patients with abnormal amounts of HbF. Blood transfusions may impact the HbA1c concentration in the patient sample. Estimated Average Glucose 103 mg/dL [facility] Comment:eAG = Estimated ave rage glucose which is %A1C expressed asaverage glucose, using the formula of the Y9M-BpkmymeZknppol Glucose study (ADAG), Diabetes Care, Vol.31,#8,Mar. 2007 Blood Venous blood specimen / Unknown 04/03/2025 11:56 AM EDT 04/03/2025 1:13 PM EDT [facility] LAB BLOOD ORDERABLES Final Re sult [facility] [address] [place] [address] [phone] * (ABNORMAL) Lipid Panel, Standard (04/03/2025 11:56 AM EDT) Triglycerides 151(H) <150 mg/dL [facility] Comment:Desirable Triglyceri de: less than 150 mg/dLBorderline High Triglyceride 150-199 mg/dLHigh Triglyceride: 200-499 mg/dLVery High Triglyceride: greater than or equal to 5OO mg/dL Cholesterol 142 <200 mg/dL [facility] Comment:Desirable Cholestero l: less than 200 mg/dLBorderline High Cholesterol: 200-239 mg/dLHigh Cholesterol: greater than 239 mg/dL LDL Cholesterol Calculated 80 <100 mg/dL [facility] Comment:Desirable LDL: less than 100 mg/dLNear Optimal/Above Optimal LDL: 110- 129 mg/dLBorderline High LDL: 130-159 mg/dLHigh LDL: 160-189 mg/dLVery High LDL: greater than or equal to 190 mg/dL HDL Cholesterol 32(L) >40 mg/dL [facility] Comment:Desirable HDL: great er than 40 mg/dL Note: This HDL assay may give artificially low results in patients with liver disease. Blood Venous blood specimen / Unknown 04/03/2025 11:56 AM EDT 04/03/2025 1:13 PM EDT [facility] LAB BLOOD ORDERABLES Final Re sult Performing Organization Address City/[facility]/ZIP Co de Phone Number [facility] [address] [place] [phone] * (ABNORMAL) Comprehensive Metabolic Panel (04/03/2025 11:56 AM EDT) Sodium 141 135 - 145 mmol/L [facility] Potassium 4.0 3.3 - 5.1 mmol/L [facility] Chloride 104 96 - 108 mmol/L [facility] Carbon Dioxide 28 22 - 29 mmol/L [facility] Anion Gap 13 12 - 20 [facility] Urea Nitrogen (BUN) 16 9 - 16 mg/dL [facility] Creatinine, Serum 1.05 0.5 - 1.4 mg/dL [facility] Estimated Glomerular Filt Rate >60 [facility] Comment:Chronic Kidney Disea se: Estimated GFR < 60 mL/min/1.97s3Odamef Kidney Disease: Estimated GFR < 15 mL/min/1.73m2 Glucose 102 60 - 115 mg/dL [facility] Calcium 9.0 8.4 - 10.2 mg/dL [facility] Bilirubin, Total 0.3 0.0 - 1.0 mg/dL [facility] Aspartate Amino Transferase 24 5 - 37 U/L [facility] Alanine Aminotransferase 20 0 - 40 U/L [facility] Total Protein 8.1(H) 6.5 - 8.0 g/dL [facility] Albumin Level 4.4 3.5 - 5.0 g/dL [facility] Alkaline Phosphatase 81 39 - 117 U/L [facility] Blood Venous blood specimen / Unknown 04/03/2025 11:56 AM EDT 04/03/2025 1:13 PM EDT [facility] LAB BLOOD ORDERABLES Final Re sult Performing Organization Address [facility]/ZIP Co de Phone Number [facility] [address] [place] [phone] * HIV-1/2 Antigen and Antibodies, Fourth Generation, with Reflexes (09/22/2022 10:47 AM EST) HIV Antigen/Antibody, 4th Generation NON-REAC TIVE NON-REAC TIVE [facility] Comment: HIV-1 antigen and HIV-1/HIV-2 antibodies were not detected. There is no laboratory evidence of HIV infection. PLEASE NOTE: This information has been disclosed to you from records whose confidentiality may be protected by state law. If your state requires such protection, then the state law prohibits you from making any further disclosure of the information without the specific written consent of the person to whom it pertains, or as otherwise permitted by law. A general authorization for the release of medical or other information is NOT sufficient for this purpose. For additional information please refer to http://education.Spritz/faq/DNW209 (This link is being provided for informational/ educational purposes only.) The performance of this assay has not been clinically validated in patients less than 2 years old. Blood Venous blood specimen / Unknown 09/22/2022 10:47 AM EST 09/22/2022 10:47 AM EST Narrative [facility] - 09/24/2022 1:35 PM EST FASTING:NO FASTING: NO [facility] LAB BLOOD ORDERABLES Final Re sult [facility] [address], [place] [address] [employer] [place] [facility] [address] [facility], ([address]) [place] [address] from Last 3 Months or Most Recently Relevant to Health Maintenance Insurance [facility] DUAL COMPLETE [facility] STAND[facility] Care Teams Hearing Aid Consultant Relationship Specialty Start Date End Date Malaika Nuñez [facility] [address] [place] [id number] PCP - General Family Medicine 09/22/22 [place] [facility] 03/04/25
--- OUTSIDE RECORDS SUMMARY | 2025-05-08 23:30 | XMS_ITS | Clinical Summary ---
[facility] Organization [facility] Address [address] [place] [address] Care Team Providers Care Assistant Boiler Operator Name Role Phone Danuta Valentinfer Edward PEÑA Primary Care Provider [phone] Surgical History Surgery Date Site/Laterality Comments OTHER SURGICAL HISTORY Left PROCEDURE: OR ARTHROSCOPY HIP DIAGNOSTIC W/WO SYNOVIAL BYP SPX Medical History Medical History Date Comments History of transfusion DX:Histor y of transfusion Family History Medical History Relation Name Comments Arthritis Mother Hypertension Mother Relation Name Status Comments Mother Social History Tobacco Use Types Packs/Day Years Used Date Smoking Tobacco: Every Day Smokeless Tobacco: Never Alcohol Use Standard Drinks/Week Comments Never 0 (1 standard drink = 0.6 oz pur e alcohol) Sex and Gender Information Value Date Recorded Sex Assigned at Not on file Legal Sex Male 1:55 PM EST Gender Identity Not on file Sexual Orientation Not on file Obstetrics History Last Filed Vital Signs Vital Sign Reading Time Taken Comments Blood Pressure - - Pulse - - Temperature - - Respiratory Rate - - Oxygen Saturation - - Inhaled Oxygen Concentration - - Weight 71.7 kg (158 lb) 12/12/2021 11:42 AM EDT Height 162.6 cm (5' 4 ) 12/12/2021 11:42 AM EDT Body Mass Index 27.12 12/12/2021 11:42 AM EDT Plan of Treatment Health Maintenance Due Date Last Done Comments DTaP,Tdap,and Td Vaccines (1 - Tdap) 1992 Hepatitis B Vaccines (1 of 3 - 19+ 3-dose series) 1992 Pneumococcal Vaccine: 50+ Ye ars (1 of 2 - PCV) 1992 Cholesterol Screening (Lipid Panel) 07/29/2022 Colorectal Cancer Screening: Colonoscopy 07/29/2022 HIV Screening 07/29/2022 Hepatitis C Screening 07/29/2022 Social Influencers of Health Screening 07/29/2022 Zoster Vaccines (1 of 2) 2023 Depression Screening 08/30/2024 COVID-19 Vaccine (2023-2 5 season) 2025 Influenza Vaccine (#1) 2025 HIB Vaccines Aged Out No longer eligi ble based on patient's age to complete this topic HPV Vaccines Aged Out No longer eligi ble based on patient's age to complete this topic Hepatitis A Vaccines Aged Out No long er eligible based on patient's age to complete this topic IPV Vaccines Aged Out No longer eligi ble based on patient's age to complete this topic MMR Vaccines Aged Out No longer eligi ble based on patient's age to complete this topic Meningococcal ACWY Vaccine Aged Out N o longer eligible based on patient's age to complete this topic Meningococcal B Vaccine Aged Out No l onger eligible based on patient's age to complete this topic RSV Immunization Patients Un rosanna 20 months Aged Out No longer eligible b ased on patient's age to complete this topic Varicella Vaccines Aged Out No longer eligible based on patient's age to complete this topic Advance Directives Documents on File Type Date Recorded Patient Commercial Escrow Assistant Expl anation Health Care Decision (hx) 05/01/2018 AD RINALDI DIRECTIVE Health Care Decision (hx) 05/01/2018 AD RINALDI DIRECTIVE Health Care Decision (hx) 05/01/2018 AD RINALDI DIRECTIVE Health Care Decision (hx) 05/01/2018 AD RINALDI DIRECTIVE Health Care Decision (hx) 05/01/2018 AD RINALDI DIRECTIVE Health Care Decision (hx) 05/01/2018 AD RINALDI DIRECTIVE Health Care Decision (hx) 05/01/2018 AD RINALDI DIRECTIVE Health Care Decision (hx) 05/01/2018 AD RINALDI DIRECTIVE Health Care Decision (hx) 05/01/2018 AD RINALDI DIRECTIVE Care Teams Assistant Boiler Operator Relationship Specialty Start Date End Date Charo Valentin DO [address] [place] [address] PCP - General 02/27/11
--- OUTSIDE RECORDS SUMMARY | 2025-05-08 23:30 | XMS_ITS | Encounter Summary ---
Author Organization [employer] Address [address] [facility] 7[address] [place] [address] Care Team Providers Care Business Process Architect Name Role Phone Malaika Nuñez MARKETING BUDGET ANALYST Primary Care Provider [phone] Reason for Visit * Reason Comments Med Refill Encounter Details Date Type Department Care Team (Late st Contact Info) Description 02/22/2023 Refill [facility] [address] [place] [address] Rosa Elena Chung MD [address] [place] [address] Social History Tobacco Use Types Packs/Day Years Used Date Smoking Tobacco: Every Day Cigarettes Smokeless Tobacco: Never Alcohol Use Standard Drinks/Week Comments Not Currently 0 (1 standard drink = 0.6 oz pur e alcohol) Depression Answer Date Recorded Patient Health Questionnaire-9 Score 0 01/21/2023 Depression Answer Date Recorded Patient Health Questionnaire-2 Score 0 01/21/2023 Sex and Gender Information Value Date Recorded Sex Assigned at Male 06/29/2022 10:18 AM EDT Legal Sex Male 10:18 AM EDT Gender Identity Male 06/29/2022 10:18 AM EDT Sexual Orientation Straight 06/29/2022 10 :18 AM EDT COVID-19 Exposure Response Date Recorded In the last 10 days, have yo u been in contact with someone who was confirmed or suspected to have Coronavirus/COVID-19? No / Unsure 02/22/2023 11:29 AM EDT documented as of this encounter Miscellaneous Notes * Telephone Encounter - Trav Weaver RN - 02/24/2023 8:42 AM EDT Pt is on last several weeks of Epclusa and does not need refill per Hep C team and pharmacy. documented in this encounter Plan of Treatment Upcoming Encounters Date Type Department Care Team (Late st Contact Info) Description 05/25/2025 11:00 AM EDT Telemedicine [facility] [address] [place] [address] Malaika Nuñez FNP [address] [place] [address] documented as of this encounter Visit Diagnoses Not on filedocumented in this encounter Additional Health Concerns Assessment Noted Time PHQ-9 Depression Total Score: 0 01/22/20 9:56 AM EDT documented as of this encounter Care Teams Business Process Architect Relationship Specialty Start Date End Date Malaika Nuñez FNP [address] [place] [address] PCP - General Family Medicine 09/22/22 Yasmany MARTINA 03/04/25 documented as of this encounter
--- OUTSIDE RECORDS SUMMARY | 2025-05-08 23:30 | XMS_ITS | Encounter Summary ---
Author Organization [employer] Address [address] [facility] 7[address] [place] [address] Care Team Providers Care Gun Numberer Name Role Phone Malaika Nuñez [facility] Primary Care Provider [phone] Reason for Visit * Reason Comments Med Refill Encounter Details Date Type Department Care Team (Late st Contact Info) Description 03/07/2024 Refill [facility] [address] [place], [place] [phone] [facility] [address] [place] [address] Chronic left hip pain Social History Tobacco [...] Info) Description 05/25/2025 11:00 AM EDT Telemedicine [facility] [address] [place] [address] Malaika Nuñez FNP [address] [place] [address] documented as of this encounter Visit Diagnoses Diagnosis Chronic left hip pain documented in this encounter Additional Health Concerns Assessment Noted Time PHQ-9 Depression Total Score: 0 11/05/19 24 1:06 PM EST documented as of this encounter Care Teams Gun Numberer Relationship Specialty Start Date End Date Malaika Nuñez FNP [address] [place] [address] PCP - General Family Medicine 09/22/22 Yasmany WHITFIELD 03/04/25 documented as of this encounter
--- OUTSIDE RECORDS SUMMARY | 2025-05-08 23:30 | XMS_ITS | Encounter Summary ---
Author Organization [employer] Address [address] [facility] [address] [place] [address] Care Team Providers Care Operations And Intelligence Assistant Name Role Phone Malaika Nuñez [facility] Primary Care Provider [phone] Encounter Details Date Type Department Care Team (Late st Contact Info) Description 06/03/2023 Orders Only [facility] [address] [place] [address] Amita Ojeda, IDANIA [address] [place] [address] Chronic hepatitis C without hepatic coma (CMS/HCC) Social History Tobacco Use Types Packs/Day Years Used Date Smoking Tobacco: Every Day Cigarettes Smokeless Tobacco: Never Alcohol Use Standard Drinks/Week Comments Not Currently 0 (1 standard drink = 0.6 oz pur e alcohol) Depression Answer Date Recorded Patient Health Questionnaire-9 Score 0 01/21/2023 Housing Stability Answer Date Recorded What is your housing situation today? I have margo vitale 06/07/[address] you li ve. Do you have problems with any of the following? None of the above 06/07/2023 Food Insecurity Answer Date Recorded Within the past 12 months, y ou worried that your food would run out before you got money to buy more: Never True 06/07/2023 Within the past 12 months,th e food you bought just didn't last and you didn't have enough money to get more: Never True 04/2023 Transportation Answer Date Recorded In the past 12 months, has l ack of transportation kept you from medical appts, meetings, work or from getting things needed for daily living? No 06/07/2023 Utilities Answer Date Recorded In the past 12 months, has t he electric, gas, oil or water company threatened to shut off services in your home? No 06/07/2023 Depression Answer Date Recorded Patient Health Questionnaire-2 [...] Info) Description 05/25/2025 11:00 AM EDT Telemedicine [facility] [address] [place] [address] Malaika Nuñez FNP [address] [place] [address] Scheduled Orders Name Type Priority Associated Diagnoses Orde r Schedule Hepatitis C Viral RNA, Quantitative, Real-Time PCR Lab Routine Chronic hepatitis C without hepatic coma (CMS/HCC) Expected: 06/03/2023 (Approximate), Expires: 06/03/2024 documented as of this encounter Visit Diagnoses Diagnosis Chronic hepatitis C without hepatic coma (CMS/HCC) documented in this encounter Additional Health Concerns Assessment Noted Time PHQ-9 Depression Total Score: 0 01/22/20 23 9:56 AM EDT documented as of this encounter Care Teams Operations And Intelligence Assistant Relationship Specialty Start Date End Date Malaika Nuñez FNP [address] [place] [address] PCP - General Family Medicine 09/22/22 [place] 03/04/25 documented as of this encounter
--- OUTSIDE RECORDS SUMMARY | 2025-05-08 23:31 | XMS_ITS | Encounter Summary ---
Author Organization [employer] Address [address] [facility] [address] [place] [address] Care Team Providers Care Conservation Science Officer Name Role Phone Malaika Nuñez FINANCIAL LEGAL ASSISTANT Primary Care Provider [phone] Encounter Details Date Type Department Care Team (Late st Contact Info) Description 05/08/2025 Orders Only GENERIC EXTERNAL DATA DEPARTMENT Provider, Generic External Data Social History Tobacco Use Types Packs/Day Years [...] housing situation today? I have margo vitale 04/06/[address] you li [...] Info) Description 05/25/2025 11:00 AM EDT Telemedicine [facility] [address] [place] [address] [place], [place], [facility] [address] [place], [place] [phone] documented as of this encounter Procedures Procedure Name Priority Date/Time Associated Diagnosis Comments LACTIC ACID Routine 05/08/2025 10:51 PM EDT CBC WITH AUTO DIFFERENTIAL Routine 05/08/2025 10:16 PM EDT C-REACTIVE PROTEIN Routine 05/08/2025 10 :16 PM EDT BASIC METABOLIC PANEL Routine 05/08/2025 10:16 PM EDT documented in this encounter Results * Lactic Acid (05/08/2025 10:51 PM EDT) Pathologist [facility] Lactic Acid 1.1 0.5 - 2.0 mmol/L [facility] 05/08/2025 10:5 1 PM EDT 05/08/2025 10:56 PM EDT us Generic External Data Provider LAB BLOOD ORDERAB LES Final Result [facility] [address] [place] [address] [phone] * (ABNORMAL) C-reactive Protein (05/08/2025 10:16 PM EDT) C Reactive Protein 13.78(H) < or = 0.50 mg/dL [facility] 05/08/2025 10:1 6 PM EDT 05/08/2025 10:26 PM EDT us Generic External Data Provider LAB BLOOD ORDERAB LES Final Result [facility] [address] [place] [address] [phone] * (ABNORMAL) Basic Metabolic Panel (05/08/2025 10:16 PM EDT) Sodium 139 135 - 145 mmol/L [facility] Potassium 4.4 3.3 - 5.1 mmol/L [facility] Chloride 100 96 - 108 mmol/L [facility] Carbon Dioxide 31(H) 22 - 29 mmol/L [facility] Anion Gap 12 12 - 20 [facility] Urea Nitrogen (BUN) 16 9 - 16 mg/dL [facility] Creatinine, Serum 0.93 0.5 - 1.4 mg/dL [facility] Creatinine Clr Calc Pharmacy 104.8 [facility] Comment:eGFR (calculated fro m the MDRD study equation) and eCrCl(calculated from the Cockcroft-Gault equation) are based ondifferent parameters and may not yield comparable results.If eCrCl result is absurd, please check patient'sheight/weight. Estimated Glomerular Filt Rate >60 [facility] Comment:Chronic Kidney Disea se: Estimated GFR < 60 mL/min/[id number] Kidney Disease: Estimated GFR < 15 mL/min/1.73m2 Glucose 92 60 - 115 mg/dL [facility] Calcium 9.3 8.4 - 10.2 mg/dL [facility] 05/08/2025 10:1 6 PM EDT 05/08/2025 10:26 PM EDT us Generic External Data Provider LAB BLOOD ORDERAB LES Final Result [facility] [address] [place] [address] [phone] * (ABNORMAL) CBC auto differential (05/08/2025 10:16 PM EDT) White Blood Count 11.4(H) 4.8 - 10.8 X10*3/uL [facility] Red Blood Count 3.61(L) 4.60 - 5.80 X10*6/uL [facility] Hemoglobin 10.2(L) 14.0 - 18.0 g/dl [facility] Hematocrit 31.3(L) 42.0 - 52.0 % [facility] Mean Corpuscular Volume 86.7 80.0 - 98.0 fL [facility] Mean Corpuscular Hemoglobin 28.3 27.0 - 33.0 pg [facility] Mean Corpuscular HGB Conc 32.6 31.0 - 36.0 g/dl [facility] Red Cell Distribution Width 14.5 11.0 - 16.0 % [facility] Platelet Count 297 160 - 400 X10*3/uL [facility] Mean Platelet Volume 9.8 9.4 - 12.4 fL [facility] Neutrophils Percent Auto 73.8(H) 45 - 73 % [facility] Imm Gran Pct Auto 0.6(H) 0.0 - 0.4 % [facility] Lymphocytes Percent Auto 14.3(L) 20 - 40 % [facility] Monocytes Percent Auto 8.6 2 - 11 % [facility] Eosinophils Percent Auto 2.3 0 - 4 % [facility] Basophils Percent Auto 0.4 0 - 2 % [facility] NRBC Pct Auto 0.0 0.0 - 0.2 /100WBC [facility] Neutrophils Absolute Auto 8.4(H) 2.0 - 8.3 x10*3/uL [facility] Imm Gran Abs Auto 0.07(H) 0.00 - 0.03 X10*3/uL [facility] Lymphocytes Absolute Auto 1.6 1.2 - 4.9 X10*3/uL [facility] Monocytes Absolute Auto 1.0 0.1 - 1.2 X10*3/uL [facility] Eosinophils Absolute Auto 0.3 0.0 - 0.4 X10*3/uL [facility] Basophils Absolute Auto 0.1 0.0 - 0.2 X10*3/uL [facility] NRBC Abs Auto 0.000 0.0 - 0.012 X10*3/uL [facility] 05/08/2025 10:1 6 PM EDT 05/08/2025 10:26 PM EDT us Generic External Data Provider LAB BLOOD ORDERAB LES Final Result [facility] [address] [place] [address] [phone] documented in this encounter Visit Diagnoses Not on filedocumented in this encounter Additional Health Concerns Assessment Noted Time PHQ-9 Depression Total Score: 0 04/06/20 25 2:57 PM EDT documented as of this encounter Care Teams Conservation Science Officer Relationship Specialty Start Date End Date Malaika Nuñez FNP [address] [place] [address] PCP - General Family Medicine 09/22/22 Yasmany MARTINA 03/04/25 documented as of this encounter
[2025-05-09] VITALS (10 sets, daily range): BP systolic 128–168; BP diastolic 58–86; PULSE 79–96; RESP 16–20; TEMP 36.5–37.3; O2SAT 94–99; BMI 38.6
[2025-05-09] MEDS: iohexoL 350 MG/ML 100 ML INFUS..BTL IV (02:02)
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
[2025-05-09 05:06] LABS: MANUAL DIFF FLAG NO
[2025-05-09 05:12] LABS: Hematocrit 30.0 % (42.0-52.0); Hemoglobin 9.6 g/dl (14.0-18.0); Imm Gran Abs Auto 0.07 X10*3/uL (0.00-0.03); Imm Gran Pct Auto 0.7 % (0.0-0.4); Lymphocytes Absolute Auto 1.9 X10*3/uL (1.2-4.9); Mean Corpuscular HGB Conc 32.0 g/dl (31.0-36.0); Mean Corpuscular Hemoglobin 28.5 pg (27.0-33.0); Mean Corpuscular Volume 89.0 fL (80.0-98.0); NRBC Abs Auto 0.000 X10*3/uL (0.0-0.012); NRBC Pct Auto 0.0 /100WBC (0.0-0.2); Platelet Count 251 X10*3/uL (160-400); Red Blood Count 3.37 X10*6/uL (4.60-5.80); White Blood Count 10.2 X10*3/uL (4.8-10.8)
[2025-05-09 05:26] LABS: Alanine Aminotransferase 16 U/L (0-40); Albumin Level 3.7 g/dL (3.5-5.0); Alkaline Phosphatase 73 U/L (39-117); Anion Gap 13 (12-20); Aspartate Amino Transferase 28 U/L (5-37); Blood Urea Nitrogen 13 mg/dL (9-16); Calcium 8.6 mg/dL (8.4-10.2); Carbon Dioxide 29 mmol/L (22-29); Chloride 103 mmol/L (96-108); Creatinine Clr Calc Pharmacy 97.5; Estimated Glomerular Filt Rate > 60; Potassium 4.6 mmol/L (3.3-5.1); Sodium 140 mmol/L (135-145); Total Protein 7.3 g/dL (6.5-8.0)
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
[2025-05-09] MEDS: Lactated Ringers 1,000 ML 100 ML IVCONT ×2 (05:48→18:20)
--- NOTE | 2025-05-09 06:13 | PC.NURSE ---
methadone dose verified with [facility] at with Jaclyn EMERSON. last dose 05/02/25 at 0639 give 135mg dose and 27 take home bottles. notified them of admission to hospital. verification sheet faxed to pharmacy and MD made aware.
--- NOTE | 2025-05-09 06:49 | HE.PHANOTE ---
Addendum entered by Di De La Cruz [facility] 05/09/25 09:33: Kaitlin Stuart RN confirmed with patient he last took his dose 05/08/25. Original Note: Methadone Patients gets Methadone from [facility] ([phone]) per Emmanuel. Emmanuel spoke with Jaclyn and patient last received 27 take home doses on 05/02/25 @0639. Patients methadone dose is 135 mg.
--- NOTE | 2025-05-09 08:26 | PHA.MEDREC ---
Addendum entered by Sana Gold RPh 05/09/25 10:04: MED REC REVIEWED BY [facility]. Spoke to patient and he confirmed he takes 2 tablets of olmesartan 5 mg daily in the morning. Original Note: Pharmacy Consult ? Medication Reconciliation Pharmacy has completed the medication reconciliation. Spoke with pt and he confirmed his medications. Pt confirmed he takes Methadone 135mg once daily and took it last yesterday.
--- NOTE | 2025-05-09 08:38 | PHA.PROG ---
Admission Date/Time: May 09, 2025 04:23 Indication: ssti Weight in k kg Adjusted body weight in K.9 kg [place] body weight in K.5 kg Obesity Dosing Indication % IBW: Serum Creatinine - Last 168 Hours 05/08/25 05/09/25 22:16 04:44 Creatinine 0.93 1.00 Estimated CrCl and GFR - Last 168 Hours 05/08/25 05/09/25 22:16 04:44 Estim Creat Clear Calc 104.8 97.5 Estimated GFR > 60 > 60 Vancomycin Loading Dose: 1500 mg Current Vancomycin Dosing Regimen: 1250 mg q12h Vancomycin Monitoring using AUC goal of 400 - 600 range with trough as surrogate marker: predicted AUC 522 Date and Time for next Vancomycin Level to be drawn: before 3rd dose 05/09/25 @2100 Pharmacist Comments on Vancomycin Plan: obese Vancomycin dosing will take advantage of [employer] as a clinical decision support tool that uses Bayesian modeling to calculate individual patient's pharmacokinetic parameters and forecast the patient's drug concentration time course with the target goal AUC 24 range of 400 - 600 mg/L/hr.
[2025-05-09] MEDS: methADONE HCl 20 MG/2 ML ORAL.CONC 135 MG PO (09:31)
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
--- NOTE | 2025-05-09 14:50 | PC.NURSE ---
rail layer Miracle at bedside to change patient's leg dressings. Pt medicated as charted. LR infusing @ 100 mL/hr. Awaiting bed assignment.
--- NOTE | 2025-05-09 15:14 | PM.EVENT ---
Event Note Date of Service: 05/09/25 Event Note: Chart reviewed patient examined. Agree with H&P and plan as outlined. Appreciate vascular input Time Spent With Patient Time: Total time managing care of this patient today ____ minutes.
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
--- NOTE | 2025-05-09 15:45 | MHC.CM.PN ---
IMM 05/09/25, Pt lives at [facility]. He has a nurse that comes to assist with wound care, he does not know from which agency. For DME, he uses a cane. He is on Methadone, he said he gets it once a month. His PCP is [facility]. Pt. is able to arrange transport home at [place]. DCP: Home, with services. CM to follow for DC needs.
[2025-05-10] VITALS (9 sets, daily range): BP systolic 144–176; BP diastolic 70–84; PULSE 76–89; RESP 12–20; TEMP 36.1–37.2; O2SAT 91–98
[2025-05-10] MEDS: Lactated Ringers 1,000 ML 100 ML IVCONT ×2 (02:29→14:39)
[2025-05-10] MEDS: methADONE HCl 20 MG/2 ML ORAL.CONC 135 MG PO (07:50)
[2025-05-10 08:41] LABS: Creatinine Clr Calc Pharmacy 123.6; Estimated Glomerular Filt Rate > 60
--- NOTE | 2025-05-10 08:58 | PC.NURSE ---
Patient's dentures were found in the kitchen, and were brought back to the patient.
--- NOTE | 2025-05-10 11:09 | MHC.CM.PN ---
Patient reports he is active w/ [facility], as arranged by the [facility] wound clinic. Also reports he gets his methadone from [facility], picks up monthly. Return referral sent to [facility]. Awaiting ID consult. He is aware if long-term IV abx are needed we will explore SNF placement.
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
--- NOTE | 2025-05-10 16:08 | HO.VASCPN ---
Subjective Subjective Date of Service: 05/10/25 Patient reports: no new complaints and feels better Interval history: Patient was admitted yesterday and appears to be doing significantly better after IV antibiotic therapy. Reports that the swelling and discomfort and erythema have significantly decreased. In general feels better. Now for routine follow-up. Physical Exam Vital Signs: Vital Signs: Last Vital Signs Temp 97.2 F 05/10/25 11:45 Pulse 86 05/10/25 11:45 Resp 16 05/10/25 12:11 BP 144/70 H 05/10/25 11:45 Pulse Ox 95 05/10/25 11:45 O2 Del Method Room Air 05/10/25 11:45 BMI result Body Mass Index 38.6 Const: General: cooperative, healthy appearing and comfortable Orientation/consciousness: oriented to person, oriented to place and oriented to time HEENT: Head: Yes normal to inspection Neck: Neck: Yes normal visual inspection Carotids: no bruits Chest: Chest palpation & inspection: normal inspection of the chest Resp: Effort & Inspection: normal respiratory effort and able to speak in complete sentences Auscultation: clear to auscultation bilaterally, no crackles, no rales, no rhonchi and no wheezes Cardio: Rate: regular rate Rhythm: regular rhythm Heart sounds: S1 normal heart sound present and S2 normal heart sound present Bruits: no carotid bruits Peripheral pulses: Peripheral pulses 2+ throughout GI: Inspection: Yes normal to inspection Skin: Other: Bilateral lower extremity ulcers. Erythema coming up to mid calf which appears to be improved. Wounds: wounds noted Hair: normal Neuro: General: oriented to person, oriented to place and oriented to time Cranial nerves: Yes CN's II-XII intact bilaterally and Yes Normal hearing present Cognition (Neuro): normal cognition Motor exam (neuro): 5/5 motor strength present throughout Extrem: Other: venous exam: No significant superficial varicosities or spider telangiectasias, minimal edema General: No clubbing, No cyanosis and No edema Psych: Appearance: grossly normal Mental Status: mental status grossly normal Speech and movement: Normal speech and movement present Progress Note: A&P Assessment and plan (1) PAD (peripheral artery disease): Status: Acute Assessment and Plan: In short arterial status appears to be stable. Would plan for local wound care. Continue IV antibiotic therapy until erythema improves. May benefit from Infectious Disease consultation with possible long-term IV antibiotic therapy. We will follow with you. Thank you for allowing us to assist in his care. If there are any questions or concerns please do not hesitate to contact us. Time Spent With Patient Time: Total time managing care of this patient today ____ minutes. Procedures Date of Service Date of Service: 05/10/25 Quality Stroke Does the patient have a stroke diagnosis?: No VTE Prior VTE?: No VTE Risk Level:: Medical - moderate - high VTE Device Contraindication: Treatment Not Indicated VTE Drug Contraindication: N/A - Med Ordered
--- NOTE | 2025-05-10 22:04 | HE.PHANOTE ---
re: irmao Trough returned @ 18.3. Decreasing dose to 1000 mg Q12H to ensure safety and efficacy. Predicted AUC of 448 and trough of 13.9. Next trough to be drawn 05/12 @0900
--- NOTE | 2025-05-10 23:18 | P.CNID_ITS ---
History of Present Illness Data of Consult Service Date: 05/09/25 Requesting physician: Stephen Elmore Primary Care Provider: Edouard Ball MD [facility] Reason for consult: left more than right warmth and redness leg He has chronic leg wounds for years and noticed worsening over last two weeks with chills. He has had erythema left worse than right leg for two days. 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 Chronic hip pain Family History Family history: reviewed and not pertinent Surgical History Surgical History Status post hip surgery Social History Social History Household Members: None and Other Household Members Other:: sober home Housing: Other Housing Other:: sober home Do you presently have visiting nurse or other home services: No Alcohol intake: never Patient Tobacco Use Status: Never used Tobacco Tobacco use type: Cigarette Cigarette Packs Per Day: 0.25 Cigarettes Per Day: 2 service: No Current occupational status: unemployed and disabled Meds Allergies Allergy/AdvReac Type Severity Reaction Status Date / Time No Known Allergies Allergy Verified 05/08/25 20:46 Active Medications: Current Medications Acetaminophen (Acetaminophen 325 Mg Tablet) 650 mg PO Q6H PRN PRN Reason: Pain, Mild 1-3,fever,headache Last Admin: 05/10/25 18:32 Dose: 650 mg Calcium Carbonate (Calcium Carbonate 750 Mg Tab.Chew) 750 mg PO Q4H PRN PRN Reason: Heartburn Enoxaparin Sodium (Enoxaparin Sodium 40 Mg/0.4 Ml Syringe) 40 mg SUBCUT Q24H [facility] Last Admin: 05/10/25 05:03 Dose: 40 mg Hydromorphone HCl (Hydromorphone Hcl 0.5 Mg/0.5 Ml Syringe) 0.5 mg IVPUSH Q4H PRN; Protocol PRN Reason: Pain, Severe (Pain Scale 7-10) Last Admin: 05/10/25 22:02 Dose: 0.5 mg Lactated Ringer's (Lr) 1,000 mls @ 100 mls/hr IVCONT .Q10H [facility] Last Admin: 05/10/25 21:12 Dose: Not Given Piperacillin Sod/Tazobactam (Sod 3.375 gm/ Sodium Chloride) 50 mls @ 100 mls/hr IV Q6H [facility] Last Infusion: 05/10/25 18:16 Dose: Infused Vancomycin HCl 1,000 mg/ (Sodium Chloride) 270 mls @ 270 mls/hr IV Q12H [facility] Last Admin: 05/10/25 22:40 Dose: 270 mls/hr Magnesium Hydroxide (Milk Of Magnesia 30 Ml Oral.Susp) 30 ml PO DAILY PRN PRN Reason: Constipation Melatonin (Melatonin 3 Mg Tablet) 6 mg PO BEDTIME PRN PRN Reason: Insomnia Last Admin: 05/10/25 22:39 Dose: 6 mg Methadone HCl (Methadone Hcl 20 Mg/2 Ml Oral.Conc) 135 mg PO DAILY@0800 [facility] Last Admin: 05/10/25 07:50 Dose: 135 mg Pharmacy Consult (Consult Rx Vancomycin Dosing) 1 each MISCELLANE DAILY PRN PRN Reason: Consult order Sodium Chloride (0.9 % Sodium Chloride Flush 3 Ml Syringe) 3 ml IVFLUSH QSHIFT [facility] Last Admin: 05/10/25 23:01 Dose: Not Given Zolpidem Tartrate (Zolpidem Tartrate 5 Mg Tablet) 5 mg PO ONCE ONE Stop: 05/10/25 23:08 Home Medications ?Medication ?Instructions ?Recorded ?Confirmed ?Last Taken ?Type gabapentin 300 mg capsule 300 - 600 mg PO TID PRN Pain 02/04/23 05/09/25 05/08/25 History methadone 10 mg/mL oral 135 mg PO DAILY 02/04/2306/2305/08/25 History concentrate (Methadone Intensol) olmesartan 5 mg tablet 10 mg PO DAILY 01/10/2404/3005/08/25 History acetaminophen 500 mg tablet 1,000 mg PO Q6H PRN Pain 0 05/09/25 05/09/25 Unknown History chlorthalidone 25 mg tablet 12.5 mg PO DAILY 05/09/25 05/09/25 05/08/25 History collagenase clostridium histo. 250 1 appl topical MABEL Y 05/09/25 05/09/25 05/08/25 History unit/gram topical ointment (Santyl) naproxen 500 mg tablet 500 mg PO BID PRN moderate p ain 05/09/25 05/09/25 05/08/25 History Physical Exam 2 Vital Signs: Vital Signs: Last Vital Signs Temp 98.6 F 05/10/25 19:51 Pulse 76 05/10/25 19:51 Resp 20 05/10/25 19:51 BP 167/79 H 05/10/25 19:51 Pulse Ox 91 L 05/10/25 19:51 O2 Del Method Room Air 05/10/25 19:51 BMI result Body Mass Index 38.6 Const: General: cooperative HEENT: Head: Yes normal to inspection Face and sinus: Yes normal facial exam Mouth: Normal oral and palatal mucosa present Teeth and gingiva: d entition normal Eyes: General: appearance normal, both eyes and all related structures P upils: Equal, round and reactive pupils present Resp: Effort & Inspection: normal respiratory effort Cardio: Rate: regular rate Rhythm: regular rhythm GI: Palpation (GI): Soft to palpation and nontender : General: Yes no CVA tenderness Back/Spine/Pelvis: Back: no CVA tenderness Skin: General skin exam: no rashes or lesions noted Neuro: General: moves all extremities Cranial nerves: Yes Equal, round and reactive pupils present Extrem: Other: erythema left greater than right leg Psych: Appearance: grossly normal Results Labs 05/09/25 04:44 05/10/25 08:16 Labs: BMP 05/10/25 08:16 Creatinine 0.79 Microbiology Microbiology Results: Microbiology 05/08/25 23:02 Blood - Venous Blood Culture - Preliminary No growth after 24 hours. 05/08/25 22:51 Blood - Venous Blood Culture - Preliminary No growth after 24 hours. Assessment and Plan (1) Heroin abuse: Status: Acute (2) PAD (peripheral artery disease): Status: Acute (3) Sepsis: Status: Acute Plan Cellulitis,left redness Still redness Would continue antibiotics but consider add Clindamycin 900 mg tid for decrease toxin.
[2025-05-11] VITALS (9 sets, daily range): BP systolic 134–175; BP diastolic 63–89; PULSE 70–101; RESP 14–20; TEMP 36–37.1; O2SAT 93–97
[2025-05-11] MEDS: Lactated Ringers 1,000 ML 100 ML IVCONT (02:00)
[2025-05-11 05:55] LABS: MANUAL DIFF FLAG NO
[2025-05-11 06:17] LABS: Alanine Aminotransferase 13 U/L (0-40); Albumin Level 3.7 g/dL (3.5-5.0); Alkaline Phosphatase 68 U/L (39-117); Anion Gap 11 (12-20); Aspartate Amino Transferase 20 U/L (5-37); Blood Urea Nitrogen 10 mg/dL (9-16); Calcium 9.1 mg/dL (8.4-10.2); Carbon Dioxide 29 mmol/L (22-29); Chloride 103 mmol/L (96-108); Creatinine Clr Calc Pharmacy 119.1; Estimated Glomerular Filt Rate > 60; Potassium 3.9 mmol/L (3.3-5.1); Sodium 139 mmol/L (135-145); Total Protein 7.6 g/dL (6.5-8.0)
[2025-05-11 06:19] LABS: Hematocrit 29.7 % (42.0-52.0); Hemoglobin 9.5 g/dl (14.0-18.0); Imm Gran Abs Auto 0.06 X10*3/uL (0.00-0.03); Imm Gran Pct Auto 0.8 % (0.0-0.4); Lymphocytes Absolute Auto 1.1 X10*3/uL (1.2-4.9); Mean Corpuscular HGB Conc 32.0 g/dl (31.0-36.0); Mean Corpuscular Hemoglobin 28.1 pg (27.0-33.0); Mean Corpuscular Volume 87.9 fL (80.0-98.0); NRBC Abs Auto 0.000 X10*3/uL (0.0-0.012); NRBC Pct Auto 0.0 /100WBC (0.0-0.2); Platelet Count 232 X10*3/uL (160-400); Red Blood Count 3.38 X10*6/uL (4.60-5.80); White Blood Count 7.2 X10*3/uL (4.8-10.8)
[2025-05-11] MEDS: methADONE HCl 20 MG/2 ML ORAL.CONC 135 MG PO (08:52)
[2025-05-11] MEDS: 0.9 % Sodium Chloride Flush 3 ML SYRINGE IVFLUSH ×3 (08:54→21:26)
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
--- NOTE | 2025-05-11 11:20 | MHC.CM.PN ---
PER MD ROUNDS, PT NOT MEDICALLY CLEARED, STILL RECEIVING IV ABX DCP: RETURN TO [facility] WITH RESUMPTION OF [facility] AND [facility] PT TO ARRANGE TRANSPORT
--- NOTE | 2025-05-11 12:05 | HO.VASCPN ---
Subjective Subjective Date of Service: 05/11/25 Patient reports: no new complaints and feels better Interval history: Patient seen and examined. No significant events overnight. He reports that his legs do feel better the erythema has significantly decreased. I did have a significant discussion with him. He reports that some of this began as his hep C treatment began. In addition he reports that he has been in a nursing home house where they have random drug testing. He reports that he has been sober and clean for the last 3 years. Physical Exam Vital Signs: Vital Signs: Last Vital Signs Temp 96.8 F 05/11/25 11:36 Pulse 80 05/11/25 11:36 Resp 18 05/11/25 11:36 BP 166/85 H 05/11/25 11:36 Pulse Ox 95 05/11/25 11:36 O2 Del Method Room Air 05/11/25 11:36 BMI result Body Mass Index 38.6 Const: General: cooperative, healthy appearing and comfortable Orientation/consciousness: oriented to person, oriented to place and oriented to time HEENT: Head: Yes normal to inspection Neck: Neck: Yes normal visual inspection Carotids: no bruits Chest: Chest palpation & inspection: normal inspection of the chest Resp: Effort & Inspection: normal respiratory effort and able to speak in complete sentences Auscultation: clear to auscultation bilaterally, no crackles, no rales, no rhonchi and no wheezes Cardio: Other: Palpable bilateral dorsalis pedis pulses Rate: regular rate Rhythm: regular rhythm Heart sounds: S1 normal heart sound present and S2 normal heart sound present Bruits: no carotid bruits Peripheral pulses: Peripheral pulses 2+ throughout GI: Inspection: Yes normal to inspection Skin: Other: Bilateral lower extremity ulcer Wounds: wounds noted Hair: normal Neuro: General: oriented to person, oriented to place and oriented to time Cranial nerves: Yes CN's II-XII intact bilaterally and Yes Normal hearing present Cognition (Neuro): normal cognition Motor exam (neuro): 5/5 motor strength present throughout Extrem: Other: venous exam: No significant superficial varicosities or spider telangiectasias, minimal edema General: No clubbing, No cyanosis and No edema Psych: Appearance: grossly normal Mental Status: mental status grossly normal Speech and movement: Normal speech and movement present Progress Note: A&P Assessment and plan (1) PAD (peripheral artery disease): Status: Acute Assessment and Plan: In short patient has nonhealing bilateral lower extremity ulcers. He does have palpable arterial pulses. These ulcers appear quite unusual and unclear etiology of this. Would continue with IV antibiotics. Would repeat tox screen. Case was discussed with the hospitalist and wound care team. At the current time we will continue with Adaptic and overlying alginate. We will see how he does through the weekend and we can reassess next week. Thank you for allowing us to assist in his care. If there are any questions or concerns please do not hesitate to contact us. Time Spent With Patient Time: Total time managing care of this patient today ____ minutes. Procedures Date of Service Date of Service: 05/11/25 Quality Stroke Does the patient have a stroke diagnosis?: No VTE Prior VTE?: No VTE Risk Level:: Medical - moderate - high VTE Device Contraindication: Treatment Not Indicated VTE Drug Contraindication: N/A - Med Ordered
[2025-05-11 17:15] LABS: Cannabinoid Screen Urine Not Detected (Not Detect)
[2025-05-11] MEDS: oxyCODONE HCl Immed Release 5 MG TABLET PO (17:53)
[2025-05-12 03:28] VITALS: BP 155/76; PULSE 77; RESP 18; TEMP 36.4; O2SAT 95
[2025-05-12 07:06] LABS: Creatinine Clr Calc Pharmacy 101.7; Estimated Glomerular Filt Rate > 60
[2025-05-12 07:49] VITALS: BP 170/89; PULSE 75; RESP 18; TEMP 36.7; O2SAT 95
[2025-05-12] MEDS: methADONE HCl 20 MG/2 ML ORAL.CONC 135 MG PO (07:56)
[2025-05-12] MEDS: 0.9 % Sodium Chloride Flush 3 ML SYRINGE IVFLUSH ×3 (08:00→23:39)
--- NOTE | 2025-05-12 10:01 | HE.PHANOTE ---
VANCO DOSE ADJUSTMENT BASED ON SCR AND TROUGH OF 15.2 DOSE CONTINUED AT 1000 Q12. NEXT DOSE 05/13 @ 2100
--- NOTE | 2025-05-12 11:31 | P.PNIM_ITS ---
Subjective Subjective Date of Service: 05/12/25 Interval History: improvement in swelling around R leg wound Review of Systems Review of Systems: Yes all other systems are reviewed and are negative Physical Exam 2 Vital Signs: Vital Signs: Last Vital Signs Temp 98.0 F 05/12/25 07:49 Pulse 75 05/12/25 07:49 Resp 18 05/12/25 07:49 BP 170/89 H 05/12/25 07:49 Pulse Ox 95 05/12/25 07:49 O2 Del Method Room Air 05/12/25 07:49 BMI result Body Mass Index 38.6 Gen: in no acute distress HEENT: sclera anicteric, moist mucus membranes Neck: supple Lungs: clear to auscultation bilaterally Heart: regular rate and rhythm, no murmurs Abd: soft, non-tender, non-distended Ext: no edema Skin: warm/well-perfused, multiple venous ulcers, erythema and swelling surrounding ulcer on R leg Neuro: alert and oriented x3, no focal findings Psych: appropriate affect Objective Data Active Medications Acetaminophen (Acetaminophen 325 Mg Tablet) 650 mg PO Q6H PRN PRN Reason: Pain, Mild 1-3,fever,headache Last Admin: 05/11/25 08:53 Dose: 650 mg Documented By: MARINE Calcium Carbonate (Calcium Carbonate 750 Mg Tab.Chew) 750 mg PO Q4H PRN PRN Reason: Heartburn Enoxaparin Sodium (Enoxaparin Sodium 40 Mg/0.4 Ml Syringe) [address] [facility] Last Admin: 05/12/25 05:24 Dose: 40 mg Documented By: DULCE MARIA Gabapentin (Gabapentin 300 Mg Capsule) 600 mg PO TID PRN PRN Reason: neuropathic pain Hydrochlorothiazide (Hydrochlorothiazide 12.5 Mg Tablet) 12.[address] [facility] Last Admin: 05/12/25 07:56 Dose: 12.5 mg Documented By: MONSERRAT Hydromorphone HCl (Hydromorphone Hcl 0.5 Mg/0.5 Ml Syringe) 0.5 mg IVPUSH Q4H PRN; Protocol PRN Reason: Pain, Severe (Pain Scale 7-10) Last Admin: 05/11/25 21:26 Dose: 0.5 mg Documented By: DULCE MARIA Piperacillin Sod/Tazobactam (Sod 3.375 gm/ Sodium Chloride) 50 mls @ 100 mls/hr IV Q6H [facility] Last Infusion: 05/12/25 05:55 Dose: Infused Documented By: DULCE MARIA Vancomycin HCl 1,000 mg/ (Sodium Chloride) 270 mls @ 270 mls/hr IV Q12H [facility] Last Admin: 05/12/25 10:46 Dose: 270 mls/hr Documented By: MONSERRAT Magnesium Hydroxide (Milk Of Magnesia 30 Ml Oral.Susp) 30 ml PO DAILY PRN PRN Reason: Constipation Melatonin (Melatonin 3 Mg Tablet) 6 mg PO BEDTIME PRN PRN Reason: Insomnia Last Admin: 05/10/25 22:39 Dose: 6 mg Documented By: BERTA Methadone HCl (Methadone Hcl 20 Mg/2 Ml Oral.Conc) 135 mg PO DAILY@0800 [facility] Last Admin: 05/12/25 07:56 Dose: 135 mg Documented By: MONSERRAT Co-signed By: DARLING Oxycodone HCl (Oxycodone Hcl Immed Release 5 Mg Tablet) 5 mg PO Q6H PRN PRN Reason: pain, moderrate Last Admin: 05/11/25 17:53 Dose: 5 mg Documented By: AMRINE Pharmacy Consult (Consult Rx Vancomycin Dosing) 1 each MISCELLANE DAILY PRN PRN Reason: Consult order Sodium Chloride (0.9 % Sodium Chloride Flush 3 Ml Syringe) [address] [facility] Last Admin: 05/12/25 08:00 Dose: 3 ml Documented By: MONSERRAT Valsartan (Valsartan 40 Mg Tablet) [address] [facility] Last Admin: 05/12/25 07:56 Dose: 40 mg Documented By: MONSERRAT Labs 05/11/25 05:21 05/12/25 06:18 Labs: Laboratory Results - last 24 hr 05/11/25 05/12/25 05/12/25 16:32 06:18 09:25 Hold Purple Top SEE NOTE Estim Creat Clear Calc 101.7 Estimated GFR > 60 C-Reactive Protein 6.70 H Vancomycin Trough 15.2 Urine Opiates Screen Not Detected Ur Buprenorphine Scrn Not Detected Ur Oxycodone Screen Not Detected Urine Methadone Screen Positive H Urine Fentanyl Screen Not Detected Ur Barbiturates Screen Not Detected Ur Phencyclidine Scrn Not Detected Ur Amphetamines Screen Not Detected U Benzodiazepines Scrn Not Detected Urine Cocaine Screen Not Detected U Marijuana (THC) Screen Not Detected Assessment and Plan (1) Bilateral cellulitis of lower leg: Status: Acute (2) History of intravenous drug use in remission: Status: Acute Plan d4 49yo M with hx substance abuse, treated HCV, chronic leg wounds presenting with worsening infection of leg wounds sepsis due to bilateral cellulitis associated with venous ulcers - Vascular Surgery consulted and following, palpable pulses distally - ID consulted, gave clindamycin x24h, also on vancomycin + piperacillin- tazobactam 05/09-; BCx negative, no osteomyelitis on CT, CRP improving - Wound Care consulted: Bilateral legs, feet, ankles: cleanse wounds with normal saline, pat dry, apply moisture barrier isael wound, apply cuticerin (nonadherent contact layer) to wound bed, cover with durafiber ag, followed by ABD pad and rolled gauze, change daily and PRN - pain control: APAP, oxycodone, IV hydromorphone, gabapentin hx substance abuse - sober x3yr, Utox confirms, continue methadone as per confirmed MiraVista dosing HTN - thiazide, ARB VTE ppx - enoxaparin In my clinical judgment, the patient requires continued inpatient hospitalization for the following reasons: IV ABX, specialist consultation Total time managing care of this patient today: 35 minutes. Quality Stroke Does the patient have a stroke diagnosis?: No VTE Prior VTE?: No VTE Risk Level:: Medical - moderate - high VTE Device Contraindication: Treatment Not Indicated VTE Drug Contraindication: N/A - Med Ordered
[2025-05-12 11:48] VITALS: BP 155/71; PULSE 73; RESP 18; TEMP 36.2; O2SAT 96
[2025-05-12 16:00] VITALS: BP 151/72; PULSE 70; RESP 18; TEMP 36.2; O2SAT 95
[2025-05-12 19:11] VITALS: BP 141/80; PULSE 76; RESP 18; TEMP 36.4; O2SAT 93
[2025-05-12 23:27] VITALS: BP 158/86; PULSE 77; RESP 18; TEMP 36.2; O2SAT 95
[2025-05-13 03:11] VITALS: BP 134/81; PULSE 77; RESP 17; TEMP 36.1; O2SAT 96
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
[2025-05-13 07:38] VITALS: BP 129/80; PULSE 77; RESP 16; TEMP 36.2; O2SAT 95
[2025-05-13] MEDS: methADONE HCl 20 MG/2 ML ORAL.CONC 135 MG PO (08:07)
[2025-05-13 08:59] LABS: Creatinine Clr Calc Pharmacy 107.3; Estimated Glomerular Filt Rate > 60
[2025-05-13 11:53] VITALS: BP 132/70; PULSE 73; RESP 16; TEMP 36.8; O2SAT 93
[2025-05-13 15:15] VITALS: BP 112/56; PULSE 78; RESP 18; TEMP 36; O2SAT 94
[2025-05-13] MEDS: 0.9 % Sodium Chloride Flush 3 ML SYRINGE IVFLUSH (17:15)
[2025-05-13 20:00] VITALS: BP 138/79; PULSE 95; RESP 18; TEMP 36.4; O2SAT 93
--- NOTE | 2025-05-13 22:11 | HE.PHANOTE ---
RE VANCO DOSE CONTINUE WITH CURRENT DOSE, APPEARS TO BE AT STEADY STATE. RENAL FUNCTION STABLE AND VANCO LEVEL TODAY IS 16.0. WILL CONTINUE DAILY RENAL MONITORING AND NEXT VANCO LEVEL TO BE DRAWN 05/15 @2100.
[2025-05-13] MEDS: oxyCODONE HCl Immed Release 5 MG TABLET PO (22:52)
[2025-05-13 23:25] VITALS: BP 142/73; PULSE 90; RESP 16; TEMP 36; O2SAT 95
[2025-05-14 03:02] VITALS: BP 136/76; PULSE 95; RESP 16; TEMP 36; O2SAT 96
[2025-05-14 06:31] LABS: MANUAL DIFF FLAG NO
[2025-05-14 06:50] LABS: Hematocrit 35.5 % (42.0-52.0); Hemoglobin 11.2 g/dl (14.0-18.0); Imm Gran Abs Auto 0.22 X10*3/uL (0.00-0.03); Imm Gran Pct Auto 2.0 % (0.0-0.4); Lymphocytes Absolute Auto 2.2 X10*3/uL (1.2-4.9); Mean Corpuscular HGB Conc 31.5 g/dl (31.0-36.0); Mean Corpuscular Hemoglobin 27.9 pg (27.0-33.0); Mean Corpuscular Volume 88.3 fL (80.0-98.0); NRBC Abs Auto 0.000 X10*3/uL (0.0-0.012); NRBC Pct Auto 0.0 /100WBC (0.0-0.2); Platelet Count 287 X10*3/uL (160-400); Red Blood Count 4.02 X10*6/uL (4.60-5.80); White Blood Count 11.2 X10*3/uL (4.8-10.8)
[2025-05-14 07:00] LABS: Alanine Aminotransferase 13 U/L (0-40); Albumin Level 3.9 g/dL (3.5-5.0); Alkaline Phosphatase 71 U/L (39-117); Anion Gap 12 (12-20); Aspartate Amino Transferase 18 U/L (5-37); Blood Urea Nitrogen 19 mg/dL (9-16); Calcium 9.0 mg/dL (8.4-10.2); Carbon Dioxide 28 mmol/L (22-29); Chloride 103 mmol/L (96-108); Creatinine Clr Calc Pharmacy 84.9; Estimated Glomerular Filt Rate > 60; Potassium 3.9 mmol/L (3.3-5.1); Sodium 139 mmol/L (135-145); Total Protein 7.9 g/dL (6.5-8.0)
--- NOTE | 2025-05-14 07:33 | HO.PM.IMPN ---
Subjective Subjective Date of Service: 05/14/25 Physical Exam Vital Signs: Vital Signs: Last Vital Signs Temp 96.8 F 05/14/25 03:02 Pulse 95 05/14/25 03:02 Resp 16 05/14/25 03:02 BP 136/76 05/14/25 03:02 Pulse Ox 96 05/14/25 03:02 O2 Del Method Room Air 05/14/25 03:02 BMI result Body Mass Index 38.6 Objective Data Active Medications Acetaminophen (Acetaminophen 325 Mg Tablet) 650 mg PO Q6H PRN PRN Reason: Pain, Mild 1-3,fever,headache Last Admin: 05/11/25 08:53 Dose: 650 mg Documented By: MARINE Calcium Carbonate (Calcium Carbonate 750 Mg Tab.Chew) 750 mg PO Q4H PRN PRN Reason: Heartburn Enoxaparin Sodium (Enoxaparin Sodium 40 Mg/0.4 Ml Syringe) 40 mg SUBCUT Q24H [facility] Last Admin: 05/14/25 05:05 Dose: 40 mg Documented By: TESSY Gabapentin (Gabapentin 300 Mg Capsule) 600 mg PO TID PRN PRN Reason: neuropathic pain Last Admin: 05/13/25 22:45 Dose: 600 mg Documented By: TESSY Hydrochlorothiazide (Hydrochlorothiazide 12.5 Mg Tablet) 12.5 mg PO DAILY [facility] Last Admin: 05/13/25 08:08 Dose: 12.5 mg Documented By: MONSERRAT Piperacillin Sod/Tazobactam (Sod 3.375 gm/ Sodium Chloride) 50 mls @ 100 mls/hr IV Q6H [facility] Last Infusion: 05/14/25 05:42 Dose: Infused Documented By: TESSY Vancomycin HCl 1,000 mg/ (Sodium Chloride) 270 mls @ 270 mls/hr IV Q12H [facility] Last Infusion: 05/14/25 00:39 Dose: Infused Documented By: TESSY Magnesium Hydroxide (Milk Of Magnesia 30 Ml Oral.Susp) 30 ml PO DAILY PRN PRN Reason: Constipation Melatonin (Melatonin 3 Mg Tablet) 6 mg PO BEDTIME PRN PRN Reason: Insomnia Last Admin: 05/10/25 22:39 Dose: 6 mg Documented By: LEFEBVA Methadone HCl (Methadone Hcl 20 Mg/2 Ml Oral.Conc) 135 mg PO DAILY@0800 [facility] Last Admin: 05/13/25 08:07 Dose: 135 mg Documented By: MONSERRAT Co-signed By: DARLING Oxycodone HCl (Oxycodone Hcl Immed Release 5 Mg Tablet) 5 mg PO Q6H PRN PRN Reason: pain, moderrate Last Admin: 05/13/25 22:52 Dose: 5 mg Documented By: TESSY Pharmacy Consult (Consult Rx Vancomycin Dosing) 1 each MISCELLANE DAILY PRN PRN Reason: Consult order Sodium Chloride (0.9 % Sodium Chloride Flush 3 Ml Syringe) 3 ml IVFLUSH QSHIFT [facility] Last Admin: 05/14/25 00:27 Dose: Not Given Documented By: TESSY Non-Admin Reason: abx is running Valsartan (Valsartan 40 Mg Tablet) 40 mg PO DAILY [facility] Last Admin: 05/13/25 08:08 Dose: 40 mg Documented By: MONSERRAT Labs 05/14/25 05:35 05/14/25 05:35 Labs: Laboratory Results - last 24 hr 05/13/25 05/13/25 05/14/25 08:06 21:32 05:35 MCV 88.3 MCH 27.9 MCHC 31.5 RDW 15.1 Plt Count 287 MPV 9.6 Immature Gran % (Auto) 2.0 H Neut % (Auto) 65.8 Lymph % (Auto) 19.4 L [place] % (Auto) 10.1 Eos % (Auto) 2.3 Baso % (Auto) 0.4 Lymph # (Auto) 2.2 [place] # (Auto) 1.1 Eos # (Auto) 0.3 Baso # (Auto) 0.1 Abs Immat Gran (auto) 0.22 H Absolute Neuts (auto) 7.4 Absolute Nucleated RBC 0.000 Nucleated RBC % (auto) 0.0 Hold Purple Top SEE NOTE Anion Gap 12 Estim Creat Clear Calc 107.3 84.9 Estimated GFR > 60 > 60 Random Glucose 92 Calcium 9.0 Total Bilirubin 0.5 AST 18 ALT 13 Alkaline Phosphatase 71 Total Protein 7.9 Albumin 3.9 Vancomycin Trough 16.0 Microbiology Microbiology Results: Microbiology 05/08/25 23:02 Blood Culture - Final Blood - Venous No growth after 5 days. 05/08/25 22:51 Blood Culture - Final Blood - Venous No growth after 5 days. Quality Stroke Does the patient have a stroke diagnosis?: No VTE Prior VTE?: No VTE Risk Level:: Medical - moderate - high VTE Device Contraindication: Treatment Not Indicated VTE Drug Contraindication: N/A - Med Ordered
[2025-05-14 07:40] VITALS: BP 107/55; PULSE 85; RESP 16; TEMP 36; O2SAT 95
--- NOTE | 2025-05-14 08:16 | MHC.RECOVRN ---
Pt is a 49-y/o male with a hx of hypertension, anxiety, depression, hepC (treated), opioid use disorder on methadone, PAD, and chronic bilateral lower extremity wounds following a fall years ago who presented to the ED concerned about lower extremity wound infections worsening. Pt was medically admitted for further management and treatment. T/w met with Pop in 371 after receiving an addiction consult to inquire about pt's methadone dose and whether it has been sufficient. Upon approach pt is calm but not very receptive to conversing with t/w. When asked about his methadone dose pt replied why would you ask me that? I've been doing fine for the past 3 years, I go to a program that manages it. I dont understand why you'd ask me that, what do you have to do with that? Pt was reassured that his provider had placed a consult for the ACS team to come talk to him and that since he reports no issues/concerns no action hudson be taken.
[2025-05-14] MEDS: oxyCODONE HCl Immed Release 5 MG TABLET PO (08:19)
[2025-05-14] MEDS: methADONE HCl 20 MG/2 ML ORAL.CONC 135 MG PO (08:20)
[2025-05-14] MEDS: 0.9 % Sodium Chloride Flush 3 ML SYRINGE IVFLUSH (08:23)
[2025-05-14] MEDS: Sulfamethox/Trimeth 800/160 TABLET 1 TAB PO (08:31)
[2025-05-14 09:04] LABS: Creatinine Clr Calc Pharmacy 90.4; Estimated Glomerular Filt Rate > 60
[2025-05-14 11:59] VITALS: BP 107/60; PULSE 84; RESP 18; TEMP 36.8; O2SAT 96
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
--- NOTE | 2025-05-14 13:55 | MHC.CM.PN ---
PT MEDICALLY CLEARED TO DC HOME TODAY WITH RESUMPTION OF [facility] NOTIFIED VIA [facility] PT WILL ARRANGE TRANSPORT
== END 2025-05-14 15:12 | disposition home health service (06) | DRG 872 ==
LOC: HO.ED 05-09 04:09 → HO.EDOVER 05-09 04:31 → HO.S3 05-09 15:29
PROVIDERS: Family Medicine; Hospitalist; Physician Assistant Medical; Admitting Provider Hospitalist; Emergency Provider Emergency Medicine; PCP Internal Medicine; Visit Provider Student in an Organized Health Care Education/Training Program
DX: A41.9 Sepsis, unspecified organism (principal); F11.20 Opioid dependence, uncomplicated; L03.116 Cellulitis of left lower limb; L03.115 Cellulitis of right lower limb; I83.218 Varicose veins of right lower extremity with both ulcer of other part of lower extremity and inflammation; I83.228 Varicose veins of left lower extremity with both ulcer of other part of lower extremity and inflammation; L97.819 Non-pressure chronic ulcer of other part of right lower leg with unspecified severity; L97.829 Non-pressure chronic ulcer of other part of left lower leg with unspecified severity; I10 Essential (primary) hypertension; F32.A Depression, unspecified; F41.9 Anxiety disorder, unspecified; E66.813 Obesity, class 3; W05 Fall from non-moving wheelchair, nonmotorized scooter and motorized mobility scooter; F17.210 Nicotine dependence, cigarettes, uncomplicated; Z71.6 Tobacco abuse counseling; Z68.38 Body mass index [BMI] 38.0-38.9, adult; Z71.3 Dietary counseling and surveillance; Z86.19 Personal history of other infectious and parasitic diseases; Z79.899 Other long term (current) drug therapy
CPT/HCPCS: 36415; 73701; 80048; 80053; 80202; 80307; 82565; 83605; 85025; 85652; 86140; 87040; 93925; 99221; 99285; J0736; J1171; J1630; J1650; J1885; J2270; J2543; J3374; J7120; Q9967

== ENCOUNTER → 2025-05-09 04:23 | Outpatient (BNV) | payer MEDICARE, SELFPAY | PROVIDERS: Admitting Provider Hospitalist; Emergency Provider Emergency Medicine; PCP Internal Medicine; Visit Provider Surgery Vascular Surgery | DX: L03.116 Cellulitis of left lower limb (principal); L03.115 Cellulitis of right lower limb; A41.9 Sepsis, unspecified organism | CPT/HCPCS: 99222; 99232 ==

== ENCOUNTER → 2025-05-09 04:23 | Outpatient (BNV) | payer MEDICARE, SELFPAY | PROVIDERS: Admitting Provider Hospitalist; Emergency Provider Emergency Medicine; PCP Internal Medicine; Visit Provider Internal Medicine | DX: F11.10 Opioid abuse, uncomplicated (principal); I73.9 Peripheral vascular disease, unspecified; A41.9 Sepsis, unspecified organism | CPT/HCPCS: 99222 ==

== ENCOUNTER → 2025-05-09 04:23 | Outpatient (BNV) | payer MEDICARE, SELFPAY | PROVIDERS: Admitting Provider Hospitalist; Emergency Provider Emergency Medicine; PCP Internal Medicine; Visit Provider Hospitalist | DX: L03.116 Cellulitis of left lower limb (principal); L03.115 Cellulitis of right lower limb; F19.91 Other psychoactive substance use, unspecified, in remission | CPT/HCPCS: 99223; 99232; 99499 ==

== ENCOUNTER → 2025-05-09 | Outpatient (BNV) | payer MEDICARE, SELFPAY | PROVIDERS: Emergency Provider Emergency Medicine; PCP Internal Medicine; Visit Provider Radiology Diagnostic Radiology | DX: M77.32 Calcaneal spur, left foot (principal); M25.461 Effusion, right knee; I70.221 Atherosclerosis of native arteries of extremities with rest pain, right leg | CPT/HCPCS: 73701; 93925 ==

== ENCOUNTER 2025-05-19 18:09 | Inpatient (IN) | payer MEDICARE, SELFPAY ==
[2025-05-19] VITALS (7 sets, daily range): BP systolic 107–170; BP diastolic 55–86; PULSE 92–103; RESP 9–24; TEMP 37.5; O2SAT 77–95; BMI 39.0
--- NOTE | ~2025-05-19 | XR_ITS ---
EXAMINATION: XR CHEST CLINICAL INFORMATION: sob COMPARISON: 05/19/2025 TECHNIQUE: Frontal view of the chest was obtained. FINDINGS: Airspace opacity in the lower half of the bilateral lungs have nearly resolved. There is minimal residual groundglass opacity in the right mid third lung zone. Heart size is normal. XR/XR chest 1V IMPRESSION: Near complete resolution of bilateral lower lung opacities with minimal residual groundglass density in the right mid third lung zone. Electronically signed by: Asad Gracia MD 05/24/2025 10:04 AM EDT
--- NOTE | ~2025-05-19 | XR_ITS ---
CLINICAL HISTORY: sob 1 view chest x-ray Comparison: Chest x-ray from 01/21/2024. Findings: New airspace disease is multifocal and nonspecific. Differential considerations include multifocal pneumonia. Edema or superimposed edema also considered given obscuration of the pulmonary vasculature. Postobstructive phenomenon not excluded Cardiac silhouette at the upper limits of normal for AP technique. Small right pleural effusion. No pneumothorax in this portable image. Degenerative changes include imaged AC joints. IMPRESSION: 1. New pulmonary opacities are nonspecific and may reflect multifocal pneumonia. Edema or superimposed edema also considered. Recommend attention on follow-up to ensure resolution. 2. Small right pleural effusion. This document has been electronically signed by: Mahesh Escamilla MD on 05/19/2025 19:55:51
--- NOTE | ~2025-05-19 | CT_ITS ---
CLINICAL HISTORY: resp failure CT chest without contrast Comparison: Chest x-ray from 05/19/2025 Findings: Moderate to severe pulmonary opacities are multifocal concerning for multifocal pneumonia. Comminution of the ground-glass and consolidation are noted. Sequela of septic emboli also considered given multiple centrilobular densities. No pneumothorax. Pleural effusion. Borderline cardiomegaly. Small mediastinal and hilar lymph nodes are nonspecific and likely reactive. Fusion of the sternum manubrium. Mild degenerative changes include imaged shoulders and imaged spine. Borderline splenomegaly in the partially imaged abdomen. Mild volume loss of the partially imaged pancreas. Fat deposition noted in the liver. IMPRESSION: Multifocal airspace disease. Differential considerations include multifocal pneumonia and findings of septic emboli. Recommend attention on follow-up to ensure resolution. This document has been electronically signed by: Mahesh Escamilla MD on 05/19/2025 23:36:40
--- NOTE | 2025-05-19 18:23 | ECG_ITS ---
Test Reason : DYSPNEA Blood Pressure : */* mmHG Vent. Rate : 107 BPM Atrial Rate : 107 BPM P-R Int : 154 ms QRS Dur : 84 ms QT Int : 350 ms P-R-T Axes : 60 47 24 degrees QTcB Int : 467 ms Sinus tachycardia Otherwise normal ECG When compared with ECG of 20-Sep-2013 08:43, QT has lengthened Referred By: Marina Douglas Electronically Signed By: FREEDOM GAINES
--- NOTE | 2025-05-19 18:30 | ED.SOB ---
HPI - SOB/Dyspnea General Chief Complaint: Dyspnea Stated Complaint: SOB COPD exacerbation? O2 85% Time Seen by Provider: 05/19/25 18:11 History of Present Illness HPI Narrative: Patient is a 49 y/o M with hx of hypertension, anxiety, depression, hep C s/p tx with Epclusa, history IV heroin abuse , PAD, chronic bilateral lower extremity nonhealing/complicated wounds just discharged from the hospital on May 14. Baseline not on oxygen. Presents today with having increasing shortness of breath. Diminished breath sounds bilaterally increased work of breathing. Patient denies any fever chills. Positive coughing upper respiratory symptoms. Positive history of smoking. Positive history of heroin use. Related Data Home Medications ?Medication ?Instructions ?Recorded ?Confirmed gabapentin 300 mg capsule 300 - 600 mg PO TID PRN Pain 02/04/23 05/20/25 methadone 10 mg/mL oral 135 mg PO DAILY 02/04/23 05/20/25 concentrate (Methadone Intensol) olmesartan 5 mg tablet 10 mg PO DAILY 01/10/24 05/20/25 acetaminophen 500 mg tablet 1,000 mg PO Q6H PRN Pain 05/09/25 05/20/25 chlorthalidone 25 mg tablet 12.5 mg PO DAILY 05/09/25 05/20/25 naproxen 500 mg tablet 500 mg PO BID PRN moderate pain 05/09/25 05/20/25 tirzepatide (weight loss) 2.5 2.5 mg subcut SA 05/20/25 05/20/25 mg/0.5 mL subcutaneous pen injector (Zepbound) Previous Rx's ?Medication ?Instructions ?Recorded oxycodone 5 mg tablet 5 mg PO Q6H PRN pain, moderrate 3 05/14/25 days #3 tabs sulfamethoxazole 800 1 tab PO Q12H 10 days #20 tabs 05/14/25 mg-trimethoprim 160 mg tablet Allergies Allergy/AdvReac Type Severity Reaction Status Date / Time No Known Allergies Allergy Verified 05/19/25 18:21 Review of Systems Review of Systems: Positive shortness of breath Yes all other systems are reviewed and are negative [facility] Past Medical History Attestation statement: The following information was validated with the patient. Medical History History of intravenous drug use in remission PAD (peripheral artery disease) 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 Chronic hip pain Surgical History Status post hip surgery Social History Social History Household Members: Family Household Members Other:: sober home Housing: House Housing Other:: sober home Do you presently have visiting nurse or other home services: No Alcohol intake: never Comment: pt refusing fall risk interventions Patient Tobacco Use Status: Current someday Tobacco user Tobacco use type: Cigarette Cigarette Packs Per Day: 0.25 Cigarettes Per Day: 2 Patient Interested in Nicotine Replacement: Yes Advance Directives: No Advance Directives Information Provided: No Recently lost weight without trying: No Nutrition Risks: No Nutritional Risk Poor oral hygiene: No service: No Current occupational status: unemployed and disabled Physical Exam Exam: Exam: Sick appearing male, short of breath Appearance: Alert. Oriented X3. No acute distress. Eyes: Pupils equal, round and reactive to light. ENT: Pharynx normal. Neck: Normal inspection. Neck supple. No lymph nodes noted. No crepitus CVS: Normal heart rate and rhythm. Pulses normal. Normal S1 and S2 Respiratory: Diminished breath sounds bilaterally, increased work of breathing Abdomen: Soft and nontender. No rigidity. No distention. good BS x4 Skin: Skin warm and dry. Normal skin color. Normal skin turgor. Extremities: Multiple ulcers in bilateral lower extremity. At different stages of healing. There is no gross erythema noted. No warmth to touch. Neuro: Oriented X 3. No motor deficit. No sensory deficit. Moving all extermities. No slurred speech Vital Signs: Vital Signs: Last Vital Signs Temp 97.0 F 05/20/25 16:00 Pulse 93 05/20/25 18:00 Resp 11 L 05/20/25 18:00 BP 153/80 H 05/20/25 17:00 Pulse Ox 95 05/20/25 18:00 O2 Del Method High Flow Nasal C annula 05/20/25 18:00 O2 Flow Rate 45 05/20/25 18:00 FiO2 65 05/20/25 18:00 Oxygen Flow Rate 8 05/19/25 18:18 BMI result Body Mass Index 39.0 Medications Administered Generic Name Dose Route Start Last Admin Trade Name Jessica PRN Reason Stop Dose Admin Albuterol/Ipratropium 3 ml 05/20/25 08:00 05/20/25 15:50 Albuterol/Iprat 2.5/0.5mg 3 Ml Ampul.Neb INHALE 3 ml RQ4H WHILE AWAKE CARRIE Administration Collagenase 1 appl 05/20/25 09:00 05/20/25 09:52 Collagenase Clostridium Hist. 30 Gm Tube TOPICAL Not Given DAILY [facility] Protocol Enoxaparin Sodium 40 mg 05/19/25 21:00 05/19/25 22:42 Enoxaparin Sodium 40 Mg/0.4 Ml Syringe SUBCUT 40 mg Q24H CARRIE Administration Furosemide 200 mg/ Sodium 100 mls @ 5 mls/hr 05/19/25 23:00 05/20/25 14:35 Chloride IVCONT 10 mg/hr .Q20H CARRIE 5 mls/hr 10 MG/HR Administration Cefepime HCl 1 gm/ Sodium 50 mls @ 100 mls/hr 05/20/25 03:00 05/20/25 18:11 Chloride IV 100 mls/hr Q8H CARRIE Administration Methadone HCl 135 mg 05/20/25 08:00 05/20/25 08:49 Methadone Hcl 20 Mg/2 Ml Oral.Conc PO 135 mg DAILY@0800 CARRIE Administration Nicotine 7 mg 05/20/25 00:05 05/20/25 08:47 Nicotine 7 Mg Patch.Td24 TRANSDERMA 7 mg DAILY CARRIE Administration Oxycodone HCl 5 mg 05/20/25 00:25 05/20/25 18:10 Oxycodone Hcl Immed Release 5 Mg Tablet PO 5 mg Q6H PRN Administration Pain, Severe (Pain Scale 7-10) Sodium Chloride 3 ml 05/20/25 08:00 05/20/25 12:39 0.9 % Sodium Chloride Flush 3 Ml Syringe IVFLUSH Not Given QSHIFT CARRIE Discontinued Medications Generic Name Dose Route Start Last Admin Trade Name Jessica PRN Reason Stop Dose Admin Albuterol Sulfate 5 mg/ 0 mg 05/19/25 18:53 05/19/25 20:03 Albuterol/Ipratropium 3 ml INHALE 05/19/25 18:54 1 each ONCE ONE Administration Furosemide 40 mg 05/19/25 22:47 05/19/25 23:00 Furosemide 40 Mg/4 Ml Vial IVPUSH 05/19/25 22:48 40 mg ONCE ONE Administration Protocol Magnesium Sulfate 2 gm in 50 mls @ 150 mls/hr 05/19/25 18:23 05/19/25 19:10 Magnesium Sulfate/H2o IV 05/19/25 18:42 Infused ONCE ONE Infusion Cefepime HCl 2 gm in 50 mls @ 100 mls/hr 05/19/25 18:23 05/19/25 20:00 Maxipime IV 05/19/25 18:52 Infused ONCE ONE Infusion Sodium Chloride 3,093 mls @ 3,093 mls/hr 05/19/25 19:26 05/19/25 21:06 Ns 30 ml/kg infuse over 1 hr (3093 ml) 05/19/25 20: Infused IV Infusion .Q1H STA Vancomycin HCl 1,500 mg/ 500 mls @ 333.333 mls/hr 05/19/25 20:17 05/19/25 23:19 Sodium Chloride IV 05/19/25 21:46 Infused ONCE ONE Infusion Albumin Human 100 mls @ 133.333 mls/hr 05/19/25 20:45 05/19/25 23:34 Kedbumin 25 % IV 05/19/25 22:29 Infused Q1H CARRIE Infusion Acetaminophen 1,000 mg in 100 mls @ 400 mls/hr 05/19/25 23:25 05/20/25 00:01 Ofirmev IV 05/19/25 23:39 Infused ONCE ONE Infusion Vancomycin HCl 500 mg/ Sodium 110 mls @ 110 mls/hr 05/19/25 23:45 05/20/25 01:05 Chloride IV 05/20/25 00:44 Infused ONCE ONE Infusion Methylprednisolone Sodium Succinate 125 mg 05/19/25 18:34 05/19/25 18:46 Methylprednisolone Sod Succ 125 Mg/2 Ml Vial IVPUSH 05/19/25 18:35 125 mg ONCE ONE Administration Medical Decision Making Medical Decision Making MDM Narrative: Patient is a 49-year-old male with a history of peripheral vascular disease. History of heroin abuse. Just got discharged from the hospital yesterday for cellulitis. Was on Zosyn and vancomycin. Presented with having increasing shortness of breath. Patient from home. On arrival patient's O2 sat was in the 70s with a treatment going at approximately 8 L. placed on high-flow O2. An ABG was obtained. It showed a normal pH no CO2 retention but hypoxia. Patient was given additional neb treatments steroids. Magnesium. A chest x-ray obtained showed bilateral infiltrate. Patient had a white count of 25 with a bandemia of 9% consistent with pneumonia. Antibiotic was started. Patient to be admitted. We gave the patient a dose of cefepime. Additional dose of vancomycin was given. Blood culture was obtained. IV fluid bolus given. Repeat focal exam for sepsis was done. Symptomatically patient feels improved. Because patient is on high-flow O2 to maintain O2 of 90%. Contacted the after school counselor. Admitted patient for further evaluation. Differential Diagnosis Differential Diagnoses: The differential diagnosis associated with the presentation includes Sepsis pneumonia Consult Healthcare Provider Management of the patient was discussed with: Guest Relations Manager (Ms Sql Server Developer) Lab Data [facility] Lab Attestation statement: I reviewed the patient's lab results. 05/20/25 05:48 05/20/25 05:48 Labs: Lab Results 05/19/25 05/19/25 05/19/25 Range/Units 18:30 18:45 18:54 WBC 25.3 H (4.8-10.8) X10*3/uL RBC 3.33 L (4.60-5.80) X10*6/uL Hgb 9.5 L (14.0-18.0) g/dl Hct 29.2 L (42.0-52.0) % MCV 87.7 (80.0-98.0) fL MCH 28.5 (27.0-33.0) pg MCHC 32.5 (31.0-36.0) g/dl RDW 16.0 (11.0-16.0) % Plt Count 345 (160-400) X10*3/uL MPV 10.3 (9.4-12.4) fL Immature Gran % (Auto) Cancelled Neut % (Auto) Cancelled Lymph % (Auto) Cancelled [place] % (Auto) Cancelled Eos % (Auto) Cancelled Baso % (Auto) Cancelled Lymph # (Auto) Cancelled [place] # (Auto) Cancelled Eos # (Auto) Cancelled Baso # (Auto) Cancelled Abs Immat Gran (auto) Cancelled Absolute Neuts (auto) Cancelled Absolute Nucleated RBC 0.030 H (0.0-0.012) X10*3/uL Nucleated RBC % (auto) 0.1 (0.0-0.2) /100WBC Neutrophils % (Manual) 83 H (45-73) % Band Neutrophils % 9 H (3-5) % Lymphocytes % (Manual) 4 L (20-40) % Monocytes % (Manual) 4 (2-11) % Abs Neuts (Manual) 23.3 H (2.0-8.3) X10*3/uL Lymphocytes # (Manual) 1.0 L (1.2-4.9) X10*3/uL Monocytes # (Manual) 1.0 (0.1-1.2) X10*3/uL Platelet Estimate NORMAL (NORMAL) Plt Morphology Comment NORMAL RBC Morphology NOTED Polychromasia 1+ (0-2) /OIF Smear Tech's Comments MANUAL DIFF O2 Saturation 96.0 % ABG pH at Pt Temp 7.37 (7.35-7.45) ABG pCO2 at Pt Temp 38 (32-45) mmHg ABG pO2 at Pt Temp 97 (83-108) mmHg ABG HCO3 22 (22-26) mmol/L ABG Base Excess (Actual) -2.1 mmol/L Sodium 134 L (135-145) mmol/L Potassium 5.1 D (3.3-5.1) mmol/L Chloride 102 (96-108) mmol/L Carbon Dioxide 18 L (22-29) mmol/L Anion Gap 19 (12-20) BUN 79 H (9-16) mg/dL Creatinine 3.02 H (0.5-1.4) mg/dL Estim Creat Clear Calc 31.4 Estimated GFR 22 Random Glucose 130 H (60-115) mg/dL Lactic Acid 3.8 H* (0.5-2.0) mmol/L Calcium 8.7 (8.4-10.2) mg/dL Magnesium 2.9 H (1.6-2.6) mg/dL Troponin I High Sens 17.3 (<3.5-35.0) ng/L NT-Pro-B Natriuret Pep 84856.6 H (<300) pg/mL Influenza Type A (PCR) NEGATIVE (Negative) Influenza Type B (PCR) NEGATIVE (Negative) RSV RNA Qual (PCR) NEGATIVE (Negative) SARS-CoV-2 RNA (RT-PCR) NEGATIVE (Negative) ABG Data ABG Results: My interpretation patient's ABG as above no CO2 retention. Hypoxia Attestation ABG: I personally reviewed and interpreted this ABG as follows: Independent Interpretation I performed an independent interpretation of an: EKG (Sinus heart rate is 110 GA QRS QTC normal no acute ST segment elevation noted) and Plain X-Ray (Bilateral infiltrate) Radiology Impression Discussion of test interpretation with radiology: I have reviewed the radiologist's reading. External Record Review External record reviewed: Inpatient record Chronic Conditions Peripheral vascular disease, Social Determinants Patient?s care significantly limited by Social Determinants of Health including: Problems related to primary support group Procedures Procedure Narrative Procedure Narrative: Pupils on guided IV 20 gauge 1.16 in IV placed in left upper extremity. Adequate blood return, flushes well secured with Tegaderm. Performed by Leesa Kothari PA-C Critical Care Time Critical Care Time Critical Care Time: Yes Total Critical Care Time: 90 Attestation: I have personally provided 90 minutes of critical care time exclusive of time spent on separately billable procedures. ?Time includes review of lab data, radiology results, discussion with consultants, and monitoring for potential decompensation. ?Interventions were performed as documented above Discharge Plan Discharge Clinical Impression: Respiratory failure Pneumonia Qualifiers: Pneumonia type: due to unspecified organism Laterality: bilateral Lung location: unspecified part of lung Qualified Code(s): J18.9 - Pneumonia, unspecified organism Patient Disposition: Admitted As Inpatient Discharge Date/Time: 05/19/25 22:53
[2025-05-19 18:41] LABS: Hematocrit 29.2 % (42.0-52.0); Hemoglobin 9.5 g/dl (14.0-18.0); Mean Corpuscular HGB Conc 32.5 g/dl (31.0-36.0); Mean Corpuscular Hemoglobin 28.5 pg (27.0-33.0); Mean Corpuscular Volume 87.7 fL (80.0-98.0); NRBC Abs Auto 0.030 X10*3/uL (0.0-0.012); NRBC Pct Auto 0.1 /100WBC (0.0-0.2); Platelet Count 345 X10*3/uL (160-400); Red Blood Count 3.33 X10*6/uL (4.60-5.80); White Blood Count 25.3 X10*3/uL (4.8-10.8)
[2025-05-19] MEDS: Magnesium Sulfate/H2O 2 GM/50 ML PIGGYBACK IV (18:46)
[2025-05-19 18:49] LABS: ABG HCO3 22 mmol/L (22-26); ABG O2 % Saturation 96.0 %
[2025-05-19 18:59] LABS: Anion Gap 19 (12-20); Blood Urea Nitrogen 79 mg/dL (9-16); Calcium 8.7 mg/dL (8.4-10.2); Carbon Dioxide 18 mmol/L (22-29); Chloride 102 mmol/L (96-108); Creatinine Clr Calc Pharmacy 31.4; Estimated Glomerular Filt Rate 22; Magnesium 2.9 mg/dL (1.6-2.6); Potassium 5.1 mmol/L (3.3-5.1); Sodium 134 mmol/L (135-145)
--- OUTSIDE RECORDS SUMMARY | 2025-05-19 19:04 | XMS_ITS | Encounter Summary ---
Author Organization [employer] Address [address] [place] [address] Care Team Providers Care Magazine Editor Name Role Phone Malaika Nuñez [facility] Primary Care Provider [phone] Reason for Visit * Reason Comments Med Refill Encounter Details Date Type Department Care Team (Late st Contact Info) Description 03/07/[address] [facility] [address] [place], [place] [id number] [place] [place] [address] [place] [address] Chronic left hip pain Social History Tobacco [...] Info) Description 05/25/2025 11:00 AM EDT Telemedicine [facility] [address] [place] [address] Malaika Nuñez FNP [address] [place] [address] documented as of this encounter Visit Diagnoses Diagnosis Chronic left hip pain documented in this encounter Additional Health Concerns Assessment Noted Time PHQ-9 Depression Total Score: 0 11/05/19 24 1:06 PM EST documented as of this encounter Care Teams Magazine Editor Relationship Specialty Start Date End Date Malaika Nuñez FNP [address] [place] [address] PCP - General Family Medicine 09/22/22 Yasmany [place] 03/04/25 documented as of this encounter
[2025-05-19 19:05] LABS: NT Pro B Type Natriuretic Pept 11090.6 pg/mL (<300); Troponin-I High Sensitivity 17.3 ng/L (<3.5-35.0)
--- OUTSIDE RECORDS SUMMARY | 2025-05-19 19:05 | XMS_ITS | Clinical Summary ---
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 Role Phone Malaika Nuñez [place] Primary Care Provider [phone] Allergies No known active allergies Medications Blood [...] 15 tablet 11 07/18/20 24 025 Active gabapentin (Neurontin) 300 MG capsuleIndicatio ns:Chronic [...] MODERATE PAIN 30 tablet 04/20/20 25 Active olmesartan (BENIcar) 5 MG tabletIndication s:Essential hypertension TAKE 2 TABLETS BY MOUTH EVERY DAY 60 tablet 3 05/14/20 25 Active olmesartan (BENIcar) 5 MG tabletIndication s:Essential hypertension TAKE 2 TABLETS BY MOUTH EVERY DAY 60 tablet 3 12/05/19 25 025 Discontinued naproxen (Naprosyn) 500 MG tabletIndication s:Hip arthritis [...] improvement 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 Will resend today Continue [...] head. Gabapentin Naproxen Followed by Dr. Stallworth [facility]- plan for THR pending left hip aspiration to r/o chronic infection. 04/13/23[place] [place] pre-op clearance. 1st degree AV [...] 1:14 PM EDT): Follow as scheduled with [facility] Will [facility] referral to dental care to expedite preop clearance Assessment & Plan (02/01/2023 5:13 AM EDT): INCREASE gabapentin dose to 300mg (1-2 capules b.i.d) Updated xrays ordered Referral placed to [facility] Substance use disorder 09/22/2022 Overview (09/22/2022): SHAUNA-IVDU, sober x 6 months, on methadone program through [facility]. Has other sports coach or instructor and therapiist through [facility]. Also goes to AA Assessment & Plan [...] -referral placed -has stable living situation in [facility] -pt commended on his success Encounters Date Type Department Care Team Description 05/13/2025 Refill [facility] [address] [facility] [place] [address] Malaika Nuñez FNP Essential hypertension 05/08/2025 Orders Only GENERIC EXTERNAL DATA DEPARTMENT Provider, Generic External Data 04/20/2025 Refill [facility] [address] [place] [address] Malaika Nuñez FNP Hip arthritis 04/09/[address] [address] Malaika Nuñez FNP Prior Authorization ([facility] PA: Huyen) 04/06/2025 1:15 PM EDT Office Visit [address] [address] Malaika Nuñez FNP Chronic obstructive pulmonary disease, unspecified COPD type (CMS/HCC) (Primary Dx); Non-healing ulcer of multiple sites, unspecified ulcer stage (CMS/HCC); Dietary counseling; Exercise counseling; Class 3 severe obesity due to excess calories with serious comorbidity and body mass index (BMI) of 40.0 to 44.9 in adult 04/06/2025 Travel 04/05/2025 Telephone [facility] [address] [place] [address] Malaika Nuñez FNP chart prep 04/04/2025 Telephone [facility] [address] [place] [phone] Malaika Nuñez FNP stable lab letter 04/04/2025 Results Follow-Up [facility] [address] [place] [phone] Malaika Nuñez FNP Comprehensive Metabolic Panel, Lipid Panel, Standard, CBC auto differential, Hemoglobin A1c 03/30/2025 Travel 03/26/2025 Refill [facility] [address] [place] [address] Malaika Nuñez FNP Hip arthritis 02/18/2025 Refill [facility] [address] [place] [address] [facility], [place] Chronic left hip pain from Last 3 [...] Info) Description 05/25/2025 11:00 AM EDT Telemedicine [facility] [address] [place] [address] [facility] [address] [place] [address] Health Maintenance Due Date Last Done Comments CT Colonography 1973 Colonoscopy 1973 Colorectal Cancer Screening 1973 FIT DNA/Cologuard 1973 FIT 1973 FOBT 1973 Sigmoidoscopy 1973 Family Planning (PISQ) 1988 Hepatitis A Vaccines (1 of 2 - Risk 2-dose series) 1992 Hepatitis B Vaccines (1 of 3 - 19+ 3-dose series) 1992 Zoster Vaccines (1 of 2) 2023 COVID-19 Vaccine ( - 2023-2 5 season) 2025 Influenza Vaccine (#1) 2025 , 08/25/2022 Disability Screening 10/07/2025 10/07/2024 Alcohol/Substance Use [...] Procedure Name Priority Date/Time Associated Diagnosis Comments VASC US LOWER EXTREMITY ARTERIAL DUPLEX BILATERAL Routine 05/09/2025 12:[address] LOWER EXTREMITY W CONTRAST RIGHT Routine 05/09/2025 3:[address] FOOT W CONTRAST LEFT Routine 05/09/2025 3:36 AM EDT LACTIC ACID Routine 05/08/2025 10:51 PM EDT SED RATE BY MODIFIED WESTERGREN Routine 05/08/2025 10:16 PM EDT C-REACTIVE PROTEIN [...] Recently Relevant to Health Maintenance Results * [facility] US Lower Extremity Arterial Duplex Bilateral (05/09/2025 12:00 PM EDT) 05/09/2025 12:0 0 PM EDT Narrative [facility] - 05/09/2025 12:44 PM EDT [place] [address] Ultrasound Report Signed Patient: Pop Carcamo MR#: [id number] 0 : 1975 Acct:[id number] Age/Sex: 49 / M ADM Date: 05/09/25 Loc: [place] [address]: Stephen Elmore DO Ordering Physician: Lorenzo Rivera MD Date of Service: 05/09/25 Procedure(s): US arterial duplex LE Accession Number(s): [id number] cc: Edouard Ball MD; Lorenzo Rivera MD Reason for Exam: Nonhealing ulcers bilateral lower extremities EXAMINATION: Noninvasive assessment of the bilateral lower extremities without ARTERIAL DUPLEX, ANKLE BRACHIAL INDICES (ABIS), AND PULSE VOLUME RECORDINGS (PVRS). CLINICAL INFORMATION: Nonhealing ulcers, lower extremities. TECHNIQUE: Duplex Doppler techniques with waveform analysis and measurement of velocities in the bilateral common femoral, profunda femoris, superficial femoral, popliteal and tibial arteries were performed. Additionally, ankle pulse volume recordings, ankle pressure measurements and ankle brachial indices were obtained of the lower extremity arterial system bilaterally. The study was performed only at rest. COMPARISON: January 03, 2024 FINDINGS: DIRECT DUPLEX DOPPLER FINDINGS: RIGHT LEG: Common femoral artery: 188 cm/s, phasicity: Monophasic. Profunda femoris artery: 135 cm/s, phasicity: Monophasic. Spectral broadening. Superficial femoral artery (proximal): 147 cm/s, phasicity: Monophasic. Superficial femoral artery (mid): 164 cm/s, phasicity: Monophasic. Spectral broadening. Superficial femoral artery (distal): 128 cm/s, phasicity: Monophasic. Popliteal artery: 162 cm/s, phasicity: Monophasic. Posterior tibial artery: 146 cm/s, phasicity: Monophasic. Peroneal artery: No color Doppler flow. Anterior tibial artery: 78 cm/s, phasicity: Monophasic. Spectral broadening. Dorsalis pedis artery: Not interrogated/no visualized. LEFT LEG: Common femoral artery: 166 cm/s, phasicity: Triphasic. Profunda femoris artery: 77 cm/s, phasicity: Biphasic. Superficial femoral artery (proximal): 148 cm/s, phasicity: Triphasic. Superficial femoral artery (mid): 146 cm/s, phasicity: Monophasic. Superficial femoral artery (distal): 156 cm/s, phasicity: Biphasic. Popliteal artery: 133 cm/s, phasicity: Monophasic. Posterior tibial artery: 109 cm/s, phasicity: Monophasic. Peroneal artery: No color Doppler flow. Anterior tibial artery: 107 cm/s, phasicity: Monophasic. Dorsalis pedis artery: 45 cm/s, phasicity: Monophasic. 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 Slow flow versus occluded peroneal artery. Dorsalis pedis artery is not visualized. Left leg: Moderate to severe inflow disease worsened below the knee. Electronically signed by: Piotr Escudero MD 05/09/2025 12:42 PM EDT Dictated By: Piotr Almaraz MD Signed By: <Electronically signed by Piotr Bustillo MD in OV> 05/09/25 1242 DD/ 1200 TD/TT: 05/09/25 1220 Side Panel Padder: Procedure Note Donotuseinterpreter, Image - 05/09/[address] [address] Ultrasound Report Signed Patient: Pop Carcamo MMR#: [id number] 0 : 1975Acct:[id number] Age/Sex: 49 / MADM Date: 05/09/25 Loc: [facility]: Stephen Elmore DO Ordering Physician: Lorenzo Rivera MD Date of Service: 05/09/25 Procedure(s): US arterial duplex LE BI Accession Number(s): [id number] cc: Edouard Ball MD; Lorenzo Rivera MD Reason for Exam: Nonhealing ulcers bilateral lower extremities EXAMINATION: Noninvasive assessment of the bilateral lower extremities without ARTERIAL DUPLEX, ANKLE BRACHIAL INDICES (ABIS), AND PULSE VOLUME RECORDINGS (PVRS). CLINICAL INFORMATION: Nonhealing ulcers, lower extremities. TECHNIQUE: Duplex Doppler techniques with waveform analysis and measurement of velocities in the bilateral common femoral, profunda femoris, superficial femoral, popliteal and tibial arteries were performed. Additionally, ankle pulse volume recordings, ankle pressure measurements and ankle brachial indices were obtained of the lower extremity arterial system bilaterally. The study was performed only at rest. COMPARISON: January 03, 2024 FINDINGS: DIRECT DUPLEX DOPPLER FINDINGS: RIGHT LEG: Common femoral artery: 188 cm/s, phasicity: Monophasic. Profunda femoris artery: 135 cm/s, phasicity: Monophasic. Spectral broadening. Superficial femoral artery (proximal): 147 cm/s, phasicity: Monophasic. Superficial femoral artery (mid): 164 cm/s, phasicity: Monophasic. Spectral broadening. Superficial femoral artery (distal): 128 cm/s, phasicity: Monophasic. Popliteal artery: 162 cm/s, phasicity: Monophasic. Posterior tibial artery: 146 cm/s, phasicity: Monophasic. Peroneal artery: No color Doppler flow. Anterior tibial artery: 78 cm/s, phasicity: Monophasic. Spectral broadening. Dorsalis pedis artery: Not interrogated/no visualized. LEFT LEG: Common femoral artery: 166 cm/s, phasicity: Triphasic. Profunda femoris artery: 77 cm/s, phasicity: Biphasic. Superficial femoral artery (proximal): 148 cm/s, phasicity: Triphasic. Superficial femoral artery (mid): 146 cm/s, phasicity: Monophasic. Superficial femoral artery (distal): 156 cm/s, phasicity: Biphasic. Popliteal artery: 133 cm/s, phasicity: Monophasic. Posterior tibial artery: 109 cm/s, phasicity: Monophasic. Peroneal artery: No color Doppler flow. Anterior tibial artery: 107 cm/s, phasicity: Monophasic. Dorsalis pedis artery: 45 cm/s, phasicity: Monophasic. 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 Slow flow versus occluded peroneal artery. Dorsalis pedis artery is not visualized. Left leg: Moderate to severe inflow disease worsened below the knee. Electronically signed by: Piotr Escudero MD 05/09/2025 12:42 PM EDT Dictated By: Piotr Almaraz MD Signed By: <Electronically signed by Piotr Bustillo MDin OV> 05/09/25 1242 DD/ 1200 TD/TT: 05/09/25 1220 Side Panel Padder: [facility] External Provider CV VASC ULAR PROCEDURES Final Result [facility] [address] [place] [phone] * CT Lower Extremity w/ Contrast Right (05/09/2025 3:43 AM EDT) Anatomical Region Laterality Modality Computed Tomogra phy 05/09/2025 3:43 AM EDT Narrative 05/09/2025 3:44 AM EDT [address] [address] [address] Scan Report Signed Patient: Pop Carcamo MR#: [id number] 0 : 1975 Acct:[id number] Age/Sex: 49 / M ADM Date: 05/08/25 Loc: HO.ED Attending Dr: Ordering Physician: Leesa Kothari Date of Service: 05/09/25 Procedure(s): CT lower leg RT w IV con Accession Number(s): [id number] cc: Edouard Ball MD; Leesa Kothari Report Number: [id number]: Total DLP = 260.00 mGy-cm Reason for Exam: osteomyelitis CLINICAL HISTORY: osteomyelitis --- Additional Notes or Special Instructions: kinney to foot Right lower extremity CT with contrast. Comparison: None provided. Findings: No acute fracture or dislocation injury identified. No cortical destruction of the bone. Small posterior calcaneal enthesophyte at the site of the Achilles tendon insertion. There are degenerative changes at the right knee. Small right knee effusion. Edema identified throughout the included right lower extremity soft tissues. No organized fluid or abscess collection identified. No soft tissue gas appreciated. There is some irregularity of the soft tissues near the skin surface along the anterolateral aspect of the right lower leg. Impression: 1. No acute fracture or dislocation injury identified at the right lower extremity. No CT evidence for active osteomyelitis. 2. Nonspecific edema identified within the included right lower extremity soft tissues. 3. Some irregularity of the soft tissues near the skin surface along the anterolateral aspect of the right lower leg present, suggesting wounds or ulcers. This document has been electronically signed by: Edson Driver MD on 05/09/2025 03:43:10 Dictated By: Edson Driver MD Signed By: <Electronically signed by Edson Driver MD in OV> 05/09/25 0344 DD/ 2 TD/TT: 05/09/25342 Side Panel Padder: Procedure Note Donotuseinterpreter, Image - 05/09/[address] [address] [address] Scan Report Signed Patient: Pop Carcamo MMR#: [id number] 0 : 1975Acct:[id number] Age/Sex: 49 / MADM Date: 05/08/25 Loc: HO.ED Attending Dr: Ordering Physician: Leesa Kothari Date of Service: 05/09/25 Procedure(s): CT lower leg RT w IV con Accession Number(s): [id number] cc: Edouard Ball MD; Leesa Kothari Report Number: [id number]: Total DLP = 260.00 mGy-cm Reason for Exam: osteomyelitis CLINICAL HISTORY: osteomyelitis --- Additional Notes or SpecialInstructions: kinney to foot Right lower extremity CT with contrast. Comparison: None provided. Findings: No acute fracture or dislocation injury identified. No cortical destruction of the bone. Small posterior calcaneal enthesophyte at the site of the Achilles tendon insertion. There are degenerative changes at the right knee. Small right knee effusion. Edema identified throughout the included right lower extremity soft tissues. No organized fluid or abscess collection identified. No soft tissue gas appreciated. There is some irregularity of the soft tissues near the skin surface along the anterolateral aspect of the right lower leg. Impression: 1. No acute fracture or dislocation injury identified at the right lower extremity. No CT evidence for active osteomyelitis. 2. Nonspecific edema identified within the included right lower extremity soft tissues. 3. Some irregularity of the soft tissues near the skin surface along the anterolateral aspect of the right lower leg present, suggesting wounds or ulcers. This document has been electronically signed by: Edson Driver MD on 05/09/2025 03:43:10 Dictated By: Edson Driver MD Signed By: <Electronically signed by Edson Driver MD in OV> 05/09/25 0344 DD/ 2 TD/TT: 05/09/25342 Side Panel Padder: [facility] External Provider IMG CT PROCEDURES Final Result * CT Foot w/ Contrast Left (05/09/2025 3:36 AM EDT) Anatomical Region Laterality Modality Lower Extremities, Foot Left Computed Tomography 05/09/2025 3:36 AM EDT Narrative 05/09/2025 3:38 AM EDT [address] [address] [address] Scan Report Signed Patient: Pop Carcamo MR#: [id number] 0 : 1975 Acct:[id number] Age/Sex: 49 / M ADM Date: 05/08/25 Loc: [place].ED Attending Dr: Ordering Physician: Leesa Kothari Date of Service: 05/09/25 Procedure(s): CT foot LT w IV con Accession Number(s): [id number] cc: Edouard Ball MD; Leesa Kothari Report Number: [id number]: Total DLP = 147.00 mGy-cm Reason for Exam: osteomyelitis CLINICAL HISTORY: osteomyelitis Left foot CT with contrast. Comparison: None provided. Findings: No acute fracture or dislocation injury identified. No cortical destruction of the bone. Small posterior calcaneal enthesophyte at the site of the Achilles tendon insertion. Small plantar calcaneal spur. Edema identified throughout the included left lower extremity soft tissues. No organized fluid or abscess collection identified. No soft tissue gas appreciated. Impression: 1. No acute fracture or dislocation injury identified at the left foot. No CT evidence for active osteomyelitis. 2. Nonspecific edema identified throughout the included left lower leg soft tissues. This document has been electronically signed by: Edson Driver MD on 05/09/2025 03:36:30 Dictated By: Edson Driver MD Signed By: <Electronically signed by Edson Driver MD in OV> 05/09/25337 DD/ 5 TD/TT: 05/09/25335 Side Panel Padder: Procedure Note Donotuseinterpreter, Image - 05/09/[address] [address] [address] Scan Report Signed Patient: Pop Carcamo MMR#: [id number] 0 : 1975Acct:[id number] Age/Sex: 49 / MADM Date: 05/08/25 Loc: .ED Attending Dr: Ordering Physician: Leesa Kothari Date of Service: 05/09/25 Procedure(s): CT foot LT w IV con Accession Number(s): [id number] cc: Edouard Ball MD; Leesa Kothari Report Number: [id number]: Total DLP = 147.00 mGy-cm Reason for Exam: osteomyelitis CLINICAL HISTORY: osteomyelitis Left foot CT with contrast. Comparison: None provided. Findings: No acute fracture or dislocation injury identified. No cortical destruction of the bone. Small posterior calcaneal enthesophyte at the site of the Achilles tendon insertion. Small plantar calcaneal spur. Edema identified throughout the included left lower extremity soft tissues. No organized fluid or abscess collection identified. No soft tissue gas appreciated. Impression: 1. No acute fracture or dislocation injury identified at the left foot. No CT evidence for active osteomyelitis. 2. Nonspecific edema identified throughout the included left lower leg soft tissues. This document has been electronically signed by: Edson Driver MD on 05/09/2025 03:36:30 Dictated By: Edsno Driver MD Signed By: <Electronically signed by Edson Driver MD in OV> 05/09/25 0338 DD/ 5 TD/TT: 05/09/25335 Side Panel Padder: [facility] External Provider IMG CT PROCEDURES Edited Result - Final * Lactic Acid (05/08/2025 10:51 PM EDT) Pathologist [facility] Lactic Acid 1.1 0.5 - 2.0 mmol/L [facility] 05/08/2025 10:5 1 PM EDT 05/08/2025 10:56 PM EDT Generic External Data Provider LAB BLOOD ORDERAB LES Final Result [facility] [address] [place] [phone] * (ABNORMAL) CBC auto differential (05/08/2025 10:16 PM EDT) Only the most recent of2 resultswithin the time period is included. White Blood Count 11.4(H) 4.8 - 10.8 X10*3/uL [facility] Red Blood Count 3.61(L) 4.60 - 5.80 X10*6/uL [facility] Hemoglobin 10.2(L) 14.0 - 18.0 g/dl [facility] Hematocrit 31.3(L) 42.0 - 52.0 % [facility] Mean Corpuscular Volume 86.7 80.0 - 98.0 fL [facility] Mean Corpuscular Hemoglobin 28.3 27.0 - 33.0 pg [facility] Mean Corpuscular HGB Conc 32.6 31.0 - 36.0 g/dl [facility] Red Cell Distribution Width 14.5 11.0 - 16.0 % [facility] Platelet Count 297 160 - 400 X10*3/uL [facility] Mean Platelet Volume 9.8 9.4 - 12.4 fL [facility] Neutrophils Percent Auto 73.8(H) 45 - 73 % [facility] Imm Gran Pct Auto 0.6(H) 0.0 - 0.4 % [facility] Lymphocytes Percent Auto 14.3(L) 20 - 40 % [facility] Monocytes Percent Auto 8.6 2 - 11 % [facility] Eosinophils Percent Auto 2.3 0 - 4 % [facility] Basophils Percent Auto 0.4 0 - 2 % [facility] NRBC Pct Auto 0.0 0.0 - 0.2 /100WBC [facility] Neutrophils Absolute Auto 8.4(H) 2.0 - 8.3 x10*3/uL [facility] Imm Gran Abs Auto 0.07(H) 0.00 - 0.03 X10*3/uL [facility] Lymphocytes Absolute Auto 1.6 1.2 - 4.9 X10*3/uL [facility] Monocytes Absolute Auto 1.0 0.1 - 1.2 X10*3/uL [facility] Eosinophils Absolute Auto 0.3 0.0 - 0.4 X10*3/uL [facility] Basophils Absolute Auto 0.1 0.0 - 0.2 X10*3/uL [facility] NRBC Abs Auto 0.000 0.0 - 0.012 X10*3/uL [facility] 05/08/2025 10:1 6 PM EDT 05/08/2025 10:26 PM EDT Generic External Data Provider LAB BLOOD ORDERAB LES Final Result Performing Organization Address City/[facility] [address]/ZIP Co de Phone Number [facility] [address] [place] [address] [phone] * (ABNORMAL) Sed Rate by Modified Westergren (05/08/2025 10:16 PM EDT) Erythrocyte Sedimentation Rate 79(H) 0 - 15 MM/HR [facility] Comment:Patients with polycy themia and many hemoglobin abnormalitiesmay have depressed sed rates whereas patients with anemiamay have elevated sed rates. 05/08/2025 10:1 6 PM EDT 05/08/2025 10:50 PM EDT Generic External Data Provider LAB BLOOD ORDERAB LES Final Result Performing Organization Address [facility] Co de Phone Number [facility] [address] [place] [phone] * (ABNORMAL) C-reactive Protein (05/08/2025 10:16 PM EDT) Pathologist [facility] C Reactive Protein 13.78(H) < or = 0.50 mg/dL [facility] 05/08/2025 10:1 6 PM EDT 05/08/2025 10:26 PM EDT Generic External Data Provider LAB BLOOD ORDERAB LES Final Result Performing Organization Address [facility] [address]/[facility] Co de Phone Number [facility] [address] [place] [address] [phone] * (ABNORMAL) Basic Metabolic Panel (05/08/2025 10:16 PM EDT) Sodium 139 135 - 145 mmol/L [facility] Potassium 4.4 3.3 - 5.1 mmol/L [facility] Chloride 100 96 - 108 mmol/L [facility] Carbon Dioxide 31(H) 22 - 29 mmol/L [facility] Anion Gap 12 12 - 20 [facility] Urea Nitrogen (BUN) 16 9 - 16 mg/dL [facility] Creatinine, Serum 0.93 0.5 - 1.4 mg/dL [facility] Creatinine Clr Calc Pharmacy 104.8 [facility] Comment:eGFR (calculated fro m the MDRD study equation) and eCrCl(calculated from the Cockcroft-Gault equation) are based ondifferent parameters and may not yield comparable results.If eCrCl result is absurd, please check patient'sheight/weight. Estimated Glomerular Filt Rate >60 [facility] Comment:Chronic Kidney Disea se: Estimated GFR < 60 mL/min/1.75x9Miqdzp Kidney Disease: Estimated GFR < 15 mL/min/1.73m2 Glucose 92 60 - 115 mg/dL [facility] Calcium 9.3 8.4 - 10.2 mg/dL [facility] 05/08/2025 10:1 6 PM EDT 05/08/2025 10:26 PM EDT us Generic External Data Provider LAB BLOOD ORDERAB LES Final Result [facility] [address] [place] [phone] * Hemoglobin A1c (04/03/2025 11:56 AM EDT) Hemoglobin A1c 5.2 <6.0 % [facility] Comment:Hemoglobin A1C Refer ence Range Adults: 4.8 - 6.0 % Non diabetic: < 6.0 % Goal: < 7.0 %Additional Action Suggested: > 8.0 %Note: Hemoglobin A1c results are invalid for patients with abnormal amounts of HbF. Blood transfusions may impact the HbA1c concentration in the patient sample. Estimated Average Glucose 103 mg/dL [facility] Comment:eAG = Estimated ave rage glucose which is %A1C expressed asaverage glucose, using the formula of the F4E-KrwiosdFzylonx Glucose study (ADAG), Diabetes Care, Vol.31,#8,2007 Blood Venous blood specimen / Unknown 04/03/2025 11:56 AM EDT 04/03/2025 1:13 PM EDT [facility] LAB BLOOD ORDERABLES Final Re sult Performing Organization Address [facility] [address] [facility] Co de Phone Number [facility] [address] [place] [phone] * (ABNORMAL) Lipid Panel, Standard (04/03/2025 11:56 AM EDT) Triglycerides 151(H) <150 mg/dL [facility] Comment:Desirable Triglyceri de: less than 150 mg/dLBorderline High Triglyceride 150-199 mg/dLHigh Triglyceride: 200-499 mg/dLVery High Triglyceride: greater than or equal to 5OO mg/dL Cholesterol 142 <200 mg/dL [facility] Comment:Desirable Cholestero l: less than 200 mg/dLBorderline High Cholesterol: 200-239 mg/dLHigh Cholesterol: greater than 239 mg/dL LDL Cholesterol Calculated 80 <100 mg/dL [facility] Comment:Desirable LDL: less than 100 mg/dLNear Optimal/Above Optimal LDL: 110- 129 mg/dLBorderline High LDL: 130-159 mg/dLHigh LDL: 160-189 mg/dLVery High LDL: greater than or equal to 190 mg/dL HDL Cholesterol 32(L) >40 mg/dL [facility] Comment:Desirable HDL: great er than 40 mg/dL Note: This HDL assay may give artificially low results in patients with liver disease. Blood Venous blood specimen / Unknown 04/03/2025 11:56 AM EDT 04/03/2025 1:13 PM EDT [facility] LAB BLOOD ORDERABLES Final Re sult Performing Organization Address [facility] [address]/ZIP Co de Phone Number [facility] [address] [place] [phone] * (ABNORMAL) Comprehensive Metabolic Panel (04/03/2025 11:56 AM EDT) Pathologist [facility] Sodium 141 135 - 145 mmol/L [facility] Potassium 4.0 3.3 - 5.1 mmol/L [facility] Chloride 104 96 - 108 mmol/L [facility] Carbon Dioxide 28 22 - 29 mmol/L [facility] Anion Gap 13 12 - 20 [facility] Urea Nitrogen (BUN) 16 9 - 16 mg/dL [facility] Creatinine, Serum 1.05 0.5 - 1.4 mg/dL [facility] Estimated Glomerular Filt Rate >60 [facility] Comment:Chronic Kidney Disea se: Estimated GFR < 60 mL/min/1.43w1Usmgcp Kidney Disease: Estimated GFR < 15 mL/min/1.73m2 Glucose 102 60 - 115 mg/dL [facility] Calcium 9.0 8.4 - 10.2 mg/dL [facility] Bilirubin, Total 0.3 0.0 - 1.0 mg/dL [facility] Aspartate Amino Transferase 24 5 - 37 U/L [facility] Alanine Aminotransferase 20 0 - 40 U/L [facility] Total Protein 8.1(H) 6.5 - 8.0 g/dL [facility] Albumin Level 4.4 3.5 - 5.0 g/dL [facility] Alkaline Phosphatase 81 39 - 117 U/L [facility] Blood Venous blood specimen / Unknown 04/03/2025 11:56 AM EDT 04/03/2025 1:13 PM EDT [facility] LAB BLOOD ORDERABLES Final Re sult [facility] [address] [place] [address] [phone] * HIV-1/2 Antigen and Antibodies, Fourth Generation, with Reflexes (09/22/2022 10:47 AM EST) HIV Antigen/Antibody, 4th Generation NON-REAC TIVE NON-REAC TIVE [employer] Comment: HIV-1 antigen and HIV-1/HIV-2 antibodies [...] purpose. For additional information please refer to http://education.Link_[employer]/faq/ZLG889 (This link is being provided for informational/ educational purposes only.) The performance of this assay has not been clinically validated in patients less than 2 years old. Blood Venous blood specimen / Unknown 09/22/2022 10:47 AM EST 09/22/2022 10:47 AM EST Narrative [facility] - 09/24/2022 1:35 PM EST FASTING:NO FASTING: NO [facility] LAB BLOOD ORDERABLES Final Re sult [facility] [address], [place] [address] [employer] [address] [facility], (Nl2) [place] [address] from Last 3 Months or Most Recently Relevant to Health Maintenance Insurance [facility] DUAL COMPLETE [facility] STAND[facility] Care Teams Housekeeping Laundry Worker Relationship Specialty Start Date End Date Malaika Nuñez FNP [address] [place] [address] PCP - General Family Medicine 09/22/22 Yasmany A 03/04/25
--- OUTSIDE RECORDS SUMMARY | 2025-05-19 19:05 | XMS_ITS | Encounter Summary ---
Author Organization [employer] Address [address] [facility] 7t [place] [address] Care Team Providers Care Radio Repairer Name Role Phone Malaika Nuñez [facility] Primary Care Provider [phone] Reason for Visit * Reason Comments Med Refill Encounter Details Date Type Department Care Team (Late st Contact Info) Description 05/13/2025 Refill [facility] [address] [place] [address] [facility] [address] [place] [address] Essential hypertension Social History Tobacco Use Types Packs/Day Years [...] Info) Description 05/25/2025 11:00 AM EDT Telemedicine [facility] [address] [place] [address] Malaika Nuñez FNP [address] [place] [address] documented as of this encounter Visit Diagnoses Diagnosis Essential hypertension Unspecified essential hypertension documented in this encounter Additional Health Concerns Assessment Noted Time PHQ-9 Depression Total Score: 0 04/06/20 25 2:57 PM EDT documented as of this encounter Care Teams Radio Repairer Relationship Specialty Start Date End Date Malaika Nuñez FNP [address] [place] [address] PCP - General Family Medicine 09/22/22 [place] A 03/04/25 documented as of this encounter
--- OUTSIDE RECORDS SUMMARY | 2025-05-19 19:05 | XMS_ITS | Clinical Summary ---
[facility] Organization [facility] Address [address] [place] [address] Care Team Providers Care Application Architect Name Role Phone Danuta Valentinfer Edward PEÑA Primary Care Provider [phone] Surgical History Surgery Date Site/Laterality Comments OTHER SURGICAL HISTORY Left PROCEDURE: AR ARTHROSCOPY HIP DIAGNOSTIC W/WO SYNOVIAL BYP SPX [...] Documents on File Type Date Recorded Patient Intervention Teacher Expl anation Health Care Decision (hx) 05/01/2018 [...] (hx) 05/01/2018 AD RINALDI DIRECTIVE Care Teams Application Architect Relationship Specialty Start Date End Date Charo Valentin DO [address] [place] [address] PCP - General 02/27/11
--- OUTSIDE RECORDS SUMMARY | 2025-05-19 19:05 | XMS_ITS | Encounter Summary ---
Author Organization [employer] Address [address] [facility] [address] [place] [address] Care Team Providers Care Cement And Concrete Plant Worker Name Role Phone Malaika Nuñez [facility] Primary Care Provider [phone] Encounter Details Date Type Department Care Team (Late st Contact Info) Description 06/03/2023 Orders Only [facility] [address] [place] [address] Amita Ojeda, IDANIA [address] [place] [address] Chronic hepatitis C without hepatic coma (CMS/HCC) [...] Info) Description 05/25/2025 11:00 AM EDT Telemedicine [facility] [address] [place] [address] Malaika Nuñez FNP [address] [place] [address] Scheduled Orders Name Type Priority Associated Diagnoses [...] documented as of this encounter Care Teams Cement And Concrete Plant Worker Relationship Specialty Start Date End Date Malaika Nuñez FNP [address] [place] [address] PCP - General Family Medicine 09/22/22 [place] [facility] 03/04/25 documented as of this encounter
--- OUTSIDE RECORDS SUMMARY | 2025-05-19 19:05 | XMS_ITS | Encounter Summary ---
Author Organization [employer] Address [address] [facility] [address] [place] [address] Care Team Providers Care Vamp Marker Name Role Phone Malaika Nuñez [employer] Primary Care Provider [phone] Reason for Visit * Reason Comments Med Refill Encounter Details Date Type Department Care Team (Late st Contact Info) Description 02/22/2023 Refill [facility] [address] [place] [address] Rosa Elena Chung MD [address] [place] [address] Social History Tobacco Use Types Packs/Day Years [...] Info) Description 05/25/2025 11:00 AM EDT Telemedicine [facility] [address] [place] [address] Malaika Nuñez FNP [address] [place] [address] documented as of this encounter Visit Diagnoses Not on filedocumented in this encounter Additional Health Concerns Assessment Noted Time PHQ-9 Depression Total Score: 0 01/22/20 9:56 AM EDT documented as of this encounter Care Teams Vamp Marker Relationship Specialty Start Date End Date Malaika Nuñez FNP [address] [place] [address] PCP - General Family Medicine 09/22/22 Yasmany MARTINA 03/04/25 documented as of this encounter
[2025-05-19 19:19] LABS: Band Neutrophils Percent 9 % (3-5); Lymphocytes Absolute Manual 1.0 X10*3/uL (1.2-4.9); Lymphocytes Percent Manual 4 % (20-40); Monocytes Absolute Manual 1.0 X10*3/uL (0.1-1.2); Monocytes Percent Manual 4 % (2-11); Neutrophils Absolute Manual 23.3 X10*3/uL (2.0-8.3); Neutrophils Percent Manual 83 % (45-73)
[2025-05-19 19:21] LABS: Polychromasia 1+ (0-2) /OIF; RBC Morphology NOTED
[2025-05-19] MEDS: cefEPime HCl/D5W 2 GM/50 ML PIGGYBACK IV (19:25)
[2025-05-19] MEDS: SODIUM CHLORIDE 3093 ML IV (19:32)
[2025-05-19 19:41] LABS: Resp Syncy Virus RNA Qual PCR NEGATIVE (Negative); SARS COV2 PCR INHOUSE NEGATIVE (Negative)
[2025-05-19] MEDS: Albuterol Sulfate 5 MG, Albuterol/Iprat 2.5/0.5MG 3 ML 3 ML INHALE (20:03)
[2025-05-19 20:59] LABS: Reflex Lactate? Lactic Acid Added
[2025-05-19] MEDS: Albumin Human 25 % 100 ML 133.33 ML IV ×2 (21:05→22:49)
--- NOTE | 2025-05-19 21:07 | PC.NURSE ---
MD directed this nurse to stop fluids at this time and start albumin. 2400 mL total NS infused. HFNC at 95% 50L, SpO2 stable >92%, patient is sleeping, arousable to touch, sleepy, oriented, BP now 144/81 HR 91
--- NOTE | 2025-05-19 21:56 | PC.NURSE ---
back from CT, tolerated NRB maxed out, maintained >90%. back in room on hiflow 85% 50L SpO2 97%
--- NOTE | 2025-05-19 22:10 | PC.NURSE ---
extreme difficulty obtaining PIV, albumin and abx infusing
[2025-05-19 22:46] LABS: ~Lactic Acid-LAB USE ONLY 2.7 mmol/L (0.5-2.0)
--- NOTE | 2025-05-19 22:52 | PC.NURSE ---
Lurdes EMERSON came to bedside, verbal report given, transported together to ICU on NRB 15L. maintained 90% and above en route
--- NOTE | 2025-05-19 22:52 | PM.CCHP ---
History of Present Illness Date of Service: 05/19/25 Attending physician on admission: Shala Hernandes Chief Complaint: Dyspnea Mr. Carcamo is a 49 y/o M with hx of hypertension, anxiety, depression, hep C s/p tx with? Epclusa,? 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 No fever. He was recently admitted 05/09-05/14 2025 for BLE cellulitis and was sent home with a prescription for Bactrim.?? Laboratory data significant for WBC 25.3 with bandemia, hgb 9.5, hct 29.2, sodium 134, CO2 18, BUN 79, creatinine 3.02, lactic acid 3.8, magnesium 2.9, pro BNP 32475.6. ABG 7.37 38 97 22. Respiratory panel negative. Imaging: CXR showed multifocal pneumonia and/or edema.? Small right pleural effusion. Chest CT pending. ED course: ? The patient received Mag sulfate 2 g, cefepime 2 g, Solu-Medrol 125 mg, albuterol, vancomycin 1500 mg. He was given 2 bags albumin per sepsis protocol. Review of Systems Constitutional: Constitutional: Reports as per HPI ENT: Reports Normal hearing present and Denies dizziness Cardiovascular: Cardiovascular: Denies chest pain, Denies Epigastric Pain, Denies syncope and Reports dyspnea Respiratory: Respiratory: Reports cough and Reports dyspnea Gastrointestinal: Gastrointestinal: Denies diarrhea, Denies nausea and Denies vomiting Genitourinary: Genitourinary: Denies difficulty urinating Musculoskeletal: Musculoskeletal: Denies numbness and Denies tingling Integumentary/Breasts: Skin/Breast: Reports wounds (BLE wounds followed by wound care) Neurologic: Reports Normal hearing present, Denies confusion, Denies dizziness, Denies syncope, Denies numbness and Denies tingling Psychiatric: Psychiatric: Denies confusion PMFSH 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 Chronic hip pain Surgical History Surgical History Status post hip surgery Social History Social History Household Members: None and Other Household Members Other:: sober home Housing: Other Housing Other:: sober home Do you presently have visiting nurse or other home services: No Alcohol intake: never Comment: pt refusing fall risk interventions Patient Tobacco Use Status: Never used Tobacco Tobacco use type: Cigarette Cigarette Packs Per Day: 0.25 Cigarettes Per Day: 2 Advance Directives: No Advance Directives Information Provided: No service: No Current occupational status: unemployed and disabled Meds Allergies Allergy/AdvReac Type Severity Reaction Status Date / Time No Known Allergies Allergy Verified 05/19/25 18:21 Active Medications: Current Medications Albuterol/Ipratropium (Albuterol/Iprat 2.5/0.5mg 3 Ml Ampul.Neb) 3 ml INHALE RQ4H WHILE AWAKE CARRIE Enoxaparin Sodium (Enoxaparin Sodium 40 Mg/0.4 Ml Syringe) 40 mg SUBCUT Q24H CARRIE Last Admin: 05/19/25 22:42 Dose: 40 mg Sodium Chloride (0.9 % Sodium Chloride Flush 3 Ml Syringe) 3 ml IVFLUSH QSHIFT CARRIE Home Medications ?Medication ?Instructions ?Recorded ?Confirmed ?Last Taken ?Type gabapentin 300 mg capsule 300 - 600 mg PO TID PRN Pain 02/04/23 05/09/25 05/08/25 History methadone 10 mg/mL oral 135 mg PO DAILY 02/04/23 05/09/25 05/08/25 History concentrate (Methadone Intensol) olmesartan 5 mg tablet 10 mg PO DAILY 01/10/24 05/09/25 05/08/25 History acetaminophen 500 mg tablet 1,000 mg PO Q6H PRN Pain 05/09/25 05/09/25 Unknown History chlorthalidone 25 mg tablet 12.5 mg PO DAILY 05/09/25 05/09/25 05/08/25 History collagenase clostridium histo. 250 1 appl topical DAILY 05/09/25 05/09/25 05/08/25 History unit/gram topical ointment (Santyl) naproxen 500 mg tablet 500 mg PO BID PRN moderate pain 05/09/25 05/09/25 05/08/25 History Physical Exam Vital Signs: Vital Signs: Last Vital Signs Temp 99.5 F 05/19/25 18:23 Pulse 99 05/19/25 22:16 Resp 16 05/19/25 22:16 BP 144/55 H 05/19/25 22:16 Pulse Ox 91 L 05/19/25 21:20 O2 Del Method High Flow Nasal C annula 05/19/25 20:27 O2 Flow Rate 8 05/19/25 18:23 Oxygen Flow Rate 55 05/19/25 20:27 BMI result Body Mass Index 39.0 Const: General: no acute distress and alert; No confusion Orientation/consciousness: patient oriented x3 (answering appropriately.) and No confusion HEENT: Head: Yes normocephalic and Yes atraumatic General nose exam: Normal external nose present (Nares patent, septum midline, sinuses nontender bilaterally.) Mouth: Normal oral and palatal mucosa present (No thrush, tongue in midline, mucosa moist.) Throat: Yes other (No erythema, no exudate.) Neck: Neck: Yes supple (no thyromegaly, trachea midline.) Carotids: normal carotid upstroke Resp: Effort & Inspection: Actively coughing and labored Auscultation: diminished lung sounds diffuse Cardio: Jugular venous distension: no JVD Rate: regular rate Rhythm: regular rhythm Heart sounds: no gallops, no murmurs and no rubs GI: Palpation (GI): Soft to palpation and nontender Skin: Rashes: no rashes Neuro: General: patient oriented x3 (answering appropriately.) and No confusion Cranial nerves: Yes Normal hearing present Extrem: General: Yes full ROM Right lower extremity: lower leg (cellulitis) Details: erythema and tenderness Left lower extremity: lower leg (cellulitis) Details: erythema and tenderness Psych: Affect: normal affect Attitude: cooperative Results Labs 05/19/25 18:30 05/19/25 18:30 Labs: Laboratory Results - last 24 hr 05/19/25 05/19/25 05/19/25 18:30 18:45 18:54 MCV 87.7 MCH 28.5 MCHC 32.5 RDW 16.0 Plt Count 345 MPV 10.3 Immature Gran % (Auto) Cancelled Neut % (Auto) Cancelled Lymph % (Auto) Cancelled [place] % (Auto) Cancelled Eos % (Auto) Cancelled Baso % (Auto) Cancelled Lymph # (Auto) Cancelled [place] # (Auto) Cancelled Eos # (Auto) Cancelled Baso # (Auto) Cancelled Abs Immat Gran (auto) Cancelled Absolute Neuts (auto) Cancelled Absolute Nucleated RBC 0.030 H Nucleated RBC % (auto) 0.1 Neutrophils % (Manual) 83 H Band Neutrophils % 9 H Lymphocytes % (Manual) 4 L Monocytes % (Manual) 4 Abs Neuts (Manual) 23.3 H Lymphocytes # (Manual) 1.0 L Monocytes # (Manual) 1.0 Platelet Estimate NORMAL Plt Morphology Comment NORMAL RBC Morphology NOTED Polychromasia 1+ (0-2) Smear Tech's Comments MANUAL DIFF O2 Saturation 96.0 ABG pH at Pt Temp 7.37 ABG pCO2 at Pt Temp 38 ABG pO2 at Pt Temp 97 ABG HCO3 22 ABG Base Excess (Actual) -2.1 Anion Gap 19 Estim Creat Clear Calc 31.4 Estimated GFR 22 Random Glucose 130 H Lactic Acid 3.8 H* Lactic Acid F/U @ 2Hr Calcium 8.7 Phosphorus Magnesium 2.9 H Troponin I High Sens 17.3 NT-Pro-B Natriuret Pep 24873.6 H Influenza Type A (PCR) NEGATIVE Influenza Type B (PCR) NEGATIVE RSV RNA Qual (PCR) NEGATIVE SARS-CoV-2 RNA (RT-PCR) NEGATIVE 05/19/25 05/19/25 22:00 22:01 MCV MCH MCHC RDW Plt Count MPV Immature Gran % (Auto) Neut % (Auto) Lymph % (Auto) [place] % (Auto) Eos % (Auto) Baso % (Auto) Lymph # (Auto) [place] # (Auto) Eos # (Auto) Baso # (Auto) Abs Immat Gran (auto) Absolute Neuts (auto) Absolute Nucleated RBC Nucleated RBC % (auto) Neutrophils % (Manual) Band Neutrophils % Lymphocytes % (Manual) Monocytes % (Manual) Abs Neuts (Manual) Lymphocytes # (Manual) Monocytes # (Manual) Platelet Estimate Plt Morphology Comment RBC Morphology Polychromasia Smear Tech's Comments O2 Saturation ABG pH at Pt Temp ABG pCO2 at Pt Temp ABG pO2 at Pt Temp ABG HCO3 ABG Base Excess (Actual) Anion Gap Estim Creat Clear Calc Estimated GFR Random Glucose Lactic Acid Lactic Acid F/U @ 2Hr 2.7 H* Calcium Phosphorus 3.1 Magnesium Troponin I High Sens NT-Pro-B Natriuret Pep Influenza Type A (PCR) Influenza Type B (PCR) RSV RNA Qual (PCR) SARS-CoV-2 RNA (RT-PCR) Assessment and Plan (1) Sepsis: Qualifiers: Acute respiratory failure type: with hypoxia Sepsis acute organ dysfunction status: with acute organ dysfunction Sepsis type: sepsis due to unspecified organism Severe sepsis acute organ dysfunction type: acute respiratory failure Severe sepsis shock status: without septic shock Qualified Code(s): A41.9 - Sepsis, unspecified organism; R65.20 - Severe sepsis without septic shock; J96.01 - Acute respiratory failure with hypoxia Status: Acute (2) Pneumonia: Qualifiers: Laterality: bilateral Lung location: unspecified part of lung Pneumonia type: due to unspecified organism Qualified Code(s): J18.9 - Pneumonia, unspecified organism Status: Acute (3) Bilateral cellulitis of lower leg: Status: Acute (4) Bilateral edema of lower extremity: Status: Acute (5) History of intravenous drug use in remission: Status: Acute Plan 49 y/o M with hx of hypertension, anxiety, depression, hep C s/p tx with? Epclusa,? 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 Neuro:? No acute issues. Cardiac:? pro-BNP elevated, edema noted on CXR. Diurese, BiPAP. Echo ordered. Pulmonary: Multi-focal pneumonia. Continue vanco, cefepime, nebs. Taper O2 as able. Renal: HODAN, baseline creat around 0.9. Monitor renal indices and urine output. Endo:? No acute issues.? GI:? No acute issues. ID:? Patient was given albumin per sepsis protocol. Multifocal pneumonia likely source.? Cultures pending. Consult ID for wound care, HCV treatment.? Heme/Onc:? No acute issues.? Psych: Prior IVDU. Continue methadone. Miscellaneous: BLE cellulitis followed by wound center. Consult placed.? Prophylaxis: Lovenox Diet:? regular Total time managing care of this patient today: 75 minutes.
[2025-05-19] MEDS: Furosemide 40 MG/4 ML VIAL IVPUSH (23:00)
[2025-05-19] MEDS: Furosemide 200 MG in 0.9 % Sodium Chloride 80 ML IVCONT (23:51)
[2025-05-20] VITALS (31 sets, daily range): BP systolic 129–160; BP diastolic 68–90; PULSE 79–107; RESP 8–21; TEMP 36–37.2; O2SAT 89–96; BMI 39.0
[2025-05-20 00:06] LABS: Reflex Lactate? 2 Y
[2025-05-20 01:07] LABS: ~Lactic Acid-LAB USE ONLY 1.6 mmol/L (0.5-2.0)
[2025-05-20] MEDS: oxyCODONE HCl Immed Release 5 MG TABLET PO ×3 (01:17→18:10)
[2025-05-20 05:55] LABS: VBG HCO3 21 mmol/L (22-26); VBG O2 % Saturation 92.0 %
[2025-05-20 05:56] LABS: Venous Blood Gas Refer to POC result
[2025-05-20 05:56] LABS: MANUAL DIFF FLAG NO
[2025-05-20 05:59] LABS: Hematocrit 27.5 % (42.0-52.0); Hemoglobin 8.7 g/dl (14.0-18.0); Imm Gran Abs Auto 0.39 X10*3/uL (0.00-0.03); Imm Gran Pct Auto 1.7 % (0.0-0.4); Lymphocytes Absolute Auto 1.2 X10*3/uL (1.2-4.9); Mean Corpuscular HGB Conc 31.6 g/dl (31.0-36.0); Mean Corpuscular Hemoglobin 27.9 pg (27.0-33.0); Mean Corpuscular Volume 88.1 fL (80.0-98.0); NRBC Abs Auto 0.100 X10*3/uL (0.0-0.012); NRBC Pct Auto 0.4 /100WBC (0.0-0.2); Platelet Count 306 X10*3/uL (160-400); Red Blood Count 3.12 X10*6/uL (4.60-5.80); White Blood Count 22.5 X10*3/uL (4.8-10.8)
[2025-05-20 06:15] LABS: Alanine Aminotransferase 41 U/L (0-40); Albumin Level 4.1 g/dL (3.5-5.0); Alkaline Phosphatase 133 U/L (39-117); Anion Gap 15 (12-20); Aspartate Amino Transferase 49 U/L (5-37); Blood Urea Nitrogen 72 mg/dL (9-16); Calcium 8.5 mg/dL (8.4-10.2); Carbon Dioxide 20 mmol/L (22-29); Chloride 107 mmol/L (96-108); Creatinine Clr Calc Pharmacy 42.3; Estimated Glomerular Filt Rate 31; Potassium 4.7 mmol/L (3.3-5.1); Sodium 137 mmol/L (135-145); Total Protein 8.2 g/dL (6.5-8.0)
[2025-05-20 06:17] LABS: Anion Gap 12 (12-20); Blood Urea Nitrogen 64 mg/dL (9-16); Calcium 7.4 mg/dL (8.4-10.2); Carbon Dioxide 19 mmol/L (22-29); Chloride 112 mmol/L (96-108); Creatinine Clr Calc Pharmacy 48.1; Estimated Glomerular Filt Rate 36; Magnesium 2.9 mg/dL (1.6-2.6); Potassium 4.1 mmol/L (3.3-5.1); Sodium 139 mmol/L (135-145)
--- NOTE | 2025-05-20 07:00 | PHA.PROG ---
Admission Date/Time: May 19, 2025 20:27 Indication: RESPIRATORY Weight in k.1 kg Adjusted body weight in K.76 [place] body weight in K.2 Obesity Dosing Indication % IBW: 39.0 Serum Creatinine - Last 168 Hours 05/19/25 05/20/25 05/20/25 18:30 05:48 05:48 Creatinine 3.02 H 1.97 H 2.24 H Estimated CrCl and GFR - Last 168 Hours 05/19/25 05/20/25 05/20/25 18:30 05:48 05:48 Estim Creat Clear Calc 31.4 48.1 42.3 Estimated GFR 22 36 05/20/25 05:48 Estim Creat Clear Calc Estimated GFR 31 Vancomycin Loading Dose: 1500 MG + 500 MG Current Vancomycin Dosing Regimen: 1250 MG Q24 Vancomycin Monitoring using AUC goal of 400 - 600 range with trough as surrogate marker: 483/15.3 Date and Time for next Vancomycin Level to be drawn: 05/22 @1900 Pharmacist Comments on Vancomycin Plan: LOAD GIVEN 2 DOSES OF 1500 AND 500. VERY POOR RENAL FUNCTION. CLOSE MONITORING RECOMMENDED. Vancomycin dosing will take advantage of [employer] as a clinical decision support tool that uses Bayesian modeling to calculate individual patient's pharmacokinetic parameters and forecast the patient's drug concentration time course with the target goal AUC 24 range of 400 - 600 mg/L/hr.
[2025-05-20] MEDS: Albuterol/Iprat 2.5/0.5MG 3 ML AMPUL.NEB INHALE ×4 (07:58→21:27)
[2025-05-20] MEDS: Nicotine 7 MG PATCH.TD24 TRANSDERMA (08:47)
[2025-05-20] MEDS: methADONE HCl 20 MG/2 ML ORAL.CONC 135 MG PO (08:49)
--- NOTE | 2025-05-20 09:02 | PM.CCPN ---
Subjective Subjective Date of Service: 05/20/25 Interval History: admitted 05/19 PM w/ acute hypoxic respiratory failure, likely d/t multifocal pneumonia Critical Care Time (minutes): 60 Physical Exam Vital Signs: Vital Signs: Last Vital Signs Temp 96.8 F 05/20/25 08:00 Pulse 81 05/20/25 08:00 Resp 9 L 05/20/25 08:00 BP 155/71 H 05/20/25 08:00 Pulse Ox 90 L 05/20/25 08:00 O2 Del Method High Flow Nasal C annula 05/20/25 08:00 O2 Flow Rate 50 05/20/25 08:00 FiO2 80 05/20/25 08:00 Oxygen Flow Rate 55 05/19/25 20:27 BMI result Body Mass Index 39.0 Const: General: cooperative, healthy appearing, comfortable, no acute distress, well developed, alert, awake and Physically active Orientation/consciousness: patient oriented x3 HEENT: Head: Yes normal to inspection, Yes normocephalic and Yes atraumatic Eyes: General: appearance normal, both eyes and all related structures Neck: Neck: Yes normal visual inspection, Yes full ROM, Yes trachea midline and Yes supple Chest: Chest palpation & inspection: normal inspection of the chest Resp: Other: some appreciable rhonchi; no appreciable rales, wheezing Effort & Inspection: normal respiratory effort Cardio: Rate: regular rate Rhythm: regular rhythm GI: Inspection: Yes normal to inspection, No Abdominal wall edema and No distended Palpation (GI): Soft to palpation, not firm, nontender, no guarding and not rigid Skin: Other: appreciable lower extremity changes w/o overt flutuance, induration Neuro: General: patient oriented x3, tone normal, moves all extremities and no focal motor deficits Extrem: Other: as described above General: Yes full ROM and Yes capillary refill normal Psych: Appearance: grossly normal Objective Data Labs 05/20/25 05:48 05/20/25 05:48 Labs: Laboratory Results - last 24 hr 05/19/25 05/19/25 05/19/25 18:30 18:45 18:54 WBC 25.3 H RBC 3.33 L Hgb 9.5 L Hct 29.2 L MCV 87.7 MCH 28.5 MCHC 32.5 RDW 16.0 Plt Count 345 MPV 10.3 Immature Gran % (Auto) Cancelled Neut % (Auto) Cancelled Lymph % (Auto) Cancelled [place] % (Auto) Cancelled Eos % (Auto) Cancelled Baso % (Auto) Cancelled Lymph # (Auto) Cancelled [place] # (Auto) Cancelled Eos # (Auto) Cancelled Baso # (Auto) Cancelled Abs Immat Gran (auto) Cancelled Absolute Neuts (auto) Cancelled Absolute Nucleated RBC 0.030 H Nucleated RBC % (auto) 0.1 Neutrophils % (Manual) 83 H Band Neutrophils % 9 H Lymphocytes % (Manual) 4 L Monocytes % (Manual) 4 Abs Neuts (Manual) 23.3 H Lymphocytes # (Manual) 1.0 L Monocytes # (Manual) 1.0 Platelet Estimate NORMAL Plt Morphology Comment NORMAL RBC Morphology NOTED Polychromasia 1+ (0-2) Smear Tech's Comments MANUAL DIFF O2 Saturation 96.0 ABG pH at Pt Temp 7.37 ABG pCO2 at Pt Temp 38 ABG pO2 at Pt Temp 97 ABG HCO3 22 ABG Base Excess (Actual) -2.1 VBG pH VBG pCO2 VBG pO2 VBG HCO3 VBG O2 Saturation VBG Base Excess Sodium 134 L Potassium 5.1 D Chloride 102 Carbon Dioxide 18 L Anion Gap 19 BUN 79 H Creatinine 3.02 H Estim Creat Clear Calc 31.4 Estimated GFR 22 Random Glucose 130 H Lactic Acid 3.8 H* Lactic Acid F/U @ 2Hr Lactic Acid F/U @ 4Hr Calcium 8.7 Phosphorus Magnesium 2.9 H Total Bilirubin AST ALT Alkaline Phosphatase Troponin I High Sens 17.3 NT-Pro-B Natriuret Pep 47492.6 H Total Protein Albumin Influenza Type A (PCR) NEGATIVE Influenza Type B (PCR) NEGATIVE RSV RNA Qual (PCR) NEGATIVE SARS-CoV-2 RNA (RT-PCR) NEGATIVE 05/19/25 05/19/25 05/20/25 22:00 22:01 00:31 WBC RBC Hgb Hct MCV MCH MCHC RDW Plt Count MPV Immature Gran % (Auto) Neut % (Auto) Lymph % (Auto) [place] % (Auto) Eos % (Auto) Baso % (Auto) Lymph # (Auto) [place] # (Auto) Eos # (Auto) Baso # (Auto) Abs Immat Gran (auto) Absolute Neuts (auto) Absolute Nucleated RBC Nucleated RBC % (auto) Neutrophils % (Manual) Band Neutrophils % Lymphocytes % (Manual) Monocytes % (Manual) Abs Neuts (Manual) Lymphocytes # (Manual) Monocytes # (Manual) Platelet Estimate Plt Morphology Comment RBC Morphology Polychromasia Smear Tech's Comments O2 Saturation ABG pH at Pt Temp ABG pCO2 at Pt Temp ABG pO2 at Pt Temp ABG HCO3 ABG Base Excess (Actual) VBG pH VBG pCO2 VBG pO2 VBG HCO3 VBG O2 Saturation VBG Base Excess Sodium Potassium Chloride Carbon Dioxide Anion Gap BUN Creatinine Estim Creat Clear Calc Estimated GFR Random Glucose Lactic Acid Lactic Acid F/U @ 2Hr 2.7 H* Lactic Acid F/U @ 4Hr 1.6 Calcium Phosphorus 3.1 Magnesium Total Bilirubin AST ALT Alkaline Phosphatase Troponin I High Sens NT-Pro-B Natriuret Pep Total Protein Albumin Influenza Type A (PCR) Influenza Type B (PCR) RSV RNA Qual (PCR) SARS-CoV-2 RNA (RT-PCR) 05/20/25 05/20/25 05/20/25 05:48 05:48 05:48 WBC 22.5 H RBC 3.12 L Hgb 8.7 L Hct 27.5 L MCV 88.1 MCH 27.9 MCHC 31.6 RDW 16.1 H Plt Count 306 MPV 10.0 Immature Gran % (Auto) 1.7 H Neut % (Auto) 87.2 H Lymph % (Auto) 5.5 L [place] % (Auto) 5.4 Eos % (Auto) 0.0 Baso % (Auto) 0.2 Lymph # (Auto) 1.2 [place] # (Auto) 1.2 Eos # (Auto) 0.0 Baso # (Auto) 0.1 Abs Immat Gran (auto) 0.39 H Absolute Neuts (auto) 19.6 H Absolute Nucleated RBC 0.100 H Nucleated RBC % (auto) 0.4 H Neutrophils % (Manual) Band Neutrophils % Lymphocytes % (Manual) Monocytes % (Manual) Abs Neuts (Manual) Lymphocytes # (Manual) Monocytes # (Manual) Platelet Estimate Plt Morphology Comment RBC Morphology Polychromasia Smear Tech's Comments O2 Saturation ABG pH at Pt Temp ABG pCO2 at Pt Temp ABG pO2 at Pt Temp ABG HCO3 ABG Base Excess (Actual) VBG pH VBG pCO2 VBG pO2 VBG HCO3 VBG O2 Saturation VBG Base Excess Sodium 139 137 Potassium 4.1 4.7 Chloride 112 H Carbon Dioxide Anion Gap BUN Creatinine Estim Creat Clear Calc Estimated GFR Random Glucose Lactic Acid Lactic Acid F/U @ 2Hr Lactic Acid F/U @ 4Hr Calcium Phosphorus Magnesium Total Bilirubin AST ALT Alkaline Phosphatase Troponin I High Sens NT-Pro-B Natriuret Pep Total Protein Albumin Influenza Type A (PCR) Influenza Type B (PCR) RSV RNA Qual (PCR) SARS-CoV-2 RNA (RT-PCR) 05/20/25 05/20/25 05/20/25 05:48 05:48 05:48 WBC RBC Hgb Hct MCV MCH MCHC RDW Plt Count MPV Immature Gran % (Auto) Neut % (Auto) Lymph % (Auto) [place] % (Auto) Eos % (Auto) Baso % (Auto) Lymph # (Auto) [place] # (Auto) Eos # (Auto) Baso # (Auto) Abs Immat Gran (auto) Absolute Neuts (auto) Absolute Nucleated RBC Nucleated RBC % (auto) Neutrophils % (Manual) Band Neutrophils % Lymphocytes % (Manual) Monocytes % (Manual) Abs Neuts (Manual) Lymphocytes # (Manual) Monocytes # (Manual) Platelet Estimate Plt Morphology Comment RBC Morphology Polychromasia Smear Tech's Comments O2 Saturation ABG pH at Pt Temp ABG pCO2 at Pt Temp ABG pO2 at Pt Temp ABG HCO3 ABG Base Excess (Actual) VBG pH VBG pCO2 VBG pO2 VBG HCO3 VBG O2 Saturation VBG Base Excess Sodium Potassium Chloride 107 Carbon Dioxide 19 L 20 L Anion Gap 12 15 BUN 64 H Creatinine Estim Creat Clear Calc Estimated GFR Random Glucose Lactic Acid Lactic Acid F/U @ 2Hr Lactic Acid F/U @ 4Hr Calcium Phosphorus Magnesium Total Bilirubin AST ALT Alkaline Phosphatase Troponin I High Sens NT-Pro-B Natriuret Pep Total Protein Albumin Influenza Type A (PCR) Influenza Type B (PCR) RSV RNA Qual (PCR) SARS-CoV-2 RNA (RT-PCR) 05/20/25 05/20/25 05/20/25 05:48 05:48 05:48 WBC RBC Hgb Hct MCV MCH MCHC RDW Plt Count MPV Immature Gran % (Auto) Neut % (Auto) Lymph % (Auto) [place] % (Auto) Eos % (Auto) Baso % (Auto) Lymph # (Auto) [place] # (Auto) Eos # (Auto) Baso # (Auto) Abs Immat Gran (auto) Absolute Neuts (auto) Absolute Nucleated RBC Nucleated RBC % (auto) Neutrophils % (Manual) Band Neutrophils % Lymphocytes % (Manual) Monocytes % (Manual) Abs Neuts (Manual) Lymphocytes # (Manual) Monocytes # (Manual) Platelet Estimate Plt Morphology Comment RBC Morphology Polychromasia Smear Tech's Comments O2 Saturation ABG pH at Pt Temp ABG pCO2 at Pt Temp ABG pO2 at Pt Temp ABG HCO3 ABG Base Excess (Actual) VBG pH VBG pCO2 VBG pO2 VBG HCO3 VBG O2 Saturation VBG Base Excess Sodium Potassium Chloride Carbon Dioxide Anion Gap BUN 72 H Creatinine 1.97 H 2.24 H Estim Creat Clear Calc 48.1 42.3 Estimated GFR 36 Random Glucose Lactic Acid Lactic Acid F/U @ 2Hr Lactic Acid F/U @ 4Hr Calcium Phosphorus Magnesium Total Bilirubin AST ALT Alkaline Phosphatase Troponin I High Sens NT-Pro-B Natriuret Pep Total Protein Albumin Influenza Type A (PCR) Influenza Type B (PCR) RSV RNA Qual (PCR) SARS-CoV-2 RNA (RT-PCR) 05/20/25 05/20/25 05/20/25 05:48 05:48 05:48 WBC RBC Hgb Hct MCV MCH MCHC RDW Plt Count MPV Immature Gran % (Auto) Neut % (Auto) Lymph % (Auto) [place] % (Auto) Eos % (Auto) Baso % (Auto) Lymph # (Auto) [place] # (Auto) Eos # (Auto) Baso # (Auto) Abs Immat Gran (auto) Absolute Neuts (auto) Absolute Nucleated RBC Nucleated RBC % (auto) Neutrophils % (Manual) Band Neutrophils % Lymphocytes % (Manual) Monocytes % (Manual) Abs Neuts (Manual) Lymphocytes # (Manual) Monocytes # (Manual) Platelet Estimate Plt Morphology Comment RBC Morphology Polychromasia Smear Tech's Comments O2 Saturation ABG pH at Pt Temp ABG pCO2 at Pt Temp ABG pO2 at Pt Temp ABG HCO3 ABG Base Excess (Actual) VBG pH VBG pCO2 VBG pO2 VBG HCO3 VBG O2 Saturation VBG Base Excess Sodium Potassium Chloride Carbon Dioxide Anion Gap BUN Creatinine Estim Creat Clear Calc Estimated GFR 31 Random Glucose 124 H 138 H Lactic Acid Lactic Acid F/U @ 2Hr Lactic Acid F/U @ 4Hr Calcium 7.4 L D 8.5 D Phosphorus Magnesium 2.9 H Total Bilirubin 0.3 AST 49 H ALT 41 H Alkaline Phosphatase 133 H Troponin I High Sens NT-Pro-B Natriuret Pep Total Protein 8.2 H Albumin 4.1 Influenza Type A (PCR) Influenza Type B (PCR) RSV RNA Qual (PCR) SARS-CoV-2 RNA (RT-PCR) 05/20/25 05:51 WBC RBC Hgb Hct MCV MCH MCHC RDW Plt Count MPV Immature Gran % (Auto) Neut % (Auto) Lymph % (Auto) [place] % (Auto) Eos % (Auto) Baso % (Auto) Lymph # (Auto) [place] # (Auto) Eos # (Auto) Baso # (Auto) Abs Immat Gran (auto) Absolute Neuts (auto) Absolute Nucleated RBC Nucleated RBC % (auto) Neutrophils % (Manual) Band Neutrophils % Lymphocytes % (Manual) Monocytes % (Manual) Abs Neuts (Manual) Lymphocytes # (Manual) Monocytes # (Manual) Platelet Estimate Plt Morphology Comment RBC Morphology Polychromasia Smear Tech's Comments O2 Saturation ABG pH at Pt Temp ABG pCO2 at Pt Temp ABG pO2 at Pt Temp ABG HCO3 ABG Base Excess (Actual) VBG pH 7.47 H VBG pCO2 29 VBG pO2 69 VBG HCO3 21 L VBG O2 Saturation 92.0 VBG Base Excess -1.3 Sodium Potassium Chloride Carbon Dioxide Anion Gap BUN Creatinine Estim Creat Clear Calc Estimated GFR Random Glucose Lactic Acid Lactic Acid F/U @ 2Hr Lactic Acid F/U @ 4Hr Calcium Phosphorus Magnesium Total Bilirubin AST ALT Alkaline Phosphatase Troponin I High Sens NT-Pro-B Natriuret Pep Total Protein Albumin Influenza Type A (PCR) Influenza Type B (PCR) RSV RNA Qual (PCR) SARS-CoV-2 RNA (RT-PCR) Progress Note: A&P Assessment and plan (1) Pneumonia: Status: Acute (2) Acute hypoxic respiratory failure: Status: Acute Plan Patient is a 49 Y M w/ hypertension, peripheral vascular disease c/b chronic lower extremity wounds, and prior IVDU c/b HCV s/p treatment, on methadone, presenting to emergency department on 05/19 w/ dyspnea; ED work-up suggestive of multifocal pneumonia on CT C, as well as elevated BNP; ED course c/b acute hypoxic respiratory failure, placed on HFNC N: no acute issues CV: elevated BNP, w/o known HF, diuresis as tolerated; of note patient reports prior endocarditis treated at [facility] [place], though unable to find this information; multi-focal pneumonia possibly d/t septic embolism, follow-up echocardiogram R: acute hypoxic respiratory failure, likely d/t multi-focal pneumonia, HFNC, wean as tolerated GI: no acute issues; HCV s/p treatment : acute renal insufficiency, improving; to monitor renal indices in setting of diuresis H: no acute issues; chemical DVT prophylaxis ID: multi-focal pneumonia, empiric vanc/zosyn; of note, recent admission for LE cellulitis E: to monitor hypo-/hyper-glycemia P: no acute issues S: of note, patient defers updates to mother unless medically necessary Quality Stroke Does the patient have a stroke diagnosis?: No VTE Prior VTE?: No VTE Risk Level:: Medical - moderate - high VTE Device Contraindication: N/A - Device Ordered VTE Drug Contraindication: N/A - Med Ordered
--- NOTE | 2025-05-20 09:35 | PHA.MEDREC ---
Addendum entered by Sana Gold RPh 05/20/25 10:35: MED REC REVIEWED BY [facility] Original Note: Pharmacy Consult ? Medication Reconciliation Pharmacy has completed the medication reconciliation. Confirmed medication list with patient. Patient claims took zepbound pen yesterday, but seemed unsure when answering question. Patient claims took all medications yesterday. Additional confirmation needed on last date patient took oxycodone 5mg.
--- NOTE | 2025-05-20 11:05 | HE.PHANOTE ---
RE: METHADONE DOSING Last dose of methadone 135 mg was given on 05/02/25 with 27 take home doses per [place] at [facility] [phone]. Patient told nurse Julio Valdivia that he last took his take home dose on wednesday05/18/25.
--- NOTE | 2025-05-20 13:14 | MHC.CM.PN ---
IMM DELIVERED PT LIVES WITH OTHERS IN A SOBER LIVING HOUSE. PT USES A CANE FOR MOBILITY. PT ALSO ATTENDS [facility] AND IS ACTIVE WITH [facility] FOR [facility]OUND CARE. PT STATES HE GETS HIS METHADONE MONTHLY FROM [facility]. PT DECLINES TO COMPLETE A HCP AT THIS TIME. PCP DR. JACOBS AT [facility]. DP: HOME WITH RESUMPTION OF PREVIOUS SERVICES IS THE GOAL. RETURN REFERRAL TO NA SENT VIA [facility]. PT'S FAMILY MAY BE ABLE TO PROVIDE A RIDE HOME. CM WILL CONTINUE TO FOLLOW FOR ANY CHANGE TO DC PLAN/NEEDS.
[2025-05-20] MEDS: Furosemide 200 MG in 0.9 % Sodium Chloride 80 ML IVCONT (14:35)
[2025-05-20 18:56] LABS: Anion Gap 14 (12-20); Blood Urea Nitrogen 72 mg/dL (9-16); Calcium 8.6 mg/dL (8.4-10.2); Carbon Dioxide 25 mmol/L (22-29); Chloride 103 mmol/L (96-108); Creatinine Clr Calc Pharmacy 46.5; Estimated Glomerular Filt Rate 35; Magnesium 2.9 mg/dL (1.6-2.6); Potassium 4.2 mmol/L (3.3-5.1); Sodium 138 mmol/L (135-145)
[2025-05-20] MEDS: 0.9 % Sodium Chloride Flush 3 ML SYRINGE IVFLUSH (23:40)
[2025-05-21] VITALS (33 sets, daily range): BP systolic 129–168; BP diastolic 67–95; PULSE 79–110; RESP 11–21; TEMP 36.2–37; O2SAT 89–95; BMI 38.5
[2025-05-21] MEDS: Furosemide 200 MG in 0.9 % Sodium Chloride 80 ML IVCONT ×2 (02:49→20:27)
[2025-05-21 05:32] LABS: Venous Blood Gas Refer to POC result
[2025-05-21 05:32] LABS: VBG HCO3 32 mmol/L (22-26); VBG O2 % Saturation 91.0 %
[2025-05-21 05:51] LABS: MANUAL DIFF FLAG NO
[2025-05-21 05:52] LABS: Hematocrit 29.5 % (42.0-52.0); Hemoglobin 9.1 g/dl (14.0-18.0); Imm Gran Abs Auto 0.99 X10*3/uL (0.00-0.03); Imm Gran Pct Auto 4.6 % (0.0-0.4); Lymphocytes Absolute Auto 1.5 X10*3/uL (1.2-4.9); Mean Corpuscular HGB Conc 30.8 g/dl (31.0-36.0); Mean Corpuscular Hemoglobin 28.2 pg (27.0-33.0); Mean Corpuscular Volume 91.3 fL (80.0-98.0); NRBC Abs Auto 0.210 X10*3/uL (0.0-0.012); Platelet Count 292 X10*3/uL (160-400); Red Blood Count 3.23 X10*6/uL (4.60-5.80); White Blood Count 21.5 X10*3/uL (4.8-10.8)
[2025-05-21 06:01] LABS: NRBC Pct Auto 1.0 /100WBC (0.0-0.2)
[2025-05-21 06:12] LABS: Anion Gap 14 (12-20); Blood Urea Nitrogen 66 mg/dL (9-16); Calcium 8.8 mg/dL (8.4-10.2); Carbon Dioxide 29 mmol/L (22-29); Chloride 103 mmol/L (96-108); Creatinine Clr Calc Pharmacy 55.4; Estimated Glomerular Filt Rate 43; Magnesium 2.6 mg/dL (1.6-2.6); Potassium 4.6 mmol/L (3.3-5.1); Sodium 141 mmol/L (135-145)
--- NOTE | 2025-05-21 07:00 | CA_ITS ---
Transthoracic Echocardiogram Patient (Last, First, Middle): Pop Carcamo M Gender: M Date of : 1975 Age: 49 Procedure Date: 05/21/2025 Procedure Type: Transthoracic Echocardiogram Location: ICU Height: 162. cm Weight: 101.61 kg BSA: 2.05 m2 Heart Rate: 88 bpm BP: 156 / 72 mmHg Student Counsellor: OLAMIDE Referring MD: Shala Hernandes MD Symptoms: ?Heart Failure, ?Endocarditis Study Quality: Technically Difficult w/Contrast ECG Rhythm: Sinus Conclusions: - Normal left ventricular cavity size. There is normal left ventricular wall thickness. The left ventricular systolic function is hyperdynamic. The visually estimated ejection fraction is >70%. - Moderately increased right ventricular cavity size. There is normal right ventricular systolic function. - There is mild aortic valve stenosis. - Poor 2-D valvular assessment. Findings Procedure Information Contrast agent, definity, is being given per protocol without apparent complications. Left Ventricle Normal left ventricular cavity size. There is normal left ventricular wall thickness. The left ventricular systolic function is hyperdynamic. The visually estimated ejection fraction is >70%. There is no evidence of regional wall motion abnormalities. Diastolic function is normal for age. Right Ventricle Moderately increased right ventricular cavity size. There is normal right ventricular systolic function. Atria The left atrium was not well visualized. The right atrium is mildly dilated. Aortic Valve The aortic valve structure and function is likely normal. There is mild aortic valve stenosis. The peak aortic velocity is 2.34 m/s. There is no aortic valve regurgitation. Mitral Valve The mitral valve was not well visualized. There is no mitral valve regurgitation. There is no mitral valve stenosis. Pulmonic Valve The pulmonic valve was not well visualized. Tricuspid Valve The tricuspid valve was not well visualized. Normal right atrial pressure. There is no evidence of pulmonary hypertension. Great Vessels All visible segments of the aorta are normal in size. Venous The inferior vena cava is normal in size and collapses greater than 50% with inspiration. Pericardium/Pleural There is no evidence of pericardial effusion. Measurements 2D Linear Measurements IVSd: 0.90 0.6-0.9/0.6-1.0 cm LVIDd: 3.43 3.9-5.3/4.2-5.9 cm LVIDd Index: 1.67 2.4-3.2/2.2-3.1 cm/m2 LVIDs: 2.32 2.0-3.6 cm LVPWd: 0.92 0.7-1.1 cm LA Diam: 3.30 2.7-3.8/3.0-4.0 cm LAIDs Index: 1.61 1.5-2.3 cm/m2 LV Mass: 108.61 67-162/88-224 g LV Mass Index: 52.98 43-95/49-115 g/m2 LVOT Diam: 1.80 3.0+(-)1.3 cm 2D Systolic Function EF 4C: 78.10 >55% EF 2C: 77.70 >55% EF BiP: 78.10 >55% Mitral Valve MV Pk E: 0.80 MV PK A: 0.66 MV Decel Time: 174.00 E/A: 1.20 E'Lateral: 15.00 E'Medial: 8.70 E/E' Med: 9.20 E/E' Lat: 5.40 PHT: 51.00 MVA PHT: 4.31 Decel Moffat: 4.62 Aortic Valve AoV Pk Yeyo: 2.34 AoV Mn Yeyo: 1.62 AoV VTI: 0.39 AoV Pk Grad: 22.00 Aov Mn Grad: 12.00 RODNEY Cont.VTI: 1.59 LVOT LVOT Pk Yeyo: 1.47 LVOT Mn Yeyo: 1.11 LVOT VTI: 0.24 LVOT Pk Grad: 9.00 LVOT Mn Grad: 5.00 LVOT Diam: 1.80 LVOT Area: 2.54 Diastolic Function MV Pk E: 0.80 MV Pk A: 0.66 E/A: 1.20 E'Medial: 8.70 E/E' Med: 9.20 E' Laterial: 15.00 E/E' Lat: 5.40 Right Ventricle TAPSE (mm): 37.20 TVS' Yeyo: 20.00 Tricuspid Valve TR Pk Yeyo: 2.13 TR Pk Grad: 18.00 RA Press: 3.00 RVSP: 21.00 Great Vessels Aorta Sinus of Valsalva: 2.90 2.0-3.5 cm Ao Asc: 2.50 2.1-3.4 cm Ao Arch: 2.80 Pulmonary Veins Pulm Vein S/D 1.30 Pulmonary Valve PV Pk Yeyo: 1.29 Peak PV Grad: 7.00 Updated in Other Vendor System with Status of Final Vidal Nicole MD electronically signed on 05/21/2025 8:38:03 PM with status of Final
[2025-05-21] MEDS: 0.9 % Sodium Chloride Flush 3 ML SYRINGE IVFLUSH (08:01)
[2025-05-21] MEDS: methADONE HCl 20 MG/2 ML ORAL.CONC 135 MG PO (08:01)
[2025-05-21] MEDS: Nicotine 7 MG PATCH.TD24 TRANSDERMA (08:04)
[2025-05-21] MEDS: Albuterol/Iprat 2.5/0.5MG 3 ML AMPUL.NEB INHALE ×4 (08:11→20:10)
--- NOTE | 2025-05-21 12:33 | PM.CCPN ---
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 Patient treated with IV diuresis with incremental improvement, now titrated to high-flow nasal cannula. No events overnight. Critical Care Time (minutes): 0 Physical Exam Vital Signs: Vital Signs: Last Vital Signs Temp 97.1 F 05/21/25 08:00 Pulse 110 H 05/21/25 12:00 Resp 19 05/21/25 12:00 BP 148/69 H 05/21/25 12:00 Pulse Ox 90 L 05/21/25 12:00 O2 Del Method High Flow Nasal C annula 05/21/25 12:00 O2 Flow Rate 45 05/21/25 12:00 FiO2 65 05/21/25 12:00 Oxygen Flow Rate 55 05/19/25 20:27 BMI result Body Mass Index 38.5 Const: General: no acute distress, alert and awake Eyes: Sclerae: sclerae normal EOM: EOMs intact bilaterally Neck: Neck: Yes no lymphadenopathy, Yes trachea midline and Yes supple Resp: Effort & Inspection: normal respiratory effort and no respiratory distress Auscultation: crackles (Bilateral) Cardio: Rate: tachycardic Rhythm: regular rhythm Heart sounds: no gallops, no murmurs and no rubs GI: Palpation (GI): Soft to palpation and Other GI palpation findings present ( Nontender) Auscultation: normal bowel sounds Extrem: General: Yes no pedal edema, No clubbing and No cyanosis Objective Data Labs 05/21/25 05:26 05/21/25 05:26 Labs: Laboratory Results - last 24 hr 05/20/25 05/21/25 05/21/25 18:06 05:26 05:28 WBC 21.5 H RBC 3.23 L Hgb 9.1 L Hct 29.5 L MCV 91.3 MCH 28.2 MCHC 30.8 L RDW 16.3 H Plt Count 292 MPV 10.0 Immature Gran % (Auto) 4.6 H Neut % (Auto) 80.8 H Lymph % (Auto) 7.1 L [place] % (Auto) 7.0 Eos % (Auto) 0.1 Baso % (Auto) 0.4 Lymph # (Auto) 1.5 [place] # (Auto) 1.5 H Eos # (Auto) 0.0 Baso # (Auto) 0.1 Abs Immat Gran (auto) 0.99 H Absolute Neuts (auto) 17.4 H Absolute Nucleated RBC 0.210 H Nucleated RBC % (auto) 1.0 H Smear Path Review SEE NOTE VBG pH 7.44 H VBG pCO2 47 VBG pO2 67 VBG HCO3 32 H VBG O2 Saturation 91.0 VBG Base Excess 7.3 Sodium 138 141 Potassium 4.2 4.6 Chloride 103 103 Carbon Dioxide 25 29 Anion Gap 14 14 BUN 72 H 66 H Creatinine 2.04 H 1.70 H Estim Creat Clear Calc 46.5 55.4 Estimated GFR 35 43 Random Glucose 163 H 93 Calcium 8.6 8.8 Phosphorus 2.6 L 3.2 Magnesium 2.9 H 2.6 Microbiology Microbiology Results: Microbiology 05/19/25 18:23 Blood - Venous Blood Culture - Preliminary No growth after 24 hours. 05/19/25 18:30 Blood - Venous Blood Culture - Preliminary No growth after 24 hours. Progress Note: A&P Assessment and plan (1) History of intravenous drug use in remission: Status: Acute (2) PAD (peripheral artery disease): Status: Acute (3) Bilateral cellulitis of lower leg: Status: Acute (4) Acute hypoxic respiratory failure: Status: Acute Plan Assessment: 49-year-old gentleman with underlying history of substance abuse admitted with progressive dyspnea on exertion and hypoxemia secondary to exacerbation of underlying congestive heart failure initially requiring BiPAP support Plan: Neuro: No acute issues. Cardiac: Acute on chronic congestive heart failure, improving with diuresis, continue. 2D echo is pending. Pulmonary: Acute hypoxic respiratory failure secondary to exacerbation of underlying congestive heart failure initially requiring BiPAP support, now titrated off to high-flow nasal cannula. Continue to titrate off as tolerated. Renal: No acute issues. Endo: No acute issues. GI: No acute issues. ID: Recent MSSA bacteremia in patient with underlying history of IV drug abuse. Repeat cultures negative to date. Continue empiric ceftriaxone. Heme/Onc: No acute issues. Psych: No acute issues. Miscellaneous: No acute issues. Prophylaxis: Lovenox Diet: Regular Quality Stroke Does the patient have a stroke diagnosis?: No VTE Prior VTE?: No VTE Risk Level:: Medical - moderate - high VTE Device Contraindication: N/A - Device Ordered VTE Drug Contraindication: N/A - Med Ordered
--- NOTE | 2025-05-21 13:39 | P.CDIM_ITS ---
PROVIDER RESPONSE TEXT: To clarify, the appropriate diagnosis supported by the clinical indicators: Diagnosis was ruled out QUERY TEXT: PHYSICIAN'S DOCUMENTATION REQUEST Date of Query: 05/21/2025 01:06 PM EDT Patient Name: Pop Carcamo Admit Date: 05/20/2025 Dear Anderson Moreau MD, A review of the medical record indicates additional documentation may be needed. Please review below and update the documentation accordingly. Clinical Indicators: ICU H&P 05/19/25 - Sepsis, severe Sepsis Admitted for management of Sepsis d/t acute respiratory failure, multifocal pneumonia. Patient was given albumin per Sepsis protocol. Multifocal pneumonia likely source. Vancomycin, Cefepime WBC 25.3 LA 3.8 RR 24 HR 108 The diagnosis of Sepsis was documented in the ICU H&P dated 05/19/25 but is not consistently noted in subsequent documentation. Please clarify the following: Diagnosis was present on admission and is now resolved Diagnosis was present on admission and is still being monitored, evaluated, or treated Diagnosis was ruled out Diagnosis is still a likely, suspected, probable diagnosis Other (explain) Clinically unable to determine (explain) Thank you, Katarina Flores, CCS, CDIS Use of terms such as suspected, likely, concern for, or probable (associated with a specific diagnosis that is being evaluated, monitored, or treated as if it exists) are acceptable and can be coded in the inpatient setting, when documented at the time of discharge. Please use your independent medical judgment in providing your response. THIS QUERY IS PART OF THE PERMANENT MEDICAL RECORD
--- NOTE | 2025-05-21 15:09 | MHC.CM.PN ---
Pt remains on HFNC O2 in ICU following extubation: Pt is expected to return to sober living house with [facility] [place] Methadone dosing. May need transportation to home. CM to follow
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
[2025-05-21 18:46] LABS: Albumin Level 4.0 g/dL (3.5-5.0); Anion Gap 13 (12-20); Blood Urea Nitrogen 58 mg/dL (9-16); Calcium 9.2 mg/dL (8.4-10.2); Carbon Dioxide 32 mmol/L (22-29); Chloride 98 mmol/L (96-108); Creatinine Clr Calc Pharmacy 67.7; Estimated Glomerular Filt Rate 54; Potassium 4.2 mmol/L (3.3-5.1); Sodium 139 mmol/L (135-145)
--- NOTE | 2025-05-21 19:12 | PC.NURSE ---
Patient A&Ox4, on HFNC 55% 50L sat's 90%-93%, continues on Lasix gtt, external cath in place, total output this shift 2800ml cyu. Patient was able to get oob to the bedside commode, had small BM. Wound care provided by wound RN (see wound note) Patient c/o pain 6 out of 10, Naproxen administered with poor effect, patient was offered different medication but declined stating nothing works for his pain.
[2025-05-21] MEDS: oxyCODONE HCl Immed Release 5 MG TABLET PO (20:31)
[2025-05-22] VITALS (21 sets, daily range): BP systolic 125–172; BP diastolic 76–99; PULSE 82–105; RESP 12–33; TEMP 36.1–37; O2SAT 88–95; BMI 38.1
[2025-05-22 05:38] LABS: Hematocrit 34.3 % (42.0-52.0); Hemoglobin 10.8 g/dl (14.0-18.0); Mean Corpuscular Volume 89.6 fL (80.0-98.0); Platelet Count 300 X10*3/uL (160-400); Red Blood Count 3.83 X10*6/uL (4.60-5.80)
[2025-05-22 05:51] LABS: Calcium 9.4 mg/dL (8.4-10.2); Chloride 96 mmol/L (96-108); Potassium 4.4 mmol/L (3.3-5.1); Sodium 141 mmol/L (135-145)
[2025-05-22] MEDS: Albuterol/Iprat 2.5/0.5MG 3 ML AMPUL.NEB INHALE ×4 (08:07→20:20)
[2025-05-22] MEDS: 0.9 % Sodium Chloride Flush 3 ML SYRINGE IVFLUSH ×2 (08:17→16:38)
[2025-05-22] MEDS: Nicotine 7 MG PATCH.TD24 TRANSDERMA (08:18)
[2025-05-22] MEDS: methADONE HCl 20 MG/2 ML ORAL.CONC 135 MG PO (08:18)
--- NOTE | 2025-05-22 08:51 | P.CDIM_ITS ---
PROVIDER RESPONSE TEXT: To clarify, the appropriate diagnosis supported by the clinical indicators: Acute renal failure: suspected QUERY TEXT: PHYSICIAN'S DOCUMENTATION REQUEST Date of Query: 05/22/2025 05:50 AM EDT Patient Name: Pop Carcamo Admit Date: 05/20/2025 Dear Anderson Moreau MD, A review of the medical record indicates additional documentation may be needed. Please review below and update the documentation accordingly. Clinical Indicators: ICU H&P dated 05/19/25 - HODAN baseline creatinine around 0.9. Monitor renal indices and urine output. ICU progress note dated 05/20/25 - Acute renal insufficiency, improving. Monitor renal indices in setting of diuresis. BUN 79 CR 3.02/1.97 GFR Please clarify which of the following accurately represents the patient's renal status: Acute renal failure resolved, suspected, possible, etc. Acute renal insufficiency Other (explain) Clinically unable to determine (explain) Thank you, Katarina Flores, CCS, CDIS Use of terms such as suspected, likely, concern for, or probable (associated with a specific diagnosis that is being evaluated, monitored, or treated as if it exists) are acceptable and can be coded in the inpatient setting, when documented at the time of discharge. Please use your independent medical judgment in providing your response. THIS QUERY IS PART OF THE PERMANENT MEDICAL RECORD
--- NOTE | 2025-05-22 09:51 | P.PNCC_ITS ---
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 Patient treated with IV diuresis with incremental improvement, now titrated to high-flow nasal cannula. No events overnight. FiO2 requirements continue to improve. Critical Care Time (minutes): 0 Physical Exam 2 Vital Signs: Vital Signs: Last Vital Signs Temp 97.0 F 05/22/25 08:00 Pulse 90 05/22/25 09:00 Resp 25 H 05/22/25 09:00 BP 172/83 H 05/22/25 09:00 Pulse Ox 91 L 05/22/25 09:00 O2 Del Method High Flow Nasal C annula 05/22/25 09:00 O2 Flow Rate 50 05/22/25 09:00 FiO2 40 05/22/25 09:00 Oxygen Flow Rate 55 05/19/25 20:27 BMI result Body Mass Index 38.1 Const: General: no acute distress, alert and awake Eyes: Sclerae: sclerae normal EOM: EOMs intact bilaterally Neck: Neck: Yes no lymphadenopathy, Yes trachea midline and Yes supple Resp: Effort & Inspection: normal respiratory effort and no respiratory distress Auscultation: crackles bilateral Cardio: Rate: regular rate Rhythm: regular rhythm Heart sounds: no gallops, no murmurs and no rubs GI: Palpation (GI): Soft to palpation and Other GI palpation findings present ( Nontender) Auscultation: normal bowel sounds Extrem: General: No clubbing, No cyanosis and Yes edema (1+ bilateral) Objective Data Labs 05/22/25 05:08 05/22/25 05:08 Labs: Laboratory Results - last 24 hr 05/21/25 05/21/25 05/22/25 05:26 18:24 05:08 WBC 14.6 H RBC 3.83 L Hgb 10.8 L Hct 34.3 L MCV 89.6 MCH 28.2 MCHC 31.5 RDW 16.2 H Plt Count 300 MPV 10.3 Immature Gran % (Auto) Cancelled Neut % (Auto) Cancelled Lymph % (Auto) Cancelled [place] % (Auto) Cancelled Eos % (Auto) Cancelled Baso % (Auto) Cancelled Lymph # (Auto) Cancelled [place] # (Auto) Cancelled Eos # (Auto) Cancelled Baso # (Auto) Cancelled Abs Immat Gran (auto) Cancelled Absolute Neuts (auto) Cancelled Absolute Nucleated RBC 0.130 H Nucleated RBC % (auto) 0.9 H Neutrophils % (Manual) 67 Band Neutrophils % 2 L Lymphocytes % (Manual) 14 L Monocytes % (Manual) 6 Eosinophils % (Manual) 5 H Metamyelocytes % 4 Myelocytes % 2 Abs Neuts (Manual) 10.1 H Lymphocytes # (Manual) 2.0 Monocytes # (Manual) 0.9 Eosinophils # (Manual) 0.7 H Metamyelocytes # 0.6 Myelocytes # 0.3 Nucleated RBCs 2 H Toxic Vacuolation PRESENT Platelet Estimate NORMAL Plt Morphology Comment NORMAL RBC Morphology NOTED Polychromasia 1+ (0-2) Basophilic Stippling 1+ (0-2) Tear Drop Cells 1+ (0-2) Smear Path Review SEE NOTE VBG pH VBG pCO2 VBG pO2 VBG HCO3 VBG O2 Saturation VBG Base Excess Sodium 139 141 Potassium 4.2 4.4 Chloride 98 96 Carbon Dioxide 32 H 32 H Anion Gap 13 17 BUN 58 H 51 H Creatinine 1.39 1.23 Estim Creat Clear Calc 67.7 76.6 Estimated GFR 54 > 60 Random Glucose 121 H 106 Calcium 9.2 9.4 Phosphorus 2.6 L Magnesium 2.0 Albumin 4.0 4.0 05/22/25 05:13 WBC RBC Hgb Hct MCV MCH MCHC RDW Plt Count MPV Immature Gran % (Auto) Neut % (Auto) Lymph % (Auto) [place] % (Auto) Eos % (Auto) Baso % (Auto) Lymph # (Auto) [place] # (Auto) Eos # (Auto) Baso # (Auto) Abs Immat Gran (auto) Absolute Neuts (auto) Absolute Nucleated RBC Nucleated RBC % (auto) Neutrophils % (Manual) Band Neutrophils % Lymphocytes % (Manual) Monocytes % (Manual) Eosinophils % (Manual) Metamyelocytes % Myelocytes % Abs Neuts (Manual) Lymphocytes # (Manual) Monocytes # (Manual) Eosinophils # (Manual) Metamyelocytes # Myelocytes # Nucleated RBCs Toxic Vacuolation Platelet Estimate Plt Morphology Comment RBC Morphology Polychromasia Basophilic Stippling Tear Drop Cells Smear Path Review VBG pH 7.65 H* VBG pCO2 35 VBG pO2 95 VBG HCO3 39 H VBG O2 Saturation 99.0 VBG Base Excess 17.4 Sodium Potassium Chloride Carbon Dioxide Anion Gap BUN Creatinine Estim Creat Clear Calc Estimated GFR Random Glucose Calcium Phosphorus Magnesium Albumin Microbiology Microbiology Results: Microbiology 05/19/25 18:23 Blood - Venous Blood Culture - Preliminary No growth after 48 hours. 05/19/25 18:30 Blood - Venous Blood Culture - Preliminary No growth after 48 hours. Progress Note: A&P Assessment and plan (1) History of intravenous drug use in remission: Status: Acute (2) PAD (peripheral artery disease): Status: Acute (3) Acute hypoxic respiratory failure: Status: Acute (4) Pulmonary edema: Status: Acute Plan Assessment: 49-year-old gentleman with underlying history of substance abuse admitted with progressive dyspnea on exertion and hypoxemia secondary to exacerbation of underlying congestive heart failure initially requiring BiPAP support Plan: Neuro: No acute issues. Cardiac: Acute on chronic congestive heart failure, improving with diuresis, continue. 2D echo with diastolic dysfunction. Pulmonary: Acute hypoxic respiratory failure secondary to exacerbation of underlying congestive heart failure initially requiring BiPAP support, now titrated off to high-flow nasal cannula. Continue to titrate off as tolerated. Renal: No acute issues. Endo: No acute issues. GI: No acute issues. ID: Recent MSSA wound infection in patient with underlying history of IV drug abuse. Repeat cultures negative to date. Continue empiric ceftriaxone. Heme/Onc: No acute issues. Psych: No acute issues. Miscellaneous: No acute issues. Prophylaxis: Lovenox Diet: Regular Quality Stroke Does the patient have a stroke diagnosis?: No VTE Prior VTE?: No VTE Risk Level:: Medical - moderate - high VTE Device Contraindication: N/A - Device Ordered VTE Drug Contraindication: N/A - Med Ordered
--- NOTE | 2025-05-22 13:14 | PM.EVENT ---
Event Note Date of Service: 05/22/25 Event Note: ICU transfer. Discussed with ICU attending. Patient admitted with hypoxia secondary to congestive heart failure requiring BiPAP then high-flow. Treated with IV Lasix and Rocephin for possible pneumonia. Currently still on IV Lasix, oxygen requirements slowly trending down. At this time patient is safe for transfer to medical telemetry floor. Time Spent With Patient Time: Total time managing care of this patient today ____ minutes.
[2025-05-22] MEDS: Furosemide 200 MG in 0.9 % Sodium Chloride 80 ML IVCONT (16:38)
[2025-05-23] VITALS (12 sets, daily range): BP systolic 129–148; BP diastolic 64–86; PULSE 86–103; RESP 16–20; TEMP 36.7–37.1; O2SAT 89–97; BMI 38.0
[2025-05-23 06:46] LABS: VBG HCO3 43 mmol/L (22-26); VBG O2 % Saturation 98.0 %
[2025-05-23 06:49] LABS: Hematocrit 36.1 % (42.0-52.0); Hemoglobin 11.4 g/dl (14.0-18.0); Mean Corpuscular HGB Conc 31.6 g/dl (31.0-36.0); Mean Corpuscular Hemoglobin 28.2 pg (27.0-33.0); Mean Corpuscular Volume 89.4 fL (80.0-98.0); NRBC Abs Auto 0.040 X10*3/uL (0.0-0.012); NRBC Pct Auto 0.2 /100WBC (0.0-0.2); Platelet Count 261 X10*3/uL (160-400); Red Blood Count 4.04 X10*6/uL (4.60-5.80); White Blood Count 16.7 X10*3/uL (4.8-10.8)
[2025-05-23 06:57] LABS: Venous Blood Gas Refer to POC result
[2025-05-23 07:04] LABS: Albumin Level 3.7 g/dL (3.5-5.0); Anion Gap 15 (12-20); Blood Urea Nitrogen 44 mg/dL (9-16); Calcium 9.4 mg/dL (8.4-10.2); Carbon Dioxide 36 mmol/L (22-29); Chloride 90 mmol/L (96-108); Creatinine Clr Calc Pharmacy 86.6; Estimated Glomerular Filt Rate > 60; Magnesium 1.7 mg/dL (1.6-2.6); Potassium 4.1 mmol/L (3.3-5.1); Sodium 137 mmol/L (135-145)
[2025-05-23] MEDS: Albuterol/Iprat 2.5/0.5MG 3 ML AMPUL.NEB INHALE ×4 (07:43→19:53)
[2025-05-23] MEDS: methADONE HCl 20 MG/2 ML ORAL.CONC 135 MG PO (08:29)
[2025-05-23] MEDS: 0.9 % Sodium Chloride Flush 3 ML SYRINGE IVFLUSH ×3 (08:30→20:26)
[2025-05-23] MEDS: Nicotine 7 MG PATCH.TD24 TRANSDERMA (08:30)
[2025-05-23 08:43] LABS: Atypical Lymph Absolute Manual 0.2 x10*3/uL; Atypical Lymphs Percent Manual 1 % (0-6); Band Neutrophils Percent 3 % (3-5); Eosinophils Absolute Manual 0.2 X10*3/uL (0.0-0.4); Eosinophils Percent Manual 1 % (0-4); Lymphocytes Absolute Manual 1.7 X10*3/uL (1.2-4.9); Lymphocytes Percent Manual 10 % (20-40); Metamyelocytes Absolute 0.2 X10*3/uL; Metamyelocytes Percent 1 %; Monocytes Absolute Manual 1.2 X10*3/uL (0.1-1.2); Monocytes Percent Manual 7 % (2-11); Myelocytes Absolute 1.2 X10*/uL; Myelocytes Percent 7 %; Neutrophils Absolute Manual 12.2 X10*3/uL (2.0-8.3); Neutrophils Percent Manual 70 % (45-73)
[2025-05-23 08:46] LABS: Basophilic Stippling 1+ (0-2) /OIF; Macrocytosis 1+ (5-14) /OIF; Polychromasia 2+ (3-5) /OIF; RBC Morphology NOTED; Toxic Vacuolation PRESENT
--- NOTE | 2025-05-23 10:36 | MHC.CM.PN ---
Per Rounds discussion, Patient is not yet medically cleared for dc (high flow O2 & Lasix Drip); returning to his [facility] setting is Patient's goal and CM will continue to follow.
[2025-05-23] MEDS: oxyCODONE HCl Immed Release 5 MG TABLET PO (13:20)
[2025-05-23] MEDS: Furosemide 200 MG in 0.9 % Sodium Chloride 80 ML IVCONT (13:25)
--- NOTE | 2025-05-23 16:24 | HO.PM.IMPN ---
Subjective Subjective Date of Service: 05/23/25 Review of Systems Follow up ICU transfer on High flow for CHF exacerbation Physical Exam Exam: Exam: Appearing in no acute distress lung sounds are clear to auscultation heart regular rate rhythm, clear S1, S2 positive bowel sounds, abdomen is soft, nontender neuro patient is alert x3, no focal deficits Multiple wounds to lower extremities Vital Signs: Vital Signs: Last Vital Signs Temp 98.7 F 05/23/25 15:41 Pulse 86 05/23/25 15:41 Resp 18 05/23/25 15:41 BP 138/86 05/23/25 15:41 Pulse Ox 97 05/23/25 15:41 O2 Del Method High Flow Nasal C annula 05/23/25 15:41 O2 Flow Rate 50 05/23/25 15:41 FiO2 40 05/23/25 15:41 Oxygen Flow Rate 55 05/19/25 20:27 BMI result Body Mass Index 38.0 Objective Data Active Medications Acetaminophen (Acetaminophen 325 Mg Tablet) 975 mg PO Q6H PRN PRN Reason: Pain, Mild 1-3,fever,headache Albuterol/Ipratropium (Albuterol/Iprat 2.5/0.5mg 3 Ml Ampul.Neb) 3 ml INHALE RQ4H WHILE AWAKE [facility] Last Admin: 05/23/25 15:13 Dose: 3 ml Documented By: CHERISE Ceftriaxone Sodium (Ceftriaxone Sodium 1 Gm Vial) 1 gm IVPUSH Q24H CARRIE Last Admin: 05/23/25 13:20 Dose: 1 gm Documented By: KAREN Collagenase (Collagenase Clostridium Hist. 30 Gm Tube) 1 appl TOPICAL DAILY [facility]; Protocol Last Admin: 05/23/25 08:42 Dose: 1 appl Documented By: KAREN Enoxaparin Sodium (Enoxaparin Sodium 40 Mg/0.4 Ml Syringe) 40 mg SUBCUT Q24H CARRIE Last Admin: 05/22/25 23:28 Dose: 40 mg Documented By: RYLIE Furosemide 200 mg/ Sodium (Chloride) 100 mls @ 5 mls/hr IVCONT .Q20H CARRIE Last Admin: 05/23/25 13:25 Dose: 10 mg/hr, 5 mls/hr Documented By: KAREN Methadone HCl (Methadone Hcl 20 Mg/2 Ml Oral.Conc) 135 mg PO DAILY@0800 [facility] Last Admin: 05/23/25 08:29 Dose: 135 mg Documented By: KAREN Co-signed By: STEPHANE Naproxen (Naproxen 500 Mg Tablet) 500 mg PO Q12H PRN PRN Reason: Pain, Moderate(Pain Scale 4-6) Last Admin: 05/21/25 09:39 Dose: 500 mg Documented By: BROLucero Nicotine (Nicotine 7 Mg Patch.Td24) 7 mg TRANSDERMA DAILY [facility] Last Admin: 05/23/25 08:30 Dose: 7 mg Documented By: KAREN Ondansetron HCl (Ondansetron Hcl 4 Mg/2 Ml Vial) 4 mg IVPUSH Q6H PRN PRN Reason: Nausea and Vomiting Oxycodone HCl (Oxycodone Hcl Immed Release 5 Mg Tablet) 5 mg PO Q6H PRN PRN Reason: Pain, Severe (Pain Scale 7-10) Last Admin: 05/23/25 13:20 Dose: 5 mg Documented By: KAREN Sodium Chloride (0.9 % Sodium Chloride Flush 3 Ml Syringe) [facility] Last Admin: 05/23/25 16:03 Dose: 3 ml Documented By: KAREN Labs 05/23/25 06:25 05/23/25 06:25 Labs: Laboratory Results - last 24 hr 05/23/25 05/23/25 06:25 06:42 MCV 89.4 MCH 28.2 MCHC 31.6 RDW 15.9 Plt Count 261 MPV 10.1 Immature Gran % (Auto) Cancelled Neut % (Auto) Cancelled Lymph % (Auto) Cancelled [place] % (Auto) Cancelled Eos % (Auto) Cancelled Baso % (Auto) Cancelled Lymph # (Auto) Cancelled [place] # (Auto) Cancelled Eos # (Auto) Cancelled Baso # (Auto) Cancelled Abs Immat Gran (auto) Cancelled Absolute Neuts (auto) Cancelled Absolute Nucleated RBC 0.040 H Nucleated RBC % (auto) 0.2 Neutrophils % (Manual) 70 Band Neutrophils % 3 Lymphocytes % (Manual) 10 L Atypical Lymphs % (Man) 1 Monocytes % (Manual) 7 Eosinophils % (Manual) 1 Metamyelocytes % 1 Myelocytes % 7 Abs Neuts (Manual) 12.2 H Lymphocytes # (Manual) 1.7 Atyp Lymphs # (Manual) 0.2 Monocytes # (Manual) 1.2 Eosinophils # (Manual) 0.2 Metamyelocytes # 0.2 Myelocytes # 1.2 Toxic Vacuolation PRESENT Platelet Estimate NORMAL Giant Platelets PRESENT Plt Morphology Comment NOTED RBC Morphology NOTED Polychromasia 2+ (3-5) Basophilic Stippling 1+ (0-2) Macrocytosis 1+ (5-14) VBG pH 7.52 H VBG pCO2 52 VBG pO2 94 VBG HCO3 43 H VBG O2 Saturation 98.0 VBG Base Excess 18.2 Anion Gap 15 Estim Creat Clear Calc 86.6 Estimated GFR > 60 Random Glucose 110 Calcium 9.4 Phosphorus 2.7 Magnesium 1.7 Albumin 3.7 Assessment and Plan (1) Pneumonia: Status: Acute (2) Respiratory failure: Status: Acute Plan 49 year old man admitted with shortness of breath and cough. CXR showed multifocal PNA and edema with small right pleural effusion requiring bipap. Acute hypoxic respiratory failure secondary to Multifocal PNA and HFpEF Continue Vancomycin and cefepime Continue IV Lasix Strict intake and output daily weight On High flow, RT managing Hepatitis C Treated IVDU On methadone LE wounds wound nurse following, see notes Smoker NRT as needed Obesity Class I. BMI 38.0 Discussed importance of weight management as this may be contributing to worsening of other comorbidities DVT prophylaxis Lovenox Full code Quality Stroke Does the patient have a stroke diagnosis?: No VTE Prior VTE?: No VTE Risk Level:: Medical - moderate - high VTE Device Contraindication: N/A - Device Ordered VTE Drug Contraindication: N/A - Med Ordered
--- NOTE | 2025-05-23 16:59 | PM.CNCAR ---
History of Present Illness History of Present Illness Date of Service: 05/23/25 Chief complaint: Dyspnea Narrative: 49 male with background history of IV drug use 3 years ago, obesity and hepatitis-C presenting for shortness of breath. He is currently on noninvasive positive pressure ventilation. He was in the intensive care unit. His imaging has shown multifocal pneumonia. Echocardiography has shown hyperdynamic left ventricular function, moderately increased right ventricular cavity size with normal RV function. Mild aortic valve stenosis also noted. Valvular assessment is poor. Chest CTA done on showing multifocal airspace disease likely related to multifocal pneumonia versus septic emboli. He has negative blood cultures. He had staph aureus in the wound culture on May 08. He has chronic wounds on the legs. Denying any history of endocarditis or septic emboli in the past. 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 Chronic hip pain Surgical History Surgical History Status post hip surgery Social History Social History Household Members: Family Household Members Other:: sober home Housing: House Housing Other:: sober home Do you presently have visiting nurse or other home services: No Alcohol intake: never Comment: pt refusing fall risk interventions Patient Tobacco Use Status: Current someday Tobacco user Tobacco use type: Cigarette Cigarette Packs Per Day: 0.25 Cigarettes Per Day: 2 Patient Interested in Nicotine Replacement: Yes Currently Displaying Signs/Symptoms of Drug Intoxication Withdrawal: Yes Advance Directives: No Advance Directives Information Provided: No Recently lost weight without trying: No Nutrition Risks: No Nutritional Risk Poor oral hygiene: No service: No Current occupational status: unemployed and disabled Meds Allergies Allergy/AdvReac Type Severity Reaction Status Date / Time No Known Allergies Allergy Verified 05/19/25 18:21 Active Medications: Current Medications Acetaminophen (Acetaminophen 325 Mg Tablet) 975 mg PO Q6H PRN PRN Reason: Pain, Mild 1-3,fever,headache Albuterol/Ipratropium (Albuterol/Iprat 2.5/0.5mg 3 Ml Ampul.Neb) 3 ml INHALE RQ4H WHILE AWAKE [facility] Last Admin: 05/23/25 15:13 Dose: 3 ml Ceftriaxone Sodium (Ceftriaxone Sodium 1 Gm Vial) 1 gm IVPUSH Q24H [facility] Last Admin: 05/23/25 13:20 Dose: 1 gm Collagenase (Collagenase Clostridium Hist. 30 Gm Tube) 1 appl TOPICAL DAILY [facility]; Protocol Last Admin: 05/23/25 08:42 Dose: 1 appl Enoxaparin Sodium (Enoxaparin Sodium 40 Mg/0.4 Ml Syringe) 40 mg SUBCUT Q24H [facility] Last Admin: 05/22/25 23:28 Dose: 40 mg Furosemide 200 mg/ Sodium (Chloride) 100 mls @ 5 mls/hr IVCONT .Q20H [facility] Last Admin: 05/23/25 13:25 Dose: 10 mg/hr, 5 mls/hr Methadone HCl (Methadone Hcl 20 Mg/2 Ml Oral.Conc) 135 mg PO DAILY@0800 [facility] Last Admin: 05/23/25 08:29 Dose: 135 mg Naproxen (Naproxen 500 Mg Tablet) 500 mg PO Q12H PRN PRN Reason: Pain, Moderate(Pain Scale 4-6) Last Admin: 05/21/25 09:39 Dose: 500 mg Nicotine (Nicotine 7 Mg Patch.Td24) 7 mg TRANSDERMA DAILY [facility] Last Admin: 05/23/25 08:30 Dose: 7 mg Ondansetron HCl (Ondansetron Hcl 4 Mg/2 Ml Vial) 4 mg IVPUSH Q6H PRN PRN Reason: Nausea and Vomiting Oxycodone HCl (Oxycodone Hcl Immed Release 5 Mg Tablet) 5 mg PO Q6H PRN PRN Reason: Pain, Severe (Pain Scale 7-10) Last Admin: 05/23/25 13:20 Dose: 5 mg Sodium Chloride (0.9 % Sodium Chloride Flush 3 Ml Syringe) 3 ml IVFLUSH QSHIFT [facility] Last Admin: 05/23/25 16:03 Dose: 3 ml Home Medications ?Medication ?Instructions ?Recorded ?Confirmed ?Last Taken ?Type gabapentin 300 mg capsule 300 - 600 mg PO TID PRN Pain 02/04/23 05/20/25 05/19/25 History methadone 10 mg/mL oral 135 mg PO DAILY 02/04/23 05/20/25 05/18/25 History concentrate (Methadone Intensol) olmesartan 5 mg tablet 10 mg PO DAILY 01/10/24 05/20/25 05/19/25 History acetaminophen 500 mg tablet 1,000 mg PO Q6H PRN Pain 05/09/25 05/20/25 05/19/25 History chlorthalidone 25 mg tablet 12.5 mg PO DAILY 05/09/25 05/20/25 05/19/25 History naproxen 500 mg tablet 500 mg PO BID PRN moderate pain 05/09/25 05/20/25 05/19/25 History tirzepatide (weight loss) 2.5 2.5 mg subcut SA 05/20/25 05/20/25 05/19/25 History mg/0.5 mL subcutaneous pen injector (Zepbound) Physical Exam Vital Signs: Vital Signs: Last Vital Signs Temp 98.7 F 05/23/25 15:41 Pulse 86 05/23/25 15:41 Resp 18 05/23/25 15:41 BP 138/86 05/23/25 15:41 Pulse Ox 97 05/23/25 15:41 O2 Del Method High Flow Nasal C annula 05/23/25 15:41 O2 Flow Rate 50 05/23/25 15:41 FiO2 40 05/23/25 15:41 Oxygen Flow Rate 55 05/19/25 20:27 BMI result Body Mass Index 38.0 GENERAL APPEARANCE: Short of breath, on high-flow nasal cannula. NECK: no carotid bruit, no jugular venous distention. SKIN: no suspicious lesions, warm and dry. HEART: no murmurs, regular rate and rhythm. LUNGS: clear to auscultation bilaterally. ABDOMEN: soft, nontender. EXTREMITIES: Open wound right foot. Chronic venous insufficiency changes. PERIPHERAL PULSES: equal. NEUROLOGIC: No gross deficits, AAO X 3 Objective Labs and Meds 05/23/25 06:25 05/23/25 06:25 Lab results: Laboratory Results - last 24 hr 05/23/25 05/23/25 06:25 06:42 WBC 16.7 H RBC 4.04 L Hgb 11.4 L Hct 36.1 L MCV 89.4 MCH 28.2 MCHC 31.6 RDW 15.9 Plt Count 261 MPV 10.1 Immature Gran % (Auto) Cancelled Neut % (Auto) Cancelled Lymph % (Auto) Cancelled [place] % (Auto) Cancelled Eos % (Auto) Cancelled Baso % (Auto) Cancelled Lymph # (Auto) Cancelled [place] # (Auto) Cancelled Eos # (Auto) Cancelled Baso # (Auto) Cancelled Abs Immat Gran (auto) Cancelled Absolute Neuts (auto) Cancelled Absolute Nucleated RBC 0.040 H Nucleated RBC % (auto) 0.2 Neutrophils % (Manual) 70 Band Neutrophils % 3 Lymphocytes % (Manual) 10 L Atypical Lymphs % (Man) 1 Monocytes % (Manual) 7 Eosinophils % (Manual) 1 Metamyelocytes % 1 Myelocytes % 7 Abs Neuts (Manual) 12.2 H Lymphocytes # (Manual) 1.7 Atyp Lymphs # (Manual) 0.2 Monocytes # (Manual) 1.2 Eosinophils # (Manual) 0.2 Metamyelocytes # 0.2 Myelocytes # 1.2 Toxic Vacuolation PRESENT Platelet Estimate NORMAL Giant Platelets PRESENT Plt Morphology Comment NOTED RBC Morphology NOTED Polychromasia 2+ (3-5) Basophilic Stippling 1+ (0-2) Macrocytosis 1+ (5-14) VBG pH 7.52 H VBG pCO2 52 VBG pO2 94 VBG HCO3 43 H VBG O2 Saturation 98.0 VBG Base Excess 18.2 Sodium 137 Potassium 4.1 Chloride 90 L Carbon Dioxide 36 H Anion Gap 15 BUN 44 H Creatinine 1.08 Estim Creat Clear Calc 86.6 Estimated GFR > 60 Random Glucose 110 Calcium 9.4 Phosphorus 2.7 Magnesium 1.7 Albumin 3.7 Assessment and Plan (1) Dyspnea: Status: Acute Plan Pleasant 49 year gentleman with background history of IV drug use for which he has been clean for last 3 years. He is presenting with shortness of breath and multifocal pneumonia. Also this question about septic emboli based on CT scan. Transthoracic echocardiogram was quite limited. His blood cultures are negative though. He does not recall any septic emboli in the past or diagnosis of endocarditis. Hypoxia and dyspnea appears to be related to multifocal pneumonia. Clinically does not appear to be in heart failure. Repeat chest x-ray today. Previous imaging was more consistent with multifocal pneumonia. He does not appear to be significantly volume overloaded. We will follow along with you. Thank you for allowing me to participate in the care of your patient. Please feel free to contact me if you have any questions. Procedures Date of Service Date of Service: 05/23/25
[2025-05-23] MEDS: oxyCODONE HCl Immed Release 5 MG TABLET 10 MG PO (23:07)
[2025-05-24] VITALS (13 sets, daily range): BP systolic 134–162; BP diastolic 67–88; PULSE 69–102; RESP 16–20; TEMP 36.1–36.8; O2SAT 90–99; BMI 37.8
[2025-05-24] MEDS: Albuterol/Iprat 2.5/0.5MG 3 ML AMPUL.NEB INHALE ×4 (07:34→19:35)
[2025-05-24] MEDS: Nicotine 7 MG PATCH.TD24 TRANSDERMA (07:53)
[2025-05-24] MEDS: 0.9 % Sodium Chloride Flush 3 ML SYRINGE IVFLUSH ×2 (07:54→17:24)
[2025-05-24] MEDS: methADONE HCl 20 MG/2 ML ORAL.CONC 135 MG PO (07:54)
[2025-05-24 10:02] LABS: Creatinine Clr Calc Pharmacy 89.6; Estimated Glomerular Filt Rate > 60
--- NOTE | 2025-05-24 13:48 | PM.PNCARD ---
Subjective Subjective Date of Service: 05/24/25 Interval history: Seen examined at bedside. Chest x-ray done today showing significant improvement in bilateral infiltrates which were initially thought to be pneumonia. He has been off the Lasix drip. Physical Exam Vital Signs: Last Vital Signs Temp 98.3 F 05/24/25 11:56 Pulse 88 05/24/25 11:56 Resp 20 05/24/25 11:56 BP 136/86 05/24/25 11:56 Pulse Ox 92 05/24/25 11:56 O2 Del Method Nasal Cannula 05/24/25 11:56 O2 Flow Rate 3 05/24/25 11:56 FiO2 40 05/24/25 04:00 Oxygen Flow Rate 55 05/19/25 20:27 BMI result Body Mass Index 37.8 GENERAL APPEARANCE: On nasal cannula. In no distress. NECK: no carotid bruit, mild jugular venous distention. SKIN: no suspicious lesions, warm and dry. HEART: no murmurs, regular rate and rhythm. LUNGS: clear to auscultation bilaterally. ABDOMEN: soft, nontender. EXTREMITIES: Open wound right foot. Chronic venous insufficiency changes. PERIPHERAL PULSES: equal. NEUROLOGIC: No gross deficits, AAO X 3 Objective Labs and Meds 05/23/25 06:25 05/24/25 09:20 Lab results: Laboratory Results - last 24 hr 05/24/25 09:20 Hold Purple Top SEE NOTE Creatinine 1.04 Estim Creat Clear Calc 89.6 Estimated GFR > 60 Imaging Radiologist's impression: Impressions Chest X-Ray 05/24/25 09:20 IMPRESSION: Near complete resolution of bilateral lower lung opacities with minimal residual groundglass density in the right mid third lung zone. Electronically signed by: Asad Gracia MD 05/24/2025 10:04 AM EDT Progress Note: A&P Assessment and plan (1) Congestive heart failure: Status: Acute Plan Pleasant 49 year gentleman with congestive heart failure. He was on a Lasix drip in the intensive care unit. He has background history of IV drug use although he reports no recent use specifically in the last 3 years. Imaging initially was concerning for multifocal pneumonia and there was also concern for septic emboli although he has not been bacteremic. His echocardiography has shown dilated right ventricular with normal right ventricular function. He had repeat chest x-ray done which has shown significant improvement in the infiltrates pointing to her congestive heart failure being the etiology has infective infiltrative do not improve in 2-3 days. Start Lasix 40 mg p.o. daily. Add spironolactone 25 mg daily. Would consider adding Jardiance if there is no planned procedures coming up for him. He will need sleep study to assess the right ventricular dilatation as outpatient. Thank you for allowing me to participate in the care of your patient. Please feel free to contact me if you have any questions. Time Spent With Patient Time: Total time managing care of this patient today ____ minutes. Progress Note: Quality Stroke Does the patient have a stroke diagnosis?: No Procedures Date of Service Date of Service: 05/24/25
--- NOTE | 2025-05-24 17:07 | P.PNIM_ITS ---
Subjective Subjective Date of Service: 05/24/25 Interval History: Pain control poor. Remains afebrile Review of Systems Denies chest pain Denies shortness of breath Denies nausea vomiting diarrhea Denies fever chills Physical Exam 2 Vital Signs: Vital Signs: Last Vital Signs Temp 98.3 F 05/24/25 15:26 Pulse 69 05/24/25 15:48 Resp 18 05/24/25 15:48 BP 154/88 H 05/24/25 15:26 Pulse Ox 93 05/24/25 15:26 O2 Del Method Nasal Cannula 05/24/25 15:26 O2 Flow Rate 3 05/24/25 15:26 FiO2 40 05/24/25 04:00 Oxygen Flow Rate 55 05/19/25 20:27 BMI result Body Mass Index 37.8 Const: Other: Awake alert no acute distress Resp: Other: Clear to auscultation bilaterally no rales rhonchi or wheezes Cardio: Other: No S4; positive S1-S2; no S3 murmurs rubs or gallops GI: Other: Soft nontender nondistended. Normoactive bowel sounds Extrem: Other: See wound care notes Objective Data Active Medications Acetaminophen (Acetaminophen 325 Mg Tablet) 975 mg PO Q6H PRN PRN Reason: Pain, Mild 1-3,fever,headache Albuterol/Ipratropium (Albuterol/Iprat 2.5/0.5mg 3 Ml Ampul.Neb) 3 ml INHALE RQ4H WHILE AWAKE [facility] Last Admin: 05/24/25 15:46 Dose: 3 ml Documented By: CHERISE Ceftriaxone Sodium (Ceftriaxone Sodium 1 Gm Vial) 1 gm IVPUSH Q24H [facility] Last Admin: 05/24/25 13:32 Dose: 1 gm Documented By: PERICO Enoxaparin Sodium (Enoxaparin Sodium 40 Mg/0.4 Ml Syringe) 40 mg SUBCUT Q24H [facility] Last Admin: 05/23/25 20:25 Dose: 40 mg Documented By: SUZETTE Furosemide (Furosemide 40 Mg Tablet) 40 mg PO DAILY [facility]; Protocol Last Admin: 05/24/25 14:57 Dose: 40 mg Documented By: PERICO Vancomycin HCl 750 mg/ Sodium (Chloride) 265 mls @ 265 mls/hr IV Q12H [facility] Last Infusion: 05/24/25 08:51 Dose: Infused Documented By: PERICO Methadone HCl (Methadone Hcl 20 Mg/2 Ml Oral.Conc) 135 mg PO DAILY@0800 [facility] Last Admin: 05/24/25 07:54 Dose: 135 mg Documented By: PERICO Co-signed By: STEPHANE Morphine Sulfate (Morphine Sulfate 4 Mg/Ml Cartridge) 4 mg IM Q4H PRN; Protocol PRN Reason: Pain, Severe (Pain Scale 7-10) Last Admin: 05/24/25 12:10 Dose: 4 mg Documented By: PERICO Naproxen (Naproxen 500 Mg Tablet) 500 mg PO Q12H PRN PRN Reason: Pain, Moderate(Pain Scale 4-6) Last Admin: 05/21/25 09:39 Dose: 500 mg Documented By: LAUREANO Nicotine (Nicotine 7 Mg Patch.Td24) 7 mg TRANSDERMA DAILY [facility] Last Admin: 05/24/25 07:53 Dose: 7 mg Documented By: PERICO Ondansetron HCl (Ondansetron Hcl 4 Mg/2 Ml Vial) 4 mg IVPUSH Q6H PRN PRN Reason: Nausea and Vomiting Oxycodone HCl (Oxycodone Hcl Immed Release 5 Mg Tablet) 10 mg PO Q4H PRN PRN Reason: Pain, Moderate(Pain Scale 4-6) Pharmacy Consult (Consult Rx Vancomycin Dosing) 1 each MISCELLANE DAILY PRN PRN Reason: Consult order Sodium Chloride (0.9 % Sodium Chloride Flush 3 Ml Syringe) 3 ml IVFLUSH QSHIFT [facility] Last Admin: 05/24/25 07:54 Dose: 3 ml Documented By: PERICO Spironolactone (Spironolactone 25 Mg Tablet) 25 mg PO DAILY [facility]; Protocol Last Admin: 05/24/25 14:56 Dose: 25 mg Documented By: PERICO Labs 05/23/25 06:25 05/24/25 09:20 Labs: Laboratory Results - last 24 hr 05/24/25 09:20 Hold Purple Top SEE NOTE Estim Creat Clear Calc 89.6 Estimated GFR > 60 Assessment and Plan (1) Acute hypoxic respiratory failure: Status: Acute (2) Congestive heart failure: Status: Acute (3) Bilateral cellulitis of lower leg: Status: Acute Plan 49 year old man admitted with shortness of breath and cough. CXR showed multifocal PNA and edema with small right pleural effusion requiring bipap. 1.Acute hypoxic respiratory failure secondary to HFpEF -agree with Cardiology; given rapid normalization of chest x-ray unlikely multifocal pneumonia. . . More likely CHF -continue Vancomycin/ceftriaxone(5) -switch to p.o. Lasix -repeat pro BNP in morning 2.IVDU -states has not used in 3 years -methadone as ordered 3.LE wounds -see wound care nurse's orders DVT prophylaxis Lovenox Full code Requires ongoing hospitalization to document improvement of CHF with switch to p.o. Lasix Quality Stroke Does the patient have a stroke diagnosis?: No VTE Prior VTE?: No VTE Risk Level:: Medical - moderate - high VTE Device Contraindication: N/A - Device Ordered VTE Drug Contraindication: N/A - Med Ordered
--- NOTE | 2025-05-24 19:36 | HE.PHANOTE ---
re vanco dosing renal function stable, trough today is 15.4. continue on same dose (750 mg q12 hours) and recheck trough 05/26/25. continue daily renal monitoring.
[2025-05-25] VITALS (10 sets, daily range): BP systolic 113–138; BP diastolic 62–82; PULSE 84–92; RESP 16–18; TEMP 36.8–37.2; O2SAT 96–99; BMI 36.1
[2025-05-25] MEDS: 0.9 % Sodium Chloride Flush 3 ML SYRINGE IVFLUSH ×4 (01:32→20:55)
[2025-05-25 06:59] LABS: Hematocrit 33.8 % (42.0-52.0); Hemoglobin 11.1 g/dl (14.0-18.0); Mean Corpuscular HGB Conc 32.8 g/dl (31.0-36.0); Mean Corpuscular Hemoglobin 28.8 pg (27.0-33.0); Mean Corpuscular Volume 87.8 fL (80.0-98.0); NRBC Abs Auto 0.000 X10*3/uL (0.0-0.012); NRBC Pct Auto 0.0 /100WBC (0.0-0.2); Platelet Count 235 X10*3/uL (160-400); Red Blood Count 3.85 X10*6/uL (4.60-5.80); White Blood Count 17.2 X10*3/uL (4.8-10.8)
[2025-05-25 07:16] LABS: Alanine Aminotransferase 8 U/L (0-40); Albumin Level 3.5 g/dL (3.5-5.0); Alkaline Phosphatase 87 U/L (39-117); Anion Gap 12 (12-20); Aspartate Amino Transferase 26 U/L (5-37); Blood Urea Nitrogen 45 mg/dL (9-16); Calcium 9.3 mg/dL (8.4-10.2); Carbon Dioxide 35 mmol/L (22-29); Chloride 92 mmol/L (96-108); Creatinine Clr Calc Pharmacy 91.0; Estimated Glomerular Filt Rate > 60; Potassium 3.8 mmol/L (3.3-5.1); Sodium 135 mmol/L (135-145); Total Protein 8.2 g/dL (6.5-8.0)
[2025-05-25 07:18] LABS: NT Pro B Type Natriuretic Pept 85.7 pg/mL (<300)
[2025-05-25] MEDS: Albuterol/Iprat 2.5/0.5MG 3 ML AMPUL.NEB INHALE ×3 (07:24→15:37)
[2025-05-25 07:49] LABS: Atypical Lymph Absolute Manual 0.2 x10*3/uL; Atypical Lymphs Percent Manual 1 % (0-6); Band Neutrophils Percent 3 % (3-5); Eosinophils Absolute Manual 0.7 X10*3/uL (0.0-0.4); Eosinophils Percent Manual 4 % (0-4); Lymphocytes Absolute Manual 1.5 X10*3/uL (1.2-4.9); Lymphocytes Percent Manual 9 % (20-40); Monocytes Absolute Manual 1.9 X10*3/uL (0.1-1.2); Monocytes Percent Manual 11 % (2-11); Myelocytes Absolute 0.7 X10*/uL; Myelocytes Percent 4 %; Neutrophils Absolute Manual 12.2 X10*3/uL (2.0-8.3); Neutrophils Percent Manual 68 % (45-73); RBC Morphology NOTED
[2025-05-25 07:54] LABS: Basophilic Stippling 2+ (3-5) /OIF; Tear Drop Cells 1+ (0-2) /OIF
[2025-05-25 07:56] LABS: Toxic Granulation PRESENT
[2025-05-25 07:57] LABS: Polychromasia 1+ (0-2) /OIF
[2025-05-25] MEDS: Nicotine 7 MG PATCH.TD24 TRANSDERMA (08:36)
[2025-05-25] MEDS: methADONE HCl 20 MG/2 ML ORAL.CONC 135 MG PO (08:36)
--- NOTE | 2025-05-25 10:30 | MHC.CM.PN ---
Per ROUNDS discussion, Patient is not yet medically cleared for dc (pain management & CHF); returning to his [facility] is Patient's goal and CM will continue to follow.
--- NOTE | 2025-05-25 15:22 | PM.PNCARD ---
Subjective Subjective Date of Service: 05/25/25 Interval history: Seen and examined at bedside. Denying any shortness of breath. He is on supplemental oxygen and saying that he had low oxygen levels. Physical Exam Vital Signs: Last Vital Signs Temp 98.4 F 05/25/25 15:13 Pulse 87 05/25/25 15:13 Resp 16 05/25/25 15:13 BP 138/76 05/25/25 15:13 Pulse Ox 96 05/25/25 15:13 O2 Del Method Nasal Cannula 05/25/25 15:13 O2 Flow Rate 2 05/25/25 15:13 FiO2 40 05/24/25 04:00 Oxygen Flow Rate 55 05/19/25 20:27 BMI result Body Mass Index 36.1 GENERAL APPEARANCE: On nasal cannula. In no distress. NECK: no carotid bruit, mild jugular venous distention. SKIN: no suspicious lesions, warm and dry. HEART: no murmurs, regular rate and rhythm. LUNGS: clear to auscultation bilaterally. ABDOMEN: soft, nontender. EXTREMITIES: Open wound right foot. Chronic venous insufficiency changes. PERIPHERAL PULSES: equal. NEUROLOGIC: No gross deficits, AAO X 3 Objective Labs and Meds 05/25/25 06:29 05/25/25 06:29 Lab results: Laboratory Results - last 24 hr 05/24/25 05/25/25 18:45 06:29 WBC 17.2 H RBC 3.85 L Hgb 11.1 L Hct 33.8 L MCV 87.8 MCH 28.8 MCHC 32.8 RDW 15.5 Plt Count 235 MPV 10.1 Immature Gran % (Auto) Cancelled Neut % (Auto) Cancelled Lymph % (Auto) Cancelled [place] % (Auto) Cancelled Eos % (Auto) Cancelled Baso % (Auto) Cancelled Lymph # (Auto) Cancelled [place] # (Auto) Cancelled Eos # (Auto) Cancelled Baso # (Auto) Cancelled Abs Immat Gran (auto) Cancelled Absolute Neuts (auto) Cancelled Absolute Nucleated RBC 0.000 Nucleated RBC % (auto) 0.0 Neutrophils % (Manual) 68 Band Neutrophils % 3 Lymphocytes % (Manual) 9 L Atypical Lymphs % (Man) 1 Monocytes % (Manual) 11 Eosinophils % (Manual) 4 Myelocytes % 4 Abs Neuts (Manual) 12.2 H Lymphocytes # (Manual) 1.5 Atyp Lymphs # (Manual) 0.2 Monocytes # (Manual) 1.9 H Eosinophils # (Manual) 0.7 H Myelocytes # 0.7 Toxic Granulation PRESENT Platelet Estimate NORMAL Plt Morphology Comment NORMAL RBC Morphology NOTED Polychromasia 1+ (0-2) Basophilic Stippling 2+ (3-5) Tear Drop Cells 1+ (0-2) Sodium 135 Potassium 3.8 Chloride 92 L Carbon Dioxide 35 H Anion Gap 12 BUN 45 H Creatinine 1.00 Estim Creat Clear Calc 91.0 Estimated GFR > 60 Fasting Glucose 104 H Calcium 9.3 Total Bilirubin 0.4 AST 26 ALT 8 Alkaline Phosphatase 87 NT-Pro-B Natriuret Pep 85.7 Total Protein 8.2 H Albumin 3.5 Random Vancomycin 15.4 Progress Note: A&P Assessment and plan (1) Congestive heart failure: Status: Acute Plan Pleasant 49 year gentleman with congestive heart failure. He was on a Lasix drip in the intensive care unit. He has background history of IV drug use although he reports no recent use specifically in the last 3 years. Imaging initially was concerning for multifocal pneumonia and there was also concern for septic emboli although he has not been bacteremic. His echocardiography has shown dilated right ventricular with normal right ventricular function. He had repeat chest x-ray done which has shown significant improvement in the infiltrates pointing towards congestive heart failure being the etiology as infective infiltrative do not improve in 2-3 days. Continue p.o. Lasix and spironolactone. Add Jardiance 10 mg daily. Unsure why he is requiring oxygen again. Consider x-ray. He will need sleep study to assess the right ventricular dilatation as outpatient. Thank you for allowing me to participate in the care of your patient. Please feel free to contact me if you have any questions. Time Spent With Patient Time: Total time managing care of this patient today ____ minutes. Progress Note: Quality Stroke Does the patient have a stroke diagnosis?: No Procedures Date of Service Date of Service: 05/25/25
--- NOTE | 2025-05-25 15:30 | P.PNIM_ITS ---
Subjective Subjective Date of Service: 05/25/25 Interval History: Doing well overnight.. Not utilizing pain meds as pain markedly improved Review of Systems Denies chest pain Denies shortness of breath Denies nausea vomiting diarrhea Denies fever chills Physical Exam 2 Vital Signs: Vital Signs: Last Vital Signs Temp 98.4 F 05/25/25 15:13 Pulse 87 05/25/25 15:13 Resp 16 05/25/25 15:13 BP 138/76 05/25/25 15:13 Pulse Ox 96 05/25/25 15:13 O2 Del Method Nasal Cannula 05/25/25 15:13 O2 Flow Rate 2 05/25/25 15:13 FiO2 40 05/24/25 04:00 Oxygen Flow Rate 55 05/19/25 20:27 BMI result Body Mass Index 36.1 Const: Other: Awake alert no acute distress Resp: Other: Clear to auscultation bilaterally no rales rhonchi or wheezes Cardio: Other: No S4; positive S1-S2; no S3 murmurs rubs or gallops GI: Other: Soft nontender nondistended. Normoactive bowel sounds Extrem: Other: See wound care notes Objective Data Active Medications Acetaminophen (Acetaminophen 325 Mg Tablet) 975 mg PO Q6H PRN PRN Reason: Pain, Mild 1-3,fever,headache Albuterol/Ipratropium (Albuterol/Iprat 2.5/0.5mg 3 Ml Ampul.Neb) 3 ml INHALE RQ4H WHILE AWAKE [facility] Last Admin: 05/25/25 11:10 Dose: 3 ml Documented By: CRISTHIAN Ceftriaxone Sodium (Ceftriaxone Sodium 1 Gm Vial) 1 gm IVPUSH Q24H [facility] Last Admin: 05/25/25 11:58 Dose: 1 gm Documented By: BENEDICTO Enoxaparin Sodium (Enoxaparin Sodium 40 Mg/0.4 Ml Syringe) 40 mg SUBCUT Q24H [facility] Last Admin: 05/24/25 20:55 Dose: 40 mg Documented By: SUZETTE Furosemide (Furosemide 40 Mg Tablet) 40 mg PO DAILY [facility]; Protocol Last Admin: 05/25/25 08:37 Dose: 40 mg Documented By: BENEDICTO Vancomycin HCl 750 mg/ Sodium (Chloride) 265 mls @ 265 mls/hr IV Q12H [facility] Last Infusion: 05/25/25 09:37 Dose: Infused Documented By: BENEDICTO Methadone HCl (Methadone Hcl 20 Mg/2 Ml Oral.Conc) 135 mg PO DAILY@0800 [facility] Last Admin: 05/25/25 08:36 Dose: 135 mg Documented By: BENEDICTO Co-signed By: VERO Morphine Sulfate (Morphine Sulfate 4 Mg/Ml Cartridge) 4 mg IVPUSH Q4H PRN; Protocol PRN Reason: Pain, Severe (Pain Scale 7-10) Last Admin: 05/25/25 11:58 Dose: 4 mg Documented By: BENEDICTO Naproxen (Naproxen 500 Mg Tablet) 500 mg PO Q12H PRN PRN Reason: Pain, Moderate(Pain Scale 4-6) Last Admin: 05/21/25 09:39 Dose: 500 mg Documented By: LAUREANO Nicotine (Nicotine 7 Mg Patch.Td24) 7 mg TRANSDERMA DAILY [facility] Last Admin: 05/25/25 08:36 Dose: 7 mg Documented By: BENEDICTO Ondansetron HCl (Ondansetron Hcl 4 Mg/2 Ml Vial) 4 mg IVPUSH Q6H PRN PRN Reason: Nausea and Vomiting Oxycodone HCl (Oxycodone Hcl Immed Release 5 Mg Tablet) 10 mg PO Q4H PRN PRN Reason: Pain, Moderate(Pain Scale 4-6) Pharmacy Consult (Consult Rx Vancomycin Dosing) 1 each MISCELLANE DAILY PRN PRN Reason: Consult order Sodium Chloride (0.9 % Sodium Chloride Flush 3 Ml Syringe) [facility] Last Admin: 05/25/25 12:04 Dose: 3 ml Documented By: BENEDICTO Spironolactone (Spironolactone 25 Mg Tablet) 25 mg PO DAILY [facility]; Protocol Last Admin: 05/25/25 08:37 Dose: 25 mg Documented By: BENEDICTO Labs 05/25/25 06:29 05/25/25 06:29 Labs: Laboratory Results - last 24 hr 05/24/25 05/25/25 18:45 06:29 MCV 87.8 MCH 28.8 MCHC 32.8 RDW 15.5 Plt Count 235 MPV 10.1 Immature Gran % (Auto) Cancelled Neut % (Auto) Cancelled Lymph % (Auto) Cancelled [place] % (Auto) Cancelled Eos % (Auto) Cancelled Baso % (Auto) Cancelled Lymph # (Auto) Cancelled [place] # (Auto) Cancelled Eos # (Auto) Cancelled Baso # (Auto) Cancelled Abs Immat Gran (auto) Cancelled Absolute Neuts (auto) Cancelled Absolute Nucleated RBC 0.000 Nucleated RBC % (auto) 0.0 Neutrophils % (Manual) 68 Band Neutrophils % 3 Lymphocytes % (Manual) 9 L Atypical Lymphs % (Man) 1 Monocytes % (Manual) 11 Eosinophils % (Manual) 4 Myelocytes % 4 Abs Neuts (Manual) 12.2 H Lymphocytes # (Manual) 1.5 Atyp Lymphs # (Manual) 0.2 Monocytes # (Manual) 1.9 H Eosinophils # (Manual) 0.7 H Myelocytes # 0.7 Toxic Granulation PRESENT Platelet Estimate NORMAL Plt Morphology Comment NORMAL RBC Morphology NOTED Polychromasia 1+ (0-2) Basophilic Stippling 2+ (3-5) Tear Drop Cells 1+ (0-2) Anion Gap 12 Estim Creat Clear Calc 91.0 Estimated GFR > 60 Fasting Glucose 104 H Calcium 9.3 Total Bilirubin 0.4 AST 26 ALT 8 Alkaline Phosphatase 87 NT-Pro-B Natriuret Pep 85.7 Total Protein 8.2 H Albumin 3.5 Random Vancomycin 15.4 Microbiology Microbiology Results: Microbiology 05/19/25 18:23 Blood Culture - Final Blood - Venous No growth after 5 days. 05/19/25 18:30 Blood Culture - Final Blood - Venous No growth after 5 days. Assessment and Plan (1) (HFpEF) heart failure with preserved ejection fraction: Status: Acute (2) Bilateral cellulitis of lower leg: Status: Acute Plan 49 year old man admitted with shortness of breath and cough. CXR showed multifocal PNA and edema with small right pleural effusion requiring bipap. 1.Acute hypoxic respiratory failure secondary to HFpEF -agree with Cardiology; given rapid normalization of chest x-ray unlikely multifocal pneumonia. . . More likely CHF -continue Vancomycin/ceftriaxone(6) -NT pro BNP normalize - 2.IVDU -states has not used in 3 years -methadone as ordered 3.LE wounds -see wound care nurse's orders -switch to oral in a.m. DVT prophylaxis Lovenox Full code Requires ongoing hospitalization to document improvement of CHF with switch to p.o. Lasix Quality Stroke Does the patient have a stroke diagnosis?: No VTE Prior VTE?: No VTE Risk Level:: Medical - moderate - high VTE Device Contraindication: N/A - Device Ordered VTE Drug Contraindication: N/A - Med Ordered
[2025-05-26] VITALS (11 sets, daily range): BP systolic 113–155; BP diastolic 56–79; PULSE 84–96; RESP 18–20; TEMP 36–37; O2SAT 94–100; BMI 36.5
--- NOTE | 2025-05-26 06:09 | PC.NURSE ---
pt did not have a BM for 2 days, ABD distended, pr refusing prune juice.
[2025-05-26 06:35] LABS: Creatinine Clr Calc Pharmacy 94.8; Estimated Glomerular Filt Rate > 60
[2025-05-26] MEDS: Albuterol/Iprat 2.5/0.5MG 3 ML AMPUL.NEB INHALE ×4 (07:46→19:50)
[2025-05-26] MEDS: Nicotine 7 MG PATCH.TD24 TRANSDERMA (08:57)
[2025-05-26] MEDS: methADONE HCl 20 MG/2 ML ORAL.CONC 135 MG PO (08:57)
[2025-05-26] MEDS: 0.9 % Sodium Chloride Flush 3 ML SYRINGE IVFLUSH ×2 (08:58→15:19)
--- NOTE | 2025-05-26 13:06 | PC.RT ---
attempted home oxygen eval per MD order. Patient requires 2L at rest. Attempted to ambulate patient, he is very unsteady on his feet with a walker. patient stated that he has only been out of bed twice. Informed MD of concern of difficulty with ambulation and the risk of falls when patient will be at home using walker and oxygen tubing. MD will order PT eval.
--- NOTE | 2025-05-26 14:16 | P.PNIM_ITS ---
Subjective Subjective Date of Service: 05/26/25 Interval History: Still with an O2 requirement. Pain control adequate. Review of Systems Denies chest pain Denies shortness of breath Denies nausea vomiting diarrhea Denies fever chills Physical Exam 2 Vital Signs: Vital Signs: Last Vital Signs Temp 97.4 F 05/26/25 12:00 Pulse 95 05/26/25 12:24 Resp 20 05/26/25 12:00 BP 137/70 05/26/25 12:24 Pulse Ox 94 05/26/25 12:24 O2 Del Method Nasal Cannula 05/26/25 12:00 O2 Flow Rate 3 05/26/25 12:00 FiO2 40 05/24/25 04:00 Oxygen Flow Rate 55 05/19/25 20:27 BMI result Body Mass Index 36.5 Const: Other: Awake alert no acute distress Resp: Other: Clear to auscultation bilaterally no rales rhonchi or wheezes Cardio: Other: No S4; positive S1-S2; no S3 murmurs rubs or gallops GI: Other: Soft nontender nondistended. Normoactive bowel sounds Extrem: Other: See wound care notes Objective Data Active Medications Acetaminophen (Acetaminophen 325 Mg Tablet) 975 mg PO Q6H PRN PRN Reason: Pain, Mild 1-3,fever,headache Last Admin: 05/25/25 22:18 Dose: 975 mg Documented By: PATO Albuterol/Ipratropium (Albuterol/Iprat 2.5/0.5mg 3 Ml Ampul.Neb) 3 ml INHALE RQ4H WHILE AWAKE [facility] Last Admin: 05/26/25 11:08 Dose: 3 ml Documented By: GABINO Ceftriaxone Sodium (Ceftriaxone Sodium 1 Gm Vial) 1 gm IVPUSH Q24H [facility] Last Admin: 05/26/25 13:09 Dose: 1 gm Documented By: STEPHANE Enoxaparin Sodium (Enoxaparin Sodium 40 Mg/0.4 Ml Syringe) 40 mg SUBCUT Q24H [facility] Last Admin: 05/25/25 20:55 Dose: 40 mg Documented By: PATO Furosemide (Furosemide 40 Mg Tablet) 40 mg PO DAILY [facility]; Protocol Last Admin: 05/26/25 08:57 Dose: 40 mg Documented By: STEPHANE Vancomycin HCl 750 mg/ Sodium (Chloride) 265 mls @ 265 mls/hr IV Q12H [facility] Last Infusion: 05/26/25 11:02 Dose: Infused Documented By: STEPHANE Methadone HCl (Methadone Hcl 20 Mg/2 Ml Oral.Conc) 135 mg PO DAILY@0800 [facility] Last Admin: 05/26/25 08:57 Dose: 135 mg Documented By: STEPHANE Co-signed By: VERO Methylprednisolone Sodium Succinate (Methylprednisolone Sod Succ 125 Mg/2 Ml Vial) 60 mg IVPUSH Q6H [facility] Morphine Sulfate (Morphine Sulfate 4 Mg/Ml Cartridge) 4 mg IVPUSH Q4H PRN; Protocol PRN Reason: Pain, Severe (Pain Scale 7-10) Last Admin: 05/25/25 20:55 Dose: 4 mg Documented By: PATO Naproxen (Naproxen 500 Mg Tablet) 500 mg PO Q12H PRN PRN Reason: Pain, Moderate(Pain Scale 4-6) Last Admin: 05/21/25 09:39 Dose: 500 mg Documented By: LAUREANO Nicotine (Nicotine 7 Mg Patch.Td24) 7 mg TRANSDERMA DAILY [facility] Last Admin: 05/26/25 08:57 Dose: 7 mg Documented By: STEPHANE Ondansetron HCl (Ondansetron Hcl 4 Mg/2 Ml Vial) 4 mg IVPUSH Q6H PRN PRN Reason: Nausea and Vomiting Oxycodone HCl (Oxycodone Hcl Immed Release 5 Mg Tablet) 10 mg PO Q4H PRN PRN Reason: Pain, Moderate(Pain Scale 4-6) Pharmacy Consult (Consult Rx Vancomycin Dosing) 1 each MISCELLANE DAILY PRN PRN Reason: Consult order Sodium Chloride (0.9 % Sodium Chloride Flush 3 Ml Syringe) 3 ml IVFLUSH QSHIFT [facility] Last Admin: 05/26/25 08:58 Dose: 3 ml Documented By: STEPHANE Spironolactone (Spironolactone 25 Mg Tablet) 25 mg PO DAILY [facility]; Protocol Last Admin: 05/26/25 08:57 Dose: 25 mg Documented By: STEPHANE Labs 05/25/25 06:29 05/26/25 05:50 Labs: Laboratory Results - last 24 hr 05/26/25 05/26/25 05:50 06:11 Hold Purple Top SEE NOTE Estim Creat Clear Calc 94.8 Estimated GFR > 60 Assessment and Plan (1) (HFpEF) heart failure with preserved ejection fraction: Status: Acute Plan 49 year old man admitted with shortness of breath and cough. CXR showed multifocal PNA and edema with small right pleural effusion requiring bipap. 1.Acute hypoxic respiratory failure secondary to HFpEF /degree of COPD -agree with Cardiology; given rapid normalization of chest x-ray unlikely multifocal pneumonia. . . -continue Vancomycin/ceftriaxone(7) -pulse dose methylprednisolone -NT pro BNP normalize - 2.IVDU -states has not used in 3 years -methadone as ordered 3.LE wounds -see wound care nurse's orders -switch to oral in a.m. DVT prophylaxis Lovenox Full code Requires ongoing hospitalization to document improvement of CHF with switch to p.o. Lasix Quality Stroke Does the patient have a stroke diagnosis?: No VTE Prior VTE?: No VTE Risk Level:: Medical - moderate - high VTE Device Contraindication: N/A - Device Ordered VTE Drug Contraindication: N/A - Med Ordered
--- NOTE | 2025-05-26 15:59 | MHC.CM.PN ---
THIS CM MET WITH PT TO DISCUSS DISCHARGE PLAN. DCP: RETURN HOME TOMORROW 05/27 W/ RESUMPTION OF PREVIOUS [facility] SERVICES, [facility], AND METHADONE FROM [facility]. PT WILL ARRANGE HIS OWN TRANSPORT HOME. SECOND IMM GIVEN 05/26.
--- NOTE | 2025-05-26 18:41 | HE.PHANOTE ---
[facility] patients level came back this evening at 19.4. Patient renal function has remained stable with slight improvement. Patient was on Q12H dosing, RXinsight shows less toxicity and a more steady trough with Q24H dosing. Predicted AUC 559. Will change dose to 1500 mg Q24H, will continue to monitor renal function. Next dose pushed out due to increase in dose and patients level. first 1500 mg dose will be given tomorrow 05/27 @1000 to allow level to come down. next level will be taken 05/28 @0800 to ensure safety vs efficacy.
--- NOTE | 2025-05-26 19:49 | PC.NURSE ---
I pre medicated pt with morphine prior to making an attempt to change his dressing, pt does not let me touch his wounds. Pt is swearing and yelling and stated he does not care about dressing change because it hurts too much . i offered pt soaking his dressing with saline water, pt does not want to do anything with it.
[2025-05-26] MEDS: oxyCODONE HCl Immed Release 5 MG TABLET 10 MG PO (20:38)
--- NOTE | 2025-05-26 23:23 | PC.NURSE ---
pt medicated with additional medication- oxycodone, pt let me change his dressing on Rt leg, Lt leg LYDIA
[2025-05-27] VITALS: BP 142/73; PULSE 90; RESP 20; TEMP 36.9; O2SAT 97
[2025-05-27 03:10] VITALS: BP 139/72; PULSE 83; RESP 17; TEMP 35.5; O2SAT 96
[2025-05-27 06:00] VITALS: BMI 36.3
[2025-05-27 07:18] VITALS: BP 128/75; PULSE 84; RESP 14; TEMP 36.1; O2SAT 97
[2025-05-27] MEDS: Albuterol/Iprat 2.5/0.5MG 3 ML AMPUL.NEB INHALE (07:39)
[2025-05-27 07:41] VITALS: PULSE 81; RESP 16; O2SAT 96
[2025-05-27] MEDS: methADONE HCl 20 MG/2 ML ORAL.CONC 135 MG PO (08:04)
[2025-05-27] MEDS: Nicotine 7 MG PATCH.TD24 TRANSDERMA (08:08)
[2025-05-27 08:10] LABS: Creatinine Clr Calc Pharmacy 101.4; Estimated Glomerular Filt Rate > 60
[2025-05-27] MEDS: 0.9 % Sodium Chloride Flush 3 ML SYRINGE IVFLUSH (08:11)
[2025-05-27 10:06] VITALS: PULSE 101; PULSE 71; PULSE 77; O2SAT 87; O2SAT 91; O2SAT 93
--- NOTE | 2025-05-27 11:29 | P.DS_ITS ---
DS: Providers Provider Date of Service: 05/27/25 Date of admission: 05/19/25 20:27 Date of discharge: 05/27/25 Primary care physician: Charo Valentin DO Consults: 05/19/25 23:26 Consult to Wound Care Routine Reason for consultation: BLE cellulitis 05/23/25 08:14 Consult to Cardiology Routine Consulting Provider: [facility] Reason for consultation: CHF DS: Diagnosis Discharge Diagnosis (1) (HFpEF) heart failure with preserved ejection fraction: Status: Acute (2) Bilateral cellulitis of lower leg: Status: Acute (3) Pneumonia: Status: Acute DS: Summary Time Attestation Discharge Coordination Time (in mins): 35 Quality: Safe Use of Opioids Does Pt have an Active Cancer Diagnosis on the Problem List?: No Quality: Stroke Does the patient have a stroke diagnosis?: No Physical Exam Vital Signs: Vital Signs: Last Vital Signs Temp 97.0 F 05/27/25 07:18 Pulse 81 05/27/25 07:41 Resp 16 05/27/25 07:41 BP 128/75 05/27/25 07:18 Pulse Ox 97 05/27/25 07:18 O2 Del Method Nasal Cannula 05/27/25 07:18 O2 Flow Rate 2 05/27/25 07:18 FiO2 40 05/24/25 04:00 Oxygen Flow Rate 55 05/19/25 20:27 BMI result Body Mass Index 36.3 DS: Data Data Completed and Pending Completed studies during hospitalization [Text1]: Procedures Excision of Right Lower Leg Skin, External Approach, Diagnostic (06/07/23) Labs on day of discharge: Laboratory Results - last 24 hr 05/26/25 05/27/25 05/27/25 17:40 07:16 07:17 Hold Purple Top SEE NOTE Creatinine 0.90 Estim Creat Clear Calc 101.4 Estimated GFR > 60 Random Vancomycin 19.4 Discharge Plan Discharge Anticipated Discharge Date/Time: 05/27/25 11:16 Patient Disposition: Home Health Service Discharge Diagnosis: Acute on chronic HFpEF Referrals: Charo Valentin DO [Primary Care Provider, Internal Medicine] - 1 Week Discharge Medications: New spironolactone 25 mg Tablet 25 mg PO DAILY Qty: 30 0RF Protocol: Hold for SBP< HOLD for SBP < : 90 prednisone 10 mg tablet See Rx Instructions .Route .COMPLEX Qty: 45 0RF Rx Instructions: 10 mg orally; 5 tabs p.o. daily x3 days; 4 tabs p.o. daily x3 days; 3 tabs daily x3 days; 2 tabs daily x3 days; 1 tab daily x3 days cefuroxime axetil 500 mg tablet 500 mg PO BID 7 Days Qty: 14 0RF Continued methadone [Methadone Intensol] 10 mg/mL Concentrate 135 mg PO DAILY Rx Instructions: 135 mg gabapentin 300 mg Capsule 300 - 600 mg PO TID PRN (Reason: Pain) Zepbound 2.5 mg/0.5 mL pen injector 2.5 mg subcut SA chlorthalidone 25 mg tablet 12.5 mg PO DAILY naproxen 500 mg tablet 500 mg PO BID PRN (Reason: moderate pain) acetaminophen 500 mg Tablet 1,000 mg PO Q6H PRN (Reason: Pain) oxycodone 5 mg Tablet 5 mg PO Q6H PRN (Reason: pain, moderrate) 3 Days Qty: 3 0RF Rx Instructions: Partial Fill upon patient request. olmesartan 5 mg tablet 10 mg PO DAILY Discontinued sulfamethoxazole-trimethoprim 800-160 mg Tablet 1 tab PO Q12H 10 Days Qty: 20 0RF Discharge Orders: Discharge Order (Routine); Ordered 05/27/25 Ordered By: Stephen Elmore Diet: Advance to usual diet Activity on Discharge: As tolerated Stand Alone Forms: Patient Portal Discharge page Print Language: Uzbek Care Plan Goals: Resume all medicines as taken prior to hospitalization. Ceftin 500 mg twice daily has been added for 1 week; spironolactone 25 mg daily has been added to your regimen indefinitely. A prednisone taper has also been called in ....take this as ordered Health Concerns: You have qualified for home oxygen. The oxygen company we will supply the oxygen and it will be at your house when you return Plan of Treatment: [facility] will visit to keep track of your oxygen level. When you do not need the oxygen the O2 company will come and take it away Assessment: See discharge summary
--- NOTE | 2025-05-27 11:31 | P.DS_ITS ---
DS: Providers Provider Date of Service: 05/27/25 Date of admission: 05/19/25 20:27 Date of discharge: 05/27/25 Primary care physician: Charo Valentin DO Consults: 05/19/25 23:26 Consult to Wound Care Routine Reason for consultation: BLE cellulitis 05/23/25 08:14 Consult to Cardiology Routine Consulting Provider: [facility] Reason for consultation: CHF DS: Diagnosis Discharge Diagnosis (1) (HFpEF) heart failure with preserved ejection fraction: Status: Acute (2) Bilateral cellulitis of lower leg: Status: Acute (3) Pneumonia: Status: Acute DS: Summary Hospital Course Hospital Course: 49 y/o M with hx of hypertension, anxiety, depression, hep C s/p tx with Epclusa, history IV heroin abuse , PAD, chronic bilateral lower extremity nonhealing/complicated wounds just discharged from the hospital on May 14. Baseline not on oxygen. Presents today with having increasing shortness of breath. Diminished breath sounds bilaterally increased work of breathing. Patient denies any fever chills. Positive coughing upper respiratory symptoms. Positive history of smoking. Positive history of heroin use. Hospital Course Patient admitted to ICU secondary to the need for BiPAP. He is covered with broad-spectrum antibiotics given what appeared to be multifocal pneumonia. He was subsequently weaned off of BiPAP and transferred out to the general medical floor. He was aggressively diuresed as well for presumed acute heart failure. He tolerated all well. He was seen in consultation by Cardiology and a 2D echo was performed which demonstrated an LVEF of greater than 70% without acute wall motion abnormalities. Repeat chest x-ray 5 days later demonstrate complete clearance of the original infiltrates. Discussed with Cardiology, more likely CHF related than infected. He also has bilateral lower extremity cellulitis wishes treated outpatient with wound care. He did have an O2 requirement; with found to have wheezes throughout on the telemetry. Improved new oxygen at rest. Physical therapy while this point in time taper. Aldactone has been added by Cardiology and he will follow up with them in the office Time Attestation Discharge Coordination Time (in mins): 35 Quality: Safe Use of Opioids Does Pt have an Active Cancer Diagnosis on the Problem List?: No Quality: Stroke Does the patient have a stroke diagnosis?: No Physical Exam Vital Signs: Vital Signs: Last Vital Signs Temp 97.0 F 05/27/25 07:18 Pulse 81 09/28/25 07:41 Resp 16 05/27/25 07:41 BP 128/75 05/27/25 07:18 Pulse Ox 97 05/27/25 07:18 O2 Del Method Nasal Cannula 05/27/25 07:18 O2 Flow Rate 2 05/27/25 07:18 FiO2 40 05/24/25 04:00 Oxygen Flow Rate 55 05/19/25 20:27 BMI result Body Mass Index 36.3 Const: Other: Awake alert no acute distress Resp: Other: Clear to auscultation bilaterally no rales rhonchi or wheezes Cardio: Other: No S4; positive S1-S2; no S3 murmurs rubs or gallops GI: Other: Soft nontender nondistended. Normoactive bowel sounds Extrem: Other: See wound care notes DS: Data Data Completed and Pending Completed studies during hospitalization [Text1]: Procedures Excision of Right Lower Leg Skin, External Approach, Diagnostic (06/07/23) Labs on day of discharge: Laboratory Results - last 24 hr 05/26/25 05/27/25 05/27/25 17:40 07:16 07:17 Hold Purple Top SEE NOTE Creatinine 0.90 Estim Creat Clear Calc 101.4 Estimated GFR > 60 Random Vancomycin 19.4 Discharge Plan Discharge Anticipated Discharge Date/Time: 05/27/25 11:16 Patient Disposition: Home Health Service Discharge Diagnosis: Acute on chronic HFpEF Referrals: Charo Valentin DO [Primary Care Provider, Internal Medicine] - 1 Week Discharge Medications: New spironolactone 25 mg Tablet 25 mg PO DAILY Qty: 30 0RF Protocol: Hold for SBP< HOLD for SBP < : 90 prednisone 10 mg tablet See Rx Instructions .Route .COMPLEX Qty: 45 0RF Rx Instructions: 10 mg orally; 5 tabs p.o. daily x3 days; 4 tabs p.o. daily x3 days; 3 tabs daily x3 days; 2 tabs daily x3 days; 1 tab daily x3 days cefuroxime axetil 500 mg tablet 500 mg PO BID 7 Days Qty: 14 0RF Continued methadone [Methadone Intensol] 10 mg/mL Concentrate 135 mg PO DAILY Rx Instructions: 135 mg gabapentin 300 mg Capsule 300 - 600 mg PO TID PRN (Reason: Pain) Zepbound 2.5 mg/0.5 mL pen injector 2.5 mg subcut SA chlorthalidone 25 mg tablet 12.5 mg PO DAILY naproxen 500 mg tablet 500 mg PO BID PRN (Reason: moderate pain) acetaminophen 500 mg Tablet 1,000 mg PO Q6H PRN (Reason: Pain) oxycodone 5 mg Tablet 5 mg PO Q6H PRN (Reason: pain, moderrate) 3 Days Qty: 3 0RF Rx Instructions: Partial Fill upon patient request. olmesartan 5 mg tablet 10 mg PO DAILY Discontinued sulfamethoxazole-trimethoprim 800-160 mg Tablet 1 tab PO Q12H 10 Days Qty: 20 0RF Discharge Orders: Discharge Order (Routine); Ordered 05/27/25 Ordered By: Stephen Elmore Diet: Advance to usual diet Activity on Discharge: As tolerated Stand Alone Forms: Patient Portal Discharge page Print Language: Upper Sorbian Care Plan Goals: Resume all medicines as taken prior to hospitalization. Ceftin 500 mg twice daily has been added for 1 week; spironolactone 25 mg daily has been added to your regimen indefinitely. A prednisone taper has also been called in ....take this as ordered Health Concerns: You have qualified for home oxygen. The oxygen company we will supply the oxygen and it will be at your house when you return Plan of Treatment: [facility] will visit to keep track of your oxygen level. When you do not need the oxygen the O2 company will come and take it away Assessment: See discharge summary
[2025-05-27 11:45] VITALS: BP 119/61; PULSE 85; RESP 16; TEMP 36.9; O2SAT 88
--- NOTE | 2025-05-27 14:28 | MHC.CM.PN ---
PT IS MEDICALLY CLEARED FOR DISCHARGE HOME WITH RESUMPTION OF PREVIOUS [facility] SERVICES, [facility] [place] [facility], AND METHADONE FROM [facility]. PT ARRANGED HIS OWN TRANSPORT HOME. SECOND IMM GIVEN WAS 05/26.
== END 2025-05-27 01:45 | disposition home health service (06) | DRG 291 ==
LOC: HO.ED 20:55 → HO.EDOVER 21:30 → HO.ICU 22:41 → HO.IMC 05-22 12:16
PROVIDERS: Internal Medicine Critical Care Medicine; Internal Medicine Pulmonary Disease; Nurse Practitioner Acute Care; Admitting Provider Nurse Practitioner Family; Emergency Provider Emergency Medicine Emergency Medical Services; PCP Family Medicine; Visit Provider Hospitalist
DX: I11.0 Hypertensive heart disease with heart failure (principal); I50.33 Acute on chronic diastolic (congestive) heart failure; J18.9 Pneumonia, unspecified organism; J96.01 Acute respiratory failure with hypoxia; L03.115 Cellulitis of right lower limb; L03.116 Cellulitis of left lower limb; N17.9 Acute kidney failure, unspecified; F11.20 Opioid dependence, uncomplicated; J44.0 Chronic obstructive pulmonary disease with (acute) lower respiratory infection; F17.210 Nicotine dependence, cigarettes, uncomplicated; Z71.6 Tobacco abuse counseling; E66.811 Obesity, class 1; Z68.36 Body mass index [BMI] 36.0-36.9, adult; Z71.3 Dietary counseling and surveillance; Z20.822 Contact with and (suspected) exposure to COVID-19; Z86.19 Personal history of other infectious and parasitic diseases; Z79.899 Other long term (current) drug therapy
CPT/HCPCS: 36415; 71045; 71250; 80048; 80053; 80202; 82040; 82565; 82803; 83605; 83735; 83880; 84100; 84484; 85007; 85025; 85027; 87040; 87637; 93005; 93306; 94660; 97161; 99284; J0131; J0692; J0696; J1650; J1938; J2270; J2919; J3374; J3475; P9047; Q9957

== ENCOUNTER → 2025-05-19 18:23 | Outpatient (BNV) | payer MEDICARE, SELFPAY | PROVIDERS: Admitting Provider Nurse Practitioner Family; Emergency Provider Emergency Medicine Emergency Medical Services; PCP Family Medicine; Visit Provider Internal Medicine | DX: R00.0 Tachycardia, unspecified (principal) | CPT/HCPCS: 93010 ==

== ENCOUNTER → 2025-05-19 18:29 | Outpatient (BNV) | payer MEDICARE, SELFPAY | PROVIDERS: Emergency Provider Emergency Medicine Emergency Medical Services; PCP Family Medicine; Visit Provider Radiology Neuroradiology | DX: J96.90 Respiratory failure, unspecified, unspecified whether with hypoxia or hypercapnia (principal) | CPT/HCPCS: 71250 ==

== ENCOUNTER 2025-05-19 20:27 | Outpatient (BNV) | payer MEDICARE, SELFPAY | END 2025-05-24 09:20 | PROVIDERS: Admitting Provider Nurse Practitioner Family; Emergency Provider Emergency Medicine Emergency Medical Services; PCP Family Medicine; Visit Provider Radiology Diagnostic Radiology | DX: R06.02 Shortness of breath (principal) | CPT/HCPCS: 71045 ==

== ENCOUNTER 2025-05-19 20:27 | Outpatient (BNV) | payer MEDICARE, SELFPAY | END 2025-05-21 07:00 | PROVIDERS: Admitting Provider Nurse Practitioner Family; Emergency Provider Emergency Medicine Emergency Medical Services; PCP Family Medicine; Visit Provider Internal Medicine Cardiovascular Disease | DX: I35.0 Nonrheumatic aortic (valve) stenosis (principal); I51.89 Other ill-defined heart diseases | CPT/HCPCS: 93306 ==

== ENCOUNTER → 2025-05-19 20:27 | Outpatient (BNV) | payer MEDICARE, SELFPAY | PROVIDERS: Admitting Provider Nurse Practitioner Family; Emergency Provider Emergency Medicine Emergency Medical Services; PCP Family Medicine; Visit Provider Nurse Practitioner Family | DX: A41.9 Sepsis, unspecified organism (principal); R65.20 Severe sepsis without septic shock; J96.01 Acute respiratory failure with hypoxia; J18.9 Pneumonia, unspecified organism; L03.116 Cellulitis of left lower limb; L03.115 Cellulitis of right lower limb; R60.0 Localized edema; F19.91 Other psychoactive substance use, unspecified, in remission | CPT/HCPCS: 99291 ==

== ENCOUNTER → 2025-05-19 20:27 | Outpatient (BNV) | payer MEDICARE, SELFPAY | PROVIDERS: Admitting Provider Nurse Practitioner Family; Emergency Provider Emergency Medicine Emergency Medical Services; PCP Family Medicine; Visit Provider Internal Medicine Cardiovascular Disease | DX: I50.9 Heart failure, unspecified (principal) | CPT/HCPCS: 99233 ==

== ENCOUNTER → 2025-05-19 20:27 | Outpatient (BNV) | payer MEDICARE, SELFPAY | PROVIDERS: Admitting Provider Nurse Practitioner Family; Emergency Provider Emergency Medicine Emergency Medical Services; PCP Family Medicine; Visit Provider Nurse Practitioner Acute Care | DX: I50.30 Unspecified diastolic (congestive) heart failure (principal); L03.116 Cellulitis of left lower limb; L03.115 Cellulitis of right lower limb | CPT/HCPCS: 99232; 99499 ==

== ENCOUNTER → 2025-05-19 20:27 | Outpatient (BNV) | payer MEDICARE, SELFPAY | PROVIDERS: Admitting Provider Nurse Practitioner Family; Emergency Provider Emergency Medicine Emergency Medical Services; PCP Family Medicine; Visit Provider Internal Medicine Pulmonary Disease | DX: I73.9 Peripheral vascular disease, unspecified (principal); L03.116 Cellulitis of left lower limb; L03.115 Cellulitis of right lower limb; F19.91 Other psychoactive substance use, unspecified, in remission; J96.01 Acute respiratory failure with hypoxia | CPT/HCPCS: 99232 ==

== ENCOUNTER 2025-08-16 14:35 | Outpatient (AMB) | payer MEDICARE, MEDICAID, SELFPAY ==
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
--- OUTSIDE RECORDS SUMMARY | 2025-08-16 18:45 | XMS_ITS | Encounter Summary ---
Author Organization [employer] Address [address] [place] [address] Care Team Providers Care Cigar Patcher Name Role Phone Malaika Nuñez [facility] Primary Care Provider [phone] Encounter Details Date Type Department Care Team (Late st Contact Info) Description 06/03/2023 Orders Only [facility] MED[facility]INE [address] [place] [address] Amita Ojeda, IDANIA [address] [place] [address] Chronic hepatitis C without hepatic coma (CMS/HCC) [...] Care Team (Late st Contact Info) Description 09/03/2025 1:00 PM EST Office Visit [facility] MED[facility]INE [address] [place] [address] Malaika Nuñez FNP [address] [place] [address] Scheduled Orders Name Type Priority Associated Diagnoses Orde r Schedule Hepatitis C Viral RNA, Quantitative, Real-Time PCR Lab Routine Chronic hepatitis C without hepatic coma (CMS/HCC) Expected: 06/03/2023 (Approximate), Expires: 06/03/2024 documented as of this encounter Visit Diagnoses Diagnosis Chronic hepatitis C without hepatic coma (HCC) documented in this encounter Additional Health Concerns Assessment Noted Time PHQ-9 Depression Total Score: 0 01/22/20 23 9:56 AM EDT documented as of this encounter Care Teams Cigar Patcher Relationship Specialty Start Date End Date Malaika Nuñez FNP [address] [place] [id number] PCP - General Family Medicine 09/22/22 Yasmany MARTINA 03/04/25 documented as of this encounter
--- OUTSIDE RECORDS SUMMARY | 2025-08-16 18:45 | XMS_ITS | Encounter Summary ---
Author Organization [employer] Address [address] [facility] [address] [place] [address] Care Team Providers Care Furnace Loader Name Role Phone Malaika Nuñez [employer] Primary Care Provider [phone] Reason for Visit * Reason Comments Med Refill Encounter Details Date Type Department Care Team (Late st Contact Info) Description 02/22/2023 Refill [facility] [address] [place] [address] Rosa Elena Chung MD [address] [place] [address] Social History Tobacco Use Types Packs/Day Years [...] Description 09/03/2025 1:00 PM EST Office Visit [facility] [address] [place] [address] Malaika Nuñez FNP [address] [place] [address] documented as of this encounter Visit Diagnoses Not on filedocumented in this encounter Additional Health Concerns Assessment Noted Time PHQ-9 Depression Total Score: 0 01/22/20 9:56 AM EDT documented as of this encounter Care Teams Furnace Loader Relationship Specialty Start Date End Date Malaika Nuñez FNP [address] [place] [address] PCP - General Family Medicine 09/22/22 Yasmany MARTINA 03/04/25 documented as of this encounter
--- OUTSIDE RECORDS SUMMARY | 2025-08-16 18:45 | XMS_ITS | Clinical Summary ---
Author Organization [employer] Address [address] [facility] 7t [place] [address] Care Team Providers Care Tube Handler Name Role Phone Malaika Nuñez ASSISTANT WRESTLING COACH Primary Care Provider [phone] Allergies No known active allergies Medications Blood [...] 2 weeks 80 g 11/07/19 24 Active tiotropium (Spiriva HandiHaler) 18 MCG inhalation capsuleIndicatio ns:Chronic obstructive pulmonary disease, unspecified COPD type (CMS/HCC) ([facility]) Place 1 capsule (18 mcg) into inhaler and inhale in the morning. 30 capsule 11 04/06/20 026 Active albuterol 108 (90 Base) MCG/ACT inhalerIndicatio ns:Chronic obstructive pulmonary disease, unspecified COPD type (CMS/HCC) ([facility]) Inhale 2 puffs every 6 (six) hours if needed for wheezing. 18 g 11 04/06/20 026 Active Tirzepatide-Weig ht Management (Zepbound) 2.5 MG/0.5ML solution auto-injectorInd ications:Class 3 severe obesity due to excess calories with serious comorbidity and body mass index (BMI) of 40.0 to 44.9 in adult ([facility]) Inject 0.5 mL (2.5 mg) under the [...] BY MOUTH EVERY DAY 60 tablet 3 5 3:14 PM EST 05/14/20 25 Active spironolactone (Aldactone) 25 MG tablet Take 25 mg by mouth Once per day. Active albuterol 108 (90 Base) MCG/ACT inhalerIndicatio ns:Simple chronic bronchitis (CMS/HCC) ([facility]) Inhale 2 puffs every 6 (six) hours if needed for wheezing. 18 g 11 06/18/20 25 026 Active Tirzepatide-Weig ht Management (Zepbound) 5 MG/0.5ML solution auto-injectorInd ications:Class 3 severe obesity due to excess calories with serious comorbidity and body mass index (BMI) of 40.0 to 44.9 in adult ([facility]) Inject 0.5 mL (5 mg) under the skin 1 (one) time per week. 2 mL 1 5 3:14 PM EST 06/18/20 25 Active nicotine polacrilex (Nicotine Mini) 4 MG lozengeIndicatio ns:Simple chronic bronchitis (CMS/HCC) ([facility]) Dissolve 1 lozenge (4 mg) in the mouth every 2 (two) hours if needed for smoking cessation. 100 lozenge 06/18/20 25 Active chlorthalidone (Hygroton) 25 MG tablet TAKE 1/2 TABLET BY MOUTH EVERY DAY 15 tablet 11 5 3:14 PM EST 08/06/20 25 Active gabapentin (Neurontin) 300 MG capsuleIndicatio ns:Chronic left hip pain TAKE 1 TO 2 CAPSULES BY MOUTH UP TO THREE TIMES DAILY NEEDED FOR PAIN 150 capsule 3 5 3:14 PM EST 08/06/20 25 Active chlorthalidone (Hygroton) 25 MG tablet Take 0.5 tablets (12.5 mg) by mouth Once per day. 15 tablet 11 07/18/20 24 025 Discontinued gabapentin (Neurontin) 300 MG capsuleIndicatio ns:Chronic left hip pain TAKE 1 TO 2 CAPSULES BY MOUTH UP TO THREE TIMES DAILY NEEDED FOR PAIN 150 capsule 3 02/20/20 025 Discontinued Active Problems Problem Noted Date Diagnosed Date Simple chronic bronchitis (CMS/HCC) 06/18/2025 Acute on chronic heart failu re with preserved ejection fraction (HFpEF) 06/18/2025 Heroin abuse (CMS/HCC) 01/21/2024 Hepatitis C virus infection cured after antiviral drug therapy 11/22/2023 Recurrent cellulitis of lower extremity 05/09/20 Overview (11/05/2023): Hx of recurrent LE edema/erythema ?cellulitis requiring multiple hospitalizations which started after patient initiated tx for HCV with Epclusa (tx now completed) Saw Dr. Cruz in ID. Started penicillin 250mg BID x 30 days for prevention. Punch biopsy negative for vasculitis from 05/2023. Assessment & Plan (08/01/2023 10:37 AM EST): Sx improvement Insurance issue when patient tried to grape picker penicillin from pharmacy. Will resend today Continue [...] head. Gabapentin Naproxen Followed by Dr. Stallworth [facility] ortho- plan for THR pending left hip aspiration to r/o chronic infection. 04/13/23-[facility] cardiovascular for pre-op clearance. 1st degree AV [...] 1:14 PM EDT): Follow as scheduled with [facility] ortho Will place referral to dental care to expedite preop clearance Assessment & Plan (02/01/2023 5:13 AM EDT): INCREASE gabapentin dose to 300mg (1-2 capules b.i.d) Updated xrays ordered Referral placed to [facility] ortho Substance use disorder 09/22/2022 Overview (09/22/2022): SHAUNA-IVDU, sober x 6 months, on methadone program through [facility]. Has rn recovery and therapiist through [facility]. Also goes to AA Assessment & Plan (07/03/2023 1:14 PM EDT): Doing very well; has maintained sobriety Bipolar affective disorder in remission 09/22/19 Overview (09/22/2022): abilify 5mg, depakote 500mg Acute [...] -referral placed -has stable living situation in [facility] -pt commended on his success Encounters Date Type Department Care Team Description 08/06/2025 Refill [facility] [address] [place] [address] Malaika Nuñez FNP Chronic left hip pain 07/07/2025 Refill [facility] [address] [place], [place] [phone] Malaika Nuñez FNP Chronic left hip pain 06/28/2025 Telephone [facility] [address] [place] [address] Malaika Nuñez FNP Jude recall 06/18/2025 9:45 AM EDT Office Visit [facility] [address] [place] [address] Malaika Nuñez [facility] Acute on chronic heart failure with preserved ejection fraction (HFpEF) (HCC) (Primary Dx); Simple chronic bronchitis (CMS/HCC) (HCC); Substance use disorder; Class 3 severe obesity due to excess calories with serious comorbidity and body mass index (BMI) of 40.0 to 44.9 in adult ([facility]); Encounter for immunization 06/18/2025 Travel 06/15/[address] [address] Malaika Nuñez [facility] chart prep 06/13/2025 Travel 06/07/2025 Patient Outreach [address] [address] Malaika Nuñez [facility] Transition Of Care (Tcm) (HDF- Patient denied HDF) 06/07/[address] [address] Malaika Nuñez [facility] Hospital Follow-up 05/28/2025 Patient Outreach [address] [address] [place] [facility] Transition Of Care (Tcm) (HDF- LVM ) 05/24/[address] [address] Malaika Nuñez [facility] Chart prep from Last 3 Months Immunizations Immunization Administration Dates Next Due Influenza injectable quadrivalent preservative f ree 06/16/2023,08/25/2022 Influenza, seasonal, injectable, preservative fr ee 06/18/2025 Pneumococcal Conjugate PCV 20 01/21/2023 Tdap 09/22/2022 Family History Medical History Relation Name Comments Alcohol Use Disorder Father Diabetes type II Father Breast cancer Maternal Grandmother Colon cancer Neg Hx Prostate cancer Neg Hx Relation Name Status Comments Father Maternal Grandmother Social History Tobacco Use Types Packs/Day Years Used Date Smoking Tobacco: Some Days Cigarettes Smokeless Tobacco: Never Tobacco Cessation:Ready to Q uit: Not Asked; Counseling Given: Not Answered Alcohol Use Standard Drinks/Week Comments Not Currently 0 (1 standard drink = 0.6 oz pur e alcohol) Depression Answer Date Recorded Patient Health Questionnaire-9 Score 0 06/18/2025 Patient Health Questionnaire-9 Score 0 06/18/2025 Last PHQ-9: Questionnaire Data Not on file 1 Housing Stability Answer Date Recorded What is [...] Date Recorded Patient Health Questionnaire-2 Score 0 06/18/2025 Internet Access Answer Date Recorded Internet Access [...] Sign Reading Time Taken Comments Blood Pressure 130/72 06/18/2025 9:22 AM EDT Pulse 100 06/18/2025 9:22 AM EDT Temperature 37.5 C (99.5 F) 06/18/2025 9:22 AM EDT Respiratory Rate 20 06/18/2025 9:22 AM EDT Oxygen Saturation 94% 01/21/2024 9:16 AM EDT Inhaled Oxygen Concentration - - Weight 101 kg (223 lb) 06/18/2025 9:22 AM EDT Height 162.6 cm (5' 4 ) 06/18/2025 9:22 AM EDT Body Mass Index 38.28 06/18/2025 9:22 AM EDT Plan of Treatment Upcoming Encounters Date Type Department Care Team (Late st Contact Info) Description 09/03/2025 1:00 PM EST Office Visit [facility] [address] [place] [address] Malaika Nuñez, ASSISTANT WRESTLING COACH [address] [place], [place] [phone] Health Maintenance Due Date Last Done Comments CT Colonography 1975 Colonoscopy 1973 Colorectal Cancer Screening 1973 FIT DNA/Cologuard 1973 FIT 1973 FOBT 1975 Sigmoidoscopy 1975 Family Planning (PISQ) 1988 Hepatitis A Vaccines (1 of 2 - Risk 2-dose series) 1992 Hepatitis B Vaccines (1 of 3 - 19+ 3-dose series) 1992 RSV Patients and Patients Aged 60 years or older (1 - Risk 50-74 years 1-dose series) 2023 Zoster Vaccines (1 of 2) 2023 COVID-19 Vaccine (1 - 2024-2 6 season) 2025 Disability Screening 10/07/2025 10/07/2024 Alcohol/Substance Use Screening 04/06/2026 04/06/2025 SDOH Screening 04/06/2026 04/06/2025 Depression Screening 06/18/2026 06/18/2025, 06/18/2025 Tobacco Screening 06/18/2026 06/18/2025 Lipid Panel 04/03/2030 04/03/2025, 09/22/2022 DTaP/Tdap/Td Vaccines (2 - T d or Tdap) 09/22/2032 09/22/2022 HIV Screening Completed 09/22/2022 Pneumococcal Vaccine: 50+ Years Completed 01/21/2023 Influenza Vaccine Completed 06/18/2025, 06/16/2023, 08/25/2022 HIB Vaccines Aged Out No longer eligi [...] Procedure Name Priority Date/Time Associated Diagnosis Comments XR CHEST 1 VIEW Routine 05/24/2025 9:[address] CHEST WO CONTRAST Routine 05/19/2025 11:36 PM EDT XR CHEST 1 VIEW Routine 05/19/2025 7:55 PM EDT LIPID PANEL, STANDARD Routine 04/03/2025 11:56 AM EDT Essential hypertension HIV 1/2 ANTIGEN/ANTIBODY, FOURTH GENERATION W/RFL Routine 09/22/2022 10:47 AM EST Substance use disorder from Last 3 Months or Most Recently Relevant to Health Maintenance Results * XR Chest 1 View (05/24/2025 9:20 AM EDT) Only the most recent of2 resultswithin the time period is included. Anatomical Region Laterality Modality Chest Radiographic Marian ging 05/24/2025 9:20 AM EDT Narrative 05/24/2025 10:07 AM EDT [place] [address] XRay Report Signed Patient: Pop Carcamo MR#: [id number] 0 : 1975 Acct:[id number] Age/Sex: 49 / M ADM Date: 05/19/25 Loc: [facility] 453-[address]: Stephen Elmore DO Ordering Physician: Stephen Elmore DO Date of Service: 05/24/25 Procedure(s): XR chest 1V Accession Number(s): [id number] cc: Charo Valentin DO; Stephen Elmore DO Reason for Exam: sob EXAMINATION: XR CHEST CLINICAL INFORMATION: sob COMPARISON: 05/19/2025 TECHNIQUE: Frontal view of the chest was obtained. FINDINGS: Airspace opacity in the lower half of the bilateral lungs have nearly resolved. There is minimal residual groundglass opacity in the right mid third lung zone. Heart size is normal. XR/XR chest 1V IMPRESSION: Near complete resolution of bilateral lower lung opacities with minimal residual groundglass density in the right mid third lung zone. Electronically signed by: Asad Gracia MD 05/24/2025 10:04 AM EDT RP Dictated By: Asad Gracia MD Signed By: <Electronically signed by Asad Gracia MD in OV> 05/24/25 1004 DD/ 0920 TD/TT: 05/24/25 0959 Carburetor Mechanic: Procedure Note Donotuseinterpreter, Image - 05/24/2025 [place] [address] XRay Report Signed Patient: Pop Carcamo [facility]#: [id number] 0 : 1975Acct:[id number] Age/Sex: 49 / MADM Date: 05/19/25 Loc: [facility] 453-[address]: Stephen Elmore DO Ordering Physician: Stephen Elmore DO Date of Service: 05/24/25 Procedure(s): XR chest 1V Accession Number(s): [id number] cc: Charo Valentin DO; Stephen Elmore DO Reason for Exam: sob EXAMINATION: XR CHEST CLINICAL INFORMATION: sob COMPARISON: 05/19/2025 TECHNIQUE: Frontal view of the chest was obtained. FINDINGS: Airspace opacity in the lower half of the bilateral lungs have nearly resolved. There is minimal residual groundglass opacity in the right mid third lung zone. Heart size is normal. XR/XR chest 1V IMPRESSION: Near complete resolution of bilateral lower lung opacities with minimal residual groundglass density in the right mid third lung zone. Electronically signed by: Asad Gracia MD 05/24/2025 10:04 AM EDT Dictated By: Asad Gracia MD Signed By: <Electronically signed by Asad Gracia MD in OV> 05/24/25 1004 DD/ 0920 TD/TT: 05/24/25 0959 Carburetor Mechanic: [facility] External Provider IMG XR PROCEDURES Final Result * CT Chest w/o Contrast (05/19/2025 11:36 PM EDT) Anatomical Region Laterality Modality Body, Chest Computed Tomogra phy 05/19/2025 11:3 6 PM EDT Narrative 05/19/2025 11:37 PM EDT [address] [address] [address] Scan Report Signed Patient: Pop Carcamo MR#: [id number] 0 : 1975 Acct:[id number] Age/Sex: 49 / M ADM Date: 05/19/25 Loc: .[facility] 261-[address]: Linda Blackman NP Ordering Physician: Linda Blackman NP Date of Service: 05/19/25 Procedure(s): CT chest wo IV con Accession Number(s): [id number] cc: Charo Valentin DO; Linda Blackman NP Report Number: [id number]: Total DLP = 490.00 mGy-cm Reason for Exam: resp failure CLINICAL HISTORY: resp failure CT chest without contrast Comparison: Chest x-ray from 05/19/2025 Findings: Moderate to severe pulmonary opacities are multifocal concerning for multifocal pneumonia. Comminution of the ground-glass and consolidation are noted. Sequela of septic emboli also considered given multiple centrilobular densities. No pneumothorax. Pleural effusion. Borderline cardiomegaly. Small mediastinal and hilar lymph nodes are nonspecific and likely reactive. Fusion of the sternum manubrium. Mild degenerative changes include imaged shoulders and imaged spine. Borderline splenomegaly in the partially imaged abdomen. Mild volume loss of the partially imaged pancreas. Fat deposition noted in the liver. IMPRESSION: Multifocal airspace disease. Differential considerations include multifocal pneumonia and findings of septic emboli. Recommend attention on follow-up to ensure resolution. This document has been electronically signed by: Mahesh Escamilla MD on 05/19/2025 23:36:40 Dictated By: Mahesh Escamilla MD Signed By: <Electronically signed by Mahesh Escamilla MD in OV> 05/19/252336 DD/ 35 TD/TT: 05/19/252335 Carburetor Mechanic: Procedure Note Donotuseinterpreter, Image - 05/20/[address] [address] [address] Scan Report Signed Patient: Pop Carcamo MMR#: [id number] 0 : 1975Acct:[id number] Age/Sex: 49 / MADM Date: 05/19/25 Loc: .ICU 261-[address]: Linda Blackman NP Ordering Physician: Linda Blackman NP Date of Service: 05/19/25 Procedure(s): CT chest wo IV con Accession Number(s): [id number] cc: Charo Valentin DO; Linda Blackman NP Report Number: [id number]: Total DLP = 490.00 mGy-cm Reason for Exam: resp failure CLINICAL HISTORY: resp failure CT chest without contrast Comparison: Chest x-ray from 05/19/2025 Findings: Moderate to severe pulmonary opacities are multifocal concerning for multifocal pneumonia. Comminution of the ground-glass and consolidation are noted. Sequela of septic emboli also considered given multiple centrilobular densities. No pneumothorax. Pleural effusion. Borderline cardiomegaly. Small mediastinal and hilar lymph nodes are nonspecific and likely reactive. Fusion of the sternum manubrium. Mild degenerative changes include imaged shoulders and imaged spine. Borderline splenomegaly in the partially imaged abdomen. Mild volume loss of the partially imaged pancreas. Fat deposition noted in the liver. IMPRESSION: Multifocal airspace disease. Differential considerations include multifocal pneumonia and findings of septic emboli. Recommend attention on follow-up to ensure resolution. This document has been electronically signed by: Mahesh Escamilla MD on 05/19/2025 23:36:40 Dictated By: Mahesh Escamilla MD Signed By: <Electronically signed by Mahesh Escamilla MD in OV> 05/19/252336 DD/ 35 TD/TT: 05/19/252335 Carburetor Mechanic: [facility] External Provider IMG CT PROCEDURES Edited Result - Final * (ABNORMAL) Lipid Panel, Standard (04/03/2025 11:56 AM EDT) Triglycerides 151(H) <150 mg/dL [facility] Comment:Desirable Triglyceri de: less than 150 mg/dLBorderline High Triglyceride 150-199 mg/dLHigh Triglyceride: 200-499 mg/dLVery High Triglyceride: greater than or equal to 5OO mg/dL Cholesterol 142 <200 mg/dL [facility] Comment:Desirable Cholestero l: less than 200 mg/dLBorderline High Cholesterol: 200-239 mg/dLHigh Cholesterol: greater than 239 mg/dL LDL Cholesterol Calculated 80 <100 mg/dL [facility] Comment:Desirable LDL: less than 100 mg/dLNear Optimal/Above Optimal LDL: 110- 129 mg/dLBorderline High LDL: 130-159 mg/dLHigh LDL: 160-189 mg/dLVery High LDL: greater than or equal to 190 mg/dL HDL Cholesterol 32(L) >40 mg/dL [facility] Comment:Desirable HDL: great er than 40 mg/dL Note: This HDL assay may give artificially low results in patients with liver disease. Blood Venous blood specimen / Unknown 04/03/2025 11:56 AM EDT 04/03/2025 1:13 PM EDT [facility] ASSISTANT WRESTLING COACH LAB BLOOD ORDERABLES Final Re sult [facility] [address] [place] [phone] * HIV-1/2 Antigen and Antibodies, Fourth Generation, with Reflexes (09/22/2022 10:47 AM EST) HIV Antigen/Antibody, 4th Generation NON-REAC TIVE NON-REAC TIVE [employer] [place] [facility] Comment: HIV-1 antigen and HIV-1/HIV-2 antibodies [...] purpose. For additional information please refer to http://education.[employer].HolyTransaction/faq/AUQ814 (This link is being provided for informational/ educational purposes only.) The performance of this assay has not been clinically validated in patients less than 2 years old. Blood Venous blood specimen / Unknown 09/22/2022 10:47 AM EST 09/22/2022 10:47 AM EST Narrative [facility] - 09/24/2022 1:35 PM EST FASTING:NO FASTING: NO [facility] ASSISTANT WRESTLING COACH LAB BLOOD ORDERABLES Final Re sult [facility] [address], [place] [address] [employer] [place] [facility] [address] [facility], ([address]) [place] [address] from Last 3 Months or Most Recently Relevant to Health Maintenance Insurance [facility] STANDARD [employer] CARE Care Teams Tube Handler Relationship Specialty Start Date End Date [place] FNP [address] [place] [address] PCP - General Family Medicine 09/22/22 Yasmany MARTINA 03/04/25
--- OUTSIDE RECORDS SUMMARY | 2025-08-16 18:45 | XMS_ITS | Clinical Summary ---
Author Organization [facility] Address [address] [place] [address] Care Team Providers Care Traveling Auditor Name Role Phone Danuta Valentinfer Edward PEÑA Primary Care Provider [phone] Surgical History Surgery Date Site/Laterality Comments OTHER SURGICAL HISTORY Left PROCEDURE: [place] ARTHROSCOPY HIP DIAGNOSTIC W/WO SYNOVIAL BYP SPX [...] on file Sexual Orientation Not on file Last Filed Vital Signs Vital Sign Reading [...] Health Maintenance Due Date Last Done Comments Colorectal Cancer Screening: Colonoscopy 1973 DTaP,Tdap,and Td Vaccines (1 - Tdap) 1992 Hepatitis B Vaccines (1 of 3 - 19+ 3-dose series) 1992 Pneumococcal Vaccine: 50+ Ye ars (1 of 2 - PCV) 1992 Cholesterol Screening (Lipid Panel) 07/29/2022 HIV Screening 07/29/2022 Hepatitis C Screening 07/29/2022 Social Influencers of Health Screening 07/29/2022 Zoster Vaccines (1 of 2) 2023 Depression Screening 08/30/2024 COVID-19 Vaccine (1 - 2024-2 6 season) 2025 Influenza Vaccine (#1) 2025 RSV Immunization Adult Patie nts (1 - 1-dose 75+ series) 2048 HIB Vaccines Aged Out No longer eligi [...] Documents on File Type Date Recorded Patient Supervisor Labor Gang Expl anation Health Care Decision (hx) 05/01/2018 [...] (hx) 05/01/2018 AD RINALDI DIRECTIVE Care Teams Traveling Auditor Relationship Specialty Start Date End Date Charo Valentin DO [address] [place] [address] [facility] - General 02/27/11
--- OUTSIDE RECORDS SUMMARY | 2025-08-16 18:45 | XMS_ITS | Encounter Summary ---
Author Organization [employer] Address [address] [facility] 7t [place] [address] Care Team Providers Care Sample Card Maker Name Role Phone Malaika Nuñez [facility] Primary Care Provider [phone] Reason for Visit * Reason Comments Med Refill Encounter Details Date Type Department Care Team (Late st Contact Info) Description 03/07/2024 Refill [facility] [address] [place], [place] [phone] [facility] [address] [place] [address] Chronic left hip pain Social History Tobacco [...] Description 09/03/2025 1:00 PM EST Office Visit [facility] [address] [place] [address] Malaika Nuñez FNP [address] [place] [address] documented as of this encounter Visit Diagnoses Diagnosis Chronic left hip pain documented in this encounter Additional Health Concerns Assessment Noted Time PHQ-9 Depression Total Score: 0 11/05/19 24 1:06 PM EST documented as of this encounter Care Teams Sample Card Maker Relationship Specialty Start Date End Date Malaika Nuñez FNP [address] [place] [address] PCP - General Family Medicine 09/22/22 Yasmany WHITFIELD 03/04/25 documented as of this encounter
--- OUTSIDE RECORDS SUMMARY | 2025-08-16 18:45 | XMS_ITS | Encounter Summary ---
Author Organization [employer] Address [address] [facility] 7t [place] [address] Care Team Providers Care Hide And Skin Classer Name Role Phone Malaika Nuñez [facility] Primary Care Provider [phone] Reason for Visit * Reason Comments Med Refill Encounter Details Date Type Department Care Team (Late st Contact Info) Description 07/07/2025 Refill [facility] [address] [place] [address] [facility] [address] [place] [address] Chronic left hip pain Social History Tobacco [...] Description 09/03/2025 1:00 PM EST Office Visit [facility] [address] [place] [address] Malaika Nuñez FNP [address] [place] [address] documented as of this encounter Visit Diagnoses Diagnosis Chronic left hip pain documented in this encounter Additional Health Concerns Assessment Noted Time PHQ-9 Depression Total Score: 0 06/18/20 25 9:30 AM EDT documented as of this encounter Care Teams Hide And Skin Classer Relationship Specialty Start Date End Date Malaika Nuñez FNP [address] [place] [address] PCP - General Family Medicine 09/22/22 Yasmany A 03/04/25 documented as of this encounter
== END 2025-08-16 15:08 | disposition home or self-care (01) ==
LOC: HO.HVS 14:35
PROVIDERS: PCP Registered Nurse; Visit Provider Surgery Vascular Surgery
DX: I83.12 Varicose veins of left lower extremity with inflammation (principal)
CPT/HCPCS: 99214

== ENCOUNTER → 2025-08-16 14:35 | Outpatient (BNVA) | payer OTHER, SELFPAY | PROVIDERS: PCP Registered Nurse; Visit Provider Surgery Vascular Surgery | DX: I83.12 Varicose veins of left lower extremity with inflammation (principal) | CPT/HCPCS: 99212 ==